=== PATIENT | male | born 1970 | race Caucasian/White ===

== ENCOUNTER 2017-12-24 08:22 | Emergency (ER) | payer MEDICAID, SELFPAY ==
[2017-12-24 08:23] VITALS: BP 120/83; PULSE 66; RESP 15; TEMP 36.6; O2SAT 95; BMI 34.0
[2017-12-24] MEDS: Ondansetron ODT 4 MG Tablet 8 MG PO (08:57)
--- NOTE | 2017-12-24 09:06 | ED.DCSUM_ITS ---
History of Present Illness Chief Complaint: Dizziness Informant: Patient Onset: Today Context: Sudden Onset - upon waking up this AM about 2 hrs ago Timing: Continuous Quality: off-balance, movement, lightheaded Location: head Current Severity: Moderate Maximum Severity: Severe Worsened by: trying to walk Relieved by: remaining still Associated Symptoms: nausea. feeling high. Narrative: Patient has been feeling dizzy this morning, this resulted in a couple of minor falls, 1 of them was sliding down the steps in his house, carpeted, sustaining an abrasion to his back but he denies any injury. When walking he feels ataxic/ off balance. He has had no alcohol or drugs, but he took his first dose of the new medication at 2:00 this morning, terazosin, which is Dr. hurtado added to his list of medications for better blood pressure control. He is already on amlodipine 5 mg once daily. He has been compliant with his medications. He denies taking any over the counter medications recently. He denies headache, ear pain, tinnitus, chest discomfort, palpitations, dyspnea, peripheral neurologic symptoms focally. He arrives by ambulance because he feels awful and states there is no way I could have driven. - Past Medical History (1) HTN (hypertension) Status: Chronic (2) GERD (gastroesophageal reflux disease) Status: Chronic (3) Migraine Status: Chronic (4) Panic disorder Status: Chronic Past Medical History - Allergies and Home Meds Allergies/Adverse Reactions: Allergies amoxicillin [Amoxicillin] Allergy (Verified 09/01/17 11:30) Rash naproxen Adverse Reaction (Verified 09/01/17 11:30) Upset Stomach triamox Allergy (Uncoded 09/01/17 11:30) Rash Home Medications: Home Medications Medication Instructions Recorded Amlodipine [Norvasc] 10 mg PO DAILY 10/28/16 Clonazepam [Klonopin] 0.5 mg PO BID 10/28/16 Famotidine [Pepcid] 40 mg PO DAILY 10/28/16 Gabapentin [Neurontin] 300 mg PO BID 10/28/16 Etodolac [Lodine] 300 mg PO TIDCM #30 capsule 02/19/17 Chlorthalidone 25 mg PO DAILY 12/24/17 Terazosin HCl 10 mg PO QHS 12/24/17 Venlafaxine HCl [Effexor] 25 mg PO TID 12/24/17 Primary Care Physician: Curtis Mcdonald MD [Primary Care Provider] - Surgical History: cholecystectomy, - - Hernia repair, reports heart cath in the past Lives: Spouse/ Significant Other Smoking Status: Never smoker - chews tobacco regularly - Family History Maternal Family History: Reports: Cancer Paternal Family History: Reports: Hypertension Review of Systems General: Denies: Chills, Fever, Sweats Eyes: Denies: Visual changes - bilaterally, Diplopia ENT: Denies: Bilateral ear pain, Sore throat Cardiovascular: Denies: Chest pain, Palpitations Respiratory: Denies: Dyspnea, Cough, Dyspnea on exertion, Orthopnea Gastrointestinal: Reports: Nausea. Denies: Abdominal pain, Vomiting, Diarrhea, Melena, Hematochezia Genitourinary: Denies: Dysuria, Hematuria, Frequency Musculoskeletal: Reports: Back pain - chronic, no different. Denies: Neck pain , Extremity Pain Skin: Reports: Abrasions. Denies: Rash Neurological: Denies: Headache, Weakness, Numbness Psych: Reports: Anxiety. Denies: Suicidal thoughts, Suicidal ideations Endocrine: Denies: Polyuria, Polydipsia Hematologic: Denies: Easy bruising, Easy bleeding Allergy: Denies: Swelling of the mouth, Swelling of the tongue Physical Exam Vital Signs/Narrative: Vital Signs Temp Pulse Resp BP Pulse Ox 12/24/17 08:23 97.8 F 66 15 120/83 H 95 General: Well nourished, Well developed Head: Normocephalic, Atraumatic Eyes: Perrl, EOMI - w/o nystagmus ENT: Moist mucous membranes, No rhinorrhea, TM's clear. Negative for: Sinus tenderness Neck: Supple, Nontender, No lymphadenopathy Cardiovascular: Regular rate, Regular rhythm, No murmurs. Negative for: Tachycardia Respiratory: No distress, CTA bilaterally, Chest nontender Abdomen: Soft, Nontender, Nondistended, Normal bowel sounds Back: Nontender, - - superficial NT abrasion. Negative for: Spinal tenderness Extremities: Nontender, No edema Skin: Normal color, No rash Neurological: Alert, Oriented x3, Cranial nerves II-XII grossly intact, Normal Strength, Normal Sensation, Normal DTR, - - nml HTS and FTN bilaterally. Psychological: Normal affect Diagnostic/Tx/Re-eval - Rhythm Strip Rhythm Strip: Sinus Rhythm Rate: 65 Ectopy: None - Medical Decision Making Patient stood up for orthostatics and became hypotensive and near syncopal, I think all of this is related to the new alpha vanita that he just took the first dose of, as this is a common side effect. He was given half a liter of IV fluid but still had symptoms and orthostasis so he was given another liter. He is feeling better now. He was advised to go home and rest, he states he does not wish to retake any of this medication, so he was advised to follow-up with his doctor as they may need to sort out which medication for him. ED Disposition - Plan for ED Patient: Disposition: Home or Assisted Living Chief Complaint: Dizziness Diagnosis: Orthostatic hypotension, Medication adverse effect Instructions: ED Hypotension Orthostatic Referrals: Curtis Mcdonald MD [Primary Care Provider] - 1-2 Days if not improving
[2017-12-24] MEDS: Meclizine HCl 25 MG Tablet PO (09:13)
[2017-12-24 09:56] VITALS: BP 104/71; BP 72/47; BP 97/66; PULSE 63; PULSE 67; PULSE 79
[2017-12-24] MEDS: 0.9% Normal Saline 1,000 ML 999 ML IV (10:35)
[2017-12-24 11:20] VITALS: BP 118/80; BP 134/76; BP 148/83; PULSE 105; PULSE 69; PULSE 82
[2017-12-24] MEDS: 0.9% Normal Saline 1,000 ML 500 ML IV (11:58)
[2017-12-24 13:31] VITALS: BP 152/90; PULSE 75; RESP 16
[2017-12-24 14:01] VITALS: BP 150/85; PULSE 74; RESP 16
== END 2017-12-24 14:14 | disposition home or self-care (01) ==
PROVIDERS: Emergency Provider Emergency Medicine; Family Provider Internal Medicine; PCP Internal Medicine
DX: I95.2 Hypotension due to drugs (principal); T44.6X5A Adverse effect of alpha-adrenoreceptor antagonists, initial encounter; Y92.9 Unspecified place or not applicable; I10 Essential (primary) hypertension; G43.909 Migraine, unspecified, not intractable, without status migrainosus; F41.0 Panic disorder [episodic paroxysmal anxiety]; K21.9 Gastro-esophageal reflux disease without esophagitis; Z72.0 Tobacco use
CPT/HCPCS: 99285; J7030; A4216

== ENCOUNTER 2018-04-09 11:06 | Emergency (ER) | payer MEDICAID, SELFPAY ==
[2018-04-09 11:07] VITALS: BP 166/102; PULSE 65; RESP 16; TEMP 36.3; O2SAT 99; BMI 33.3
[2018-04-09 12:02] VITALS: BP 159/104
--- NOTE | 2018-04-09 12:15 | ED.VISSUMM ---
- ER Visit Summary Date of Service: 04/09/18 Chief Complaint: Acute on chronic hypertension and out of his blood pressure medication History of Present Illness: The patient is a 47 M history of chronic hypertension. Patient is on Norvasc generic 5 mg a day. States he has been out of his medication and his blood pressure is elevated. He denies any headache or chest pain. He denies other symptoms. Physical Examination: Vital signs initial blood pressure is 159/104. It has been repeated it is 149/101. He does not look septic toxic in any acute distress. H EENT exam unremarkable. Pupils round reactive light. Extra motions are intact. No facial droop. Normal speech. Neck nontender. Lungs clear to auscultation bilaterally. Heart regular rhythm no murmur rate about 65. Abdomen soft nontender normal bowel sounds no peritoneal signs. Moving all 4 extremities. Neurovascular intact. 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 Dorsi plantar flexion intact. Fingertip to nose within normal limits. Neurologic exam normal. NIH is 0. Test Results: None Emergency Department Course and Treatment: Acute on chronic hypertension. Patient be treated with 1 p.o. Norvasc 5 mg. Discharged home with a new prescription. Instructed to follow-up with his doctor. Treatment Plan: Blood pressure medications as prescribed and follow-up with his primary. Disposition: Discharge Impression: Acute on chronic hypertension Out of blood pressure medication This note was generated with [employer] dictation software. It may contain incorrect words, spelling, and punctuation that were not noted in review of the chart prior to signing ED Disposition - Plan for ED Patient: Chief Complaint: Hypertension Referrals: Curtis Mcdonald MD [Primary Care Provider] -
--- NOTE | 2018-04-09 12:17 | ED.DEP ---
ED Disposition - Plan for ED Patient: Disposition: Home or Assisted Living Chief Complaint: Hypertension Instructions: ED HTN Established Prescriptions: Amlodipine Besylate [Norvasc] 5 mg PO DAILY #30 tab Referrals: Curtis Mcdonald MD [Primary Care Provider] - 1-2 Weeks Additional Instructions: One blood pressure medication daily. Log your blood pressures twice daily. Follow-up with primary care physician in 1-2 weeks to ensure that medications are controlling her pressure appropriately.
[2018-04-09] MEDS: amLODIPine 5 MG Tablet PO (12:31)
[2018-04-09 12:38] VITALS: BP 178/110; PULSE 61; RESP 16; O2SAT 99
== END 2018-04-09 12:43 | disposition home or self-care (01) ==
PROVIDERS: Emergency Provider Emergency Medicine; Family Provider Internal Medicine; PCP Internal Medicine
DX: I10 Essential (primary) hypertension (principal); K21.9 Gastro-esophageal reflux disease without esophagitis; E78.00 Pure hypercholesterolemia, unspecified
CPT/HCPCS: 99283

== ENCOUNTER 2018-05-19 14:19 | Emergency (ER) | payer MEDICAID, SELFPAY ==
[2018-05-19 14:20] VITALS: BP 158/84; PULSE 62; RESP 18; TEMP 36.6; O2SAT 99; BMI 31.6
[2018-05-19] MEDS: Ibuprofen 600 MG Tablet PO (15:44)
[2018-05-19] MEDS: predniSONE 20 MG Tablet 60 MG PO (15:45)
[2018-05-19 15:47] LABS: Bacteria 0 SEEN /hpf (None Seen); Mucous, Urine 0 SEEN /hpf (<or=2+); Squamous Epithelial Cells - UA 0 SEEN /hpf (0-5)
[2018-05-19 15:51] LABS: Color, Urine Yellow (Yellow); Glucose, Dipstick Normal (Normal); Ketone-Dipstick Negative (Negative); Leukocyte Esterase-Dipstick Negative /ul (Negative); Nitrite-Dipstick Negative (Negative); Occult Blood-Urine 10 /ul (Negative); Protein-Dipstick 15 mg/dl (Negative); Specific Gravity, Urine 1.025 (1.002-1.030); Urine Bilirubin Dipstick 6 mg/dL (Negative); Urine Clarity Clear (Clear); Urine Urobilinogen Normal (Normal)
[2018-05-19 15:58] LABS: Red Blood Cells-Urine 0-5 SEEN /hpf (0-5); White Blood Cells 0-5 SEEN /hpf (0-5)
--- NOTE | 2018-05-19 16:25 | ED.DCSUM_ITS ---
- ER Visit Summary Date of Service: 05/19/18 Chief Complaint: Back pain History of Present Illness: The patient is a 47 M with a 2-week history of right-sided lower back pain. It does radiate somewhat into the right thigh. He denies urinary symptoms. He denies any known injury. Pain is worse with moveme nt. Physical Examination: Vital signs unremarkable. Patient sleeping comfortably but easily awakens I enter the room. Head neck examination normal. Heart is regular rate and rhythm. Lung sounds are clear. Abdomen is soft nontender. No palpable masses are noted. Back examination reveals reproducible tenderness in the right lumbar paraspinal muscles and in the right CVA region. Lower extremity examination reveals normal strength and sensation. He has 1+ bilateral patellar reflexes. He has strong distal pulses. Test Results: Urinalysis is obtained and unremarkable. Emergency Department Course and Treatment: Patient is given ibuprofen, Flexeril, and prednisone. On repeat evaluation he is sleeping comfortably. He will be given prescriptions for the same. Treatment Plan: [] Disposition: Discharge Impression: 1. Right lumbar paraspinal strain This note was generated with [employer] dictation software. It may contain incorrect words, spelling, and punctuation that were not noted in review of the chart prior to signing ED Disposition - Plan for ED Patient: Chief Complaint: Back Referrals: Curtis Mcdonald MD [Primary Care Provider] -
--- NOTE | 2018-05-19 16:25 | ED.DEP ---
ED Disposition - Plan for ED Patient: Disposition: Home or Assisted Living Chief Complaint: Back Instructions: ED Sprain Strain Lumbar Prescriptions: Ibuprofen 600 mg PO TID PRN PRN #14 tablet PRN Reason: Pain Prednisone [Deltasone] 40 mg PO DAILY #10 tablet Cyclobenzaprine [Flexeril] 10 mg PO TID PRN #20 tablet PRN Reason: Muscle Spasm Referrals: Curtis Mcdonald MD [Primary Care Provider] - 1-2 Weeks
[2018-05-19 16:37] VITALS: BP 161/100; PULSE 68; RESP 17
== END 2018-05-19 16:38 | disposition home or self-care (01) ==
PROVIDERS: Emergency Provider Emergency Medicine; Family Provider Internal Medicine; PCP Internal Medicine
DX: S39.012A Strain of muscle, fascia and tendon of lower back, initial encounter (principal); X58.XXXA Exposure to other specified factors, initial encounter; Y93.9 Activity, unspecified; Y92.89 Other specified places as the place of occurrence of the external cause; Y99.9 Unspecified external cause status; I10 Essential (primary) hypertension; J44.9 Chronic obstructive pulmonary disease, unspecified; G47.33 Obstructive sleep apnea (adult) (pediatric); K21.9 Gastro-esophageal reflux disease without esophagitis; Z87.891 Personal history of nicotine dependence
CPT/HCPCS: 81001; 99284

== ENCOUNTER 2018-10-02 16:29 | Emergency (ER) | payer MEDICAID, SELFPAY ==
[2018-10-02 16:29] VITALS: BP 185/112; PULSE 79; RESP 16; TEMP 36.7; O2SAT 98; BMI 32.3
--- NOTE | 2018-10-02 17:02 | ED.DCSUM_ITS ---
- ER Visit Summary Date of Service: 10/02/18 Chief Complaint: Possible spider bite History of Present Illness: The patient is a 48 M who presents with possible spider bite to his left chest that occurred 3 days ago. Patient noted some redness and swelling to the area. Patient denies any fevers or chills. Patient denies any discharge or drainage. Patient states the pain is getting worse. Patient describes pain as sharp. Patient denies any paresthesias or weakness. Patient denies any shortness of breath. Patient denies any nausea or vomiting. Physical Examination: Vital signs are stable except for an elevated blood pressure of 185/112. Patient is in no acute distress. Patient is afebrile. Skin is warm dry. There is erythema and warmth over the left breast area near the lateral aspect of the nipple. There is no fluctuance. There is no discharge or drainage. Heart was regular rate and rhythm. Lungs are clear and equal bilaterally. Abdomen is soft and nontender. Patient is somewhat anxious on exam. Hernial nerves II through XII are intact. There are no focal motor or sensory deficits noted. The remaining physical exam is within normal limits. Emergency Department Course and Treatment: The area is not amenable to incision and drainage at this time. Patient was instructed to use warm compresses to the area. Patient was given a prescription for clindamycin. Patient was instructed to follow-up with his primary care physician in 5-7 days. Patient understood and was agreeable with the plan. All questions were answered. Disposition: Discharge home Impression: Cellulitis left chest This note was generated with [employer] dictation software. It may contain incorrect words, spelling, and punctuation that were not noted in review of the chart prior to signing ED Disposition - Plan for ED Patient: Disposition: Home or Assisted Living Diagnosis: Cellulitis of chest wall Instructions: ED Infec Skin Cellulitis Prescriptions: Clindamycin HCl [Cleocin] 300 mg PO Q6H #40 capsule Referrals: Curtis Mcdonald MD [Primary Care Provider] -
[2018-10-02 17:16] VITALS: BP 172/111; PULSE 66; RESP 16; O2SAT 98
== END 2018-10-02 17:21 | disposition home or self-care (01) ==
PROVIDERS: Emergency Provider Emergency Medicine; Family Provider Internal Medicine; PCP Internal Medicine
DX: L03.313 Cellulitis of chest wall (principal); K21.9 Gastro-esophageal reflux disease without esophagitis; I10 Essential (primary) hypertension; J44.9 Chronic obstructive pulmonary disease, unspecified; Z72.0 Tobacco use
CPT/HCPCS: 99282

== ENCOUNTER 2021-08-26 16:01 | Emergency (ER) | payer MEDICAID, SELFPAY ==
[2021-08-26 16:02] VITALS: BP 129/88; PULSE 94; RESP 14; TEMP 36.9; O2SAT 100; BMI 34.1
--- NOTE | 2021-08-26 16:55 | EX.ED.VIS.HA ---
HPI History of Present Illness Chief Complaint: Headache Informant: patient Onset/Context/Timing Onset: Days (2) Context: Gradual Timing: Continuous Quality -Headache: Positive for Similar Prior Headaches, Dull and Tightness Location: Generalized Worsened by: Nothing Relieved by: Laying down Associated Symptoms/Injury Associated Symptoms: Positive for Nausea and Sore Throat; Negative for Fever, Vomiting, Sinus Pressure, Numbness, Tingling, Preceding Aura, Visual Changes, Blurred Vision, Photophobia and Visual Loss Narrative Narrative: Patient presents with headache that began 2 days ago. Patient states that it came on gradually. Patient states it feels similar to prior migraine headaches. Patient describes it as a tightness and dull aching. Patient states it is generalized across his head. Patient states that has been constant. Patient states that he gets somewhat better when he lays down. Patient states nothing makes it worse. Patient admits to some nausea but denies any vomiting. Patient admits to a sore throat but denies any sinus pressure. Patient admits to a slight cough. Patient states he was diagnosed with COVID-19 approximately 2-1/2 weeks ago and his symptoms from this are improving. [facility] Medical History Anxiety Depressed Migraines Home Medications amlodipine 5 mg PO DAILY 10/28/16 [History Last Taken 12/23/17] clonazepam 0.5 mg PO BID PRN 10/28/16 [History Last Taken 12/23/17] famotidine [Pepcid] 40 mg PO DAILY 10/28/16 [History Last Taken 12/23/17] gabapentin [Neurontin] 300 mg PO BID 10/28/16 [History Last Taken 12/23/17] chlorthalidone 25 mg PO DAILY 12/24/17 [History Last Taken 12/23/17] terazosin 10 mg PO QHS 12/24/17 [History Last Taken 12/24/17] venlafaxine 25 mg PO TID 12/24/17 [History Last Taken 12/23/17] amlodipine 5 mg PO DAILY #30 tab 04/09/18 [Rx Last Taken Unknown] etodolac 500 mg PO TIDCM 04/09/18 [History Last Taken Unknown] ibuprofen 600 mg PO TID PRN PRN #14 tab 05/19/18 [Rx Last Taken Unknown] Allergy/AdvReac Type Severity Reaction Status Date / Time amoxicillin [Amoxicillin] Allergy Rash Verified 08/26/21 16:03 naproxen AdvReac Upset Verified 08/26/21 16:03 Stomach triamox Allergy Rash Uncoded 08/26/21 16:03 Social History Smoking Status: Never smoker ROS ROS ED Constitutional Constitutional ED: Denies chills or fever(s) Eyes Eyes: Denies blurry vision or change in vision ENT ENT ED: Reports sore throat; Denies rhinorrhea Cardiovascular Cardiovascular: Denies chest pain or palpitations Respiratory/Chest Respiratory/Chest: Reports cough; Denies dyspnea Gastrointestinal Gastrointestinal: Reports nausea; Denies vomiting Genitourinary Genitourinary ED: Denies dysuria or hematuria Musculoskeletal Musculoskeletal: Denies back pain or neck pain Integumentary Denies abscess or rash Neurologic Neurologic: Reports headache(s); Denies weakness Allergic/Immunologic Allergic/Immunologic ED: Denies mouth swelling or urticaria EXAM Physical Exam Const Vital Signs: 08/26/21 16:02 Temperature 98.4 F Temperature Source Temporal Pulse Rate 94 Respiratory Rate 14 Blood Pressure 129/88 H Blood Pressure Mean 101 Pulse Ox 100 Oxygen Delivery Method Room Air Positive well nourished and well developed General Appearance ED: well developed HEENT Reports moist mucous membranes Neck supple and no JVD Resp normal respiratory effort and clear to auscultation bilaterally Cardio regular rate, regular rhythm and no murmurs GI normal to inspection, nondistended, normoactive bowel sounds and non-tender Palpation: soft Extremity normal to inspection General Extremety ED: Negative for edema or tenderness General Extremity: Negative for edema Neuro oriented x3, CN's II-XII intact bilaterally and no sensory deficits noted Sensorium / Orientation: alert Motor Exam: strength 5/5 throughout Psych mental status grossly normal Skin no rashes or lesions noted MDM MDM MDM Narrative Medical decision making narrative: Patient was given IV fluids, Reglan, and Benadryl. Patient is feeling better on reevaluation. Patient wants to go home. Patient was instructed to rest in a dark quiet room. Patient was instructed to follow-up with his primary care physician in 5 to 7 days. Patient understood and was agreeable with the plan. All questions were answered. Discharge Plan Triage Chief Complaint: Headache ED Provider: Josse Winslow Dx/Rx/DC Orders Clinical Impression: Migraine Instructions: ED, Migraine (Classical) Prescriptions: No Action famotidine [Pepcid] 40 MG tablet 40 mg PO DAILY RF: 0 clonazepam 0.5 MG tablet 0.5 mg PO BID PRN (Reason: Anxiety) RF: 0 amlodipine 10 MG tablet 5 mg PO DAILY RF: 0 gabapentin [Neurontin] 300 MG capsule 300 mg PO BID RF: 0 venlafaxine 25 MG tablet 25 mg PO TID RF: 0 chlorthalidone 25 MG tablet 25 mg PO DAILY RF: 0 terazosin 10 MG capsule 10 mg PO QHS RF: 0 etodolac 300 MG capsule 500 mg PO TIDCM RF: 0 amlodipine 5 MG tablet 5 mg PO DAILY Qty: 30 RF: 0 ibuprofen 600 MG tablet 600 mg PO TID PRN PRN (Reason: Pain) Qty: 14 RF: 0 Primary Care Provider: Curtis Mcdonald Referrals: Curtis Mcdonald MD [Primary Care Provider] - 5-7 Days Disposition Disposition: Home, Self Care
[2021-08-26] MEDS: 0.9% Normal Saline 1,000 ML 999 ML IV (17:12)
[2021-08-26] MEDS: DiphenhydrAMINE 50 MG/ML Syringe 25 MG IV (17:12)
[2021-08-26] MEDS: Metoclopramide 10 MG/2 ML Vial IV (17:13)
[2021-08-26 18:32] VITALS: PULSE 78; RESP 14
== END 2021-08-26 18:32 | disposition home or self-care (01) ==
PROVIDERS: Emergency Provider Emergency Medicine; PCP Internal Medicine; Visit Provider Emergency Medicine
DX: G43.909 Migraine, unspecified, not intractable, without status migrainosus (principal); J02.9 Acute pharyngitis, unspecified; F32.A Depression, unspecified; F41.9 Anxiety disorder, unspecified; Z79.899 Other long term (current) drug therapy; R05.9 Cough, unspecified
CPT/HCPCS: 96361; 96374; 96375; 99283

== ENCOUNTER 2021-12-13 17:17 | Emergency (ER) | payer MEDICAID, SELFPAY ==
[2021-12-13 17:18] VITALS: BP 120/79; PULSE 79; RESP 16; TEMP 35.9; O2SAT 98; BMI 33.3
--- NOTE | 2021-12-13 17:19 | RAD_ITS ---
STUDY: RIGHT HAND X-RAY SERIES--3 VIEWS OF 1730 HOURS ON 12/13/2021 REASON FOR EXAM: T1-year-old male with injury to the right hand. TECHNIQUE: 3 view(s) of the hand. COMPARISON: 11/06/2016, which was normal. FINDINGS: There is no evidence of fractures or dislocations. 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 There is calcification in the navicular-greater multangular wrist joint. There is no evidence of soft tissue abnormalities. RAD/Hand Min 3 Views IMPRESSION: 1. No fractures or dislocations. 2. 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 3. Degenerative calcification in the first intercarpal joint of the wrist. 4. No evidence of soft tissue abnormalities. Electronically Signed: Ralph Person MD at 18:00 EDT ,
--- NOTE | 2021-12-13 17:58 | EDS_ITS ---
HPI History of Present Illness Chief Complaint: Upper Extremity Injury Narrative Narrative: 51-year-old [id number] male presents with pain in his right hand. He states last night the first 3 digits were painful. He tried to sit on them and stretch them out without relief. Today he was holding his cell phone with his right hand and then developed pain in the knuckles of his middle finger. He states if he moves it too much he occasionally gets pain and tingling in the first 3 digits as well. He had carpal tunnel around 5 years ago and had a steroid injection which helped and he has not had pain since. He no longer follows with an orthopedic physician. No history of recent trauma. No fever, chills, infectious symptoms. He does report having previous right wrist fracture and some slight decreased range of motion since that injury. [facility] Medical History Anxiety Depressed Migraines Home Medications amlodipine 5 mg PO DAILY 10/28/16 [History Last Taken 12/23/17] clonazepam 0.5 mg PO BID PRN 10/28/16 [History Last Taken 12/23/17] famotidine [Pepcid] 40 mg PO DAILY 10/28/16 [History Last Taken 12/23/17] gabapentin [Neurontin] 300 mg PO BID 10/28/16 [History Last Taken 12/23/17] chlorthalidone 25 mg PO DAILY 12/24/17 [History Last Taken 12/23/17] terazosin 10 mg PO QHS 12/24/17 [History Last Taken 12/24/17] venlafaxine 25 mg PO TID 12/24/17 [History Last Taken 12/23/17] amlodipine 5 mg PO DAILY #30 tab 04/09/18 [Rx Last Taken Unknown] etodolac 500 mg PO TIDCM 04/09/18 [History Last Taken Unknown] ibuprofen 600 mg PO TID PRN PRN #14 tab 05/19/18 [Rx Last Taken Unknown] naproxen 500 mg PO BID PRN #20 tab 12/13/21 [Rx Last Taken Unknown] Allergy/AdvReac Type Severity Reaction Status Date / Time amoxicillin [Amoxicillin] Allergy Rash Verified 08/26/21 16:03 naproxen AdvReac Upset Verified 08/26/21 16:03 Stomach triamox Allergy Rash Uncoded 08/26/21 16:03 Social History Smoking Status: Never smoker ROS ROS ED ROS Narrative Constitutional: Negative for fever, chills, malaise. Eyes: Negative for visual change. ENT: Negative for sore throat, ear pain, rhinorrhea. CVS: Negative for palpitations, chest pain, syncope. Respiratory: Negative for shortness of breath, cough. GI: Negative for abdominal pain, nausea, vomiting. : Negative for dysuria, hematuria or frequency. Neuro: Positive for paresthesia. Negative for motor dysfunction. Skin: Negative for rash, abscess, or wound. Musc: Positive for right hand pain. No swelling or trauma. Heme: Negative for easy bruising, bleeding, lymphadenopathy. EXAM Physical Exam Narrative Exam Narrative: CONST: Patient sitting in no acute distress. EYES: Normal inspection. NECK: Normal inspection. RESP: No respiratory distress, CTAB. CVS: Regular rate and rhythm, no murmur, no gallop. SKIN: Color normal, no rash, warm, dry, intact. EXTREMITIES: Normal appearance of bilateral upper extremities, full range of motion of right hand and digits with no bony tenderness. Motor and sensation intact in median, ulnar, radial distributions. 2+ radial pulse and capillary refill less than 2 seconds in all digits. He has reproducible tingling/pain with Tinel's sign. NEURO: Oriented x4. PSYCH: Normal affect. Const Vital Signs: 12/13/21 17:18 Temperature 96.7 F L Temperature Source Temporal Pulse Rate 79 Respiratory Rate 16 Blood Pressure 120/79 Blood Pressure Mean 92 Pulse Ox 98 Oxygen Delivery Method Room Air MDM MDM MDM Narrative Medical decision making narrative: Patient presents with atraumatic pain in his right hand especially his middle finger. He reports history of intermittent pain and tingling in the first 3 digits. He appears well nontoxic. Afebrile and vital signs within normal limits. Right upper extremity is normal on inspection with no swelling or overlying skin changes. He has full range of motion and is neurovascularly intact. Based on exam there is no indication for gout or infectious process such as septic arthritis. He did have reproducible pain with Tinel's sign and this is most likely underlying carpal tunnel syndrome he will be prescribed naproxen and given a cock up wrist splint and orthopedic follow-up. He was discharged in stable condition. Diagnoses 1. Right hand pain 2. Carpal tunnel syndrome, right hand Discharge Plan Triage Chief Complaint: Upper Extremity Injury ED Provider: Pat Prieto Dx/Rx/DC Orders Clinical Impression: Acute carpal tunnel syndrome of right wrist Instructions: Carpal Tunnel Syndrome Prevent Prescriptions: New naproxen 500 mg tablet 500 mg PO BID PRN Qty: 20 RF: 0 No Action famotidine [Pepcid] 40 MG tablet 40 mg PO DAILY RF: 0 clonazepam 0.5 MG tablet 0.5 mg PO BID PRN (Reason: Anxiety) RF: 0 amlodipine 10 MG tablet 5 mg PO DAILY RF: 0 gabapentin [Neurontin] 300 MG capsule 300 mg PO BID RF: 0 venlafaxine 25 MG tablet 25 mg PO TID RF: 0 chlorthalidone 25 MG tablet 25 mg PO DAILY RF: 0 terazosin 10 MG capsule 10 mg PO QHS RF: 0 etodolac 300 MG capsule 500 mg PO TIDCM RF: 0 amlodipine 5 MG tablet 5 mg PO DAILY Qty: 30 RF: 0 ibuprofen 600 MG tablet 600 mg PO TID PRN PRN (Reason: Pain) Qty: 14 RF: 0 Primary Care Provider: Curtis Mcdonald Referrals: Jeff Martinez DO [STAFF PHYSICIAN] - (Call the orthopedic doctor for an appointment to evaluate your right hand pain) Curtis Mcdonald MD [Primary Care Provider] - Disposition Disposition: Home, Self Care
== END 2021-12-13 18:32 | disposition home or self-care (01) ==
PROVIDERS: Emergency Provider Physician Assistant; PCP Internal Medicine; Visit Provider Physician Assistant
DX: G56.01 Carpal tunnel syndrome, right upper limb (principal); F32.A Depression, unspecified; F41.9 Anxiety disorder, unspecified
CPT/HCPCS: 73130; 99283

== ENCOUNTER 2022-02-02 16:04 | Emergency (ER) | payer MEDICAID, SELFPAY ==
[2022-02-02 16:05] VITALS: BP 119/85; PULSE 72; RESP 16; TEMP 36.8; O2SAT 99; BMI 31.6
--- NOTE | 2022-02-02 17:05 | EKG12_ITS ---
Test Reason : SOB Blood Pressure : / mmHG Vent. Rate : 062 BPM Atrial Rate : 062 BPM P-R Int : 168 ms QRS Dur : 108 ms QT Int : 426 ms P-R-T Axes : 034 016 037 degrees QTc Int : 432 ms Normal sinus rhythm Normal ECG Confirmed by HEAVEN VANESSA, MAYA ([id number]), assignment editor ASTRID GAMEZ ([id number]) on 02/05/2022 8:18:54 AM Referred By: TOBI Confirmed By:MAYA COLLADO MD
--- NOTE | 2022-02-02 17:06 | EX.ED.DYSGE1 ---
HPI History of Present Illness Chief Complaint: Dizziness Informant: patient Onset/Context/Timing Onset: Yesterday Context: Gradual Onset Current Severity: Mild Maximum Severity: Moderate Narrative Narrative: Genna presents with intermittent dizziness episodes since yesterday. He describes it as a lightheaded sensation. He first noticed it when he was out doing yard work he would feel intermittently lightheaded and states that his vision would seem off with the bright light from the sun. He denies chest pain or palpitations. He states today his arms just feel very heavy and weak. PFSH [facility] Medical History Anxiety Benign essential HTN Depressed GERD (gastroesophageal reflux disease) Migraines Panic disorder Home Medications amlodipine 10 mg tablet 5 mg PO DAILY 10/28/16 [History Last Taken 12/23/17] clonazepam 0.5 mg tablet 0.5 mg PO BID PRN Anxiety 10/28/16 [History Last Taken 12/23/17] gabapentin 300 mg capsule (Neurontin) 300 mg PO BID 10/28/16 [History Last Taken 12/23/17] ibuprofen 600 mg tablet 600 mg PO TID PRN PRN Pain #14 tabs 05/19/18 [Rx Last Taken Unknown] aspirin 325 mg tablet 325 mg PO DAILY 02/02/22 [History Last Taken Unknown] bupropion HCl 150 mg 24 hr tablet, extended release 150 mg PO DAILY 02/02/22 [History Last Taken Unknown] escitalopram oxalate 20 mg tablet 20 mg PO DAILY 02/02/22 [History Last Taken Unknown] hydrochlorothiazide 25 mg tablet 25 mg PO DAILY 02/02/22 [History Last Taken Unknown] losartan 100 mg tablet 100 mg PO DAILY 02/02/22 [History Last Taken Unknown] oxybutynin chloride 10 mg tablet,extended release 24 hr 10 mg PO DAILY 02/02/22 [History Last Taken Unknown] Allergy/AdvReac Type Severity Reaction Status Date / Time amoxicillin [Amoxicillin] Allergy Rash Verified 02/02/22 16:06 naproxen AdvReac Upset Verified 02/02/22 16:06 Stomach triamox Allergy Rash Uncoded 02/02/22 16:06 Social History Smoking Status: Never smoker ROS ROS ED Constitutional Constitutional ED: Denies chills or fever(s) Eyes Eyes: Reports change in vision; Denies discharge from eye(s) ENT ENT ED: Denies discharge from eye(s), rhinorrhea or sore throat Cardiovascular Cardiovascular: Denies chest pain or palpitations Respiratory/Chest Respiratory/Chest: Denies cough or dyspnea Gastrointestinal Gastrointestinal: Denies abdominal pain, diarrhea, nausea or vomiting Genitourinary Genitourinary ED: Denies difficulty urinating or dysuria Musculoskeletal Musculoskeletal: Denies back pain or extremity pain Integumentary Denies Abrasions or rash Neurologic Neurologic: Reports headache(s) and weakness Allergic/Immunologic Allergic/Immunologic ED: Denies lip swelling or urticaria EXAM Physical Exam Const Vital Signs: 02/02/22 16:05 02/02/22 16:37 02/02/22 18:39 Temperature 98.2 F Temperature Source Temporal Pulse Rate 72 81 Respiratory Rate 16 16 Respiratory Effort Normal Respiratory Pattern Normal Blood Pressure 119/85 H 121/79 H Blood Pressure Mean 96 93 Pulse Ox 99 99 Oxygen Delivery Method Room Air 02/02/22 20:23 Temperature Temperature Source Pulse Rate Respiratory Rate 16 Respiratory Effort Respiratory Pattern Blood Pressure Blood Pressure Mean Pulse Ox Oxygen Delivery Method Positive well nourished and well developed General Appearance ED: well developed HEENT Reports normocephalic and head/scalp atraumatic Eyes PERRL and EOMs intact bilaterally Neck supple Chest Wall inspection of chest normal and palpation of chest normal Resp normal respiratory effort and clear to auscultation bilaterally Cardio regular rate and regular rhythm GI normal to inspection, nondistended, normoactive bowel sounds Palpation: soft Back/Spine no CVA tenderness Extremity normal to inspection Neuro oriented x3 and no sensory deficits noted Sensorium / Orientation: alert Motor Exam: strength 5/5 throughout Psych mental status grossly normal Skin no rashes or lesions noted MDM MDM MDM Narrative Medical decision making narrative: Patient was given a liter IV fluid. Lab work, EKG obtained. Lab Data Attestation: I reviewed the patient's lab results. Labs: Laboratory Results - last 24 hr 02/02/22 02/02/22 02/02/22 17:25 17:25 18:00 WBC 3.8 L RBC 4.80 Hgb 15.3 Hct 44.0 MCV 91.7 MCH 31.9 MCHC 34.8 RDW Std Deviation 43.2 RDW Coeff of Mikael 12.8 Plt Count 77 L MPV 12.1 H Immature Gran % (Auto) 0.300 Neut % (Auto) 68.5 Lymph % (Auto) 20.8 Banner % (Auto) 8.0 Eos % (Auto) 1.1 Baso % (Auto) 1.3 H Absolute Neuts (auto) 2.6 Absolute Lymphs (auto) 0.78 L Nucleated RBC % 0 Differential Comment SCANNED Sodium Cancelled 138 Potassium Cancelled 3.3 L Chloride Cancelled 102 Carbon Dioxide Cancelled 29.0 Anion Gap Cancelled 7 BUN Cancelled 25 H Creatinine Cancelled 1.63 H Estim Creat Clear Calc Cancelled 46.64 Est GFR (MDRD) Af Amer Cancelled 58 L Est GFR (MDRD) Non-Af Cancelled 48 L BUN/Creatinine Ratio Cancelled 15.3 Glucose Cancelled 92 Calcium Cancelled 8.5 Total Bilirubin Cancelled 0.60 Direct Bilirubin Cancelled 0.17 AST Cancelled 15 ALT Cancelled 29 Alkaline Phosphatase Cancelled 81 Troponin I High Sens Cancelled 10 Total Protein Cancelled 6.8 Albumin Cancelled 3.6 Globulin Cancelled 3.2 02/02/22 20:15 WBC RBC Hgb Hct MCV MCH MCHC RDW Std Deviation RDW Coeff of Mikael Plt Count MPV Immature Gran % (Auto) Neut % (Auto) Lymph % (Auto) Banner % (Auto) Eos % (Auto) Baso % (Auto) Absolute Neuts (auto) Absolute Lymphs (auto) Nucleated RBC % Differential Comment Sodium Potassium Chloride Carbon Dioxide Anion Gap BUN Creatinine Estim Creat Clear Calc Est GFR (MDRD) Af Amer Est GFR (MDRD) Non-Af BUN/Creatinine Ratio Glucose Calcium Total Bilirubin Direct Bilirubin AST ALT Alkaline Phosphatase Troponin I High Sens 11 Total Protein Albumin Globulin EKG Initial EKG: Attestation: I personally reviewed and interpreted this EKG as follows: Interpretation: Sinus Rhythm (Sinus at 62 with no acute ischemia.) Treatment and Re-Evaluation Narrative: Patient's lab work reveals a low white count at 3.8. In light of this a COVID swab was obtained and is negative. Chemistry studies significant for potassium low at 3.3. This is replaced orally. BUN is 25 and creatinine is 1.63, slightly elevated over his prior lab values. He is given a full liter IV fluid for hydration. Troponin is unremarkable x2. On repeat evaluation patient does feel somewhat improved. He is still complaining of mild headache. He will be given a dose of Toradol which she has done well with in the past and discharged home. Return instructions are provided. Discharge Plan Triage Chief Complaint: Dizziness ED Provider: Adele Roberts Dx/Rx/DC Orders Clinical Impression: Weakness, Dehydration, Hypokalemia, Headache Instructions: ED Dehydration (Adult), ED Weakness (Uncertain Cause) Prescriptions: No Action clonazepam 0.5 MG tablet 0.5 mg PO BID PRN (Reason: Anxiety) amlodipine 10 MG tablet 5 mg PO DAILY gabapentin [Neurontin] 300 MG capsule 300 mg PO BID ibuprofen 600 MG tablet 600 mg PO TID PRN PRN (Reason: Pain) Qty: 14 0RF oxybutynin chloride 10 mg Tablet Extended Release 24hr 10 mg PO DAILY aspirin 325 mg Tablet 325 mg PO DAILY hydrochlorothiazide 25 mg Tablet 25 mg PO DAILY losartan 100 mg Tablet 100 mg PO DAILY escitalopram oxalate 20 mg Tablet 20 mg PO DAILY bupropion HCl 150 mg Tablet Extended Release 24 Hr 150 mg PO DAILY Primary Care Provider: Curtis Mcdonald Referrals: Curtis Mcdonald MD [Primary Care Provider] - 1-2 Weeks Disposition Disposition: Home, Self Care
[2022-02-02] MEDS: 0.9% Normal Saline 1,000 ML 1000 ML IV (17:28)
[2022-02-02 17:40] LABS: Absolute Lymphocyte Count 0.78 X10^3/uL (0.83-4.51); Absolute Neutrophil Count 2.6 X10^3/uL (2.0-7.7); Basophil# 0.05 X10^3/uL; Basophil% 1.3 % (0-1); Eosinophil# 0.04 X10^3/uL; Eosinophils% 1.1 % (0-5); Hemoglobin 15.3 g/dL (13.0-16.5); Lymphocyte # 0.78 X10^3/ul (0.83-4.51); Lymphocyte % 20.8 % (19-41); Mean Corp Hgb Conc 34.8 g/dL (32-36); Mean Corpuscular Hgb 31.9 pg (27.0-32.0); Mean Corpuscular Volume 91.7 fL (80-94); Mean Platelet Vol. 12.1 fl (6.2-12.0); NRBC Flagged by Analyzer 0 % (0-5); Neutrophil # 2.57 X10^3/uL (2.7-7.7); Neutrophil % 68.5 % (47-70); POSITIVE COUNT YES; Platelet Count 77 K/mm3 (150-450); RBC Distribution Width CV 12.8 % (11.6-14.6); RBC Distribution Width SD 43.2 fl (35.1-43.9); White Blood Count 3.8 K/mm3 (4.4-11.0)
[2022-02-02 17:55] LABS: Differential Indicated SCAN CRITERIA MET
[2022-02-02 18:19] LABS: Differential Comment SCANNED
[2022-02-02 18:28] LABS: AST(SGOT) 15 U/L (15-37); Alanine Aminotransfer ALT/SGPT 29 U/L (16-61); Albumin, Serum 3.6 g/dL (3.2-5.0); Alkaline Phosphatase 81 U/L (45-117); Anion Gap 7 (5-15); BUN 25 mg/dL (7-18); BUN/Creat Ratio 15.3 RATIO (10-20); Bilirubin, Direct 0.17 mg/dL (0.00-0.30); Calcium,Total 8.5 mg/dL (8.5-10.1); Chloride 102 mmol/L (98-107); Creatinine, Serum 1.63 mg/dL (0.70-1.30); EST Glomerular Filtration Rate 48 mL/min (>60); Est Glom Filt Rate - Afr Amer 58 mL/min (>60); Estimated Creatinine Clearance 46.64 ml/min; Globulin 3.2 g/dL (2.2-4.2); Glucose 92 mg/dL (74-106); Potassium 3.3 mmol/L (3.5-5.1); Protein, Total 6.8 g/dL (6.4-8.2); Sodium Level 138 mmol/L (136-145); Troponin-I HS (w/2H Reflex) 10 pg/mL (3.0-78.0)
[2022-02-02 18:39] VITALS: BP 121/79; PULSE 81; RESP 16; O2SAT 99
[2022-02-02] MEDS: Potassium Chloride Oral Tablet 20 MEQ 40 MEQ PO (19:45)
[2022-02-02 20:06] LABS: Reflex Troponin-HS? (from REC) Y
[2022-02-02 20:23] VITALS: RESP 16
[2022-02-02 20:53] LABS: Troponin-I HS 11 pg/mL (3.0-78.0)
[2022-02-02] MEDS: Ketorolac 30 MG/ML Syringe IV (21:18)
== END 2022-02-02 21:42 | disposition home or self-care (01) ==
PROVIDERS: Emergency Provider Emergency Medicine; PCP Internal Medicine; Visit Provider Emergency Medicine
DX: E86.0 Dehydration (principal); R51.9 Headache, unspecified; E87.6 Hypokalemia; I10 Essential (primary) hypertension; R42 Dizziness and giddiness; K21.9 Gastro-esophageal reflux disease without esophagitis
CPT/HCPCS: 80048; 80076; 84484; 85025; 87811; 93005; 96361; 96374; 99283; J7030; A4216

== ENCOUNTER 2022-04-14 23:29 | Emergency (ER) | payer MEDICAID, SELFPAY ==
[2022-04-14 23:29] VITALS: BP 149/93; PULSE 73; RESP 17; TEMP 36.6; O2SAT 97; BMI 33.3
--- NOTE | 2022-04-15 00:40 | EDS_ITS ---
HPI History of Present Illness HPI Narrative: Patient presents with injury to his left great toe that occurred today. Patient states he was moving a washer when he accidentally hit his toe with the washing machine. Patient states the bruising has gotten worse. Patient describes his pain as aching. Patient states nothing makes it better and nothing makes it worse. Patient denies any paresthesias or weakness. Patient denies any other injuries. Chief Complaint: Lower Extremity Injury Informant: patient Occured/Mechanism Mechanism/Context: Yes blunt trauma Onset/Context/Timing Onset: Today Context: Sudden Onset Timing: Continuous Quality of Pain: Aching Location: Left great toe Worsened by: Nothing Relieved by: Nothing Associated Symptoms Associated Symptoms: Negative for Parasthesia or Weakness [facility] Medical History (Updated 04/15/22 @ 00:[address] Josse Winslow, DO) Anxiety Benign essential HTN Depressed GERD (gastroesophageal reflux disease) hx of spleen repair Migraines Panic disorder Home Medications amlodipine 10 mg tablet 5 mg PO DAILY 10/28/16 [History Last Taken 12/23/17] clonazepam 0.5 mg tablet 0.5 mg PO BID PRN Anxiety 10/28/16 [History Last Taken 12/23/17] gabapentin 300 mg capsule (Neurontin) 300 mg PO BID 10/28/16 [History Last Taken 12/23/17] ibuprofen 600 mg tablet 600 mg PO TID PRN PRN Pain #14 tabs 05/19/18 [Rx Last Taken Unknown] aspirin 325 mg tablet 325 mg PO DAILY 02/02/22 [History Last Taken Unknown] bupropion HCl 150 mg 24 hr tablet, extended release 150 mg PO DAILY 02/02/22 [History Last Taken Unknown] escitalopram oxalate 20 mg tablet 20 mg PO DAILY 02/02/22 [History Last Taken Unknown] hydrochlorothiazide 25 mg tablet 25 mg PO DAILY 02/02/22 [History Last Taken Unknown] losartan 100 mg tablet 100 mg PO DAILY 02/02/22 [History Last Taken Unknown] oxybutynin chloride 10 mg tablet,extended release 24 hr 10 mg PO DAILY 02/02/22 [History Last Taken Unknown] Allergy/AdvReac Type Severity Reaction Status Date / Time amoxicillin [Amoxicillin] Allergy Rash Verified 04/14/22 23:32 naproxen AdvReac Upset Verified 04/14/22 23:32 Stomach triamox Allergy Rash Uncoded 04/14/22 23:32 Social History Smoking Status: Never smoker ROS ROS ED Constitutional Constitutional ED: Denies chills or fever(s) Eyes Eyes: Denies blurry vision or change in vision ENT ENT ED: Denies rhinorrhea or sore throat Cardiovascular Cardiovascular: Denies chest pain or palpitations Respiratory/Chest Respiratory/Chest: Denies cough or dyspnea Gastrointestinal Gastrointestinal: Denies nausea or vomiting Genitourinary Genitourinary ED: Denies dysuria or hematuria Musculoskeletal Musculoskeletal: Denies back pain or neck pain Integumentary Denies abscess or rash Neurologic Neurologic: Reports headache(s); Denies weakness Allergic/Immunologic Allergic/Immunologic ED: Denies mouth swelling or urticaria EXAM Physical Exam Const Vital Signs: 04/14/22 23:29 Temperature 98 F Temperature Source Temporal Pulse Rate 73 Respiratory Rate 17 Blood Pressure 149/93 H Blood Pressure Mean 111 Pulse Ox 97 Oxygen Delivery Method Room Air Positive well nourished, well developed and obese General Appearance ED: well developed and NAD Nutritional Appearance: obese HEENT Reports moist mucous membranes Neck full ROM Extremity Extremity Narrative: There is tenderness over the distal phalanx of the left great toe. There is some mild edema. There is a subungual hematoma noted. There is no obvious deformity noted. There is good range of motion. Sensation was intact to light touch in all digits. Capillary refill was less than 2 seconds in all digits. Pedal pulses are equal bilaterally. Neuro oriented x3, CN's II-XII intact bilaterally, moves all extremities and no sensory deficits noted Sensorium / Orientation: alert Motor Exam: strength 5/5 throughout Psych mental status grossly normal MDM MDM MDM Narrative Medical decision making narrative: X-rays of the left foot were obtained. There are 3 views. On my interpretation, there is no acute fracture. There is no dislocation. There is no soft tissue swelling. Radiologist also interpreted the x-rays and agrees. The nail plate was trephinated using an 18-gauge needle. Patient had good relief of his pain after this. Patient was advised of his findings. Patient was instructed to ice and elevate the left foot. Patient was instructed to take Tylenol or ibuprofen as needed for pain. Patient was instructed to follow-up with his primary care physician in 5 to 7 days. Patient understood and was agreeable with the plan. All questions were answered. Radiography Diagnostic Testing: Clinical Impression(s) from Imaging Studies Foot X-Ray 04/15/22 00:46 IMPRESSION: Soft tissue swelling at the first toe. Otherwise no acute fracture or subluxation seen. Electronically Signed: Beatrice Pretty MD at 1:26 EDT Reading Location ID and State: [facility] / [place] , Service support , Discharge Plan Triage Chief Complaint: Lower Extremity Injury ED Provider: Josse Winslow Dx/Rx/DC Orders Clinical Impression: Contusion of great toe of left foot, Subungual hematoma of great toe of left foot Instructions: ED Foot Contusion, ED Subungual Hematoma Prescriptions: No Action clonazepam 0.5 MG tablet 0.5 mg PO BID PRN (Reason: Anxiety) amlodipine 10 MG tablet 5 mg PO DAILY gabapentin [Neurontin] 300 MG capsule 300 mg PO BID ibuprofen 600 MG tablet 600 mg PO TID PRN PRN (Reason: Pain) Qty: 14 0RF oxybutynin chloride 10 mg Tablet Extended Release 24hr 10 mg PO DAILY aspirin 325 mg Tablet 325 mg PO DAILY hydrochlorothiazide 25 mg Tablet 25 mg PO DAILY losartan 100 mg Tablet 100 mg PO DAILY escitalopram oxalate 20 mg Tablet 20 mg PO DAILY bupropion HCl 150 mg Tablet Extended Release 24 Hr 150 mg PO DAILY Primary Care Provider: Curtis Mcdonald Referrals: Curtis Mcdonald MD [Primary Care Provider] - 5-7 Days Disposition Disposition: Home, Self Care
--- NOTE | 2022-04-15 00:46 | RAD_ITS ---
STUDY: X-RAY - LEFT FOOT CLINICAL: Male, 51 years old. Injury/Pain TECHNIQUE: 3 view(s) of the foot. COMPARISON: 09/14/2013. FINDINGS: Plantar calcaneal spur and enthesophyte at the Achilles tendon insertion site. Otherwise normal talus, calcaneus, and tarsal bones. Normal visualized subtalar, talonavicular, calcaneocuboid, tarsal and tarsometatarsal articulations. Normal metatarsi. Normal metatarsophalangeal joint of the great toe. Normal tibial and fibular sesamoid bones. Normal interphalangeal joint of the great toe. Normal phalanges of the great toe. Normal second through fifth metatarsophalangeal joints. Normal interphalangeal joints and phalanges of the lesser toes. There is nonspecific soft tissue swelling surrounding the first toe. There is no demonstrated fracture. RAD/Foot min 3 Views IMPRESSION: Soft tissue swelling at the first toe. Otherwise no acute fracture or subluxation seen. Electronically Signed: Beatrice Pretty MD at 1:26 EDT ,
[2022-04-15 02:48] VITALS: BP 145/99; PULSE 64; RESP 18; O2SAT 99
== END 2022-04-15 02:49 | disposition home or self-care (01) ==
PROVIDERS: Emergency Provider Emergency Medicine; PCP Internal Medicine; Visit Provider Emergency Medicine
DX: S90.112A Contusion of left great toe without damage to nail, initial encounter (principal); E66.9 Obesity, unspecified; X58.XXXA Exposure to other specified factors, initial encounter
CPT/HCPCS: 73630; 99283

== ENCOUNTER 2023-02-08 15:20 | Emergency (ER) | payer MEDICAID, SELFPAY ==
[2023-02-08 15:21] VITALS: BP 139/90; PULSE 91; RESP 20; TEMP 36.2; O2SAT 97; BMI 35.5
--- NOTE | 2023-02-08 15:41 | ED.VIS.BACK ---
HPI History of Present Illness Chief Complaint: Back Informant: patient Narrative Narrative: Patient states his back has been hurting on the lower left for about 2 weeks. He did a lot of mowing yards and helped a friend repair a car where he was doing a lot of bending and twisting. He states he did not have a sudden injury but it was sore after that. Its been waxing and waning. But is just not going away. If he lays still its not that bad. But he has trouble bending over. It hurts a lot if he tries to put on his shoes. Twisting hurts. He is eating and drinking fine. No fevers or chills. He has radiation of the pain into the left buttock area but no further at any time. No weakness. He has no urinary symptoms or blood in the urine. He has no difficulty starting or stopping the urine. No difficulty moving his bowels. He has had this sciatica before. He states he would like to get an x-ray because nobody is ever x-rayed his back despite having these problems off and on for a while. He denies any prior surgery. He did see his primary physician 4 days ago and was given tizanidine. He states it makes him sleepy but has not really taken pain away. [facility] Medical History Anxiety Benign essential HTN Depressed GERD (gastroesophageal reflux disease) hx of spleen repair Migraines Panic disorder Home Medications amlodipine 10 mg tablet 5 mg PO DAILY 10/28/16 [History Last Taken 12/23/17] clonazepam 0.5 mg tablet 0.5 mg PO BID PRN Anxiety 10/28/16 [History Last Taken 12/23/17] gabapentin 300 mg capsule (Neurontin) 300 mg PO BID 10/28/16 [History Last Taken 12/23/17] ibuprofen 600 mg tablet 600 mg PO TID PRN PRN Pain #14 tabs 05/19/18 [Rx Last Taken Unknown] aspirin 325 mg tablet 325 mg PO DAILY 02/02/22 [History Last Taken Unknown] bupropion HCl 150 mg 24 hr tablet, extended release 150 mg PO DAILY 02/02/22 [History Last Taken Unknown] escitalopram oxalate 20 mg tablet 20 mg PO DAILY 02/02/22 [History Last Taken Unknown] hydrochlorothiazide 25 mg tablet 25 mg PO DAILY 02/02/22 [History Last Taken Unknown] losartan 100 mg tablet 100 mg PO DAILY 02/02/22 [History Last Taken Unknown] oxybutynin chloride 10 mg tablet,extended release 24 hr 10 mg PO DAILY 02/02/22 [History Last Taken Unknown] hydrocodone-acetaminophen 5-325mg 5mg-325mg 1 tab PO Q6H PRN PRN Pain 3 days #10 TABLETS 02/08/23 [Rx Last Taken Unknown] prednisone 20 mg tablet 60 mg (3 x 20 mg) PO DAILY #15 TABLETS 02/08/23 [Rx Last Taken Unknown] Allergy/AdvReac Type Severity Reaction Status Date / Time amoxicillin [Amoxicillin] Allergy Rash Verified 02/08/23 15:21 naproxen AdvReac Upset Verified 02/08/23 15:21 Stomach triamox Allergy Rash Uncoded 04/14/22 23:32 Social History Smoking Status: Never smoker ROS ROS ED ROS Narrative A complete review of systems was performed and is negative except as documented in the history of present illness. Some specific details below. Constitutional: No recent fevers or chills. No rigors. Patient has not generally felt ill. ENT: No sinus pressure or pain. No nasal discharge. CV: No chest pain, pressure or aching. No palpitations or irregular beats. Patient has not been presyncopal or syncopal. Respiratory: No trouble breathing. No cough. No wheezing. No sputum production. No pain with breathing. GI: No abdominal pain. No nausea vomiting diarrhea. No blood in stool. No loss of bowel control. No history of AAA. He did have a spleen repair at 9 years old after a baseball accident. He did not have a splenectomy. But he has no abdominal symptoms now. : No frequency dysuria or hematuria. No incontinence or urinary retention. Musculoskeletal: No recent impact trauma. No swelling. Please see history of present illness. Skin: No rash. No diaphoresis. No vesicles. Neuro: No weakness or numbness. No pain radiating down leg past the knee although he does have radiation toward the left buttock. No weakness of ambulation. No sensory changes in the extremities. Please see history of present illness also. Endocrine: No polyuria or polydipsia. EXAM Physical Exam Narrative Exam Narrative: CONSTITUTIONAL: Patient is nontoxic in appearance. The patient looks comfortable. Work of breathing looks normal. HEENT: No notable trauma. Mucous membranes moist. No sinus tenderness. No sign of dental infection. EYES: No conjunctival injection. No pallor. NECK: No meningismus. No JVD. CARDIOVASCULAR: Regular rate. Regular rhythm. No notable murmur. No JVD. RESPIRATORY: No respiratory distress. Breathing is unlabored. No wheezes. No rhonchi. No rales. No pain with a deep breath. GASTROINTESTINAL: Not distended. Bowel sounds are normal. No tenderness. No guarding. No rebound. No palpable mass. No bruit. GENITOURINARY: No tenderness over the bladder. No CVA tenderness. MUSCULOSKELETAL: Atraumatic. No peripheral edema. No cord. No tenderness along the deep venous system. No asymmetry. Distal pulses are intact. He also does have reproduction of his pain with palpation in the left low paraspinal and even in the left buttock when pressing and sciatic notch area. Right side is not tender. Midline is nontender. NEUROLOGICAL: Patient is alert and oriented. No focal deficit noted. Sensation is intact. Patient can stand on toes and heels and do squats. Although he is slow getting up off the bed because he states it hurts when he twists or moves. Patellar reflex 2+ bilaterally. Achilles reflex 1+ bilaterally. SKIN: No noted rashes. No diaphoresis. No vesicles noted. No notable pallor. PSYCHIATRIC: Patient is calm. Mood is appropriate. Const Vital Signs: 02/08/23 15:21 Temperature 97.2 F L Temperature Source Temporal Pulse Rate 91 Respiratory Rate 20 H Blood Pressure 139/90 H Blood Pressure Mean 106 Pulse Ox 97 Oxygen Delivery Method Room Air MDM MDM MDM Narrative Medical decision making narrative: My independent interpretation the patient's two-view lumbar spine film shows mild L4-5 retrolisthesis. But it is very mild. He has mild DJD. Final reading showed this but they also noted the increased stool even though he has no symptoms of that. They also showed some questionable widening of the right SI joint. But he has no pain over there. I went back to check the patient. He was resting. I mention getting on steroids. He states that has helped him before. I will also write for a few pain pills. His online prescribing report is negative. We discussed reasons to return and he should follow-up next week with his primary to get recheck Radiography Diagnostic Testing: Clinical Impression(s) from Imaging Studies Lumbar Spine X-Ray 02/08/23 16:04 IMPRESSION: No evidence of lumbar spinal fracture. Grade 1 retrolisthesis L4 on L5. Questionable widening of the right sacroiliac joint. Recommend dedicated sacroiliac joint radiographs. Moderate to severe multilevel degenerative disc disease and spondylosis. Large amount retained stool in the colon. Electronically Signed: Rich Eaton MD at 16:58 EDT , Discharge Plan Triage Chief Complaint: Back ED Provider: Shane Greene Dx/Rx/DC Orders Clinical Impression: Lumbosacral pain Instructions: ED Back Pain (Acute or Chronic) Prescriptions: New hydrocodone-acetaminophen [hydrocodone-acetaminophen] 5-325 mg tablet 1 tab PO Q6H PRN PRN (Reason: Pain) 3 Days Qty: 10 0RF prednisone 20 mg tablet 60 mg PO DAILY Qty: 15 0RF No Action clonazepam 0.5 MG tablet 0.5 mg PO BID PRN (Reason: Anxiety) amlodipine 10 MG tablet 5 mg PO DAILY gabapentin [Neurontin] 300 MG capsule 300 mg PO BID ibuprofen 600 MG tablet 600 mg PO TID PRN PRN (Reason: Pain) Qty: 14 0RF oxybutynin chloride 10 mg Tablet Extended Release 24hr 10 mg PO DAILY aspirin 325 mg Tablet 325 mg PO DAILY hydrochlorothiazide 25 mg Tablet 25 mg PO DAILY losartan 100 mg Tablet 100 mg PO DAILY escitalopram oxalate 20 mg Tablet 20 mg PO DAILY bupropion HCl 150 mg Tablet Extended Release 24 Hr 150 mg PO DAILY Primary Care Provider: Curtis Mcdonald Referrals: Curtis Mcdonald MD [Primary Care Provider] - 3-5 Days if not improving Disposition Disposition: Home, Self Care
--- NOTE | 2023-02-08 16:04 | RAD_ITS ---
INDICATION: Pain EXAMINATION/TECHNIQUE: X-RAY - XR Spine Lumbar 2 or 3 Views COMPARISON: None. FINDINGS: VERTEBRAE: Preserved vertebral body height. No fracture. 2 mm retrolisthesis L4 on L5. Preservation of the normal lumbar lordosis. Moderate to severe multilevel facet arthropathy. DISCS: Moderate to severe multilevel degenerative disc disease and spondylosis. INCLUDED ABDOMEN: Large amount retained stool in the colon. OTHER: Questionable widening of the right sacroiliac joint. RAD/Lumbar Spine 2 or 3 Views IMPRESSION: No evidence of lumbar spinal fracture. Grade 1 retrolisthesis L4 on L5. Questionable widening of the right sacroiliac joint. Recommend dedicated sacroiliac joint radiographs. Moderate to severe multilevel degenerative disc disease and spondylosis. Large amount retained stool in the colon. Electronically Signed: Rich Eaton MD at 16:58 EDT ,
[2023-02-08] MEDS: predniSONE 20 MG Tablet 60 MG PO (17:46)
[2023-02-08] MEDS: HYDROcodone Bitartrate/Apap 5/325 Tablet PO (17:46)
== END 2023-02-08 17:54 | disposition home or self-care (01) ==
PROVIDERS: Emergency Provider Emergency Medicine; PCP Internal Medicine; Visit Provider Emergency Medicine
DX: M54.50 Low back pain, unspecified (principal); I10 Essential (primary) hypertension; F41.9 Anxiety disorder, unspecified; Z79.899 Other long term (current) drug therapy; Z79.82 Long term (current) use of aspirin; F32.A Depression, unspecified; X58.XXXA Exposure to other specified factors, initial encounter
CPT/HCPCS: 72100; 99283

== ENCOUNTER 2023-10-04 20:59 | Emergency (ER) | payer MEDICAID, SELFPAY ==
[2023-10-04 21:00] VITALS: BP 183/105; PULSE 67; RESP 16; TEMP 36.6; O2SAT 98; BMI 35.3
--- NOTE | 2023-10-04 21:20 | EDS_ITS ---
HPI <VICENTA Leon - Last Filed: 10/04/23 21:28> History of Present Illness Chief Complaint: Back Narrative Narrative: 53-year-old male states he was renovating his bathroom and bending and lifting 2 weeks ago and then developed bilateral low back pain. It radiates slightly down the left buttock. He has had pain in the same distribution in the past. He takes Tylenol and ibuprofen occasionally. He has no weakness, saddle anesthesia or paresthesias, or bladder or bowel incontinence. No direct trauma. No back surgical history. FORMERLY [facility], 1928–1983 <VICENTA Leon - Last Filed: 10/04/23 21:28> FORMERLY [facility], [facility]–1983 Medical History Anxiety Benign essential HTN Depressed GERD (gastroesophageal reflux disease) hx of spleen repair Migraines Panic disorder Home Medications amlodipine 10 mg tablet 5 mg PO DAILY 10/28/16 [History Last Taken 12/23/17] clonazepam 0.5 mg tablet 0.5 mg PO BID PRN Anxiety 10/28/16 [History Last Taken 12/23/17] gabapentin 300 mg capsule (Neurontin) 300 mg PO BID 10/28/16 [History Last Taken 12/23/17] ibuprofen 600 mg tablet 600 mg PO TID PRN PRN Pain #14 tabs 05/19/18 [Rx Last Taken Unknown] aspirin 325 mg tablet 325 mg PO DAILY 02/02/22 [History Last Taken Unknown] bupropion HCl 150 mg 24 hr tablet, extended release 150 mg PO DAILY 02/02/22 [History Last Taken Unknown] escitalopram oxalate 20 mg tablet 20 mg PO DAILY 02/02/22 [History Last Taken Unknown] hydrochlorothiazide 25 mg tablet 25 mg PO DAILY 02/02/22 [History Last Taken Unknown] losartan 100 mg tablet 100 mg PO DAILY 02/02/22 [History Last Taken Unknown] oxybutynin chloride 10 mg tablet,extended release 24 hr 10 mg PO DAILY 02/02/22 [History Last Taken Unknown] hydrocodone-acetaminophen 5-325mg 5mg-325mg 1 tab PO Q6H PRN PRN Pain 3 days #10 TABLETS 02/08/23 [Rx Last Taken Unknown] prednisone 20 mg tablet 60 mg (3 x 20 mg) PO DAILY #15 TABLETS 02/08/23 [Rx Last Taken Unknown] prednisone 20 mg tablet 40 mg (2 x 20 mg) PO DAILY 5 days #10 tabs 10/04/23 [Rx Last Taken Unknown] Allergy/AdvReac Type Severity Reaction Status Date / Time amoxicillin [Amoxicillin] Allergy Rash Verified 10/04/23 21:01 naproxen AdvReac Upset Verified 10/04/23 21:01 Stomach Social History Smoking Status: Never smoker ROS <VICENTA Leon - Last Filed: 10/04/23 21:28> ROS ED ROS Narrative Constitutional: Negative for fever, chills, malaise. GI: Negative for abdominal pain, nausea, vomiting. : Negative for dysuria, hematuria. Neuro: Negative for motor/sensory dysfunction. EXAM <VICENTA Leon - Last Filed: 10/04/23 21:28> Physical Exam Narrative Exam Narrative: CONST: Patient sitting in no acute distress. EYES: Normal inspection. NECK: Normal inspection. RESP: No respiratory distress, CTAB. CVS: Regular rate and rhythm, no murmur, no gallop. Back: Normal inspection, diffuse tenderness over lumbar muscles, no step-offs or crepitus. SKIN: Color normal, no rash, warm, dry, intact. EXTREMITIES: Normal appearance, no pedal edema. 5/5 bilateral hip strength, knee flexion/extension, and DF/PF. Normal sensation, 2+ DP pulses. NEURO: Oriented x4. PSYCH: Normal affect. Const Vital Signs: 10/04/23 21:00 10/04/23 21:39 Temperature 98 F 98.0 F Temperature Source Temporal Pulse Rate 67 78 Respiratory Rate 16 18 Blood Pressure 183/105 H 162/90 H Blood Pressure Mean 131 114 Pulse Ox 98 97 Oxygen Delivery Method Room Air <Dr. Josse Winslow DO - Last Filed: 10/04/23 23:37> Physical Exam Const Vital Signs: 10/04/23 21:00 10/04/23 21:39 Temperature 98 F 98.0 F Temperature Source Temporal Pulse Rate 67 78 Respiratory Rate 16 18 Blood Pressure 183/105 H 162/90 H Blood Pressure Mean 131 114 Pulse Ox 98 97 Oxygen Delivery Method Room Air MDM <VICENTA Leon - Last Filed: 10/04/23 21:28> MDM MDM Narrative Medical decision making narrative: History gathered from: Patient, family member Differential: Musculoskeletal pain, sciatica, lumbar radiculopathy Patient has 2 weeks of bilateral lumbar pain after bending and lifting. This is a flareup of a chronic issue. He has diffuse tenderness over lumbar muscles. Lower extremity MSPs and reflexes are intact. I reviewed his lumbar spine films from February 2023 which showed mild arthritis and mild L4-L5 retrolisthesis. He does not need repeat films since there is no history of trauma. He has no red flag signs concerning for cauda equina syndrome or epidural abscess and no indication for MRI. He was treated with IM Toradol and prednisone burst and advised to follow-up with his PCP. Since this is a chronic issue that flares up he should consider physical therapy. Patient was discharged in stable condition. <Dr. Josse Winslow, DO - Last Filed: 10/04/23 23:37> [facility] Treatment and Re-Evaluation Narrative: I have personally performed a face to face assessment of the patient and have reviewed the BANDAR Note. I performed a substantive portion of the visit including all aspects of the following. My pino findings include: History: Patient presents with back pain that has been getting progressively worse over the past 2 to 3 weeks. Patient states it is gradually getting worse. Patient states the pain is radiating into his left buttock and left leg. Patient states he has a history of sciatica and this feels similar to that. Patient describes his pain as aching. Patient states it is worse with certain movements. Patient denies any paresthesias or weakness. Patient denies any bowel or bladder changes. Patient denies any saddle anesthesia. Exam: Vital signs are stable except for an elevated blood pressure of 183/105. Patient is afebrile. Patient is in no acute distress. Musculoskeletal exam reveals tenderness and spasm of the lumbar paraspinal muscles. There is tenderness over the left sciatic notch. There is no bony crepitance or step-off noted. Range of motion was slightly limited in all motions of the lumbar spine secondary to pain. Straight leg raises were negative bilaterally. Strength is 5/5 bilaterally in the lower extremities. There are no sensory deficits noted. Deep tendon reflexes are 2/4 bilaterally in the lower extremities. Medical Decision Making: Patient was advised that this is most likely muscular strain and sciatica. I do not believe that x-rays are necessary at this time. Patient was given injection of Toradol here. Patient was given a dose of prednisone here. Patient was given a prescription for a short course of prednisone. Patient was instructed use ice to the area. Patient was instructed to follow-up with his primary care physician in 5 to 7 days. Patient understood and was agreeable with the plan. All questions were answered. Discharge Plan Triage Chief Complaint: Back ED Midlevel Provider: Pat Prieto ED Provider: Josse Winslow Dx/Rx/DC Orders Clinical Impression: Lumbosacral pain Instructions: Back Basics: A Healthy Spine Prescriptions: New prednisone 20 mg tablet 40 mg PO DAILY 5 Days Qty: 10 0RF No Action clonazepam 0.5 MG tablet 0.5 mg PO BID PRN (Reason: Anxiety) amlodipine 10 MG tablet 5 mg PO DAILY gabapentin [Neurontin] 300 MG capsule 300 mg PO BID ibuprofen 600 MG tablet 600 mg PO TID PRN PRN (Reason: Pain) Qty: 14 0RF oxybutynin chloride 10 mg Tablet Extended Release 24hr 10 mg PO DAILY aspirin 325 mg Tablet 325 mg PO DAILY hydrochlorothiazide 25 mg Tablet 25 mg PO DAILY losartan 100 mg Tablet 100 mg PO DAILY escitalopram oxalate 20 mg Tablet 20 mg PO DAILY bupropion HCl 150 mg Tablet Extended Release 24 Hr 150 mg PO DAILY hydrocodone-acetaminophen [hydrocodone-acetaminophen] 5-325 mg tablet 1 tab PO Q6H PRN PRN (Reason: Pain) 3 Days Qty: 10 0RF prednisone 20 mg tablet 60 mg PO DAILY Qty: 15 0RF Primary Care Provider: Curtis Mcdonald Referrals: Curtis Mcdonald MD [Primary Care Provider] - Activity Restrictions/Additional Instructions: Take Tylenol or ibuprofen for pain and the prescribed prednisone. Follow-up with your PCP. Disposition Disposition: Home, Self Care Discharge Date/Time: 10/04/23 21:41
[2023-10-04] MEDS: predniSONE 20 MG Tablet 40 MG PO (21:23)
[2023-10-04] MEDS: Ketorolac 30 MG/ML Syringe IM (21:24)
--- OUTSIDE RECORDS SUMMARY | 2023-10-04 21:32 | XMS RPT_ITS | CCD ---
Author Name Unknown Address [address] [place] [address] Organization [facility] Care Team Providers Care Solar Project Coordination Specialist Name Role Phone Curtis Epps MD Primary Care Provider CURTIS EPPS Referring Unavailable CURTIS EPPS Primary Care Unavailable CURTIS EPPS Attending Unavailable CURTIS EPPS Primary Care Unavailable Allergies Allergy Classification Reported Allergen(s) Allergy Type Date of Onset Reaction(s) Facility (10 sources) Amitriptyline; Translations: [AMITRIPTYLINE] Drug Allergy 04-20-2013 Mental Status Change [facility] (10 sources) Amoxicillin; Translations: [AMOXICILLIN] Drug Allergy 06-19-2005 Rash [facility] Work Phone: (10 sources) Bupivacaine; Translations: [BUPIVACAINE (PF)] Drug Allergy 09-01-2013 Mental Status Change [facility] (10 sources) Citalopram; Translations: [CITALOPRAM HYDROBROMIDE] Drug Allergy 09-04-2016 Intolerance [facility] Work Phone: (10 sources) Lisinopril; Translations: [LISINOPRIL] Drug Allergy 06-27-2015 Mental Status Change [facility] (10 sources) Metoprolol; Translations: [METOPROLOL TARTRATE] Drug Allergy 11-26-2014 Intolerance [facility] (10 sources) Naproxen; Translations: [NAPROXEN] Drug Allergy 06-24-2005 GI Upset [facility] Medications Current Medications Medication Drug Class(es) Dates Sig (Normalized) Sig (Original) clonazePAM 0.5 mg oral tablet (11 sources) Benzodiazepine Start: 05-21-2021 End: 02-03-2023 clonazePAM (KLONOPIN) 0.5 mg tablet Indications: Generalized anxiety disorder Take 1 tablet by mouth twice daily as needed for anxiety (not more than 30 tablets per month) for up to 180 days. 30 tablet 2 08/07/2022 02/03/2023 Active Completed/Discontinued Medications Medication Drug Class(es) Dates Sig (Normalized) Sig (Original) acetaminophen 325 mg oral capsule (8 sources) take 1 capsule by mouth twice daily acetaminophen 325 mg cap Take 325 mg by mouth twice daily. 0 Active Problems Active Problems Problem Classification Problem Date Documented Da te Episodic/Chronic Anxiety disorders (11 sources) Generalized anxiety disorder; Translations: [Generalized anxiety disorder] Onset: 02-04-2014 09-04-2016 Chronic Chronic kidney disease (8 sources) Chronic kidney disease stage 3A ; Translations: [Stage 3a chronic kidney disease (HCC)] Onset: 11-26-2021 Chronic Coagulation and hemorrhagic disorders (11 sources) Secondary thrombocytopenia; Translations: [Other secondary thrombocytopenia] Onset: 04-04-2017 04-04-2017 Episodic Coronary atherosclerosis and other heart disease (10 sources) Coronary atherosclerosis; Translations: [Atherosclerotic heart disease of [place] coronary artery without angina pectoris] Onset: 07-05-2012 Chronic Disorders of lipid metabolism (9 sources) Dyslipidemia; Translations: [Hyperlipidemia, unspecified] Onset: 11-26-2021 11-26-2021 Chronic Essential hypertension (14 sources) Hypertensive disorder; Translations: [Essential (primary) hypertension] Onset: 06-11-2011 Chronic Mood disorders (11 sources) Depressive disorder; Translations: [Depressive disorder] Onset: 05-13-2019 05-13-2019 Chronic Nonspecific chest pain (1 source) Chest pain; Translations: [Chest pain, unspecified] Episodic Other aftercare (2 sources) Patient encounter status; Translations: [Other long-term (current) drug therapy] Episodic Other nutritional; endocrine; and metabolic disorders (11 sources) Obese class I; Translations: [Obesity, unspecified] Onset: 01-01-2006 Chronic Residual codes; unclassified (11 sources) Obstructive sleep apnea syndrome; Translations: [Obstructive sleep apnea (adult) (pediatric)] Onset: 12-31-2015 11-07-2016 Chronic Past or Other Problems Problem Classification Problem Date Documented Date Episodic/Chronic Conditions associated with dizziness or vertigo (6 sources) Orthostatic hypotension; Translations: [Dizziness and giddiness] Onset: 02-06-2022 Episodic Genitourinary symptoms and ill-defined conditions (10 sources) Increased frequency of urination; Translations: [Frequency of micturition] Onset: 05-15-2018 11-10-2018 Episodic Residual codes; unclassified (9 sources) History of clinical finding in subject; Translations: [Personal history of other specified conditions] Onset: 02-04-2014 06-12-2018 Episodic Residual codes; unclassified (9 sources) Noncompliance with medication regimen; Translations: [Patient's other noncompliance with medication regimen] Onset: 07-25-2015 07-25-2015 Episodic Residual codes; unclassified (9 sources) Edema; Translations: [Edema, unspecified] Onset: 12-01-2017 12-01-2017 Episodic Spondylosis; intervertebral disc disorders; other back problems (9 sources) Low back pain; Translations: [Lumbago] Onset: 11-20-2012 11-20-2012 Episodic Results Test Name Value Interpretation Reference Range Facil ity Vital Signs Date Time Vital Sign Value Performing Clinician Faci lity 08-07-2022 13:49-0500 Diastolic blood pressure 81 mm[Hg] Carlene Older OFFICE ADMINISTRATIVE ASSISTANT.INSTRUMENT ADJUSTER Work Phone: [facility] 08-07-2022 13:49-0500 Heart rate 62 /min Carlene Older OFFICE ADMINISTRATIVE ASSISTANT.INSTRUMENT ADJUSTER Work Phone: [facility] 08-07-2022 13:49-0500 Systolic blood pressure 128 mm[Hg] Carlene Older OFFICE ADMINISTRATIVE ASSISTANT.INSTRUMENT ADJUSTER Work Phone: [facility] 08-07-2022 13:19-0500 Body weight 92.53 kg Carlene Older OFFICE ADMINISTRATIVE ASSISTANT.INSTRUMENT ADJUSTER Work Phone: [facility] 08-07-2022 13:19-0500 Respiratory rate 14 /min Carlene Older OFFICE ADMINISTRATIVE ASSISTANT.INSTRUMENT ADJUSTER Work Phone: [facility] 02-06-2022 15:25-0400 Body weight 88.91 kg Carlene Older OFFICE ADMINISTRATIVE ASSISTANT.INSTRUMENT ADJUSTER Work Phone: [facility] 02-06-2022 15:25-0400 Diastolic blood pressure 84 mm[Hg] Carlene Older OFFICE ADMINISTRATIVE ASSISTANT.INSTRUMENT ADJUSTER Work Phone: [facility] 02-06-2022 15:25-0400 Heart rate 78 /min Carlene Older OFFICE ADMINISTRATIVE ASSISTANT.INSTRUMENT ADJUSTER Work Phone: [facility] 02-06-2022 15:25-0400 Respiratory rate 14 /min Carlene Older OFFICE ADMINISTRATIVE ASSISTANT.INSTRUMENT ADJUSTER Work Phone: [facility] 02-06-2022 15:25-0400 Systolic blood pressure 124 mm[Hg] Carlene Older OFFICE ADMINISTRATIVE ASSISTANT.INSTRUMENT ADJUSTER Work Phone: [facility] 11-21-2021 16:30-0400 Diastolic blood pressure 97 mm[Hg] Carlene Older OFFICE ADMINISTRATIVE ASSISTANT.INSTRUMENT ADJUSTER Work Phone: [facility] 11-21-2021 16:30-0400 Systolic blood pressure 174 mm[Hg] Carlene Older OFFICE ADMINISTRATIVE ASSISTANT.INSTRUMENT ADJUSTER Work Phone: [facility] 11-21-2021 16:03-0400 Body weight 90.72 kg Carlene Older OFFICE ADMINISTRATIVE ASSISTANT.INSTRUMENT ADJUSTER Work Phone: [facility] 11-21-2021 16:03-0400 Heart rate 77 /min Carlene Older OFFICE ADMINISTRATIVE ASSISTANT.INSTRUMENT ADJUSTER Work Phone: [facility] 11-21-2021 16:03-0400 Respiratory rate 18 /min Carlene Older OFFICE ADMINISTRATIVE ASSISTANT.INSTRUMENT ADJUSTER Work Phone: [facility] 11-21-2021 16:03-0400 SaO2% (BldA) [Mass fraction] 97 % Carlene Older OFFICE ADMINISTRATIVE ASSISTANT.INSTRUMENT ADJUSTER Work Phone: [facility] Encounters Encounter Date Encounter Type Care Provider Facility Start: 02-05-2023 End: 02-06-2023 ambulatory CURTIS EPPS Facility:[facility] Start: 08-07-2022 End: 08-07-2022 Patient encounter procedure Carlene Older OFFICE ADMINISTRATIVE ASSISTANT.INSTRUMENT ADJUSTER Work Phone: [facility] Plan of Treatment Date Care Activity Detail Author Start: 11-21-2026 LIPID SCREEN LIPID SCREEN [facility] Start: 09-28-2025 LIPID SCREEN LIPID SCREEN [facility] Start: 02-06-2025 DIABETES SCREEN DIABETES SCREEN [facility] Start: 11-21-2024 DIABETES SCREEN DIABETES SCREEN [facility] Start: 09-28-2023 DIABETES SCREEN DIABETES SCREEN [facility] Start: 08-07-2023 ANNUAL PCP TEAM RN SOCIAL SERVICES DREAD DISEASE VISIT ANNUAL PCP TEAM CHRONIC DISEASE VISIT [facility] Start: 08-07-2023 HEPATITIS B (1 of 3 - 3-dose series) HEPATITIS B (1 of 3 - 3-dose series) [facility] Immunizations Immunization Date Immunization Notes Care Provider Fa chuck 02-07-2009 tetanus toxoid, redu nola diphtheria toxoid, and acellular pertussis vaccine, adsorbed Curtis Epps MD Work Phone: [facility] Work Phone: Payers Date Payer Category Payer Medicaid [id number] 2017 Medicaid [facility] [employer] [id number] 2017-Present [phone] [address] [place] [address] Medicaid [id number] 2017 Medicaid [facility] [employer] [id number] 2017-Present [phone] [address] [place] [address] Medicaid [id number] Social History Date Type Detail Facility Start: 09-04-2016 End: 08-07-2022 Tobacco smoking status NHIS Never smoked tobacco [facility] Start: 09-04-2016 End: 08-07-2022 Tobacco use and exposure User of smokeless tobacco [facility] History of tobacco use Chews Tobacco [facility] Start: 08-23-2021 End: 08-07-2022 Alcohol intake Current drinker of alcohol (finding) [facility] Start: 03-21-2020 History SDOH Alcohol Frequency 2 [facility] Start: 03-21-2020 History SDOH Alcohol Std Drinks 1 [facility] Start: 1970 Sex Assigned At Not on file C [facility] Start: 02-06-2022 History SDOH Alcohol Comment rarely [facility] Start: 01-27-2022 End: 02-06-2022 Exposure to SARS-CoV-2 (event) Not sure [facility] Medical Equipment Procedure Code Equipment Code Equipment Origin al Text Equipment Identifier Dates [id number] Implant - [id number] Start: 08-24-2013 Clinical Notes 04-04-2017 to 02-05-2023 Carlene Older, OFFICE ADMINISTRATIVE ASSISTANT.INSTRUMENT ADJUSTER - 08/07/2022 1:26 PM ESTTelephone Encounter - Pallavi Olivera CANDY MAKER - 05/07/2022 5:07 PM EDTTelephone Encounter - Pallavi Olivera CANDY MAKER - 05/07/2022 5:06 PM EDT Note Date & Type Note Facility 02-05-2023 Note HNO ID: [id number] Author: Curtis Epps MD Service: ? Author Type: Physician Type: Progress Notes Filed: 02/05/2023 4:13 PM Note Text: This note was created using Cyanogen. Subjective Feliciano Dai is a 52 year old male. He was moving today and flared up his lower back pain. He was hesitant to take ibuprofen due to CKD. He had no new concerns. His hobby was [employer]. He mentioned he had chronic IBS with postprandial diarrhea. He declined colonoscopy. He was not using a CPAP. He had no concerns about his sleep. Review of Systems Constitutional: Negative for appetite change, fever and unexpected weight change. Respiratory: Negative for cough, chest tightness and shortness of breath. Cardiovascular: Negative for chest pain, palpitations and leg swelling. Gastrointestinal: Positive for diarrhea. Negative for abdominal pain, blood in stool, constipation, nausea and vomiting. Genitourinary: Negative for dysuria. Musculoskeletal: Positive for back pain. Neurological: Positive for light-headedness. Negative for headaches. Psychiatric/Behavioral: Positive for dysphoric mood. The patient is nervous/anxious. ACTIVE PROBLEM LIST Obesity, Class I, Bmi 30-34.9 Hypertension Coronary Atherosclerosis Lumbago Generalized Anxiety Disorder History of Learning Disability Noncompliance With Medication Regimen Mk On Cpap Thrombocytopenia, Secondary Edema Urinary Frequency Depressive Disorder Dyslipidemia Stage 3a Chronic Kidney Disease (Hcc) Orthostatic Lightheadedness Social History Tobacco Use Smoking status: Never Smokeless tobacco: Current Types: Chew Vaping Use Vaping Use: Never used Substance Use Topics Alcohol use: Yes Comment: rarely Drug use: No Current Outpatient Medications Medication Sig acetaminophen 325 mg cap Take 325 mg by mouth twice daily. ibuprofen (MOTRIN) 800 mg tablet Take 1 tablet by mouth every 8 hours as needed for pain. Take with food. Aspirin 81 mg ORAL Tab Take 1 tablet by mouth once daily. Take with food. atorvastatin (LIPITOR) 10 mg tablet Take 1 tablet by mouth daily at bedtime. For cholesterol. oxybutynin ER (DITROPAN XL) 10 mg 24 hr tablet Take 1 tablet by mouth once daily. amLODIPine (NORVASC) 10 mg tablet Take 1 tablet by mouth once daily. losartan (COZAAR) 100 mg tablet Take 1 tablet by mouth once daily. escitalopram oxalate (LEXAPRO) 20 mg tablet Take 1 tablet by mouth once daily. buPROPion XL (WELLBUTRIN XL) 150 mg 24 hr tablet Take 1 tablet by mouth once daily. hydroCHLOROthiazide 25 mg tablet Take 1 tablet by mouth once daily. clonazePAM (KLONOPIN) 0.5 mg tablet Take 1 tablet by mouth twice daily as needed for anxiety (not more than 30 tablets per month) for up to 180 days. tiZANidine (ZANAFLEX) 4 mg tablet Take 1 tablet by mouth every 8 hours as needed (back pain.) for up to 5 days. No current facility-administered medications for this visit. Objective BP 120/72 (BP Site: Left Arm, BP Position: Sitting) Pulse 72 Resp 18 Wt 96.2 kg (212 lb) BMI (P) 36.16 kg/m? Physical Exam Constitutional: General: He is not in acute distress. Eyes: Conjunctiva/sclera: Conjunctivae normal. Cardiovascular: Rate and Rhythm: Normal rate and regular rhythm. Heart sounds: No murmur heard. No gallop. Pulmonary: Breath sounds: Normal breath sounds. No wheezing or rales. Abdominal: Palpations: Abdomen is soft. There is no mass. Tenderness: There is no abdominal tenderness. Musculoskeletal: Lumbar back: Spasms and tenderness present. No bony tenderness. Decreased range of motion. Negative right straight leg raise test and negative left straight leg raise test. Right lower leg: No edema. Left lower leg: No edema. Neurological: General: No focal deficit present. Mental Status: He is alert. Gait: Gait normal. Psychiatric: Attention and Perception: Attention normal. Mood and Affect: Mood is anxious. Speech: Speech is rapid and pressured. Behavior: Behavior is hyperactive. Assessment and Plan 1. Chronic bilateral low back pain without sciatica - ICD9: 724.2, 338.29, ICD10: M54.50, G89.29 (primary diagnosis) Acute exacerbation. - TIZANIDINE 4 MG TABLET. Short term. Discussed medication dosage, usage, goals of therapy, and side effects. 2. Generalized anxiety disorder - ICD9: 300.02, ICD10: F41.1 Controlled. - ESCITALOPRAM 20 MG TABLET - BUPROPION XL 150 MG TAB - CLONAZEPAM 0.5 MG TABLET 3. Depressive disorder - ICD9: 311, ICD10: F32.A Controlled. - BUPROPION XL 150 MG TAB 4. Atherosclerosis of coronary artery of [place] heart without angina pectoris, unspecified vessel or lesion type - ICD9: 414.01, ICD10: I25.10 Reviewed. Continue ASA 81 mg daily. 5. Orthostatic lightheadedness - ICD9: 780.4, ICD10: R42 Chronic, stable. 6. Dyslipidemia - ICD9: 272.4, ICD10: E78.5 - Control undetermined, due for labs - Continue current medications - Discussed need (more content not included)... [facility] 08-07-2022 History of Present illness Narrative CC: Patient presents with: FOLLOW UP MEDICATIONS HPI Feliciano Dai is a 51 year old male who presents today for above. Hypertension Medication changes:No Taking all medications as prescribed: Yes Side effects: No Home BP's: No Denies: headache, chest pain, palpitations, dyspnea and peripheral edema. Last 3 Encounter BP Readings: Date: BP: 08/07/2022 128/81 02/06/2022 124/84 11/21/2021 174/97[bp true[ MK on CPAP Does not consistently wear CPAP, unsure why. No changes in settings. Denies issues with mask. Denies snoring, un-refreshed sleep, insomnia, excessive daytime drowsiness. Thrombocytopenia, secondary Denies any unusual bleeding. Generalized anxiety disorder Treated with Wellbutrin and Lexapro. Feels medications are working well. Still needs to take Klonopin occasionally, never more than once in a day. REVIEW OF SYSTEMS See HPI PAST MEDICAL HISTORY Diagnosis Date Anxiety Benign neoplasm of duodenum, jejunum, and ileum Bilateral carpal tunnel syndrome 01/21/2012 Calculus of gallbladder without mention of cholecystitis or obstruction 08/24/13 Carpal tunnel syndrome Cholecystitis with cholelithiasis 08/30/2013 Coronary atherosclerosis 07/05/2012 Depression with anxiety 05/13/2019 Duodenitis without mention of hemorrhage 07/14/14 Dyslipidemia 11/26/2021 Dysphagia, unspecified(787.20) Esophagitis, unspecified Generalized anxiety disorder 02/04/2014 GERD (gastroesophageal reflux disease) History of learning disability 02/04/2014 [facility], Dr. Mosquera. 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 Unspecified essential hypertension Essential hypertension Unspecified spleen injury with open wound into cavity 9 yrs. old Urinary frequency 05/15/2018 PAST SURGICAL HISTORY Procedure Laterality Date EGD TRANSORAL BIOPSY SINGLE/MULTIPLE 10/23/10 ESOPHAGOGASTRODUODENOSCOPY TRANSORAL DIAGNOSTIC 07/14/[address] 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 For cholesterol. oxybutynin ER (DITROPAN XL) 10 mg 24 hr tablet Take 1 tablet by mouth once daily. amLODIPine (NORVASC) 10 mg tablet Take 1 tablet by mouth once daily. losartan (COZAAR) 100 mg tablet Take 1 tablet by mouth once daily. escitalopram oxalate (LEXAPRO) 20 mg tablet Take 1 tablet by mouth once daily. buPROPion XL (WELLBUTRIN XL) 150 mg 24 hr tablet Take 1 tablet by mouth once daily. hydroCHLOROthiazide (HYDRODIURIL, ESIDRIX) 25 mg tablet Take 1 tablet by mouth every other day. acetaminophen 325 mg cap Take 325 mg by mouth twice daily. clonazePAM (KLONOPIN) 0.5 mg tablet Take 1 tablet by mouth twice daily as needed for anxiety (not more than 30 tablets per month) for up to 180 days. ibuprofen (MOTRIN) 800 mg tablet Take 1 tablet by mouth every 8 hours as needed for pain. Take with food. CPAP Initiate Auto PAP @ 5/20 cm of water with humidification. Heated humidity. Mask (per patient preference) optional chin strap (if indicated) , filters, tubing, humidifier and lifetime supplies. Aspirin 81 mg ORAL Tab Take 1 tablet by mouth once daily. Take with food. FAMILY HISTORY Problem Relation Age of Onset Headache Mother age 80 Cancer Mother unknown kind Hypertension Father Heart Father CABG No Known Problems Brother No Known Problems Brother Cancer Paternal Grandfather colon Social History Tobacco Use Smoking status: Never Smokeless tobacco: Current Types: Chew Vaping Use Vaping Use: Never used Substance Use Topics Alcohol use: Yes Comment: rarely Drug use: No PHYSICAL EXAM BP 134/90 Pulse 64 Resp 14 Wt 92.5 kg (204 lb) BMI (P) 34.80 kg/m General Appearance: well appearing, in no acute distress, alert Lungs: Lungs clear to auscultation. No wheezing, rhonchi, rales. Heart: RRR without murmur, gallop, or rubs. No ectopy Health maintenance reviewed with patient: HEPATITIS B(1 of 3 - 3-dose series) Never done COLORECTAL CANCER SCREENING Never done DTAP,TDAP,TD(2 - Td or Tdap) due on 02/07/2019 SHINGRIX VACCINE(1 of 2) Never done BP CONTROLLED (<130/80) due on 03/21/2021 INFLUENZA(1) due on 04/11/2022 COVID-19 VACCINE(1) due on 02/06/2023 LDL CHOLESTEROL due on 11/21/2022 HEMOGLOBIN/HEMATOCRIT due on 11/21/2022 ANNUAL PCP TEAM CHRONIC DISEASE VISIT due on 02/06/2023 SERUM CREATININE due on 02/06/2023 DIABETES SCREEN due on 02/06/2025 LIPID SCREEN due on 11/21/2026 HEPATITIS C SCREENING Completed HIV SCREENING Completed DATA REVIEWED: Most recent labs ASSESSMENT/PLAN: 1. Primary hypertension - ICD9: 401.9, ICD10: I10 (primary diagnosis) - good control - Continue current medication(s) - Recommended regular aerobic exercise. - Recommend home blood pressure monitoring, to bring results in on next visit - Goal of BP <130/80 - COMP METABOLIC PANEL - CBC 2. Generalized anxiety disorder - ICD9: 300.02, ICD10: F41.1 Stable - ESCITALOPRAM 20 MG TABLET - BUPROPION XL 150 MG TAB - CLONAZEPAM 0.5 MG TABLET 3. MK on CPAP - ICD9: 327.23, V46.8, ICD10: G47.33, Z99.89 Inconsistent use of CPAP. Reviewed importance of wearing nightly and risk of complications from untreated sleep apnea. 4. Depressive disorder - ICD9: 311, ICD10: F32.A Stable - BUPROPION XL 150 MG TAB 5. Thrombocytopenia, secondary - ICD9: 287.49, ICD10: D69.59 Stable 6. Colon cancer screening - ICD9: V76.51, ICD10: Z12.11 - COLOGUARD Prescription instructions reviewed with patient as applicable. Potential red flag symptoms discussed with the patient. Reviewed appropriate action plan to take if red flag symptoms occur. Patient agreeable to treatment plan. Carlene Herrmann APRN.CNP documented in this encounter [facility] 05-07-2022 Miscellaneous Notes Patient notified of below results/recommendation, verbalized understanding. Pallavi Olivera LPN ----- Message from Carlene Herrmann APRN.CNP sent at 05/07/2022 2:17 PM EDT ----- Please let the patient know his stress test was normal. If he is still experiencing chest pain recommend following up with gold cutter Carlene Herrmann APRN.CNP documented in this encounter [facility] 04-30-2022 Miscellaneous Notes Call to pt to review below instructions. LVM to call office. You are scheduled for a stress test on 05/06/22. This stress test will appear as 3 appointments on your schedule. You may get multiple reminder calls, but please arrive at the earliest scheduled appointment. *NOTHING BY MOUTH 4 HOURS prior to this test. (you may have sips of water) *NO CAFFEINE FOR 24 HOURS PRIOR TO TESTING (including TEA even decaf, COFFEE- even decaf, CHOCOLATE, ORTIZ- even decaf) *Do NOT take MEDICATIONS CONTAINING CAFFEINE/XANTHINE for 24 HOURS prior to testing: Theophylline, Trental, Excedrin, Anacin, Goody Powders, No Doz, Vivarin, Midol, Diurex, Fiorinal, Fioricet, Esgic (butalbital) *Do NOT take Calcium Channel Blockers 24 HOURS prior to test: *Do NOT take Beta blockers 24 HOURS prior to test UNLESS your doctor tells you otherwise: Bisoprolol (Zebeta, ZIAC), Metoprolol (Lopressor, Toprol, Lopressor HCT), Nadolol ( Corgard, Corizide), Nebivolol (Bystolic), Pindolol (Visken), Propranolol (Inderal, Inderide), Carvedilol (Coreg, Coreg CR), Labetalol (Trandate) Atenolol (Tenormin, Tenoretic) Acebutolol (Sectral). Medications on your list you should hold for 24 HOURS: Losartan, Amlodipine *Do NOT use the following medications 48 HOURS prior to this test: Viagra(Sildenafil citrate), Cialis(Tadalafil), Vardenafil (Levitra, Stanyx), Avanfil (Stendra). *Do not take any of these meds prior to test unless provider directs you otherwise; Nitroglycerine (ex:Deponit, Nitrostat) Isosorbide (ex:Isordil, Sorbitrate,Imdur,Ismo). *All other medications may be taken as you normally would. *Guidelines for Diabetics: If you take insulin to control your blood sugar, ask you physician what amount you should take the day of the test. If you take pills to control blood sugar, on the day of the test, do NOT take them until AFTER the test. *FAILURE TO FOLLOW THESE INSTRUCTIONS WILL RESULT IN HAVING TO RESCHEDULE THE TEST. *Please wear comfortable clothes with a short-sleeved shirt and comfortable walking shoes. *If you use an inhaler, bring it along with you just in case *THIS TEST MAY TAKE UP TO 3 HOURS TO COMPLETE. Please check in on the first floor at Radiology: [address]; [place] [address] * If you need to cancel or reschedule this test or have any questions regarding this test, please call [phone]. documented in this encounter [facility] 02-12-2022 Miscellaneous Notes Patient notified, verbalized understanding and nurse visit scheduled. Advised to have labs done in 3 weeks as well. ----- Message from Curtis Epps MD sent at 02/12/2022 10:11 AM EDT ----- CKD worse. Stress hydration. Take hydrochlorothiazide 25 mg every other day. BP true with non fasting BMP in 3 weeks. documented in this encounter [facility] 02-06-2022 History of Present illness Narrative CC: Patient presents with: Recheck: 2 months Dizziness: during postition changes HPI Feliciano Dai is a 51 year old male who presents today for blood pressure follow-up. He was last seen for this two months ago, BP was above goal but improved and no medication changes were made. Taking HCTZ and Losartan as prescribed. He reports orthostatic lightheadedness, occurring only when he stands up too quickly or bends over. This has been ongoing for years. He went to the ER for this on 02/02. EKG revealed sinus rhythm. Potassium 3.3 which was replaced orally. BUN 25 and Creat 1.63, given one liter IV fluids. Troponin x 2 negative. Given a dose of Toradol for mild GAMA. Symptoms improved after treatment. He also reports chronic chest pain, unclear when it first started. Location: substernal Quality: tightness Radiates: none Pain is triggered/aggravated by: sometimes with activity but can occur at rest as well Associated symptoms are palpitations, mild SOB. Denies: radiation of pain, diaphoresis, numbness, tingling, nausea/vomiting, releived by rest. Patient's cardiac risk factors are hypertension, male, obesity, sedentary life style, family history of heart disease, hyperlipidemia. Last EKG was in ER as mentioned above Stress test history: none REVIEW OF SYSTEMS General: no fevers, no chills, no night sweats, no change in energy and no significant changes in weight Respiratory: no cough, no wheezing, no shortness of breath, no hemoptysis Cardiovascular: no swelling and no decrease in exercise tolerance GI: No heartburn or reflux symptoms PAST MEDICAL HISTORY Diagnosis Date Anxiety Benign neoplasm of duodenum, jejunum, and ileum Bilateral carpal tunnel syndrome 01/21/2012 Calculus of gallbladder without mention of cholecystitis or obstruction 08/24/13 Carpal tunnel syndrome Cholecystitis with cholelithiasis 08/30/2013 Coronary atherosclerosis 07/05/2012 Depression with anxiety 05/13/2019 Duodenitis without mention of hemorrhage 07/14/14 Dyslipidemia 11/26/2021 Dysphagia, unspecified(787.20) Esophagitis, unspecified Generalized anxiety disorder 02/04/2014 GERD (gastroesophageal reflux disease) History of learning disability 02/04/2014 [facility], Dr. Mosquera. 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 Unspecified essential hypertension Essential hypertension Unspecified spleen injury with open wound into cavity 9 yrs. old Urinary frequency 05/15/2018 PAST SURGICAL HISTORY Procedure Laterality Date EGD TRANSORAL BIOPSY SINGLE/MULTIPLE 10/23/10 ESOPHAGOGASTRODUODENOSCOPY TRANSORAL DIAGNOSTIC 07/14/[address] [facility] LAPAROSCOPY SURG CHOLECYSTECTOMY 08/24/13 LEFT HEART CATH,PERCUTANEOUS 12/02/2011 PAST SURGICAL HISTORY OF 1980 REPAIR OF RUPTURED SPLEEN AGE 9 RPR UMBILICAL HRNA 5 YRS/> REDUCIBLE 08/24/13 ALLERGIES Naprosyn [Naproxen], Amoxicillin, Amitriptyline, Bupivacaine (Pf), Celexa [Citalopram Hydrobromide], Lisinopril, and Metoprolol Tartrate MEDICATIONS oxybutynin ER (DITROPAN XL) 10 mg 24 hr tablet Take by mouth. amLODIPine (NORVASC) 10 mg tablet Take 1 tablet by mouth once daily. hydroCHLOROthiazide (HYDRODIURIL, ESIDRIX) 25 mg tablet Take 1 tablet by mouth once daily. clonazePAM (KLONOPIN) 0.5 mg tablet Take 1 tablet by mouth twice daily as needed for anxiety (not more than 30 tablets per month) for up to 180 days. losartan (COZAAR) 100 mg tablet Take 1 tablet by mouth once daily. escitalopram oxalate (LEXAPRO) 20 mg tablet Take 1 tablet by mouth once daily. buPROPion XL (WELLBUTRIN XL) 150 mg 24 hr tablet Take 1 tablet by mouth once daily. Aspirin 81 mg ORAL Tab Take 1 tablet by mouth once daily. Take with food. atorvastatin (LIPITOR) 10 mg tablet Take 1 tablet by mouth daily at bedtime. For cholesterol. acetaminophen (TYLENOL) 325 mg cap Take 325 mg by mouth twice daily. ibuprofen (MOTRIN) 800 mg tablet Take 1 tablet by mouth every 8 hours as needed for pain. Take with food. CPAP Initiate Auto PAP @ 5/20 cm of water with humidification. Heated humidity. Mask (per patient preference) optional chin strap (if indicated) , filters, tubing, humidifier and lifetime supplies. FAMILY HISTORY Problem Relation Age of Onset Headache Mother age 80 Cancer Mother unknown kind Hypertension Father No Known Problems Brother No Known Problems Brother Cancer Paternal Grandfather colon Social History Tobacco Use Smoking status: Never Smoker Smokeless tobacco: Current User Types: Chew Vaping Use Vaping Use: Never used Substance Use Topics Alcohol use: Yes Drug use: No PHYSICAL EXAM BP 124/84 Pulse 78 Resp 14 Wt 88.9 kg (196 lb) BMI (P) 33.43 kg/m General Appearance: well appearing, in no acute distress, alert Pysch: mood and affect broad and appropriate Lungs: Lungs clear to auscultation. No wheezing, rhonchi, rales. Heart: RRR without murmur, gallop, or rubs. No ectopy Health maintenance reviewed with patient: COVID-19 VACCINE(1) Never done COLORECTAL CANCER SCREENING Never done DTAP,TDAP,TD(2 - Td or Tdap) due on 02/07/2019 SHINGRIX VACCINE(1 of 2) Never done BP CONTROLLED (<130/80) due on 03/21/2021 INFLUENZA(Season Ended) due on 04/11/2022 LDL CHOLESTEROL due on 11/21/2022 SERUM CREATININE due on 11/21/2022 ANNUAL PCP TEAM CHRONIC DISEASE VISIT due on 12/05/2022 DIABETES SCREEN due on 11/21/2024 LIPID SCREEN due on 11/21/2026 HEPATITIS C SCREENING Completed HIV SCREENING Completed DATA REVIEWED: Outside chart from [facility] ER reviewed. ASSESSMENT/PLAN: 1. Chest pain, unspecified type - ICD9: 786.50, ICD10: R07.9 (primary diagnosis) Chest pain of unclear etiology, patient with significant risk factor(s) of family history of early coronary heart disease, Hypertension and Hyperlipidemia - EKG in ER 02/02, normal sinus rhythm further evaluation with: - NM CARDIAC PERF STRESS/EXERCISE - INSERT IV ([place]) - IV DISCONTINUE 2. Orthostatic lightheadedness - ICD9: 780.4, ICD10: R42 Medication side effect. Patient encouraged to change position slowly, avoid bending over, stay hydrated, consider wearing compression socks 3. Primary hypertension - ICD9: 401.9, ICD10: I10 - good control - Continue current medication(s) - Recommended regular aerobic exercise. - Recommend home blood pressure monitoring, to bring results in on next visit - Goal of BP <130/80 4. Dyslipidemia - ICD9: 272.4, ICD10: E78.5 - newly diagnosed - Continue current medication. 5. Urinary frequency - ICD9: 788.41, ICD10: R35.0 chronic Ditropan as prescribed Prescription instructions reviewed with patient as applicable. Potential red flag symptoms discussed with the patient. Reviewed appropriate action plan to take if red flag symptoms occur. Patient agreeable to treatment plan. Carlene Herrmann APRN.CNP documented in this encounter [facility] 12-05-2021 Miscellaneous Notes BP Mario Serial, Digital BP Readings, Taken 2 Minutes Apart, Average Readings: 136/91 Pulse: 66 Reason for blood pressure check - Last BP elevated Patient is: Taking medication as prescribed Yes Took medication today Yes If no, date medication last taken n/a Experiencing side effects Yes c/o dizziness when standing Recommendations Continue taking medications as prescribed, Follow recommended diet instructions and Continue recommended activity Follow-up Yes Pt has been identified by name and birthdate: Yes Allergies reviewed: Yes Latex allergy: no. Medication - prescribed and OTC reviewed and updated: Yes Do you need any prescription refills prior to your next visit: No Health Maintenance: Reviewed and up to date documented in this encounter [facility] 12-03-2021 Miscellaneous Notes Patient has appt 02/06 and will come in week before for lab. And lab appt Please schedule 2 month follow up Patient notified of results and provider's instructions. Patient verbalizes understanding. Pt is willing to start cholesterol medicine. Please file order for labs,medicine. Then we can arrange appt in 2 months. Kendy Lance LPN ----- Message from Curtis Epps MD sent at 11/26/2021 4:21 PM EDT ----- 1) Chronic kidney disease III, Worsening. Stress good high blood pressure control and good hydration. Repeat BMP in 2 months. Schedule office appointment for hypertension in 2 months aside from the BP true scheduled 12/05. 2) Dyslipidemia. Consider starting atorvastatin 10 mg at bedtime to lower cholesterol and reduce risk of of heart disease. Side effects could be muscle pains, GI side effects. 10 year risk of CHD estimated at 11.5%. documented in this encounter [facility] documented in this encounter [facility]04-13-2022 History of Present illness Narrative* Carlene Herrmann, OFFICE ADMINISTRATIVE ASSISTANT.INSTRUMENT ADJUSTER - 11/21/2021 4:11 PM EDT CC: Patient presents with: F/U 6 months: BP HPI Feliciano Dai is a 51 year old male who presents today for above. Hypertension Medication changes:No Taking all medications as prescribed: Yes Side effects: No Home BP's: No BP is elevated today. Patient states he was rushing around and very busy before coming in here. Denies: headache, chest pain, palpitations, dyspnea and peripheral edema. Last 3 Encounter BP Readings: Date: BP: 11/21/2021 176/98 08/23/2021 128/72 05/21/2021 120/76 MK on CPAP MK: Is compliant with CPAP. No changes in settings. Denies issues with mask. Denies snoring, un-refreshed sleep, insomnia, excessive daytime drowsiness. Thrombocytopenia, secondary Denies unusual bleeding. No hematuria, black/bloody stools Depressive disorder Doing well on current medications, Wellbutrin and Lexapro. Denies side effects Obesity, Class I, BMI 30-34.9 Exercise: denies regular aerobic exercise. Diet: Watches diet for salt (salty snacks, added salt, processed frozen/canned foods), sugary/sweetsnacks, unhealthy fats: No REVIEW OF SYSTEMS See HPI PAST MEDICAL HISTORY Diagnosis Date Anxiety Benign neoplasm of duodenum, jejunum, and ileum Bilateral carpal tunnel syndrome 01/21/2012 Calculus of gallbladder without mention of cholecystitis or obstruction 08/24/13 Carpal tunnel syndrome Cholecystitis with cholelithiasis 08/30/2013 Coronary atherosclerosis 07/05/2012 Depression with anxiety 05/13/2019 Duodenitis without mention of hemorrhage 07/14/14 Dysphagia, unspecified(787.20) Esophagitis, unspecified Generalized anxiety disorder 02/04/2014 GERD (gastroesophageal reflux disease) History of learning disability 02/04/2014 [facility], Dr. Mosquera. 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 Unspecified essential hypertension Essential hypertension Unspecified spleen injury with open wound into cavity 9 yrs. old Urinary frequency 05/15/2018 PAST SURGICAL HISTORY Procedure Laterality Date EGD TRANSORAL BIOPSY SINGLE/MULTIPLE 10/23/10 ESOPHAGOGASTRODUODENOSCOPY TRANSORAL DIAGNOSTIC 07/14/[address] [facility] LAPAROSCOPY SURG CHOLECYSTECTOMY 08/24/13 LEFT HEART CATH,PERCUTANEOUS 12/02/2011 PAST SURGICAL HISTORY OF 1980 REPAIR OF RUPTURED SPLEEN AGE 9 RPR UMBILICAL HRNA 5 YRS/> REDUCIBLE 08/24/13 ALLERGIES Naprosyn [Naproxen], Amoxicillin, Amitriptyline, Bupivacaine (Pf), Celexa [Citalopram Hydrobromide], Lisinopril, and Metoprolol Tartrate MEDICATIONS acetaminophen (TYLENOL) 325 mg cap Take 325 mg by mouth twice daily. hydroCHLOROthiazide (HYDRODIURIL, ESIDRIX) 25 mg tablet Take 1 tablet by mouth once daily. losartan (COZAAR) 100 mg tablet Take 1 tablet by mouth once daily. escitalopram oxalate (LEXAPRO) 20 mg tablet Take 1 tablet by mouth once daily. amLODIPine (NORVASC) 10 mg tablet Take 1 tablet by mouth once daily. clonazePAM (KLONOPIN) 0.5 mg tablet Take 1 tablet by mouth twice daily as needed for anxiety (not more than 30 tablets per month) for up to 180 days. buPROPion XL (WELLBUTRIN XL) 150 mg 24 hr tablet Take 1 tablet by mouth once daily. ibuprofen (MOTRIN) 800 mg tablet Take 1 tablet by mouth every 8 hours as needed for pain. Take withfood. CPAP Initiate Auto PAP @ 5/20 cm of water with humidification. Heated humidity. Mask (per patient preference) optional chin strap (if indicated) , filters, tubing, humidifier and lifetime supplies. Aspirin 81 mg ORAL Tab Take 1 tablet by mouth once daily. Take with food. FAMILY HISTORY Problem Relation Age of Onset Headache Mother age 80 Cancer Mother unknown kind Hypertension Father No Known Problems Brother No Known Problems Brother Cancer Paternal Grandfather colon Social History Tobacco Use Smoking status: Never Smoker Smokeless tobacco: Current User Types: Chew Vaping Use Vaping Use: Never used Substance Use Topics Alcohol use: Yes Drug use: No PHYSICAL EXAM BP 174/97 Pulse 77 Resp 18 Wt 90.7 kg (200 lb) SpO2 97% BMI (P) 34.12 kg/m General Appearance: well appearing, in no acute distress, alert Lungs: Lungs clear to auscultation. No wheezing, rhonchi, rales. Heart: RRR without murmur, gallop, or rubs. No ectopy Health maintenance reviewed with patient: COVID-19 VACCINE(1) Never done COLORECTAL CANCER SCREENING Never done DTAP,TDAP,TD(2 - Td or Tdap) due on 02/07/2019 SHINGRIX VACCINE(1 of 2) Never done LDL CHOLESTEROL due on 09/28/2021 INFLUENZA(Season Ended) due on 04/11/2022 ANNUAL PCP TEAM CHRONIC DISEASE VISIT due on 05/21/2022 BP CONTROLLED (<130/80) due on 08/23/2022 DIABETES SCREEN due on 09/28/2023 LIPID SCREEN due on 09/28/2025 HEPATITIS C SCREENING Completed HIV SCREENING Completed ONE PNEUMOVAX PRIOR TO AGE 65 Addressed MENINGOCOCCAL CONJUGATE Aged Out DATA REVIEWED: Most recent labs, labs done today but still in process ASSESSMENT/PLAN: 1. Essential hypertension - ICD9: 401.9, ICD10: I10 (primary diagnosis) - poor control,patient attributes to hectic/busy day before appointment - Continue current medication(s) - Recommended regular aerobic exercise. - Recommend home blood pressure monitoring, to bring results in on next visit - Recheck in 2 weeks, sooner should new symptoms or problems arise. - Goal of BP <130/80 - AMLODIPINE 10 MG TABLET - LOSARTAN 100 MG TABLET 2. Generalized anxiety disorder - ICD9: 300.02, ICD10: F41.1 Stable on medications, refilled - CLONAZEPAM 0.5 MG TABLET PDMP website checked and validated. All prescriptions have been APPROPRIATELY filled. No suspiciousactivity was identified. 11/21/2021 by Carlene Herrmann APRN.CNP - ESCITALOPRAM 20 MG TABLET - BUPROPION XL 150 MG TAB 3. Depressive disorder - ICD9: 311, ICD10: F32.A As above - BUPROPION XL 150 MG TAB 4. MK on CPAP - ICD9: 327.23, V46.8, ICD10: G47.33, Z99.89 Compliant with CPAP 5. Thrombocytopenia, secondary - ICD9: 287.49, ICD10: D69.59 Stable 6. Obesity, Class I, BMI 30-34.9 - ICD9: 278.00, ICD10: E66.9 Weight decreasing Prescription instructions reviewed with patient as applicable. Potential red flag symptoms discussed with the patient. Reviewed appropriate action plan to take if red flag symptoms occur. Patient agreeable to treatment plan. Carlene Herrmann APRN.CNP [facility] History of Past illness Narrative* Problem Noted Date Resolved Date Splenomegaly 04/04/2017 06/12/2018 Panic disorder without agoraphobia 02/04/2014 06/12/2018 Cholecystitis with cholelithiasis 08/30/2013 10/11/2013 Umbilical hernia 08/30/2013 11/07/2016 Painful respiration 11/20/2012 10/11/2013 Anxiety 07/03/2012 09/04/2016 Panic disorder 07/03/2012 09/04/2016 Bilateral carpal tunnel syndrome 01/21/2012 11/07/2016 Gallstones 06/11/2011 10/11/2013 GERD (gastroesophageal reflux disease) 1 03/21/2020 Dysphagia, unspecified(787.20) 10/23/2010 0 10/11/2013 Benign neoplasm of duodenum, jejunum, and ileum 10/23/2010 06/12/2018 Dysphagia 10/22/2010 10/11/2013 Thrombocytopenia, unspecified 07/06/2008 Contusion of lower leg 07/08/2005 6 Chondromalacia of patella 06/26/20052005 Unspecified internal derangement of knee 005 01/01/2006 Unspecified gastritis and gastroduodenitis 06/1901/01/2006 Migraine without aura and wi thout status migrainosus, not intractable 06/12/2018 documented as of this encounter (statuses as of 11/09/2021) [facility] History of Past illness Narrative* Problem Noted Date Resolved Date Splenomegaly 04/04/2017 06/12/2018 Panic disorder without agoraphobia 02/04/2014 06/12/2018 Cholecystitis with cholelithiasis 08/30/2013 10/11/2013 Umbilical hernia 08/30/2013 11/07/2016 Painful respiration 11/20/2012 10/11/2013 Anxiety 07/03/2012 09/04/2016 Panic disorder 07/03/2012 09/04/2016 Bilateral carpal tunnel syndrome 01/21/2012 11/07/2016 Gallstones 06/11/2011 10/11/2013 GERD (gastroesophageal reflux disease) 1 03/21/2020 Dysphagia, unspecified(787.20) 10/23/2010 0 10/11/2013 Benign neoplasm of duodenum, jejunum, and ileum 10/23/2010 06/12/2018 Dysphagia 10/22/2010 10/11/2013 Thrombocytopenia, unspecified 07/06/2008 Contusion of lower leg 07/08/2005 6 Chondromalacia of patella 06/26/20052005 Unspecified internal derangement of knee 005 01/01/2006 Unspecified gastritis and gastroduodenitis 06/1901/01/2006 Migraine without aura and wi thout status migrainosus, not intractable 06/12/2018 documented as of this encounter (statuses as of 11/21/2021) [facility] History of Past illness Narrative* Problem Noted Date Resolved Date Splenomegaly 04/04/2017 06/12/2018 Panic disorder without agoraphobia 02/04/2014 06/12/2018 Cholecystitis with cholelithiasis 08/30/2013 10/11/2013 Umbilical hernia 08/30/2013 11/07/2016 Painful respiration 11/20/2012 10/11/2013 Anxiety 07/03/2012 09/04/2016 Panic disorder 07/03/2012 09/04/2016 Bilateral carpal tunnel syndrome 01/21/2012 11/07/2016 Gallstones 06/11/2011 10/11/2013 GERD (gastroesophageal reflux disease) 1 03/21/2020 Dysphagia, unspecified(787.20) 10/23/2010 0 10/11/2013 Benign neoplasm of duodenum, jejunum, and ileum 10/23/2010 06/12/2018 Dysphagia 10/22/2010 10/11/2013 Thrombocytopenia, unspecified 07/06/2008 Contusion of lower leg 07/08/2005 6 Chondromalacia of patella 06/26/20052005 Unspecified internal derangement of knee 005 01/01/2006 Unspecified gastritis and gastroduodenitis 06/1901/01/2006 Migraine without aura and wi thout status migrainosus, not intractable 06/12/2018 documented as of this encounter (statuses as of 12/03/2021) [facility] of Past illness Narrative* Problem Noted Date Resolved Date Splenomegaly 04/04/2017 06/12/2018 Panic disorder without agoraphobia 02/04/2014 06/12/2018 Cholecystitis with cholelithiasis 08/30/2013 10/11/2013 Umbilical hernia 08/30/2013 11/07/2016 Painful respiration 11/20/2012 10/11/2013 Anxiety 07/03/2012 09/04/2016 Panic disorder 07/03/2012 09/04/2016 Bilateral carpal tunnel syndrome 01/21/2012 11/07/2016 Gallstones 06/11/2011 10/11/2013 GERD (gastroesophageal reflux disease) 1 03/21/2020 Dysphagia, unspecified(787.20) 10/23/2010 0 10/11/2013 Benign neoplasm of duodenum, jejunum, and ileum 10/23/2010 06/12/2018 Dysphagia 10/22/2010 10/11/2013 Thrombocytopenia, unspecified 07/06/2008 Contusion of lower leg 07/08/2005 6 Chondromalacia of patella 06/26/20052005 Unspecified internal derangement of knee 005 01/01/2006 Unspecified gastritis and gastroduodenitis 06/1901/01/2006 Migraine without aura and wi thout status migrainosus, not intractable 06/12/2018 documented as of this encounter (statuses as of 12/05/2021) [facility] of [facility] illness Narrative* Problem Noted Date Resolved Date Splenomegaly 04/04/2017 06/12/2018 Panic disorder without agoraphobia 02/04/2014 06/12/2018 Cholecystitis with cholelithiasis 08/30/2013 10/11/2013 Umbilical hernia 08/30/2013 11/07/2016 Painful respiration 11/20/2012 10/11/2013 Anxiety 07/03/2012 09/04/2016 Panic disorder 07/03/2012 09/04/2016 Bilateral carpal tunnel syndrome 01/21/2012 11/07/2016 Gallstones 06/11/2011 10/11/2013 GERD (gastroesophageal reflux disease) 1 03/21/2020 Dysphagia, unspecified(787.20) 10/23/2010 0 10/11/2013 Benign neoplasm of duodenum, jejunum, and ileum 10/23/2010 06/12/2018 Dysphagia 10/22/2010 10/11/2013 Thrombocytopenia, unspecified 07/06/2008 Contusion of lower leg 07/08/2005 6 Chondromalacia of patella 06/26/20052005 Unspecified internal derangement of knee 005 01/01/2006 Unspecified gastritis and gastroduodenitis 06/1901/01/2006 Migraine without aura and wi thout status migrainosus, not intractable 06/12/2018 documented as of this encounter (statuses as of 02/06/2022) [facility] of [facility] illness Narrative* Problem Noted Date Resolved Date Splenomegaly 04/04/2017 06/12/2018 Panic disorder without agoraphobia 02/04/2014 06/12/2018 Cholecystitis with cholelithiasis 08/30/2013 10/11/2013 Umbilical hernia 08/30/2013 11/07/2016 Painful respiration 11/20/2012 10/11/2013 Anxiety 07/03/2012 09/04/2016 Panic disorder 07/03/2012 09/04/2016 Bilateral carpal tunnel syndrome 01/21/2012 11/07/2016 Gallstones 06/11/2011 10/11/2013 GERD (gastroesophageal reflux disease) 1 03/21/2020 Dysphagia, unspecified(787.20) 10/23/2010 0 10/11/2013 Benign neoplasm of duodenum, jejunum, and ileum 10/23/2010 06/12/2018 Dysphagia 10/22/2010 10/11/2013 Thrombocytopenia, unspecified 07/06/2008 Contusion of lower leg 07/08/2005 6 Chondromalacia of patella 06/26/20052005 Unspecified internal derangement of knee 005 01/01/2006 Unspecified gastritis and gastroduodenitis 06/1901/01/2006 Migraine without aura and wi thout status migrainosus, not intractable 06/12/2018 documented as of this encounter (statuses as of 02/12/2022) [facility] illness Narrative* Problem Noted Date Resolved Date Splenomegaly 04/04/2017 06/12/2018 Panic disorder without agoraphobia 02/04/2014 06/12/2018 Cholecystitis with cholelithiasis 08/30/2013 10/11/2013 Umbilical hernia 08/30/2013 11/07/2016 Painful respiration 11/20/2012 10/11/2013 Anxiety 07/03/2012 09/04/2016 Panic disorder 07/03/2012 09/04/2016 Bilateral carpal tunnel syndrome 01/21/2012 11/07/2016 Gallstones 06/11/2011 10/11/2013 GERD (gastroesophageal reflux disease) 1 03/21/2020 Dysphagia, unspecified(787.20) 10/23/2010 0 10/11/2013 Benign neoplasm of duodenum, jejunum, and ileum 10/23/2010 06/12/2018 Dysphagia 10/22/2010 10/11/2013 Thrombocytopenia, unspecified 07/06/2008 Contusion of lower leg 07/08/2005 6 Chondromalacia of patella 06/26/20052005 Unspecified internal derangement of knee 005 01/01/2006 Unspecified gastritis and gastroduodenitis 06/1901/01/2006 Migraine without aura and wi thout status migrainosus, not intractable 06/12/2018 documented as of this encounter (statuses as of 05/03/2022) [facility]08-25-2017 History of Past illness Narrative* Problem Noted Date Resolved Date Splenomegaly 04/04/2017 06/12/2018 Panic disorder without agoraphobia 02/04/2014 06/12/2018 Cholecystitis with cholelithiasis 08/30/2013 10/11/2013 Umbilical hernia 08/30/2013 11/07/2016 Painful respiration 11/20/2012 10/11/2013 Anxiety 07/03/2012 09/04/2016 Panic disorder 07/03/2012 09/04/2016 Bilateral carpal tunnel syndrome 01/21/2012 11/07/2016 Gallstones 06/11/2011 10/11/2013 GERD (gastroesophageal reflux disease) 1 03/21/2020 Dysphagia, unspecified(787.20) 10/23/2010 0 10/11/2013 Benign neoplasm of duodenum, jejunum, and ileum 10/23/2010 06/12/2018 Dysphagia 10/22/2010 10/11/2013 Thrombocytopenia, unspecified 07/06/2008 Contusion of lower leg 07/08/2005 6 Chondromalacia of patella 06/26/20052005 Unspecified internal derangement of knee 005 01/01/2006 Unspecified gastritis and gastroduodenitis 06/1901/01/2006 Migraine without aura and wi thout status migrainosus, not intractable 06/12/2018 documented as of this encounter (statuses as of 05/07/2022) [facility]08-25-2017 History of Past illness Narrative* Problem Noted Date Resolved Date Splenomegaly 04/04/2017 06/12/2018 Panic disorder without agoraphobia 02/04/2014 06/12/2018 Cholecystitis with cholelithiasis 08/30/2013 10/11/2013 Umbilical hernia 08/30/2013 11/07/2016 Painful respiration 11/20/2012 10/11/2013 Anxiety 07/03/2012 09/04/2016 Panic disorder 07/03/2012 09/04/2016 Bilateral carpal tunnel syndrome 01/21/2012 11/07/2016 Gallstones 06/11/2011 10/11/2013 GERD (gastroesophageal reflux disease) 1 03/21/2020 Dysphagia, unspecified(787.20) 10/23/2010 0 10/11/2013 Benign neoplasm of duodenum, jejunum, and ileum 10/23/2010 06/12/2018 Dysphagia 10/22/2010 10/11/2013 Thrombocytopenia, unspecified 07/06/2008 Contusion of lower leg 07/08/2005 6 Chondromalacia of patella 06/26/20052005 Unspecified internal derangement of knee 005 01/01/2006 Unspecified gastritis and gastroduodenitis 06/1901/01/2006 Migraine without aura and wi thout status migrainosus, not intractable 06/12/2018 documented as of this encounter (statuses as of 08/13/2022) [facility] Diagnosis Hypertension Unspecified essential hypertension Obesity, Class I, BMI 30-34.9 Obesity, unspecified Coronary atherosclerosis Coronary atherosclerosis of unspecified type of vessel, [place] or graft Medication management Encounter for long-term (current) use of other medications documented in this encounter [facility] Diagnosis Essential hypertension- Primary Unspecified essential hypertension Generalized anxiety disorder Depressive disorder Depressive disorder, not elsewhere classified MK on CPAP Obstructive sleep apnea (adult) (pediatric) Thrombocytopenia, secondary Other secondary thrombocytopenia Obesity, Class I, BMI 30-34.9 Obesity, unspecified documented in this encounter [facility] Diagnosis Chest pain, unspecified type- Primary Orthostatic lightheadedness Dizziness and giddiness Primary hypertension Unspecified essential hypertension Dyslipidemia Other and unspecified hyperlipidemia Urinary frequency documented in this encounter [facility] Diagnosis Primary hypertension- Primary Unspecified essential hypertension Generalized anxiety disorder MK on CPAP Obstructive sleep apnea (adult) (pediatric) Depressive disorder Depressive disorder, not elsewhere classified Thrombocytopenia, secondary Other secondary thrombocytopenia Colon cancer screening Special screening for malignant neoplasms, colon documented in this encounter [facility] for referral (narrative)* Diagnostic Procedure Only (Routine) - Pending Review Specialty Diagnoses / Procedures Referred By Maddie trejo Referred To Contact MOLECULAR [facility] FUNCTIONAL IMAGING Diagnoses Chest pain, unspecified type Procedures NM CARDIAC PERF STRESS/EXERCISE MYOCARDIAL SPECT MULTIPLE STUDIES Carlene Herrmann APRN.CNP [address] [place] [address] [facility] Functional [facility] [address] [place] [id number] Referral ID Status Reason Start Date Expiration Date Visits Requested Visits Authorized [id number] Pending Review Auto-Generat ed Referral 02/06/2022 03/08/2023 1 1 [facility] Summary Purpose Family History No Family History Records Found Advance Directives No Advanced Directives Records Found Additional Source Comments Source Comments (unrecognize d section and content) In the event this informatio n is protected by the Federal Confidentiality of Alcohol and Drug Abuse Patient Records regulations: The Federal rules restrict any use of the information to criminally investigate or prosecute any alcohol or drug abuse patient.[facility] the event this information is protected by the Federal Confidentiality of Alcohol and Drug Abuse Patient Records regulations: The Federal rules restrict any use of the information to criminally investigate or prosecute any alcohol or drug abuse patient.[facility] the event this information is protected by the Federal Confidentiality of Alcohol and Drug Abuse Patient Records regulations: The Federal rules restrict any use of the information to criminally investigate or prosecute any alcohol or drug abuse patient.[facility] the event this information is protected by the Federal Confidentiality of Alcohol and Drug Abuse Patient Records regulations: The Federal rules restrict any use of the information to criminally investigate or prosecute any alcohol or drug abuse patient.[facility] the event this information is protected by the Federal Confidentiality of Alcohol and Drug Abuse Patient Records regulations: The Federal rules restrict any use of the information to criminally investigate or prosecute any alcohol or drug abuse patient.[facility] the event this information is protected by the Federal Confidentiality of Alcohol and Drug Abuse Patient Records regulations: The Federal rules restrict any use of the information to criminally investigate or prosecute any alcohol or drug abuse patient.[facility] the event this information is protected by the Federal Confidentiality of Alcohol and Drug Abuse Patient Records regulations: The Federal rules restrict any use of the information to criminally investigate or prosecute any alcohol or drug abuse patient.[facility] the event this information is protected by the Federal Confidentiality of Alcohol and Drug Abuse Patient Records regulations: The Federal rules restrict any use of the information to criminally investigate or prosecute any alcohol or drug abuse patient.[facility] the event this information is protected by the Federal Confidentiality of Alcohol and Drug Abuse Patient Records regulations: The Federal rules restrict any use of the information to criminally investigate or prosecute any alcohol or drug abuse patient.[facility] Care Teams (unrecognized sec tion and content) [employer] Coord[employer] Specialist Relationship Specialty Start Date End Date Curtis Epps MD [address], [place] [id number] PCP - General Internal Medicine 11/07/16 [employer] Project Coordination Specialist Relationship Specialty Start Date End Date Curtis Epps MD [address], [place] [id number] PCP - General Internal Medicine 11/07/16 [employer] Project Coordination Specialist Relationship Specialty Start Date End Date Curtis Epps MD [address], [place] [id number] PCP - General Internal Medicine 11/07/16 [employer] Project Coordination Specialist Relationship Specialty Start Date End Date Curtis Epps MD [address], [place] [id number] PCP - General Internal Medicine 11/07/16 Solar Project Coordination Specialist Relationship Specialty Start Date End Date Curtis Epps MD [address], [place] [id number] PCP - General Internal Medicine 11/07/16 Solar Project Coordination Specialist Relationship Specialty Start Date End Date Curtis Epps MD [address] [place] [id number] PCP - General Internal Medicine 11/07/16 Reason for Visit (unrecogniz ed section and content) Reason Comments Results Reason Comments Blood Pressure Check Reason Comments Recheck 2 months Dizziness during postition arnie ngoliver Reason Comments Appointment Stress Test instruct ions Reason Comments FOLLOW UP MEDICATIONS (unrecognized sect ion and content) No Status Records Found INFORMATION SOURCE (unrecogn ized section and content) FOR RECORDS PERTAINING TO PATIENTS WHO ARE OR HAVE BEEN ENROLLED IN A CHEMICAL DEPENDENCY/SUBSTANCEABUSE PROGRAM, SOME INFORMATION MAY BE OMITTED. This clinical summary was aggregated from multiple sources. Caution should be exercised in using it in the provision of clinical care. This summary normalizes information from multiple sources, and as a consequence, information in this document may materially change the coding, format and clinical context of patient data. In addition, data may be omitted in some cases. CLINICAL DECISIONS SHOULD BE BASED ON THE PRIMARY CLINICAL RECORDS. [employer] [facility]. provides no warranty or guarantee of the accuracy or completeness of information in this document.
[2023-10-04 21:39] VITALS: BP 162/90; PULSE 78; RESP 18; TEMP 36.7; O2SAT 97
== END 2023-10-04 21:41 | disposition home or self-care (01) ==
PROVIDERS: Emergency Provider Emergency Medicine; PCP Internal Medicine; Visit Provider Emergency Medicine
DX: M54.50 Low back pain, unspecified (principal); X58.XXXA Exposure to other specified factors, initial encounter; Y93.89 Activity, other specified; Y92.89 Other specified places as the place of occurrence of the external cause; I10 Essential (primary) hypertension; Z79.899 Other long term (current) drug therapy; F41.9 Anxiety disorder, unspecified; Z79.82 Long term (current) use of aspirin; F32.A Depression, unspecified
CPT/HCPCS: 96372; 99282

== ENCOUNTER 2024-01-11 14:49 | Emergency (ER) | payer MEDICAID, SELFPAY ==
[2024-01-11 14:49] VITALS: BP 141/89; PULSE 64; RESP 16; TEMP 36.3; O2SAT 99; BMI 35.2
--- NOTE | 2024-01-11 15:30 | RAD_ITS ---
EXAM: XR LEFT HAND COMPLETE, 3 OR MORE VIEWS CLINICAL INDICATION: pain TECHNIQUE: Frontal, lateral and oblique views of the left hand. COMPARISON: No relevant prior studies available. FINDINGS: BONES/JOINTS: Unremarkable. No acute fracture. No subluxation. Normal alignment. Preservation of the joint space. No sclerotic or destructive changes observed. SOFT TISSUES: Unremarkable. No soft tissue swelling or gas. No radiopaque foreign body. RAD/Hand Min 3 Views IMPRESSION: Negative left hand x-rays. Electronically Signed: José Antonio Felix MD at 16:15 EDT ,
--- NOTE | 2024-01-11 16:05 | EDS_ITS ---
HPI History of Present Illness Chief Complaint: Upper Extremity Injury Narrative Narrative: 53-year-old male presenting with left hand pain which is ongoing for 2 weeks. He takes intermittent ibuprofen. He denies any injury. He states it hurts when he flexes and extends his fingers. He feels like it is more at the base of the ring finger in the palmar surface. He feels x-rays here. Sometimes it hurts more than others. He is still able to use his hand and he states he still works in the yard and mows the grass. No numbness or tingling. [facility] Medical History Depressed Anxiety Migraines GERD (gastroesophageal reflux disease) Panic disorder hx of spleen repair Benign essential HTN Home Medications ?Medication ?Instructions ?Recorded ?Last Taken ?Type amlodipine 10 mg tablet 5 mg PO DAILY 10/28/16 12/23/17 History clonazepam 0.5 mg tablet 0.5 mg PO BID PRN Anxiety 10/28/16 12/23/17 History gabapentin 300 mg capsule 300 mg PO BID 10/28/16 12/23/17 History (Neurontin) ibuprofen 600 mg tablet 600 mg PO TID PRN PRN Pain #14 tabs 05/19/18 Unknown Rx aspirin 325 mg tablet 325 mg PO DAILY 02/02/22 Unknown History bupropion HCl 150 mg 24 hr tablet, 150 mg PO DAILY 02/02/22 Unknown History extended release escitalopram oxalate 20 mg tablet 20 mg PO DAILY 02/02/22 Unknown History hydrochlorothiazide 25 mg tablet 25 mg PO DAILY 02/02/22 Unknown History losartan 100 mg tablet 100 mg PO DAILY 02/02/22 Unknown History oxybutynin chloride 10 mg 10 mg PO DAILY 02/02/22 Unknown History tablet,extended release 24 hr hydrocodone-acetaminophen 5-325mg 1 tab PO Q6H PRN PRN Pain 3 days 02/08/23 Unknown Rx 5mg-325mg #10 TABLETS prednisone 20 mg tablet 60 mg (3 x 20 mg) PO DAILY #15 02/08/23 Unknown Rx TABLETS prednisone 20 mg tablet 40 mg (2 x 20 mg) PO DAILY 5 days 10/04/23 Unknown Rx #10 tabs Allergy/AdvReac Type Severity Reaction Status Date / Time amoxicillin (Amoxicillin) Allergy Rash Verified 01/11/24 14:51 naproxen AdvReac Upset Verified 01/11/24 14:51 Stomach Social History Smoking Status: Current every day smoker tobacco type: smokeless tobacco ROS ROS ED Constitutional Constitutional ED: Denies chills, fever(s) or sweats Eyes Eyes: Denies blurry vision or change in vision ENT ENT ED: Denies ear pain or sore throat Cardiovascular Cardiovascular: Denies chest pain, palpitations or racing heartbeat Respiratory/Chest Respiratory/Chest: Denies cough, dyspnea or sputum Gastrointestinal Gastrointestinal: Denies abdominal pain, constipation, diarrhea, nausea or vomiting Genitourinary Genitourinary ED: Denies dysuria, hematuria or urinary frequency Musculoskeletal Musculoskeletal: Reports other Details: Left hand pain ; Denies arthralgias, myalgias or neck pain Integumentary Denies abscess, Abrasions or rash Neurologic Neurologic: Denies headache(s), paresthesias or weakness Psychiatric Psychiatric: Denies anxiety, depression, suicidal ideation or suicidal thoughts Endocrine Endocrinology: Denies polydipsia or polyuria EXAM Physical Exam Const Vital Signs: 01/11/24 14:49 Temperature 97.4 F L Temperature Source Temporal Pulse Rate 64 Respiratory Rate 16 Blood Pressure 141/89 H Blood Pressure Mean 106 Pulse Ox 99 Oxygen Delivery Method Room Air Positive well nourished General Appearance ED: NAD HEENT Reports moist mucous membranes Eyes PERRL and EOMs intact bilaterally Resp normal respiratory effort Cardio regular rate and regular rhythm Extremity Extremity Narrative: There is tenderness to palpation at the base of the ring finger on the left hand volar surface. No obvious deformity. Pain is elicited with flexion and extension of the finger. I do not feel any mass in the hand. Left hand is neurovascular intact brisk cap refill to all 5 fingers. Jere's test is normal. There is no palpable pain elsewhere. Neuro oriented x3 Sensorium / Orientation: alert Motor Exam: strength 5/5 throughout Psych mental status grossly normal Mood & Affect: Negative for depressed MDM MDM MDM Narrative Medical decision making narrative: Patient presenting with hand pain. Based on his exam I believe he has trigger f kash on the left hand fourth digit. He denies any trauma. We did obtain an x- ray today which interpreted by myself shows no acute fractures or subluxations. I recommended he follow-up with his PCP and get referral to hand specialty. Tylenol or ibuprofen for pain. Return precautions were discussed. Impression: 1. Trigger finger left hand Lab Data Attestation: I reviewed the patient's lab results. Discharge Plan Triage Chief Complaint: Upper Extremity Injury ED Provider: Urbano Goyal Dx/Rx/DC Orders Instructions: What Is Trigger Finger?, Treating Trigger Finger Prescriptions: No Action clonazepam 0.5 MG tablet 0.5 mg PO BID PRN (Reason: Anxiety) amlodipine 10 MG tablet 5 mg PO DAILY gabapentin [Neurontin] 300 MG capsule 300 mg PO BID ibuprofen 600 MG tablet 600 mg PO TID PRN PRN (Reason: Pain) Qty: 14 0RF oxybutynin chloride 10 mg Tablet Extended Release 24hr 10 mg PO DAILY aspirin 325 mg Tablet 325 mg PO DAILY hydrochlorothiazide 25 mg Tablet 25 mg PO DAILY losartan 100 mg Tablet 100 mg PO DAILY escitalopram oxalate 20 mg Tablet 20 mg PO DAILY bupropion HCl 150 mg Tablet Extended Release 24 Hr 150 mg PO DAILY hydrocodone-acetaminophen [hydrocodone-acetaminophen] 5-325 mg tablet 1 tab PO Q6H PRN PRN (Reason: Pain) 3 Days Qty: 10 0RF prednisone 20 mg tablet 60 mg PO DAILY Qty: 15 0RF prednisone 20 mg tablet 40 mg PO DAILY 5 Days Qty: 10 0RF Primary Care Provider: Curtis Mcdonald Referrals: Curtis Mcdonald MD [Primary Care Provider] - Print Language: Citizen Of [place] Disposition Disposition: Home, Self Care
[2024-01-11 16:23] VITALS: BP 140/79; PULSE 65; RESP 16; TEMP 36.9; O2SAT 97
== END 2024-01-11 16:24 | disposition home or self-care (01) ==
PROVIDERS: Emergency Provider Student in an Organized Health Care Education/Training Program; PCP Internal Medicine; Visit Provider Student in an Organized Health Care Education/Training Program
DX: M65.342 Trigger finger, left ring finger (principal); F17.220 Nicotine dependence, chewing tobacco, uncomplicated; Z79.899 Other long term (current) drug therapy; I10 Essential (primary) hypertension; K21.9 Gastro-esophageal reflux disease without esophagitis; Z79.82 Long term (current) use of aspirin
CPT/HCPCS: 73130; 99282

== ENCOUNTER 2024-04-17 19:40 | Emergency (ER) | payer MEDICAID, SELFPAY ==
[2024-04-17 19:42] VITALS: BP 214/111; PULSE 72; RESP 18; TEMP 36.6; O2SAT 100; BMI 35.8
--- NOTE | 2024-04-17 20:07 | EDS_ITS ---
HPI History of Present Illness Chief Complaint: Hypertension Informant: patient Onset/Context/Timing Onset: Today Context: Gradual Onset Timing: Continuous Current Severity: Mild Maximum Severity: Mild Narrative Narrative: 53-year-old male history of hypertension and anxiety. Says he normally takes losartan. Unsure of the dose. Mom said he did not take his medication may have her to take it he normally gets up takes in the morning. Denies any severe headache or chest pain. Prior similar symptoms: Yes Recent Illness/Hospitalization: No PFSH PFSH Medical History Depressed Anxiety Migraines GERD (gastroesophageal reflux disease) Panic disorder hx of spleen repair Benign essential HTN Home Medications ?Medication ?Instructions ?Recorded ?Last Taken ?Type amlodipine 10 mg tablet 5 mg PO DAILY 10/28/16 12/23/17 History clonazepam 0.5 mg tablet 0.5 mg PO BID PRN Anxiety 10/28/16 12/23/17 History gabapentin 300 mg capsule 300 mg PO BID 10/28/16 12/23/17 History (Neurontin) ibuprofen 600 mg tablet 600 mg PO TID PRN PRN Pain #14 tabs 05/19/18 Unknown Rx bupropion HCl 150 mg 24 hr tablet, 150 mg PO DAILY 02/02/22 Unknown History extended release escitalopram oxalate 20 mg tablet 20 mg PO DAILY 02/02/22 Unknown History hydrochlorothiazide 25 mg tablet 25 mg PO DAILY 02/02/22 Unknown History losartan 100 mg tablet 100 mg PO DAILY 02/02/22 Unknown History oxybutynin chloride 10 mg 10 mg PO DAILY 02/02/22 Unknown History tablet,extended release 24 hr aspirin 81 mg capsule 81 mg PO DAILY 04/17/24 Unknown History Allergy/AdvReac Type Severity Reaction Status Date / Time amoxicillin (Amoxicillin) Allergy Rash Verified 04/17/24 19:41 naproxen AdvReac Upset Verified 04/17/24 19:41 Stomach Social History Smoking Status: Current every day smoker tobacco type: smokeless tobacco ROS ROS ED Constitutional Constitutional ED: Denies chills or fever(s) Eyes Eyes: Denies blurry vision ENT ENT ED: Denies ear pain Cardiovascular Cardiovascular: Denies chest pain Respiratory/Chest Respiratory/Chest: Denies cough Gastrointestinal Gastrointestinal: Denies abdominal pain Genitourinary Genitourinary ED: Denies dysuria Musculoskeletal Musculoskeletal: Denies arthralgias Integumentary Denies abscess Neurologic Neurologic: Denies paresthesias or weakness Psychiatric Psychiatric: Reports anxiety Endocrine Endocrinology: Denies cold intolerance Hematologic/Lymphatic Hematologic/Lymphatic: Reports none Allergic/Immunologic Allergic/Immunologic ED: Denies mouth swelling, tongue swelling or urticaria EXAM Physical Exam Narrative Exam Narrative: Well-appearing 53-year-old male. Vital signs stable except his blood pressure elevated 214/111. He is anxious. H EENT exam unremarkable. No facial droop. Normal speech. Neck nontender. Lungs clear. Heart regular rate and rhythm rate about 70 no murmur. Chest wall ribs nontender. Abdomen soft nontender. Moving all 4 extremities. 5 out of 5 beverage inspection machine tender strength. Dorsi plantarflexion intact. No edema. Neurologically is awake alert no focal motor deficits. NIH 0. Answering questions and following commands. Const Vital Signs: 04/17/24 19:42 04/17/24 19:49 04/17/24 21:41 Temperature 97.8 F Temperature Source Temporal Pulse Rate 72 61 Respiratory Rate 18 16 Respiratory Effort Normal Non-Labored Respiratory Pattern Normal Blood Pressure 214/111 H 169/99 H Blood Pressure Mean 145 122 Pulse Ox 100 100 Oxygen Delivery Method Room Air Positive well nourished and well developed; Negative for cachectic, contractures or unkempt General Appearance ED: well developed and NAD; Negative for unkempt, cachectic, contractures, cyanotic, diaphoretic or pallor Nutritional Appearance: Negative for cachectic HEENT Reports moist mucous membranes Negative for trauma or tenderness Eyes PERRL and EOMs intact bilaterally General Eye ED: Negative for pale conjunctiva or scleral icterus Neck no lymphadenopathy, supple and no JVD General: Negative for tenderness Lymph Lymphatic: Negative for other Chest Wall inspection of chest normal and palpation of chest normal Chest: Negative for other Resp normal respiratory effort and clear to auscultation bilaterally Effort and Inspection: Negative for retractions Auscultation: Negative for rales, rhonchi, wheezes or diminished lung sounds Cardio regular rate, regular rhythm, S1 normal heart sound, S2 normal heart sound and no murmurs Palpation: Negative for palpable S3 or palpable S4 Rate: Negative for bradycardia or tachycardic Rhythm: Negative for abnormal rhythm GI normal to inspection, nondistended, normoactive bowel sounds, non-tender, non- distended and no masses Inspection: Negative for abdominal distention Auscultation: normoactive bowel sounds Palpation: soft; Negative for tender, guarding or rebound tenderness present Back/Spine no CVA tenderness General Back: Negative for CVA tenderness Cervical Spine: Negative for cervical spine tenderness Thoracic Spine / Upper Back: Negative for thoracic spinal tenderness or paraspinal muscle tenderness Lumbar Spine / Lower Back: Negative for lumbar spinal tenderness Extremity normal to inspection General Extremety ED: Negative for edema or tenderness General Extremity: Negative for edema Neuro oriented x3 and CN's II-XII intact bilaterally Sensorium / Orientation: alert; Negative for orientation impaired, lethargic or stuporous Motor Exam: strength 5/5 throughout; Negative for general weakness or strength abnormal Psych mental status grossly normal Appearance: Negative for unkempt Attitude: No agitated Mood & Affect: Negative for depressed, anxious or tearful Skin no rashes or lesions noted, no wounds and skin turgor normal General Skin Exam: elasticity normal; Negative for jaundice or pallor Lesions: No lesion noted Rashes: No rashes noted Trauma: Negative for abrasion Wounds: Negative for wounds noted MDM MDM MDM Narrative Medical decision making narrative: 53-year-old male with acute on chronic hypertension and anxiety. He forgot to take his medication today. He will be given a dose of losartan and have his blood pressure rechecked. Repeat exam patient is doing well at 10:15 PM. Blood pressure 169/99. He is feeling better. He will be given some Tylenol for his headache. He has chronic headaches. He is a normal neurologic exam. He will continue his blood pressure medications tomorrow. Outpatient follow-up with his primary care physician in a week or so. Discharge Plan Triage Chief Complaint: Hypertension ED Provider: Matthias Garcia Dx/Rx/DC Orders Clinical Impression: Chronic hypertension, Chronic headaches, Anxiety Instructions: ED High Blood Pressure Hypertension Prescriptions: No Action clonazepam 0.5 MG tablet 0.5 mg PO BID PRN (Reason: Anxiety) amlodipine 10 MG tablet 5 mg PO DAILY gabapentin [Neurontin] 300 MG capsule 300 mg PO BID ibuprofen 600 MG tablet 600 mg PO TID PRN PRN (Reason: Pain) Qty: 14 0RF oxybutynin chloride 10 mg Tablet Extended Release 24hr 10 mg PO DAILY hydrochlorothiazide 25 mg Tablet 25 mg PO DAILY losartan 100 mg Tablet 100 mg PO DAILY escitalopram oxalate 20 mg Tablet 20 mg PO DAILY bupropion HCl 150 mg Tablet Extended Release 24 Hr 150 mg PO DAILY aspirin 81 mg capsule 81 mg PO DAILY Primary Care Provider: Curtis Mcdonald Referrals: Curtis Mcdonald MD [Primary Care Provider] - As soon as possible Activity Restrictions/Additional Instructions: Continue your normal medications starting tomorrow. Follow-up with your doctor to ensure your blood pressure is being controlled. Log your blood pressures at home twice a day over the next week and when you follow-up with your doctor show them there is blood pressure readings so they can decide if they need to change the medications at all or the dosages. Print Language: [place]cu[place] Disposition Disposition: Home, Self Care
[2024-04-17] MEDS: Losartan Potassium 100 MG Tablet PO (20:19)
[2024-04-17 21:41] VITALS: BP 169/99; PULSE 61; RESP 16; O2SAT 100
[2024-04-17 22:26] VITALS: BP 190/110; PULSE 61; RESP 18; TEMP 37; O2SAT 100
--- NOTE | 2024-04-17 22:27 | ED.RN ---
MD notified of BP on discharge.
== END 2024-04-17 22:28 | disposition home or self-care (01) ==
PROVIDERS: Emergency Provider Emergency Medicine; PCP Internal Medicine; Visit Provider Emergency Medicine
DX: I10 Essential (primary) hypertension (principal); F41.9 Anxiety disorder, unspecified; F17.220 Nicotine dependence, chewing tobacco, uncomplicated; R51.9 Headache, unspecified; Z79.899 Other long term (current) drug therapy; F32.A Depression, unspecified; Z79.82 Long term (current) use of aspirin
CPT/HCPCS: 99282

== ENCOUNTER 2024-08-16 21:14 | Emergency (ER) | payer MEDICAID, SELFPAY ==
[2024-08-16 21:15] VITALS: BP 170/90; PULSE 69; RESP 18; TEMP 36.6; O2SAT 98
--- NOTE | 2024-08-16 22:11 | EX.ED.DYSGE1 ---
HPI History of Present Illness Chief Complaint: Numb/Ting Informant: patient Narrative Narrative: 53-year-old male presenting to the emergency room with intermittent paresthesias of hand and feet and perioral area. Symptoms come intermittently. Last night he was in the bathtub when he got tingling periorally and in the left hand. He states it feels like when you sit on your legs too long and it takes him a while to come back. He states sometimes this happens when he comes out in the cold but mostly comes when he is anxious. He denies any muscle weakness. He occasionally gets headaches. He states he is treated for anxiety/panic attacks. He sees primary care for this. He states he used to see a counselor but has not since they moved away. He notes that he is not currently working. 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 He states that a lot of times he gets symptoms and becomes quite worried about them or he gets anxiety around people. He states that as we speak his upper lip is going down. [facility] Medical History Depressed Anxiety Migraines GERD (gastroesophageal reflux disease) Panic disorder hx of spleen repair Benign essential HTN Home Medications ?Medication ?Instructions ?Recorded ?Last Taken ?Type amlodipine 10 mg tablet 5 mg PO DAILY 10/28/16 12/23/17 History clonazepam 0.5 mg tablet 0.5 mg PO BID PRN Anxiety 10/28/16 12/23/17 History gabapentin 300 mg capsule 300 mg PO BID 10/28/16 12/23/17 History (Neurontin) ibuprofen 600 mg tablet 600 mg PO TID PRN PRN Pain #14 tabs 05/19/18 Unknown Rx bupropion HCl 150 mg 24 hr tablet, 150 mg PO DAILY 02/02/22 Unknown History extended release escitalopram oxalate 20 mg tablet 20 mg PO DAILY 02/02/22 Unknown History hydrochlorothiazide 25 mg tablet 25 mg PO DAILY 02/02/22 Unknown History losartan 100 mg tablet 100 mg PO DAILY 02/02/22 Unknown History oxybutynin chloride 10 mg 10 mg PO DAILY 02/02/22 Unknown History tablet,extended release 24 hr aspirin 81 mg capsule 81 mg PO DAILY 04/17/24 Unknown History Allergy/AdvReac Type Severity Reaction Status Date / Time amoxicillin (Amoxicillin) Allergy Rash Verified 08/16/24 21:15 naproxen AdvReac Upset Verified 08/16/24 21:15 Stomach Social History Smoking Status: Current every day smoker tobacco type: smokeless tobacco ROS ROS ED Constitutional Constitutional ED: Denies chills or weight loss Eyes Eyes: Denies change in vision or diplopia ENT ENT ED: Denies ear pain, rhinorrhea or sore throat Cardiovascular Cardiovascular: Denies chest pain, orthopnea, palpitations or racing heartbeat Respiratory/Chest Respiratory/Chest: Denies cough, dyspnea or orthopnea Gastrointestinal Gastrointestinal: Denies abdominal pain, diarrhea, nausea or vomiting Genitourinary Genitourinary ED: Denies dysuria, hematuria or urinary frequency Musculoskeletal Musculoskeletal: Denies arthralgias or myalgias Integumentary Denies abscess or rash Neurologic Neurologic: Reports paresthesias; Denies headache(s) or weakness Psychiatric Psychiatric: Reports anxiety; Denies depression, suicidal ideation or suicidal thoughts Endocrine Endocrinology: Denies polydipsia, polyphagia or polyuria Allergic/Immunologic Allergic/Immunologic ED: Denies mouth swelling, tongue swelling or urticaria EXAM Physical Exam Const Vital Signs: 08/16/24 21:15 Temperature 97.8 F Temperature Source Oral Pulse Rate 69 Respiratory Rate 18 Blood Pressure 170/90 H Blood Pressure Mean 116 Pulse Ox 98 Oxygen Delivery Method Room Air Positive well nourished, well developed and obese General Appearance ED: well developed and NAD Nutritional Appearance: obese HEENT Reports normocephalic, head/scalp atraumatic and moist mucous membranes Eyes PERRL and EOMs intact bilaterally Neck no lymphadenopathy, supple and no JVD Resp normal respiratory effort and clear to auscultation bilaterally Cardio regular rate, regular rhythm and no murmurs GI normal to inspection, nondistended, normoactive bowel sounds and non-tender Palpation: soft Back/Spine no CVA tenderness and normal ROM Extremity normal to inspection General Extremety ED: Negative for edema General Extremity: Negative for edema Neuro oriented x3, CN's II-XII intact bilaterally and no sensory deficits noted Sensorium / Orientation: alert Motor Exam: strength 5/5 throughout Psych mental status grossly normal Mood & Affect: anxious; Negative for depressed or tearful Skin no rashes or lesions noted and no wounds MDM MDM MDM Narrative Medical decision making narrative: Differential diagnosis includes neuropathy anxiety panic attacks paresthesias electrolyte abnormalities diabetes Patient clinically appears well. He has no history of diabetes and follows with primary care. He denies any polyuria or Jocelyn dyspnea currently. Clinically the patient has anxiety and I feel that he worries about health symptoms that are a normal physiologic response. I spoke with the patient for about 10 to 15 minutes. Reassurance was given that he appears well. His blood pressure came down to 137/82. I do not believe any emergent testing is needed at this time. Would recommend follow-up with primary care as scheduled or as needed History & Record Review Discussion w/independent historian: Patient Additional record(s) reviewed:: Prior ED visit and Prior labs Discharge Plan Triage Chief Complaint: Numb/Ting ED Provider: Chito Tanner Dx/Rx/DC Orders Clinical Impression: Anxiety, Paresthesia Instructions: ED Anxiety Reaction, ED Paraesthesias Prescriptions: No Action clonazepam 0.5 MG tablet 0.5 mg PO BID PRN (Reason: Anxiety) amlodipine 10 MG tablet 5 mg PO DAILY gabapentin [Neurontin] 300 MG capsule 300 mg PO BID ibuprofen 600 MG tablet 600 mg PO TID PRN PRN (Reason: Pain) Qty: 14 0RF oxybutynin chloride 10 mg Tablet Extended Release 24hr 10 mg PO DAILY hydrochlorothiazide 25 mg Tablet 25 mg PO DAILY losartan 100 mg Tablet 100 mg PO DAILY escitalopram oxalate 20 mg Tablet 20 mg PO DAILY bupropion HCl 150 mg Tablet Extended Release 24 Hr 150 mg PO DAILY aspirin 81 mg capsule 81 mg PO DAILY Primary Care Provider: Care Physician,No Primary Referrals: Curtis Mcdonald MD [Med Staff - Home Inspector] - As Needed Care Physician,No Primary [Primary Care Provider] - Print Language: Hebrew Disposition Disposition: Home, Self Care Discharge Date/Time: 08/16/24 22:29
== END 2024-08-16 22:29 | disposition home or self-care (01) ==
PROVIDERS: Emergency Provider Emergency Medicine; Visit Provider Emergency Medicine
DX: F41.9 Anxiety disorder, unspecified (principal); I10 Essential (primary) hypertension; R20.2 Paresthesia of skin; E66.9 Obesity, unspecified; Z79.82 Long term (current) use of aspirin; F17.290 Nicotine dependence, other tobacco product, uncomplicated; K21.9 Gastro-esophageal reflux disease without esophagitis
CPT/HCPCS: 99282

== ENCOUNTER 2025-02-25 20:06 | Emergency (ER) | payer MEDICAID, SELFPAY ==
[2025-02-25 20:07] VITALS: BP 148/95; PULSE 67; RESP 18; TEMP 35.9; O2SAT 100; BMI 34.7
--- NOTE | 2025-02-25 21:42 | RAD_ITS ---
PROCEDURE: HAND MIN 3 VIEWS 02/25/2025 REASON FOR EXAM: PAIN AND SWELLING TECHNIQUE: HAND MIN 3 VIEWS COMPARISON: 01/11/2024 FINDINGS: Dorsal soft tissue swelling at the metacarpal head level. No fracture or dislocation. RAD/Hand Min 3 Views IMPRESSION: Soft tissue injury. [facility]
[2025-02-26 00:06] VITALS: PULSE 68; RESP 16
--- OUTSIDE RECORDS SUMMARY | 2025-02-26 00:38 | XMS RPT_ITS | CCD ---
Author Organization [facility] Care Team Providers Care Cotton Farmer Name Role Phone Harry VANESSA, Curtis Torrez Primary Care Provider Harry VANESSA, Curtis Torrez Primary Care Provider [phone] Carlene Cleveland APRN.CNP Unavailable Unavailable Primary Care Provider Unavailabl e OLDER, CARLENE Attending Unavailable HARRY, ILIR Primary Care Unavailable MCDONALD, ILIR Primary Care Unavailable HARRY, ILIR Primary Care Unavailable HARRY, ILIR Primary Care Unavailable NESHA BAKER Referring Unavailable MCDONALD, ILIR Primary Care Unavailable SELF Referring Unavailable NESHA BAKER Attending Unavailable DYLAN MORROW Attending Unavailable HARRY, ILIR Primary Care Unavailable NIRALI CAREY Referring Unavailable MCDONALD, ILIR Primary Care Unavailable NIRALI CAREY Referring Unavailable MCDONALD, ILIR Primary Care Unavailable OLDER, CARLENE Attending Unavailable MCDONALD, ILIR Primary Care Unavailable OLDER, CARLENE Attending Unavailable HARRY, ILIR Primary Care Unavailable HARRY, ILIR Primary Care Unavailable OLDER, CARLENE Referring Unavailable Care Physician, No Primary Primary Care Unava ilable Care Physician, No Primary Referring Unava ilable Flaco Lobato Attending Unavailable Urbano Goyal Attending Unavailable Harry, Curtis Primary Care Unavailable Matthias Garcia Attending Unavailable Harry, Curtis Primary Care Unavailable Chito Tanner Attending Unavailable Care Physician, No Primary Primary Care Unava ilable Care Physician, No Primary Referring Unava ilable Care Physician, No Primary Primary Care Unava ilable Flaco Lobato Attending Unavailable Laura Mederos Attending Unavailable Care Physician, No Primary Referring Unava ilable Care Physician, No Primary Primary Care Unava ilLaura Monreal Attending Unavailable Care Physician, No Primary Primary Care Unava ilable Mcdonald, Curtis Referring Unavailable Allergies Allergy Classification Reported Allergen(s) Allergy Type Date of Onset Reaction(s) Facility Amitriptyline (1 source) Amitriptyline Drug Allergy 3 Mental Status Change [facility] Angiotensin Converting Enzyme (MARIAN) Inhibitors (1 source) Lisinopril Drug Allergy 5 Mental Status Change [facility] Bupivacaine (1 source) Bupivacaine Drug Allergy 4 Mental Status Change [facility] Metoprolol (1 source) Metoprolol Drug Allergy 5 Intolerance [facility] NSAIDs (1 source) Naproxen Drug Allergy 5 GI Upset [facility] Penicillins (antibiotic) (1 source) Amoxicillin Drug Allergy 5 Rash [facility] Work Phone: Serotonin Reuptake Inhibitors (SSRIs) (1 source) Citalopram Drug Allergy 7 Intolerance [facility] Work Phone: (20 sources) Amitriptyline; Translations: [AMITRIPTYLINE] Drug Allergy 3 Mental Status Change [facility] (20 sources) Amoxicillin; Translations: [AMOXICILLIN] Drug Allergy 5 Rash [facility] Work Phone: (20 sources) Bupivacaine; Translations: [BUPIVACAINE (PF)] Drug Allergy 4 Mental Status Change [facility] (20 sources) Citalopram; Translations: [CITALOPRAM HYDROBROMIDE] Drug Allergy 7 Intolerance [facility] Work Phone: (20 sources) Lisinopril; Translations: [LISINOPRIL] Drug Allergy 5 Mental Status Change [facility] (20 sources) Metoprolol; Translations: [METOPROLOL TARTRATE] Drug Allergy 5 Intolerance [facility] (20 sources) Naproxen; Translations: [NAPROXEN] Drug Allergy 5 GI Upset [facility] (3 sources) triamox Allergy to substance 2 Rash [facility] (1 source) Amitriptyline Drug Allergy 5 [facility] (1 source) Amoxicillin Drug Allergy 5 [facility] (1 source) Bupivacaine Drug Allergy 5 [facility] (1 source) Citalopram Drug Allergy 5 [facility] (1 source) Lisinopril Drug Allergy 5 [facility] (1 source) Metoprolol Drug Allergy 5 [facility] (1 source) Naproxen Drug Allergy 5 [facility] Medications Current Medications Medication Drug Class(es) Dates Sig (Normalized) Sig (Original) acetaminophen 325 mg oral capsule (20 sources) take 1 capsule by mouth twice daily acetaminophen 325 mg cap Take 325 mg by mouth twice daily. Active Comment on above: Take 325 mg by mouth twice daily. acetaminophen 325 mg / HYDROcodone bitartrate 5 mg oral tablet (2 sources) Opioid Agonist Start: 02-08-2023 take 1 tablet by mouth every six hours as needed Hydrocodone-Acetam inophen Active 1 TABLET PO EVERY 6 HOURS NEEDED 10 3 February 08, 2023 amLODIPine 10 mg oral tablet (20 sources) Dihydropyridine Calcium Channel Patricia Start: 02-05-2023 End: 11-14-2023 take 1 tablet by mouth once daily amLODIPine (NORVASC) 10 mg tablet Indications: Primary hypertension Take 1 tablet by mouth once daily. 30 tablet 5 11/14/2023 Active Start: 08-01-2022 End: 08-07-2022 take 1 tablet by mouth once daily amLODIPine (NORVASC) 10 mg tablet Take 1 tablet by mouth once daily. 30 tablet 5 08/07/2022 Active Start: 05-21-2021 End: 11-21-2021 take 1 tablet by mouth once daily amLODIPine (NORVASC) 10 mg tablet Indications: Essential hypertension Take 1 tablet by mouth once daily. 90 tablet 1 11/21/2021 Active Start: 10-28-2016 take 5 mg by mouth once daily Amlodipine Active 5 MG PO DAILY October 27, 2016 11:00pm Comment on above: Take 1 tablet by efe th once daily. aspirin 325 mg oral tablet (20 sources) Platelet Aggregation Inhibitor, Nonsteroidal Anti-inflammatory Drug Start: 02-02-2022 take 325 mg by mouth once daily Aspirin Active 325 MG PO DAILY February 01, 2022 11:00pm Start: 12-10-2011 take 1 tablet by efe th once daily at mealtime Aspirin 81 mg ORAL Tab Take 1 tablet by mouth once daily. Take with food. 30 tablet 11 12/10/2011 Active Comment on above: Take 1 tablet by efe th once daily. Take with food. atorvastatin 10 mg oral tablet (20 sources) HMG-CoA Reductase Inhibitor Start: 02-06-20 End: 11-14-19 24 take 1 tablet by mouth once daily at bedtime for hyperlipidemia atorvastatin (LIPITOR) 10 mg tablet Indications: Dyslipidemia Take 1 tablet by mouth daily at bedtime. For cholesterol. 30 tablet 5 11/14/2023 Active Start: 08-01-2022 End: 08-07-2022 take 1 tablet by mouth once daily at bedtime for hyperlipidemia atorvastatin (LIPITOR) 10 mg tablet Take 1 tablet by mouth daily at bedtime. For cholesterol. 30 tablet 5 08/07/2022 Active Start: 11-27-2021 End: 02-06-2022 take 1 tablet by mouth once daily at bedtime for hyperlipidemia atorvastatin (LIPITOR) 10 mg tablet Take 1 tablet by mouth daily at bedtime. For cholesterol. 90 tablet 1 02/06/2022 Active Comment on above: Take 1 tablet by efe th daily at bedtime. For cholesterol. benzonatate 200 mg oral capsule (8 sources) Non-narcotic Antitussive Start: 4 take 1 capsule by mouth every eight hours as needed Benzonatate 200 mg capsule Take 1 capsule by mouth three times a day as needed. 21 capsule 05/25/2024 Active Start: 10-17-2023 End: 11-14-2023 take 1 capsule by mouth every eight hours as needed benzonatate (TESSALON PERLES) 100 mg capsule Take 1 capsule by mouth three times a day as needed. 12 capsule 0 10/17/2023 11/14/2023 Discontinued (Course of therapy completed) Comment on above: Take 1 capsule by mo [facility] three times a day as needed. 24 hr buPROPion hydrochloride 150 mg extended release oral tablet (20 sources) Aminoketone Start: 3 End: 4 take 1 tablet by mouth once daily buPROPion XL (WELLBUTRIN XL) 150 mg 24 hr tablet Indications: Generalized anxiety disorder , Depressive disorder Take 1 tablet by mouth once daily. 90 tablet 3 04/26/2024 Active Start: 02-02-2022 End: 08-07-2022 take 150 mg by mouth once daily Bupropion Hcl Active 1 50 MG PO DAILY February 01, 2022 11:00pm Start: 05-21-2021 End: 11-21-2021 take 1 tablet by mouth once daily buPROPion XL (WELLBUTRIN XL) 150 mg 24 hr tablet Indications: Generalized anxiety disorder , Depressive disorder Take 1 tablet by mouth once daily. 90 tablet 1 11/21/2021 Active Comment on above: Take 1 tablet by efe th once daily. clonazePAM 0.5 mg oral tablet (20 sources) Benzodiazepine Start: 02-05-2023 End: 05-12-2024 clonazePAM (KLONOPIN) 0.5 mg tablet Indications: Generalized anxiety disorder Take 1 tablet by mouth two times a day as needed for anxiety (not more than 30 tablets per month) for up to 180 days. 30 tablet 2 11/14/2023 Active Start: 10-28-2016 End: 02-03-2023 take 0.5 mg by mouth twice daily Clonazepam Active 0.5 MG PO TWICE A DAY October 27, 2016 11:00pm Comment on above: Take 1 tablet by efe th twice daily as needed for anxiety (not more than 30 tablets per month) for up to 180 days. Take 1 tablet by efe th two times a day as needed for anxiety (not more than 30 tablets per month) for up to 180 days. doxycycline hyclate 100 mg oral tablet (7 sources) Tetracycline-class Drug Start: 4 End: 4 take 1 tablet by mouth twice daily doxycycline (VIBRA-TABS) 100 mg tablet Take 1 tablet by mouth two times a day for 7 days. 14 tablet 05/19/2024 05/26/2024 Active escitalopram 20 mg oral tablet (20 sources) Serotonin Reuptake Inhibitor Start: 3 End: 4 take 1 tablet by mouth once daily escitalopram oxalate (LEXAPRO) 20 mg tablet Indications: Generalized anxiety disorder Take 1 tablet by mouth once daily. 30 tablet 5 11/14/2023 Active Start: 02-02-2022 End: 08-07-2022 take 20 mg by mouth once daily Escitalopram Oxalate Ac tive 20 MG PO DAILY February 01, 2022 11:00pm Start: 05-21-2021 End: 11-21-2021 take 1 tablet by mouth once daily escitalopram oxalate (LEXAPRO) 20 mg tablet Indications: Generalized anxiety disorder Take 1 tablet by mouth once daily. 90 tablet 1 11/21/2021 Active Comment on above: Take 1 tablet by efe th once daily. gabapentin 300 mg oral capsule (4 sources) Anti-epileptic Agent Start: 2016 take 1 capsule by mouth twice daily Gabapentin (Neurontin) 300 MG capsule Active 300 MG PO TWICE A DAY October 27, 2016 11:00pm hydroCHLOROthiazide 25 mg oral tablet (20 sources) Thiazide Diuretic Start: 2022 End: 2023 take 1 tablet by mouth once daily hydroCHLOROthiazide 25 mg tablet Indications: Primary hypertension Take 1 tablet by mouth once daily. 30 tablet 5 11/14/2023 Active Start: 08-01-2022 End: 08-07-2022 take 1 tablet by mouth every other day hydroCHLOROthiazide (HYDRODIURIL, ESIDRIX) 25 mg tablet Take 1 tablet by mouth every other day. 15 tablet 5 08/07/2022 Active Start: 02-12-2022 take 1 tablet by efe th every other day hydroCHLOROthiazide (HYDRODIURIL, ESIDRIX) 25 mg tablet Take 1 tablet by mouth every other day. 0 02/12/2022 Active Start: 05-21-2021 End: 02-06-2022 take 25 mg by mouth once daily Hydrochlorothiazide Active 25 MG PO DAILY February 01, 2022 11:00pm Comment on above: Take 1 tablet by efe th once daily. Take 1 tablet by efe th every other day. ibuprofen 800 mg oral tablet (20 sources) Nonsteroidal Anti-inflammatory Drug Start: 05-21-2021 End: 11-21-2021 take 1 tablet by mouth every eight hours as needed ibuprofen (MOTRIN) 800 mg tablet Take 1 tablet by mouth every 8 hours as needed for pain. Take with food. 30 tablet 11/21/2021 Active Start: 05-19-2018 take 600 mg by mouth three times daily as needed Ibuprofen Active 600 MG PO 3 TIMES DAILY NEEDED May 19, 2018 3:25pm Comment on above: Take 1 tablet by efe th every 8 hours as needed for pain. Take with food. losartan potassium 100 mg oral tablet (20 sources) Angiotensin 2 Receptor Patricia Start: End: take 1 tablet by mouth once daily losartan (COZAAR) 100 mg tablet Indications: Primary hypertension Take 1 tablet by mouth once daily. 30 tablet 5 11/14/2023 Active Start: 02-02-2022 End: 08-07-2022 take 100 mg by mouth once daily Losartan Active 100 MG PO DAILY February 01, 2022 11:00pm Start: 05-21-2021 End: 11-21-2021 take 1 tablet by mouth once daily losartan (COZAAR) 100 mg tablet Indications: Essential hypertension Take 1 tablet by mouth once daily. 90 tablet 1 11/21/2021 Active Comment on above: Take 1 tablet by efe th once daily. predniSONE 20 mg oral tablet (4 sources) Start: 05-25-2024 End: 05-30-2024 take 2 tablets by mouth once daily predniSONE (DELTASONE) 20 mg tablet Take 2 tablets by mouth once daily for 5 days. 10 tablet 05/25/2024 05/30/2024 Active Start: 10-04-2023 take 40 mg by mouth once daily Prednisone Active 40 MG PO DAILY 10 October 04, 2023 12:00am Start: 02-08-2023 take 60 mg by mouth once daily Prednisone Active 60 MG PO DAILY February 07, 2023 11:00pm Completed/Discontinued Medications Medication Drug Class(es) Dates Sig (Normalized) Sig (Original) betamethasone 3 mg/ml / betamethasone acetate 3 mg/ml injectable suspension (2 sources) Corticosteroid Start: 02-04-2024 End: 02-04-2024 betamethasone acetate-betamethas one sodium phosphate 3 mg injection (CELESTONE) CPAP (9 sources) Start: 01-05-2016 CPAP Initiate Auto PAP @ 5/20 cm of water with humidification. Heated humidity. Mask (per patient preference) optional chin strap (if indicated) , filters, tubing, humidifier and lifetime supplies. 1 Device 0 01/05/2016 Active Comment on above: Initiate Auto PAP @ 5/20 cm of water with humidification. Heated humidity. Mask (per patient preference) optional chin strap (if indicated) , filters, tubing, humidifier and lifetime supplies. etodolac 300 mg oral capsule (4 sources) Nonsteroidal Anti-inflammatory Drug Start: 02-19-2017 End: 04-09-2018 take 300 mg by mouth three times daily at mealtime Etodolac Discontinued 300 MG PO 3 TIMES DAILY WITH MEALS February 18, 2017 11:00pm April 09, 2018 11:05am with food 10 ml lidocaine hydrochloride 10 mg/ml injection (2 sources) Antiarrhythmic, Amide Local Anesthetic Start: 02-04-2024 End: 02-04-2024 lidocaine (PF) 10 mg/mL (1 %) 0.5 mL injection (XYLOCAINE) 24 hr oxybutynin chloride 10 mg extended release oral tablet (19 sources) Cholinergic Muscarinic Antagonist Start: 02-05-2023 End: 04-26-2024 take 1 tablet by mouth once daily oxybutynin ER (DITROPAN XL) 10 mg 24 hr tablet Indications: Urinary frequency Take 1 tablet by mouth once daily. 30 tablet 5 02/05/2023 04/26/2024 Discontinued Start: 02-02-2022 End: 02-06-2022 take 1 tablet by mouth every twenty-four hours oxybutynin ER (DITROPAN XL) 10 mg 24 hr tablet Take by mouth. 0 02/02/2022 02/06/2022 Discontinued Start: 02-02-2022 End: 08-07-2022 take 10 mg by mouth once daily Oxybutynin Chloride Act kana 10 MG PO DAILY February 01, 2022 11:00pm Comment on above: Take 1 tablet by efe th once daily. Take by mouth. tiZANidine 4 mg oral tablet (5 sources) Central alpha-2 Adrenergic Agonist Start: End: take 1 tablet by mouth every eight hours as needed for pain tiZANidine (ZANAFLEX) 4 mg tablet Indications: Chronic bilateral low back pain without sciatica Take 1 tablet by mouth every 8 hours as needed (back pain.). 15 tablet 5 11/27/2023 04/26/2024 Discontinued Comment on above: Take 1 tablet by efe th every 8 hours as needed (back pain.). Problems Active Problems Problem Classification Problem Date Documented Da te Episodic/Chronic Anxiety disorders (20 sources) Generalized anxiety disorder; Translations: [Generalized anxiety disorder] Onset: 07-03-2012 Resolved: 06-12-2018 09-04-2016 Chronic Chronic kidney disease (20 sources) Chronic kidney disease stage 3A ; Translations: [Stage 3a chronic kidney disease (HCC)] Onset: 11-26-2021 Chronic Coronary atherosclerosis and other heart disease (20 sources) Coronary atherosclerosis; Translations: [Atherosclerotic heart disease of [place] coronary artery without angina pectoris] Onset: 07-05-2012 Chronic Disorders of lipid metabolism (20 sources) Dyslipidemia; Translations: [Hyperlipidemia, unspecified] Onset: 11-26-2021 11-26-2021 Chronic E Codes: Adverse effects of medical drugs (4 sources) Adverse reaction to drug; Translations: [Adverse effect of unspecified drugs, medicaments and biological substances, initial encounter] 12-25-2017 Episodic Essential hypertension (20 sources) Hypertensive disorder; Translations: [Essential (primary) hypertension] Onset: 06-11-2011 Chronic Fluid and electrolyte disorders (8 sources) Dehydration; Translations: [Dehydration] 02-10-2022 Episodic Headache; including migraine (9 sources) Chronic headache disorder; Translations: [Chronic headache] 12-24-2017 Episodic Mood disorders (20 sources) Depressive disorder; Translations: [Depressive disorder] Onset: 05-13-2019 05-13-2019 Chronic Mood disorders (1 source) Mood disorders; Translations: [Depression, unspecified] Onset: 09-27-2024 Mycoses (4 sources) Onychomycosis; Translations: [Tinea unguium] 12-24-2017 Episodic Nonspecific chest pain (5 sources) Chest pain; Translations: [Chest pain, unspecified] Episodic Nutritional deficiencies (2 sources) Vitamin D deficiency; Translations: [Vitamin D deficiency, unspecified] Onset: 04-26-2024 04-26-2024 Chronic Other aftercare (3 sources) Patient encounter status; Translations: [Other ocean transportation intermediary (current) drug therapy] Episodic Other connective tissue disease (4 sources) Neuropathic pain; Translations: [Neuralgia and neuritis, unspecified] 12-24-2017 Episodic Other connective tissue disease (2 sources) Pain in finger of left hand; Translations: [Pain in left finger(s)] 01-14-2024 Episodic Other connective tissue disease (1 source) Triggering of digit; Translations: [Trigger finger, left ring finger] 02-04-2024 Episodic Other lower respiratory disease (4 sources) Dyspnea; Translations: [Dyspnea, unspecified] 12-24-2017 Episodic Other lower respiratory disease (1 source) Lower respiratory tract infection; Translations: [Unspecified acute lower respiratory infection] 05-19-2024 Episodic Other lower respiratory disease (2 sources) Cough; Translations: [Acute cough] 05-25-2024 Episodic Other male genital disorders (2 sources) Swelling of scrotum ; Translations: [Other specified disorders of the male genital organs] 05-19-2024 Episodic Other male genital disorders (1 source) Hydrocele, unspecified; Translations: [Hydrocele, unspecified] Onset: 09-27-2024 Episodic Other nervous system disorders (4 sources) Carpal tunnel syndrome; Translations: [Carpal tunnel syndrome, right upper limb] 12-21-2021 Chronic Other nutritional; endocrine; and metabolic disorders (20 sources) Obese class II; Translations: [Obesity, unspecified] Onset: 02-05-2023 02-05-2023 Chronic Other nutritional; endocrine; and metabolic disorders (1 source) Obesity, unspecified; Translations: [Obesity, unspecified] Onset: 09-27-2024 Chronic Other upper respiratory infections (1 source) Acute upper respiratory infection; Translations: [Acute upper respiratory infection, unspecified] 10-17-2023 Episodic Residual codes; unclassified (20 sources) Obstructive sleep apnea syndrome; Translations: [Obstructive sleep apnea (adult) (pediatric)] Onset: 12-31-2015 11-07-2016 Chronic Residual codes; unclassified (1 source) Obstructive sleep apnea (adult) (pediatric); Translations: [MK on CPAP] Onset: 11-07-2016 Chronic Skin and subcutaneous tissue infections (8 sources) Cellulitis of chest wall ; Translations: [Cellulitis of chest wall] 10-03-2018 Episodic Unclassified (4 sources) hx of spleen repair 04-15-2022 Unclassified (1 source) Acute cough; Translations: [Acute cough] Onset: 05-25-2024 Past or Other Problems Problem Classification Problem Date Documented Da te Episodic/Chronic Abdominal hernia (16 sources) Umbilical hernia; Translations: [Umbilical hernia without obstruction or gangrene] Onset: 4 Resolved: 7 11-07-2016 Episodic Biliary tract disease (20 sources) Gallstone; Translations: [Calculus of gallbladder without cholecystitis without obstruction] Onset: 1 Resolved: 4 10-11-2013 Episodic Coagulation and hemorrhagic disorders (20 sources) Acquired thrombocytopenia; Translations: [Thrombocytopenia, unspecified] Onset: 8 Resolved: 8 12-24-2017 Chronic Coagulation and hemorrhagic disorders (20 sources) Secondary thrombocytopenia; Translations: [Other secondary thrombocytopenia] Onset: 7 04-04-2017 Episodic Diabetes mellitus without complication (2 sources) Impaired fasting glycemia; Translations: [Impaired fasting glucose] Onset: 4 04-26-2024 Episodic Esophageal disorders (20 sources) Gastroesophageal reflux disease; Translations: [Gastro-esophageal reflux disease without esophagitis] Onset: 1 Resolved: 0 02-02-2022 Chronic Gastritis and duodenitis (16 sources) Gastritis; Translations: [Unspecified gastritis and gastroduodenitis] Onset: 5 Resolved: 6 01-01-2006 Episodic Genitourinary symptoms and ill-defined conditions (20 sources) Increased frequency of urination; Translations: [Frequency of micturition] Onset: 8 11-10-2018 Episodic Headache; including migraine (20 sources) Migraine; Translations: [Migraine, unspecified, not intractable, without status migrainosus] Resolved: 8 08-26-2021 Chronic Joint disorders and dislocations; trauma-related (20 sources) Chondromalacia of patella; Translations: [Chondromalacia patellae, unspecified knee] Onset: 5 Resolved: 6 01-01-2006 Chronic Malaise and fatigue (6 sources) Asthenia; Translations: [Weakness] Onset: 4 02-10-2022 Episodic Other aftercare (1 source) Encounter for therapeutic drug level monitoring; Translations: [Encounter for therapeutic drug monitoring] Onset: 4 Episodic Other and unspecified benign neoplasm (16 sources) Benign neoplasm of small intestine; Translations: [Benign neoplasm of unspecified part of small intestine] Onset: 1 Resolved: 8 06-12-2018 Episodic Other circulatory disease (20 sources) Orthostatic hypotension; Translations: [Orthostatic hypotension] Onset: 2 Episodic Other connective tissue disease (2 sources) Pain in left finger(s); Translations: [Finger pain, left] Onset: 4 Episodic Other gastrointestinal disorders (16 sources) Dysphagia; Translations: [Dysphagia, unspecified] Onset: 1 Resolved: 4 10-11-2013 Episodic Other gastrointestinal disorders (16 sources) Dysphagia, unspecified; Translations: [Dysphagia, unspecified] Onset: 1 Resolved: 4 10-11-2013 Episodic Other gastrointestinal disorders (16 sources) Splenomegaly; Translations: [Splenomegaly, not elsewhere classified] Onset: 7 Resolved: 8 06-12-2018 Episodic Other lower respiratory disease (16 sources) Breathing painful; Translations: [Chest pain on breathing] Onset: 3 Resolved: 4 10-11-2013 Episodic Other male genital disorders (8 sources) Adult hydrocele; Translations: [Hydrocele, unspecified] Onset: 4 05-25-2024 Episodic Other male genital disorders (1 source) Other specified disorders of the male genital organs; Translations: [Scrotal swelling] Onset: 4 Episodic Other nervous system disorders (16 sources) Bilateral carpal tunnel syndrome; Translations: [Carpal tunnel syndrome, bilateral upper limbs] Onset: 2 Resolved: 7 11-07-2016 Chronic Other nutritional; endocrine; and metabolic disorders (20 sources) Obese class I; Translations: [Obesity, unspecified] Onset: 6 Resolved: 3 Chronic Residual codes; unclassified (20 sources) History of clinical finding in subject; Translations: [Personal history of other specified conditions] Onset: 4 06-12-2018 Episodic Residual codes; unclassified (20 sources) Noncompliance with medication regimen; Translations: [Patient's other noncompliance with medication regimen] Onset: 5 07-25-2015 Episodic Residual codes; unclassified (20 sources) Edema; Translations: [Edema, unspecified] Onset: 8 12-01-2017 Episodic Spondylosis; intervertebral disc disorders; other back problems (20 sources) Low back pain; Translations: [Lumbago] Onset: 3 11-20-2012 Episodic Superficial injury; contusion (20 sources) Contusion of left great toe; Translations: [Contusion of left great toe without damage to nail, initial encounter] Onset: 5 Resolved: 6 04-23-2022 Episodic Results Test Name Value Interpretation Reference Range Facility Internal Medicine Office Vis iton 10-29-2024 Internal Medicine Office Visit [facility] [address] [place], [place] [address] OFFICE VISIT Date of Service: 10/29/24 MR#: [id number] Acct: [id number] Name: FELICIANO DAI Rep #: [id number] : 1970 Provider: VICENTA Beavers Age/Sex: 54/M Location[place] [facility] [place] Status: Signed Intake Vital Signs 10/15/24 12:29 10/29/24 12:26 10/29/24 13:11 Height 5 ft 5 in 5 ft 5 in Weight: 210 lb 6 oz 208 lb BMI 34.9 34.6 BP 168/100 H 146/96 H 142/88 H Blood Pressure Location Lt brachial Lt brachial Rt brachial Position Sitting Sitting Sitting Respiration 16 16 Pulse 67 72 Pulse Source Monitor Monitor Temp 97.1 F L 96.1 F L Temp Source Temporal Temporal Pulse Oximetry (%) 96 97 Oxygen Delivery Method room air room air Intake Visit Reasons: 2 WK FU BP Occupational Therapist Assistant Required: No Accompanied by: Self Is patient in pain?: Yes (right buttock and low back s/p fall) Pain scale (1-10): 4 Allergies amoxicillin (Amoxicillin) Allergy (Verified 10/29/24 12:25) Rash amitriptyline Adverse Reaction (Verified 10/29/24 12:25) Mental status change bupivacaine Adverse Reaction (Verified 10/29/24 12:25) Mental status change citalopram (From Celexa) Adverse Reaction (Verified 10/29/24 12:25) Other lisinopril Adverse Reaction (Verified 10/29/24 12:25) Mental status change metoprolol Adverse Reaction (Verified 10/29/24 12:25) Dizziness naproxen Adverse Reaction (Verified 10/29/24 12:25) Upset Stomach Medications ???Medication ???Instructions ???Recorded ???Confirmed ???Type clonazepam 0.5 mg tablet 0.5 mg PO BID PRN Anxiety 10/28/16 10/29/24 History ibuprofen 600 mg tablet 600 mg PO TID PRN PRN Pain #14 tab s 05/19/18 10/29/24 Rx atorvastatin 10 mg tablet 10 mg PO QHS #30 tabs 09/27/24 Rx bupropion HCl 150 mg 24 hr tablet, 150 mg PO DAILY #30 tabs 5 10/29/24 Rx extended release escitalopram oxalate 20 mg tablet 20 mg PO DAILY #30 tabs 09/27/24 10/29/24 Rx hydrochlorothiazide 25 mg tablet 25 mg PO DAILY #30 tabs 09/27/24 0 10/29/24 Rx losartan 100 mg tablet 100 mg PO DAILY #30 tabs 09/27/24 10/29/24 Rx amlodipine 10 mg tablet 10 mg PO QDAY #30 tabs 10/15/24 Rx doxazosin 1 mg tablet (Cardura) See Rx Instructions PO QHS #30 tab s 10/29/24 10/29/24 Rx PFSH Medical History Benign essential HTN CKD (chronic kidney disease) Depressed Anxiety Migraines GERD (gastroesophageal reflux disease) Panic disorder Surgical History S/P cholecystectomy History of left heart catheterization H/O hernia repair hx of spleen repair Family History Father Anxiety Arthritis CVA (cerebral vascular accident) Depression Hyperlipidemia Hypertension Mother Cancer unknown type Hypertension Migraine Social History household members: spouse current occupational status: unemployed Smoking Status: Never smoker Smokeless tobacco user: chewing tobacco alcohol intake: current alcohol intake frequency: holidays/special occasions only substance use type: does not use do you feel safe at home: Yes HPI HPI Details: FELICIANO DAI, is a 54 M who presents to the office today for recheck of his BP. He states that he has checked his BP a few times and he feels like his numbers were better. He got 137 / 86, 169 / 99 and 135 / 81. Patient again has a long history of high blood pressures stating that it has ALWAYS been high and no one could get it under control Patient also has a significant history of anxiety ROS Const Constitutional: No body ache, excessive sweating, fatigue, fever(s), frequent falls, headache(s), snoring, weakness, weight change, sleep problems or change in appetite Eyes Eyes: No blurry vision, change in vision, eye pain or Light sensitivity ENT ENT: No abnormal hearing, ear or mastoid pain, tinnitus, nasal congestion, headache(s), neck pain or sore throat Resp Respiratory: No cough, shortness of breath, snoring or wheezing Cardio Cardiology: No chest pain at rest, chest pain with exertion, excessive sweating, shortness of breath, dyspnea on exertion, lightheadedness, orthopnea or palpitations Gastro GI: No abdominal pain, change in bowel habits, constipation, cramping, diarrhea, nausea/dyspepsia or vomiting Genitourinary Male: No burning urination, painful urination, urinary incontinence, urinary frequency or blood in urine Musc Musculoskeletal: Positive for back pain (right back and low back s/p fall); No abnormal gait, joint pain, limited range of motion, neck pain, numbness, stiffness, tingling or Arthritis Skin Skin: No dry skin, redness, lesions, itchy eyes, (more content not included)... Normal [facility] Internal Medicine Office Vis iton 10-15-2024 Internal Medicine Office Visit [facility] [address] [place] [address] OFFICE VISIT Date of Service: 10/15/24 MR#: [id number] Acct: [id number] Name: FELICIANO DAI Rep #: [id number] : 1970 Provider: VICENTA Beavers Age/Sex: 54/M Location: [facility] Status: Signed Intake Vital Signs 09/27/24 13:15 10/15/24 12:29 Height 5 ft 5 in 5 ft 5 in Weight: 210 lb 6 oz BMI 34.9 BP 168/100 H Blood Pressure Location Lt brachial Position Sitting Respiration 16 Pulse 67 Pulse Source Monitor Temp 97.1 F L Temp Source Temporal Pulse Oximetry (%) 96 Oxygen Delivery Method room air Intake Visit Reasons: rash ongoing Chief Complaint: rash and blood pressure high Occupational Therapist Assistant Required: No Accompanied by: Self Is patient in pain?: No Allergies amoxicillin (Amoxicillin) Allergy (Verified 10/15/24 12:07) Rash amitriptyline Adverse Reaction (Verified 10/15/24 12:07) Mental status change bupivacaine Adverse Reaction (Verified 10/15/24 12:07) Mental status change citalopram (From Celexa) Adverse Reaction (Verified 10/15/24 12:07) Other lisinopril Adverse Reaction (Verified 10/15/24 12:07) Mental status change metoprolol Adverse Reaction (Verified 10/15/24 12:07) Dizziness naproxen Adverse Reaction (Verified 10/15/24 12:07) Upset Stomach Medications ???Medication ???Instructions ???Recorded ???Confirmed ???Type clonazepam 0.5 mg tablet 0.5 mg PO BID PRN Anxiety 10/28/16 10/15/24 History ibuprofen 600 mg tablet 600 mg PO TID PRN PRN Pain #14 tab s 05/19/18 10/15/24 Rx atorvastatin 10 mg tablet 10 mg PO QHS #30 tabs 09/27/2403/04 Rx bupropion HCl 150 mg 24 hr tablet, 150 mg PO DAILY #30 tabs 5 10/15/24 Rx extended release escitalopram oxalate 20 mg tablet 20 mg PO DAILY #30 tabs 09/27/24 10/15/24 Rx hydrochlorothiazide 25 mg tablet 25 mg PO DAILY #30 tabs 09/27/24 0 10/15/24 Rx losartan 100 mg tablet 100 mg PO DAILY #30 tabs 09/27/24 10/15/24 Rx amlodipine 10 mg tablet 10 mg PO QDAY #30 tabs 10/15/24 Rx Have you fallen in the past year?: No Nurse's Note: patient brought cuff in to show numbers etc blood pressure high on machine and when taken manually [facility] Medical History (Updated 10/26/24 @ 16:21 by VICENTA Cruz) Benign essential HTN CKD (chronic kidney disease) Depressed Anxiety Migraines GERD (gastroesophageal reflux disease) Panic disorder Surgical History S/P cholecystectomy History of left heart catheterization H/O hernia repair hx of spleen repair Family History Father Anxiety Arthritis CVA (cerebral vascular accident) Depression Hyperlipidemia Hypertension Mother Cancer unknown type Hypertension Migraine Social History household members: spouse current occupational status: unemployed Smoking Status: Never smoker Smokeless tobacco user: chewing tobacco alcohol intake: current alcohol intake frequency: holidays/special occasions only substance use type: does not use do you feel safe at home: Yes HPI HPI Chief Complaint: rash and blood pressure high Details: FELICIANO DAI, is a 54 M who presents to the office today for recheck of his blood pressure issues. He states that he has had issues for years and nothing has helped him. He has talked to several physicians in the past and he states nothing has helped. He states that the high numbers cause him headaches. He has gone to the ED before for the headaches and when they bring his pressures down the headaches resolve but eventually the BP goes right back up and he is in the same spot that he was before. Patient also has had a rash on the chest area. He states that he has had this for several months. He thought it was his laundry detergent but he hasn't changed it. Patient states he cannot think of anything else that is different or new or any other exposures that he is aware of. Patient consumes a lot of caffeine drinking at least a 12 pack per day. He states he does drink some water. Patient does chew tobacco Patient has been diagnosed with MK but he does not use his CPAP ROS Const Constitutional: No body ache, excessive sweating, fatigue, fever(s), frequent falls, headache(s), snoring, weakness, weight change, sleep problems or change in appetite Eyes Eyes: No blurry vision, change in vision, eye pain or Light sensitivity ENT ENT: No abnormal hearing, ear or mastoid pain, tinnitus, nasal congestion, headache(s), neck pain or sore throat Resp Respiratory: No cough, shortness of breath, snoring or wheezing Cardio Cardiology: No chest pain at rest, chest pain with exertion, excessive sweating, shortness of alen (more content not included)... Normal [facility] Office Visit Reporton 2024 Office Visit Report [facility] [address] [place] [address] OFFICE VISIT Date of Service: 10/11/24 MR#: [id number] Acct: [id number] Patient: FELICIANO DAI Rep #: [id number] : 1970 Provider: SURENDRA NURSE Age/Sex: 54/M Location: [facility] Status: Signed Intake Vital Signs 09/27/24 13:15 10/11/24 13:58 10/11/24 14:16 Height 5 ft 5 in BP 156/102 H 148/98 H Blood Pressure Location Lt brachial Lt brachial Position Sitting Sitting Pulse 73 63 Pulse Source Monitor Monitor Pulse Oximetry (%) 97 98 Oxygen Delivery Method room air room air Intake Visit Reasons: BP CHK Chief Complaint: NUMBNESS IN HANDS Allergies amoxicillin (Amoxicillin) Allergy (Verified 09/27/24 13:06) Rash amitriptyline Adverse Reaction (Verified 09/27/24 13:30) Mental status change bupivacaine Adverse Reaction (Verified 09/27/24 13:30) Mental status change citalopram (From Celexa) Adverse Reaction (Verified 09/27/24 13:30) Other lisinopril Adverse Reaction (Verified 09/27/24 13:30) Mental status change metoprolol Adverse Reaction (Verified 09/27/24 13:30) Dizziness naproxen Adverse Reaction (Verified 09/27/24 13:06) Upset Stomach Nurse's Note: Patient c/o floaters currently, and when bp is elevated. Pt did Assessment and Plan Assessment and Plan (1) HTN (hypertension): Status: Chronic 10/11/24 1546 Date Laura Ferrer Signature: Date (if applicable) CC: Do [facility] 09-30-2024 [facility] Telephone (AGGENS4) FELICIANO DAI ([id number]) 1970 M Date Time Provider Department 09/30/24 NIRU MUNIZ AGGENS4 During your visit today, we recorded the following information about you: Delmi Sandoval 09/30/2024 9:28 AM Signed Referral received. Attempt # 2 LVM for patient. No MyChart message sent to patient - MyChart not set up. Allergies As of Date: 09/30/2024 Noted Allergy Reaction NAPROSYN (NAPROXEN) 06/24/2005 8 - GI Upset AMOXICILLIN 06/19/2005 2 - Rash AMITRIPTYLINE 04/20/2013 1 - Mental Status Change Comments: fatigue BUPIVACAINE (PF) 09/01/2013 1 - Mental Status Change Comments: tonic clonic seizure CELEXA (CITALOPRAM HYDROBROMIDE) 09/04/2016 5 - Intolerance Comments: Claims hallucinations LISINOPRIL 06/27/2015 1 - Mental Status Change Comments: dizzy METOPROLOL TARTRATE 11/26/2014 5 - Intolerance Comments: dizzy Date Reviewed: 05/25/2024 Reviewed by: Carlene Cleveland, MILK HAULER.BOATSWAINS MATE - Fully Assessed Reason for Visit: Appointment [186] Prescriptions as of 09/30/2024 - Benzonatate 200 mg capsule Take 1 capsule by mouth three times a day as needed. - buPROPion XL (WELLBUTRIN XL) 150 mg 24 hr tablet Take 1 tablet by mouth once daily. - escitalopram oxalate (LEXAPRO) 20 mg tablet Take 1 tablet by mouth once daily. - atorvastatin (LIPITOR) 10 mg tablet Take 1 tablet by mouth daily at bedtime. For cholesterol. - hydroCHLOROthiazide 25 mg tablet Take 1 tablet by mouth once daily. - amLODIPine (NORVASC) 10 mg tablet Take 1 tablet by mouth once daily. - losartan (COZAAR) 100 mg tablet Take 1 tablet by mouth once daily. - clonazePAM (KLONOPIN) 0.5 mg tablet Take 1 tablet by mouth two times a day as needed for anxiety (not more than 30 tablets per month) for up to 180 days. - acetaminophen 325 mg cap Take 325 mg by mouth twice daily. - ibuprofen (MOTRIN) 800 mg tablet Take 1 tablet by mouth every 8 hours as needed for pain. Take with food. - Aspirin 81 mg ORAL Tab Take 1 tablet by mouth once daily. Take with food. 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] 06/26/2005 01/01/2006 INT DERANGEMENT KNEE NOS [M23.90] 06/26/2005 01/01/2006 CONTUSION OF LOWER LEG [S80.10XA] 07/08/2005 01/01/2006 Obesity, Class I, BMI 30-34.9 [E66.811] 01/01/2006 02/05/2023 Thrombocytopenia, unspecified (HCC) [D69.6] 07/06/2008 10/15/2017 Dysphagia [R13.10] 10/22/2010 10/11/2013 Dysphagia, unspecified(787.20) [R13.10] 10/23/2010 10/11/2013 Benign neoplasm of duodenum, jejunum, and ileum*10/23/2010 06/12/2018 GERD (gastroesophageal reflux disease) [K21.9] 01/11/2011 03/21/2020 Hypertension [I10] 06/11/2011 Gallstones [K80.20] 06/11/2011 10/11/2013 Bilateral carpal tunnel syndrome [G56.03] 01/21/2012 11/07/2016 Anxiety [F41.9] 07/03/2012 09/04/2016 Panic disorder [F41.0] 07/03/2012 09/04/2016 Coronary atherosclerosis [I25.10] 07/05/2012 Painful respiration [R07.1] 11/20/2012 10/11/2013 Lumbago [M54.50] 11/20/2012 Cholecystitis with cholelithiasis [K80.10] 08/30/2013 10/11/2013 Umbilical hernia [K42.9] 08/30/2013 11/07/2016 Panic disorder without agoraphobia [F41.0] 02/04/2014 06/12/2018 Generalized anxiety disorder [F41.1] 02/04/2014 History of learning disability [Z87.898] 02/04/2014 Noncompliance with medication regimen [Z91.148] 07/25/2015 MK on CPAP [G47.33] 12/31/2015 Splenomegaly [R16.1] 04/04/2017 06/12/2018 Thrombocytopenia, secondary [D69.59] 04/04/2017 Edema [R60.9] 12/01/2017 Urinary frequency [R35.0] 05/15/2018 Depressive disorder [F32.A] 05/13/2019 Dyslipidemia [E78.5] 11/26/2021 Stage 3a chronic kidney disease (HCC) [N18.31] 11/26/2021 Orthostatic lightheadedness [R42] 02/06/2022 Obesity, Class II, BMI 35-39.9 [E66.812] 02/05/2023 Hydrocele in adult [N43.3] 05/25/2024 Encounter Status:Closed by DELMI SANDOVAL on 09/30/24 [facility] 09-28-2024 [facility] Telephone (AGGENS4) FELICIANO DAI ([id number]) 1970 M Date Time Provider Department 09/28/24 RANI MURRAY AGGENS4 During your visit today, we recorded the following information about you: Delmi Sandoval 09/28/2024 9:55 AM Signed Referral received. Attempt # 1 LVM for patient. No MyChart message sent to patient - [facility] message sent to patient.. Allergies As of Date: 09/28/2024 Noted Allergy Reaction NAPROSYN (NAPROXEN) 06/24/2005 8 - GI Upset AMOXICILLIN 06/19/2005 2 - Rash AMITRIPTYLINE 04/20/2013 1 - Mental Status Change Comments: fatigue BUPIVACAINE (PF) 09/01/2013 1 - Mental Status Change Comments: tonic clonic seizure CELEXA (CITALOPRAM HYDROBROMIDE) 09/04/2016 5 - Intolerance Comments: Claims hallucinations LISINOPRIL 06/27/2015 1 - Mental Status Change Comments: dizzy METOPROLOL TARTRATE 11/26/2014 5 - Intolerance Comments: dizzy Date Reviewed: 05/25/2024 Reviewed by: Carlene Cleveland, LILIANA.BOATSWAINS MATE - Fully Assessed Reason for Visit: Appointment [186] Prescriptions as of 09/28/2024 - Benzonatate 200 mg capsule Take 1 capsule by mouth three times a day as needed. - buPROPion XL (WELLBUTRIN XL) 150 mg 24 hr tablet Take 1 tablet by mouth once daily. - escitalopram oxalate (LEXAPRO) 20 mg tablet Take 1 tablet by mouth once daily. - atorvastatin (LIPITOR) 10 mg tablet Take 1 tablet by mouth daily at bedtime. For cholesterol. - hydroCHLOROthiazide 25 mg tablet Take 1 tablet by mouth once daily. - amLODIPine (NORVASC) 10 mg tablet Take 1 tablet by mouth once daily. - losartan (COZAAR) 100 mg tablet Take 1 tablet by mouth once daily. - clonazePAM (KLONOPIN) 0.5 mg tablet Take 1 tablet by mouth two times a day as needed for anxiety (not more than 30 tablets per month) for up to 180 days. - acetaminophen 325 mg cap Take 325 mg by mouth twice daily. - ibuprofen (MOTRIN) 800 mg tablet Take 1 tablet by mouth every 8 hours as needed for pain. Take with food. - Aspirin 81 mg ORAL Tab Take 1 tablet by mouth once daily. Take with food. Problem List As Of Date 09/28/2024 Noted Resolved GASTRITIS/DUODENITIS NOS [535.5] 06/19/2005 01/01/2006 Migraine without aura and without status migrai* 06/12/2018 CHONDROMALACIA PATELLAE [M22.40] 06/26/2005 01/01/2006 INT DERANGEMENT KNEE NOS [M23.90] 06/26/2005 01/01/2006 CONTUSION OF LOWER LEG [S80.10XA] 07/08/2005 01/01/2006 Obesity, Class I, BMI 30-34.9 [E66.811] 01/01/2006 02/05/2023 Thrombocytopenia, unspecified (HCC) [D69.6] 07/06/2008 10/15/2017 Dysphagia [R13.10] 10/22/2010 10/11/2013 Dysphagia, unspecified(787.20) [R13.10] 10/23/2010 10/11/2013 Benign neoplasm of duodenum, jejunum, and ileum*10/23/2010 06/12/2018 GERD (gastroesophageal reflux disease) [K21.9] 01/11/2011 03/21/2020 Hypertension [I10] 06/11/2011 Gallstones [K80.20] 06/11/2011 10/11/2013 Bilateral carpal tunnel syndrome [G56.03] 01/21/2012 11/07/2016 Anxiety [F41.9] 07/03/2012 09/04/2016 Panic disorder [F41.0] 07/03/2012 09/04/2016 Coronary atherosclerosis [I25.10] 07/05/2012 Painful respiration [R07.1] 11/20/2012 10/11/2013 Lumbago [M54.50] 11/20/2012 Cholecystitis with cholelithiasis [K80.10] 08/30/2013 10/11/2013 Umbilical hernia [K42.9] 08/30/2013 11/07/2016 Panic disorder without agoraphobia [F41.0] 02/04/2014 06/12/2018 Generalized anxiety disorder [F41.1] 02/04/2014 History of learning disability [Z87.898] 02/04/2014 Noncompliance with medication regimen [Z91.148] 07/25/2015 MK on CPAP [G47.33] 12/31/2015 Splenomegaly [R16.1] 04/04/2017 06/12/2018 Thrombocytopenia, secondary [D69.59] 04/04/2017 Edema [R60.9] 12/01/2017 Urinary frequency [R35.0] 05/15/2018 Depressive disorder [F32.A] 05/13/2019 Dyslipidemia [E78.5] 11/26/2021 Stage 3a chronic kidney disease (HCC) [N18.31] 11/26/2021 Orthostatic lightheadedness [R42] 02/06/2022 Obesity, Class II, BMI 35-39.9 [E66.812] 02/05/2023 Hydrocele in adult [N43.3] 05/25/2024 Encounter Status:Closed by DELMI SANDOVAL on 09/28/24 Normal [facility] Internal Medicine Office Vis kim 09-23-2024 Internal Medicine Office Visit [facility] [address] [place], [place] [address] OFFICE VISIT Date of Service: 09/27/24 MR#: [id number] Acct: [id number] Name: FELICIANO DAI Rep #: [id number] : 1970 Provider: Dr. Laura ramirez MD Age/Sex: 54/M Location: [facility] Status: Signed Intake Vital Signs 04/17/24 19:42 08/16/24 21:15 09/27/24 13:15 09/27/24 15:05 Height 5 ft 5 in 5 ft 5 in 5 ft 5 in Weight: 214 lb BMI 35.6 BP 176/104 H 162/112 H Blood Pressure Location Lt brachial Lt brachial Position Sitting Sitting Respiration 16 Pulse 94 Pulse Source Monitor Temp 97.7 F L Temp Source Temporal Pulse Oximetry (%) 98 Oxygen Delivery Method room air Comment BP recheck. PCP notified Intake Visit Reasons: EST CARE Occupational Therapist Assistant Required: No Accompanied by: Is patient in pain?: Yes (groin) Pain scale (1-10): 8 Allergies amoxicillin (Amoxicillin) Allergy (Verified 09/27/24 13:06) Rash amitriptyline Adverse Reaction (Verified 09/27/24 13:30) Mental status change bupivacaine Adverse Reaction (Verified 09/27/24 13:30) Mental status change citalopram (From Celexa) Adverse Reaction (Verified 09/27/24 13:30) Other lisinopril Adverse Reaction (Verified 09/27/24 13:30) Mental status change metoprolol Adverse Reaction (Verified 09/27/24 13:30) Dizziness naproxen Adverse Reaction (Verified 09/27/24 13:06) Upset Stomach Medications ???Medication ???Instructions ???Recorded ???Confirmed ???Type clonazepam 0.5 mg tablet 0.5 mg PO BID PRN Anxiety 10/28/16 09/27/24 History ibuprofen 600 mg tablet 600 mg PO TID PRN PRN Pain #14 tab s 05/19/18 09/27/24 Rx atorvastatin 10 mg tablet 10 mg PO QHS #30 tabs 09/27/24 Rx bupropion HCl 150 mg 24 hr tablet, 150 mg PO DAILY #30 tabs 5 09/27/24 Rx extended release escitalopram oxalate 20 mg tablet 20 mg PO DAILY #30 tabs 09/27/24 09/27/24 Rx hydrochlorothiazide 25 mg tablet 25 mg PO DAILY #30 tabs 09/27/24 0 09/27/24 Rx losartan 100 mg tablet 100 mg PO DAILY #30 tabs 09/27/24 09/27/24 Rx PFSH Medical History (Updated 09/27/24 @ 19:[address] Laura Mederos MD) CKD (chronic kidney disease) Depressed Anxiety Migraines GERD (gastroesophageal reflux disease) Panic disorder Benign essential HTN Surgical History (Updated 09/27/24 @ 16:[address] Laura Mederos MD) S/P cholecystectomy History of left heart catheterization H/O hernia repair hx of spleen repair Family History (Updated 09/27/24 @ 14:[address] Laura Mederos MD) Father Anxiety Arthritis CVA (cerebral vascular accident) Depression Hyperlipidemia Hypertension Mother Cancer unknown type Hypertension Migraine Social History (Updated 09/27/24 @ 14:[address] Laura Mederos MD) household members: spouse current occupational status: unemployed Smoking Status: Never smoker Smokeless tobacco user: chewing tobacco alcohol intake: current alcohol intake frequency: holidays/special occasions only substance use type: does not use do you feel safe at home: Yes HPI HPI Details: FELICIANO DAI, is a 54 M who presents to the office today to establish care. He was seeing Dr. Mcdonald and last saw him a year ago. He is up to date on his routine blood work and doesn't want to do any colon cancer screening. He doesn't want any immunizations. He doesn't smoke and does need refills. He does chew tobacco and isn't ready to quit yet. He reports he is not eating healthy and staying active. The patient has been on blood pressure medications for about 15-20 years. He doesn't check his blood pressure at home routinely. He reports he has been out of his medication for about 10 days. Prior to that, he was taking it as prescribed without problems. He states he will occasionally forget a dose. He doesn't really monitor his salt intake stating he does add a little extra. The patient has a history of depression and anxiety. He is taking his medications as prescribed without problems. He does have ongoing problems with anxiety and was seen in the ED for the same in April and again in August. He reports that he struggles with panic attacks and feels that affects his activities of daily living. He is currently looking into getting on disability stating he can't work due to his symptoms. He doesn't currently see a psychiatrist, but has seen one in the past. The patient has been out of his medications as above. He states while on it, it was helping to calm him down. He denies any thoughts of suicide. The patient has concerns about his weight. He is interested in trying a GLP-1 inhibitor. The patient reports on a typical day, he doesn't eat breakfast. He reports sometimes, he won't eat until 2pm and sometimes, won't eat at all until dinner time. He reports for dinner, he will eat spaghetti (more content not included)... Normal [facility] Emergency Department Summary on 08-16-2024 Emergency Department Summary [facility] Medical Records Department [address] [place] [address] Emergency Department Summary 08/16/24 MR#: [id number] Acct: [id number] Name: FELICIANO DAI Rep #: [id number] : 1970 53 From: Chito Tanner DO PCP: Care Physician,No Primary Status:DEP ER Location: ED HPI History of Present Illness Chief Complaint: Numb/Ting Informant: patient Narrative Narrative: 53-year-old male presenting to the emergency room with intermittent paresthesias of hand and feet and perioral area. Symptoms come intermittently. Last night he was in the bathtub when he got tingling periorally and in the left hand. He states it feels like when you sit on your legs too long and it takes him a while to come back. He states sometimes this happens when he comes out in the cold but mostly comes when he is anxious. He denies any muscle weakness. He occasionally gets headaches. He states he is treated for anxiety/panic attacks. He sees primary care for this. He states he used to see a counselor but has not since they moved away. He notes that he is not currently working. 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 He states that a lot of times he gets symptoms and becomes quite worried about them or he gets anxiety around people. He states that as we speak his upper lip is going down. [facility] Medical History Depressed Anxiety Migraines GERD (gastroesophageal reflux disease) Panic disorder hx of spleen repair Benign essential HTN Home Medications ???Medication ???Instructions ???Recorded ???Last Taken ???Type amlodipine 10 mg tablet 5 mg PO DAILY 10/28/16 12/23/17 History clonazepam 0.5 mg tablet 0.5 mg PO BID PRN Anxiety 10/28/16 12/23/17 History gabapentin 300 mg capsule 300 mg PO BID 10/28/16 12/23/17 History (Neurontin) ibuprofen 600 mg tablet 600 mg PO TID PRN PRN Pain #14 tabs 05/19/18 Unknown Rx bupropion HCl 150 mg 24 hr tablet, 150 mg PO DAILY 02/02/22 Unknown History extended release escitalopram oxalate 20 mg tablet 20 mg PO DAILY 02/02/22 Unknown History hydrochlorothiazide 25 mg tablet 25 mg PO DAILY 02/02/22 Unknown History losartan 100 mg tablet 100 mg PO DAILY 02/02/22 Unknown History oxybutynin chloride 10 mg 10 mg PO DAILY 02/02/22 Unknown History tablet,extended release 24 hr aspirin 81 mg capsule 81 mg PO DAILY 04/17/24 Unknown History Allergy/AdvReac Type Severity Reaction Status Date / Time amoxicillin (Amoxicillin) Allergy Rash Verified 08/16/24 21:15 naproxen AdvReac Upset Verified 08/16/24 21:15 Stomach Social History Smoking Status: Current every day smoker tobacco type: smokeless tobacco ROS ROS ED Constitutional Constitutional ED: Denies chills or weight loss Eyes Eyes: Denies change in vision or diplopia ENT ENT ED: Denies ear pain, rhinorrhea or sore throat Cardiovascular Cardiovascular: Denies chest pain, orthopnea, palpitations or racing heartbeat Respiratory/Chest Respiratory/Chest: Denies cough, dyspnea or orthopnea Gastrointestinal Gastrointestinal: Denies abdominal pain, diarrhea, nausea or vomiting Genitourinary Genitourinary ED: Denies dysuria, hematuria or urinary frequency Musculoskeletal Musculoskeletal: Denies arthralgias or myalgias Integumentary Denies abscess or rash Neurologic Neurologic: Reports paresthesias; Denies headache(s) or weakness Psychiatric Psychiatric: Reports anxiety; Denies depression, suicidal ideation or suicidal thoughts Endocrine Endocrinology: Denies polydipsia, polyphagia or polyuria Allergic/Immunologic Allergic/Immunologic ED: Denies mouth swelling, tongue swelling or urticaria EXAM Physical Exam Const Vital Signs: 08/16/24 21:15 Temperature 97.8 F Temperature Source Oral Pulse Rate 69 Respiratory Rate 18 Blood Pressure 170/90 H Blood Pressure Mean 116 Pulse Ox 98 Oxygen Delivery Method Room Air Positive well nourished, well developed and obese General Appearance ED: well developed and NAD Nutritional Appearance: obese HEENT Reports normocephalic, head/scalp atraumatic and moist mucous membranes Eyes PERRL and EOMs intact bilaterally Neck no lymphadenopathy, supple and no JVD Resp normal respiratory effort and clear to auscultation bilaterally Cardio regular rate, regular rhythm and no murmurs GI normal to inspection, nondistended, normoactive bowel sounds and non-tender Palpation: soft Back/Spine no CVA tenderness and normal ROM Extremity normal to inspection General Extremety ED: Negative for edema General Extremity: Negative for edema Neuro oriented x3, CN's II-XII intact bilaterally and no senso (more content not included)... Normal [facility] CNOVon 05-25-2024 CNOV Office Visit (INTMWS ) FELICIANO DAI ([id number]) 1970 M Date Time Provider Department 05/25/24 11:40 AM CARLENE C[place]AND INTMWS During your visit today, we recorded the following information about you: Temperature Pulse Respiration Blood pressure 98.5 degrees 71/minute 18/minute 162/94 Weight 94.3 kg Carlene Cleveland, MILK HAULER.BOATSWAINS MATE 05/25/2024 12:16 PM Signed CC: Patient presents with: cough x 1 month HPI Feliciano Dai is a 53 year old male who presents today for above. Patient was seen in [facility] on 05/25 with three week history of cough. Treated with doxycycline for lower respiratory tract infection. Patient reports cough has not improved, productive with yellow green sputum. Cough is a little worse at night but still coughing during the day. Associated with fatigue, wheezing and rhinorrhea. Denies fever, chills, SOB, nasal congestion, facial pain or pressure, ear pain. Denies history of allergies or respiratory disease. He is taking OTC cough medicine without any relief. He had also reported scrotal swelling on the left that was painless. Exam revealed swelling but no acute findings otherwise. Ultrasound indicated moderate to large bilateral hydroceles, left greater than right. Patient reports swelling has diminished. Denies pain. No new or worsening symptoms. Review of Systems See HPI PAST MEDICAL HISTORY Diagnosis Date [...] Laterality Date EGD TRANSORAL BIOPSY SINGLE/MULTIPLE 10/23/10 ESOPHAGOGASTRODUODENOSC OPY TRANSORAL DIAGNOSTIC 07/14/[address] Mcnair [facility] LAPAROSCOPY SURG CHOLECYSTECTOMY 08/24/13 LEFT HEART CATH,PERCUTANEOUS 12/02/2011 PAST SURGICAL HISTORY OF 1979 REPAIR OF RUPTURED SPLEEN AGE 9 RPR UMBILICAL HRNA 5 YRS/> REDUCIBLE 08/24/13 ALLERGIES Naprosyn [Naproxen], Amoxicillin, Amitriptyline, Bupivacaine (Pf), Celexa [Citalopram Hydrobromide], Lisinopril, and Metoprolol Tartrate MEDICATIONS doxycycline (VIBRA-TABS) 100 mg tablet Take 1 tablet by mouth two times a day for 7 days. buPROPion XL (WELLBUTRIN XL) 150 mg 24 hr tablet Take 1 tablet by mouth once daily. escitalopram oxalate (LEXAPRO) 20 mg tablet Take 1 tablet by mouth once daily. atorvastatin (LIPITOR) 10 mg tablet Take 1 tablet by mouth daily at bedtime. For cholesterol. hydroCHLOROthiazide 25 mg tablet Take 1 tablet by mouth once daily. amLODIPine (NORVASC) 10 mg tablet Take 1 tablet by mouth once daily. losartan (COZAAR) 100 mg tablet Take 1 tablet by mouth once daily. clonazePAM (KLONOPIN) 0.5 mg tablet Take 1 tablet by mouth two times a day as needed for anxiety (not more than 30 tablets per month) for up to 180 days. acetaminophen 325 mg cap Take 325 mg [...] status: Never Smokeless tobacco: Current Types: Chew Tobacco comments: 1 can of chew every two weeks Vaping Use Vaping status: Never Used Substance Use Topics Alcohol use: Yes Comment: rarely Drug use: No BP 162/94 Pulse 71 Temp 36.9 ?C (98.5 ?F) (Temporal) Resp 18 Wt 94.3 kg (207 lb 14.3 oz) SpO2 95% BMI (P) 35.46 kg/m? Physical Ex (more content not included)... Normal [facility] Arleen 05-25-2024 MICKYN Telephone (INTMWS) FELICIANO DAI ([id number]) 1970 M Date Time Provider Department 05/25/24 CARLENE C[place] During your visit today, we recorded the following information about you: Carlene Cleveland APRN.MICKY 05/25/2024 12:34 PM Signed Please let the patient know his chest x-ray was normal. Start treatment with prednisone and Tessalon Perles. Follow-up as scheduled with PCP on 06/02 Carlene Cleveland APRN.Fernando Jimenez MA 05/25/2024 1:19 PM Signed Patient notified, verbalized understanding. Allergies As of Date: 05/25/2024 Noted Allergy Reaction NAPROSYN (NAPROXEN) 06/24/2005 8 - GI Upset AMOXICILLIN 06/19/2005 2 - Rash AMITRIPTYLINE 04/20/2013 1 - Mental Status Change Comments: fatigue BUPIVACAINE (PF) 09/01/2013 1 - Mental Status Change Comments: tonic clonic seizure CELEXA (CITALOPRAM HYDROBROMIDE) 09/04/2016 5 - Intolerance Comments: Claims hallucinations LISINOPRIL 06/27/2015 1 - Mental Status Change Comments: dizzy METOPROLOL TARTRATE 11/26/2014 5 - Intolerance Comments: dizzy Date Reviewed: 05/25/2024 Reviewed by: Carlene Cleveland APRN.BOATSWAINS MATE - Fully Assessed Order(s):predniSONE (DELTASONE) 20 mg tabletTake 2 tablets by mouth once daily for 5 days.Disp: 10 tabletRfl: 0 Benzonatate 200 mg capsuleTake 1 capsule by mouth three times a day as needed.Disp: 21 capsuleRfl: 0 Prescriptions as of 05/25/2024 - predniSONE (DELTASONE) 20 mg tablet Take 2 tablets by mouth once daily for 5 days. - Benzonatate 200 mg capsule Take 1 capsule by mouth three times a day as needed. - doxycycline (VIBRA-TABS) 100 mg tablet Take 1 tablet by mouth two times a day for 7 days. - buPROPion XL (WELLBUTRIN XL) 150 mg 24 hr tablet Take 1 tablet by mouth once daily. - escitalopram oxalate (LEXAPRO) 20 mg tablet Take 1 tablet by mouth once daily. - atorvastatin (LIPITOR) 10 mg tablet Take 1 tablet by mouth daily at bedtime. For cholesterol. - hydroCHLOROthiazide 25 mg tablet Take 1 tablet by mouth once daily. - amLODIPine (NORVASC) 10 mg tablet Take 1 tablet by mouth once daily. - losartan (COZAAR) 100 mg tablet Take 1 tablet by mouth once daily. - clonazePAM (KLONOPIN) 0.5 mg tablet Take 1 tablet by mouth two times a day as needed for anxiety (not more than 30 tablets per month) for up to 180 days. - acetaminophen 325 mg cap Take 325 mg by mouth twice daily. - ibuprofen (MOTRIN) 800 mg tablet Take 1 tablet by mouth every 8 hours as needed for pain. Take with food. - Aspirin 81 mg ORAL Tab Take 1 tablet by mouth once daily. Take with food. Problem List As Of Date 05/25/2024 Noted Resolved GASTRITIS/DUODENITIS NOS [535.5] 06/19/2005 01/01/2006 Migraine without aura and without status migrai* 06/12/2018 CHONDROMALACIA PATELLAE [M22.40] 06/26/2005 01/01/2006 INT DERANGEMENT KNEE NOS [M23.90] 06/26/2005 01/01/2006 CONTUSION OF LOWER LEG [S80.10XA] 07/08/2005 01/01/2006 Obesity, Class I, BMI 30-34.9 [E66.811] 01/01/2006 02/05/2023 Thrombocytopenia, unspecified (HCC) [D69.6] 07/06/2008 10/15/2017 Dysphagia [R13.10] 10/22/2010 10/11/2013 Dysphagia, unspecified(787.20) [R13.10] 10/23/2010 10/11/2013 Benign neoplasm of duodenum, jejunum, and ileum*10/23/2010 06/12/2018 GERD (gastroesophageal reflux disease) [K21.9] 01/11/2011 03/21/2020 Hypertension [I10] 06/11/2011 Gallstones [K80.20] 06/11/2011 10/11/2013 Bilateral carpal tunnel syndrome [G56.03] 01/21/2012 11/07/2016 Anxiety [F41.9] 07/03/2012 09/04/2016 Panic disorder [F41.0] 07/03/2012 09/04/2016 Coronary atherosclerosis [I25.10] 07/05/2012 Painful respiration [R07.1] 11/20/2012 10/11/2013 Lumbago [M54.50] 11/20/2012 Cholecystitis with cholelithiasis [K80.10] 08/30/2013 10/11/2013 Umbilical hernia [K42.9] 08/30/2013 11/07/2016 Panic disorder without agoraphobia [F41.0] 02/04/2014 06/12/2018 Generalized anxiety disorder [F41.1] 02/04/2014 History of learning disability [Z87.898] 02/04/2014 Noncompliance with medication regimen [Z91.148] 07/25/2015 MK on CPAP [G47.33] 12/31/2015 Splenomegaly [R16.1] 04/04/2017 06/12/2018 Thrombocytopenia, secondary [D69.59] 04/04/2017 Edema [R60.9] 12/01/2017 Urinary frequency [R35.0] 05/15/2018 Depressive disorder [F32.A] 05/13/2019 Dyslipidemia [E78.5] 11/26/2021 Stage 3a chronic kidney disease (HCC) [N18.31] 11/26/2021 Orthostatic lightheadedness [R42] 02/06/2022 Obesity, Class II, BMI 35-39.9 [E66.812] 02/05/2023 Hydrocele in adult [N43.3] 05/25/2024 Prescriptions ordered this encounter Disp Refills Start End PREDNISONE 20 MG TABLET 10 t* 0 05/25/2024 05/30/2024 Route: ORAL Sig: Take 2 tablets by mouth once daily for 5 days. BENZONATATE 200 MG CAPSULE 21 c* 0 05/25/2024 Route: ORAL Sig: Take 1 capsule by mouth three times a day as needed. Encounter Status:Closed by FERNANDO LOPEZ on 05/25/[address] [facility] XR CHEST 2V FRONTAL/LATon XR CHEST 2V FRONTAL/LAT * * *Final Report* * * DATE OF EXAM: May 25 2024 12:22PM WOX [id number] - XR CHEST 2V FRONTAL/LAT / PROCEDURE REASON: Acute cough * * * * Physician Interpretation * * * * EXAMINATION: CHEST RADIOGRAPH (2 VIEW FRONTAL and LATERAL) CLINICAL HISTORY: Acute cough MQ: XC2_6 EXAM DATE/TIME: 05/25/2024 12:22 PM COMPARISON: Chest x-ray 11/07/2016 RESULT: Lines, tubes, and devices: None. Lungs and pleura: No consolidation. No lung mass. No pleural effusion. No pneumothorax. Cardiomediastinal silhouette: Normal cardiomediastinal silhouette. Bones and soft tissues: Degenerative disease of the thoracic spine IMPRESSION: No acute radiographic abnormality. Clinical Supervisor: [employer] Transcribe Date/Time: May 25 2024 12:24P Dictated by : BOUCHRA HODGES MD This examination was interpreted and the report reviewed and electronically signed by: BOUCHRA HODGES MD on May 25 2024 12:25PM EST [id number] Normal [facility] XR Chest PA and Lateralon IMPRESSION: No acute radiographic abnormality. Clinical Supervisor: PSCB Transcribe Date/Time: May 25 2024 12:24P Dictated by : BOUCHRA HODGES MD This examination was interpreted and the report reviewed and electronically signed by: BOUCHRA HODGES MD on May 25 2024 12:25PM EST DIVISION OF RADIOLOGY * * *Final Report* * * DATE OF EXAM: May 25 2024 12:22PM WOX [id number] - XR CHEST 2V FRONTAL/LAT / PROCEDURE REASON: Acute cough * * * * Physician Interpretation * * * * EXAMINATION: CHEST RADIOGRAPH (2 VIEW FRONTAL & LATERAL) CLINICAL HISTORY: Acute cough MQ: XC2_6 EXAM DATE/TIME: 05/25/2024 12:22 PM COMPARISON: Chest x-ray 11/07/2016 RESULT: Lines, tubes, and devices: None. Lungs and pleura: No consolidation. No lung mass. No pleural effusion. No pneumothorax. Cardiomediastinal silhouette: Normal cardiomediastinal silhouette. Bones and soft tissues: Degenerative disease of the thoracic spine DIVISION OF RADIOLOGY Provider, Juan Carlos Cheek [facility] - 05/25/2024 * * *Final Report* * * DATE OF EXAM: May 25 2024 12:22PM WOX [id number] - XR CHEST 2V FRONTAL/LAT / PROCEDURE REASON: Acute cough * * * * Physician Interpretation * * * * EXAMINATION: CHEST RADIOGRAPH (2 VIEW FRONTAL & LATERAL) CLINICAL HISTORY: Acute cough MQ: XC2_6 EXAM DATE/TIME: 05/25/2024 12:22 PM COMPARISON: Chest x-ray 11/07/2016 RESULT: Lines, tubes, and devices: None. Lungs and pleura: No consolidation. No lung mass. No pleural effusion. No pneumothorax. Cardiomediastinal silhouette: Normal cardiomediastinal silhouette. Bones and soft tissues: Degenerative disease of the thoracic spine IMPRESSION IMPRESSION: No acute radiographic abnormality. Clinical Supervisor: PSCB Transcribe Date/Time: May 25 2024 12:24P Dictated by : BOUCHRA HODGES MD This examination was interpreted and the report reviewed and electronically signed by: BOUCHRA HODGES MD on May 25 2024 12:25PM [facility] Radiology Study observation (narrative) [facility] XR Chest PA and LateralOrder ed By: Cc Provider on 05-25-2024 [facility] 05-20-2024 CNPN Telephone (UCWSTR) FELICIANO DAI ([id number]) 1970 M Date Time Provider Department 05/20/24 BARNEY HOWELL During your visit today, we recorded the following information about you: Silvia Rocha LPN 05/20/2024 4:06 PM Signed ----- Message from Barney Howell APRN.BOATSWAINS MATE sent at 05/20/2024 1:49 PM EDT ----- Please inform patient that the ultrasound of the scrotum did not show any concerning issues other than extra fluid within the scrotum itself. This issue typically will resolve on its own however I would recommend follow-up with PCP for continued evaluation and monitoring. Silvia Rocha LPN 05/20/2024 4:07 PM Signed Left a message for pt to call the office and ask to speak to a nurse. JENNY Cai Laurie Lynn, LPN 05/20/2024 4:11 PM Signed Spoke with pt and information listed below given. Pt verbalizes understanding. Follow up apt made with pcp. Silvia Rocha LPN Allergies As of Date: 05/20/2024 Noted Allergy Reaction NAPROSYN (NAPROXEN) 06/24/2005 8 - GI Upset AMOXICILLIN 06/19/2005 2 - Rash AMITRIPTYLINE 04/20/2013 1 - Mental Status Change Comments: fatigue BUPIVACAINE (PF) 09/01/2013 1 - Mental Status Change Comments: tonic clonic seizure CELEXA (CITALOPRAM HYDROBROMIDE) 09/04/2016 5 - Intolerance Comments: Claims hallucinations LISINOPRIL 06/27/2015 1 - Mental Status Change Comments: dizzy METOPROLOL TARTRATE 11/26/2014 5 - Intolerance Comments: dizzy Date Reviewed: 05/19/2024 Reviewed by: Rojas Steve APRN.BOATSWAINS MATE - Fully Assessed Reason for Visit: Results [95] Prescriptions as of 05/20/2024 - doxycycline (VIBRA-TABS) 100 mg tablet Take 1 tablet by mouth two times a day for 7 days. - buPROPion XL (WELLBUTRIN XL) 150 mg 24 hr tablet Take 1 tablet by mouth once daily. - escitalopram oxalate (LEXAPRO) 20 mg tablet Take 1 tablet by mouth once daily. - atorvastatin (LIPITOR) 10 mg tablet Take 1 tablet by mouth daily at bedtime. For cholesterol. - hydroCHLOROthiazide 25 mg tablet Take 1 tablet by mouth once daily. - amLODIPine (NORVASC) 10 mg tablet Take 1 tablet by mouth once daily. - losartan (COZAAR) 100 mg tablet Take 1 tablet by mouth once daily. - clonazePAM (KLONOPIN) 0.5 mg tablet Take 1 tablet by mouth two times a day as needed for anxiety (not more than 30 tablets per month) for up to 180 days. - acetaminophen 325 mg cap Take 325 mg by mouth twice daily. - ibuprofen (MOTRIN) 800 mg tablet Take 1 tablet by mouth every 8 hours as needed for pain. Take with food. - Aspirin 81 mg ORAL Tab Take 1 tablet by mouth once daily. Take with food. Problem List As Of Date 05/20/2024 Noted Resolved GASTRITIS/DUODENITIS NOS [535.5] 06/19/2005 01/01/2006 Migraine without aura and without status migrai* 06/12/2018 CHONDROMALACIA PATELLAE [M22.40] 06/26/2005 01/01/2006 INT DERANGEMENT KNEE NOS [M23.90] 06/26/2005 01/01/2006 CONTUSION OF LOWER LEG [S80.10XA] 07/08/2005 01/01/2006 Obesity, Class I, BMI 30-34.9 [E66.811] 01/01/2006 02/05/2023 Thrombocytopenia, unspecified (HCC) [D69.6] 07/06/2008 10/15/2017 Dysphagia [R13.10] 10/22/2010 10/11/2013 Dysphagia, unspecified(787.20) [R13.10] 10/23/2010 10/11/2013 Benign neoplasm of duodenum, jejunum, and ileum*10/23/2010 06/12/2018 GERD (gastroesophageal reflux disease) [K21.9] 01/11/2011 03/21/2020 Hypertension [I10] 06/11/2011 Gallstones [K80.20] 06/11/2011 10/11/2013 Bilateral carpal tunnel syndrome [G56.03] 01/21/2012 11/07/2016 Anxiety [F41.9] 07/03/2012 09/04/2016 Panic disorder [F41.0] 07/03/2012 09/04/2016 Coronary atherosclerosis [I25.10] 07/05/2012 Painful respiration [R07.1] 11/20/2012 10/11/2013 Lumbago [M54.50] 11/20/2012 Cholecystitis with cholelithiasis [K80.10] 08/30/2013 10/11/2013 Umbilical hernia [K42.9] 08/30/2013 11/07/2016 Panic disorder without agoraphobia [F41.0] 02/04/2014 06/12/2018 Generalized anxiety disorder [F41.1] 02/04/2014 History of learning disability [Z87.898] 02/04/2014 Noncompliance with medication regimen [Z91.148] 07/25/2015 MK on CPAP [G47.33] 12/31/2015 Splenomegaly [R16.1] 04/04/2017 06/12/2018 Thrombocytopenia, secondary [D69.59] 04/04/2017 Edema [R60.9] 12/01/2017 Urinary frequency [R35.0] 05/15/2018 Depressive disorder [F32.A] 05/13/2019 Dyslipidemia [E78.5] 11/26/2021 Stage 3a chronic kidney disease (HCC) [N18.31] 11/26/2021 Orthostatic lightheadedness [R42] 02/06/2022 Obesity, Class II, BMI 35-39.9 [E66.812] 02/05/2023 Encounter Status:Closed by SILVIA ROCHA on 05/20/24 [facility] Panel Informationon 05-20 IMPRESSION: Left greater than right bilateral hydroceles. Clinical Supervisor: SYLVESTER Transcribe Date/Time: May 20 2024 1:02P Dictated by : JOAQUINA FRITZ MD This examination was interpreted and the report reviewed and electronically signed by: JOAQUINA FRITZ MD on May 20 2024 1:04PM [facility] DIVISION OF RADIOLOGY No Panel InformationOrdered By: Ccf Provider on 05-20-2024 [facility] US DOPPLER COMPLETEon 2023 US DOPPLER COMPLETE * * *Final Report* * * DATE OF EXAM: May 20 2024 1:01PM [facility] 1033 - US DOPPLER COMPLETE / PROCEDURE REASON: Scrotal swelling * * * * Physician Interpretation * * * * EXAMINATION: SCROTAL ULTRASOUND WITH DOPPLER IMAGING CLINICAL HISTORY: Scrotal swelling TECHNIQUE: Sonography of the scrotal contents with color flow and spectral Doppler imaging of the testicular vasculature was performed. Images were obtained and stored in a permanent archive. M: USC_2 COMPARISON: None RESULT: RIGHT SCROTUM: Right testis: 4.8 x 3.2 x 3.4 cm. Homogeneous with no calcifications or mass. Normal intratesticular arterial and venous flow with normal spectral waveforms. Epididymis: Normal. Vascular flow on Color Doppler is symmetric to the contralateral side. Hydrocele: moderate hydrocele present Varicocele: absent LEFT SCROTUM: Left testis: 4.8 x 3.3 x 2.9 cm. Homogeneous with no calcifications or mass. Normal intratesticular arterial and venous flow with normal spectral waveforms. Epididymis: Normal. Vascular flow on Color Doppler is symmetric to the contralateral side. Hydrocele: large hydrocele present Varicocele: absent IMPRESSION: Left greater than right bilateral hydroceles. Clinical Supervisor: SYLVESTER Transcribe Date/Time: May 20 2024 1:02P Dictated by : JOAQUINA FRITZ MD This examination was interpreted and the report reviewed and electronically signed by: JOAQUINA FRITZ MD on May 20 2024 1:04PM EST [id number] Normal [facility] US SCROTUM AND CONTENTSon US SCROTUM AND CONTENTS * * *Final Report* * * DATE OF EXAM: May 20 2024 1:01PM [facility] 1063 - US SCROTUM AND CONTENTS / PROCEDURE REASON: Scrotal swelling * * * * Physician Interpretation * * * * EXAMINATION: SCROTAL ULTRASOUND WITH DOPPLER IMAGING CLINICAL HISTORY: Scrotal swelling TECHNIQUE: Sonography of the scrotal contents with color flow and spectral Doppler imaging of the testicular vasculature was performed. Images were obtained and stored in a permanent archive. M: USC_2 COMPARISON: None RESULT: RIGHT SCROTUM: Right testis: 4.8 x 3.2 x 3.4 cm. Homogeneous with no calcifications or mass. Normal intratesticular arterial and venous flow with normal spectral waveforms. Epididymis: Normal. Vascular flow on Color Doppler is symmetric to the contralateral side. Hydrocele: moderate hydrocele present Varicocele: absent LEFT SCROTUM: Left testis: 4.8 x 3.3 x 2.9 cm. Homogeneous with no calcifications or mass. Normal intratesticular arterial and venous flow with normal spectral waveforms. Epididymis: Normal. Vascular flow on Color Doppler is symmetric to the contralateral side. Hydrocele: large hydrocele present Varicocele: absent IMPRESSION: Left greater than right bilateral hydroceles. Clinical Supervisor[facility] Transcribe Date/Time: May 20 2024 1:02P Dictated by : JOAQUINA FRITZ MD This examination was interpreted and the report reviewed and electronically signed by: JOAQUINA FRITZ MD on May 20 2024 1:04PM EST [id number] Normal [facility] US.doppler Scrotum and testi umer 05-20-2024 * * *Final Report* * * DATE OF EXAM: May 20 2024 1:01PM [facility] 1063 - US SCROTUM AND CONTENTS / PROCEDURE REASON: Scrotal swelling * * * * Physician Interpretation * * * * EXAMINATION: SCROTAL ULTRASOUND WITH DOPPLER IMAGING CLINICAL HISTORY: Scrotal swelling TECHNIQUE: Sonography of the scrotal contents with color flow and spectral Doppler imaging of the testicular vasculature was performed. Images were obtained and stored in a permanent archive. M: USC_2 COMPARISON: None RESULT: RIGHT SCROTUM: Right testis: 4.8 x 3.2 x 3.4 cm. Homogeneous with no calcifications or mass. Normal intratesticular arterial and venous flow with normal spectral waveforms. Epididymis: Normal. Vascular flow on Color Doppler is symmetric to the contralateral side. Hydrocele: moderate hydrocele present Varicocele: absent LEFT SCROTUM: Left testis: 4.8 x 3.3 x 2.9 cm. Homogeneous with no calcifications or mass. Normal intratesticular arterial and venous flow with normal spectral waveforms. Epididymis: Normal. Vascular flow on Color Doppler is symmetric to the contralateral side. Hydrocele: large hydrocele present Varicocele: absent DIVISION OF RADIOLOGY Provider, [facility] - 05/20/2024 * * *Final Report* * * DATE OF EXAM: May 20 2024 1:01PM [facility] 1063 - US SCROTUM AND CONTENTS / PROCEDURE REASON: Scrotal swelling * * * * Physician Interpretation * * * * EXAMINATION: SCROTAL ULTRASOUND WITH DOPPLER IMAGING CLINICAL HISTORY: Scrotal swelling TECHNIQUE: Sonography of the scrotal contents with color flow and spectral Doppler imaging of the testicular vasculature was performed. Images were obtained and stored in a permanent archive. M: USC_2 COMPARISON: None RESULT: RIGHT SCROTUM: Right testis: 4.8 x 3.2 x 3.4 cm. Homogeneous with no calcifications or mass. Normal intratesticular arterial and venous flow with normal spectral waveforms. Epididymis: Normal. Vascular flow on Color Doppler is symmetric to the contralateral side. Hydrocele: moderate hydrocele present Varicocele: absent LEFT SCROTUM: Left testis: 4.8 x 3.3 x 2.9 cm. Homogeneous with no calcifications or mass. Normal intratesticular arterial and venous flow with normal spectral waveforms. Epididymis: Normal. Vascular flow on Color Doppler is symmetric to the contralateral side. Hydrocele: large hydrocele present Varicocele: absent IMPRESSION IMPRESSION: Left greater than right bilateral hydroceles. Clinical Supervisor: [facility] Transcribe Date/Time: May 20 2024 1:02P Dictated by : JOAQUINA FRITZ MD This examination was interpreted and the report reviewed and electronically signed by: JOAQUINA FRITZ MD on May 20 2024 1:04PM EST [facility] Radiology Study observation (narrative) [facility] US.doppler Unspecified body regionon 05-20-2024 * * *Final Report* * * DATE OF EXAM: May 20 2024 1:01PM [facility] 1033 - US DOPPLER COMPLETE / PROCEDURE REASON: Scrotal swelling * * * * Physician Interpretation * * * * EXAMINATION: SCROTAL ULTRASOUND WITH DOPPLER IMAGING CLINICAL HISTORY: Scrotal swelling TECHNIQUE: Sonography of the scrotal contents with color flow and spectral Doppler imaging of the testicular vasculature was performed. Images were obtained and stored in a permanent archive. M: USC_2 COMPARISON: None RESULT: RIGHT SCROTUM: Right testis: 4.8 x 3.2 x 3.4 cm. Homogeneous with no calcifications or mass. Normal intratesticular arterial and venous flow with normal spectral waveforms. Epididymis: Normal. Vascular flow on Color Doppler is symmetric to the contralateral side. Hydrocele: moderate hydrocele present Varicocele: absent LEFT SCROTUM: Left testis: 4.8 x 3.3 x 2.9 cm. Homogeneous with no calcifications or mass. Normal intratesticular arterial and venous flow with normal spectral waveforms. Epididymis: Normal. Vascular flow on Color Doppler is symmetric to the contralateral side. Hydrocele: large hydrocele present Varicocele: absent DIVISION OF RADIOLOGY Provider, [facility] - 05/20/2024 * * *Final Report* * * DATE OF EXAM: May 20 2024 1:01PM [facility] 1033 - US DOPPLER COMPLETE / PROCEDURE REASON: Scrotal swelling * * * * Physician Interpretation * * * * EXAMINATION: SCROTAL ULTRASOUND WITH DOPPLER IMAGING CLINICAL HISTORY: Scrotal swelling TECHNIQUE: Sonography of the scrotal contents with color flow and spectral Doppler imaging of the testicular vasculature was performed. Images were obtained and stored in a permanent archive. M: USC_2 COMPARISON: None RESULT: RIGHT SCROTUM: Right testis: 4.8 x 3.2 x 3.4 cm. Homogeneous with no calcifications or mass. Normal intratesticular arterial and venous flow with normal spectral waveforms. Epididymis: Normal. Vascular flow on Color Doppler is symmetric to the contralateral side. Hydrocele: moderate hydrocele present Varicocele: absent LEFT SCROTUM: Left testis: 4.8 x 3.3 x 2.9 cm. Homogeneous with no calcifications or mass. Normal intratesticular arterial and venous flow with normal spectral waveforms. Epididymis: Normal. Vascular flow on Color Doppler is symmetric to the contralateral side. Hydrocele: large hydrocele present Varicocele: absent IMPRESSION IMPRESSION: Left greater than right bilateral hydroceles. Clinical Supervisor: [facility] Transcribe Date/Time: May 20 2024 1:02P Dictated by : JOAQUINA FRITZ MD This examination was interpreted and the report reviewed and electronically signed by: JOAQUINA FRITZ MD on May 20 2024 1:04PM EST [facility] Radiology Study observation (narrative) [facility] CNOVon 05-19-2024 CNOV Office Visit (WSTR ) FELICIANO DAI ([id number]) 1970 M Date Time Provider Department 05/19/24 4:15 PM ROJAS ST[facility] During your visit today, we recorded the following information about you: Temperature Pulse Respiration Blood pressure 98.2 degrees 77/minute 16/minute 126/80 Weight 95.3 kg Rojas Steve, [employer] 05/19/2024 4:40 PM Signed Subjective HPI Nontoxic-appearing male presents urgent care chief complaint cough. This has been present for around 3 weeks. Cough is not improving. His productive fact at times. Additionally has been dealing with scrotal swelling. Has been present for 2 to 2-1/2 weeks. Is mainly on the left side. States does have episodic discomfort. Is not painful currently. Denies any dysuria frequency or urgency. No penile drainage. History of hernia repair. Past medical history prescription medications allergies reviewed. .Patient presents with: Cough: Cough x 3 weeks and scrotal swelling x 1-2 weeks PAST MEDICAL HISTORY Diagnosis Date Anxiety Benign [...] Laterality Date EGD TRANSORAL BIOPSY SINGLE/MULTIPLE 10/23/10 ESOPHAGOGASTRODUODENOSC OPY TRANSORAL DIAGNOSTIC 07/14/[address] Mcnair [facility] LAPAROSCOPY SURG CHOLECYSTECTOMY 08/24/13 LEFT HEART CATH,PERCUTANEOUS 12/02/2011 PAST SURGICAL HISTORY OF 1979 REPAIR OF RUPTURED SPLEEN AGE 9 RPR UMBILICAL HRNA 5 YRS/> REDUCIBLE 08/24/13 ALLERGIES Naprosyn [Naproxen], Amoxicillin, Amitriptyline, Bupivacaine (Pf), Celexa [Citalopram Hydrobromide], Lisinopril, and Metoprolol Tartrate MEDICATIONS buPROPion XL (WELLBUTRIN XL) 150 mg 24 hr tablet Take 1 tablet by mouth once daily. escitalopram oxalate (LEXAPRO) 20 mg tablet Take 1 tablet by mouth once daily. atorvastatin (LIPITOR) 10 mg tablet Take 1 tablet by mouth daily at bedtime. For cholesterol. hydroCHLOROthiazide 25 mg tablet Take 1 tablet by mouth once daily. amLODIPine (NORVASC) 10 mg tablet Take 1 tablet by mouth once daily. losartan (COZAAR) 100 mg tablet Take 1 tablet by mouth once daily. clonazePAM (KLONOPIN) 0.5 mg tablet Take 1 tablet by mouth two times a day as needed for anxiety (not more than 30 tablets per month) for up to 180 days. acetaminophen 325 mg cap Take 325 mg [...] status: Never Smokeless tobacco: Current Types: Chew Tobacco comments: 1 can of chew every two weeks Vaping Use Vaping status: Never Used Substance Use Topics Alcohol use: Yes Comment: rarely Drug use: No BP 126/80 Pulse 77 Temp 36.8 ?C (98.2 ?F) (Tympanic) Resp 16 Wt 95.3 kg (210 lb 1.6 oz) SpO2 98% BMI (P) 35.84 kg/m? Review of Systems Constitutional: Negative for chills, fever and malaise/fatigue. HENT: Negative for congestion, ear discharge, ear pain, sinus pain and sore throat. Eyes: Negative for blurred vision, pain, discharge and redness. Respiratory: Positive for cough. Negative for hemoptysis, sputum production, shortness of breath, wheezing and stridor. Cardiovascular: Negative for chest pain. Gastrointestinal: Negative for abdominal pain, diarrhea, nausea and vomi (more content not included)... Normal [facility] 04-30-2024 [facility] FELICIANO DAI ([id number]) 1970 M Date Time Provider Department 04/30/24 NESHA BAKER During your visit today, we recorded the following information about you: Nesha Baker APRN.[facility] 04/30/2024 1:36 PM Signed Please call and let patient know that labs are overall stable. Kidney function is better but still a little elevated and likely from the HCTZ that he takes. Please see if he feels any better since stopping the muscle relaxer. Thanks!! Fenrando Lopez MA 04/30/2024 2:39 PM Signed Left message to call office. 04/30/2024 2:39 PM Allergies As of Date: 04/30/2024 Noted Allergy Reaction NAPROSYN (NAPROXEN) 06/24/2005 8 - GI Upset AMOXICILLIN 06/19/2005 2 - Rash AMITRIPTYLINE 04/20/2013 1 - Mental Status Change Comments: fatigue BUPIVACAINE (PF) 09/01/2013 1 - Mental Status Change Comments: tonic clonic seizure CELEXA (CITALOPRAM HYDROBROMIDE) 09/04/2016 5 - Intolerance Comments: Claims hallucinations LISINOPRIL 06/27/2015 1 - Mental Status Change Comments: dizzy METOPROLOL TARTRATE 11/26/2014 5 - Intolerance Comments: dizzy Date Reviewed: 04/26/2024 Reviewed by: Nesha Baker APRN.[facility] [facility] - Fully Assessed Reason for Visit: Results [95] Prescriptions as of 04/30/2024 - buPROPion XL (WELLBUTRIN XL) 150 mg 24 hr tablet Take 1 tablet by mouth once daily. - escitalopram oxalate (LEXAPRO) 20 mg tablet Take 1 tablet by mouth once daily. - atorvastatin (LIPITOR) 10 mg tablet Take 1 tablet by mouth daily at bedtime. For cholesterol. - hydroCHLOROthiazide 25 mg tablet Take 1 tablet by mouth once daily. - amLODIPine (NORVASC) 10 mg tablet Take 1 tablet by mouth once daily. - losartan (COZAAR) 100 mg tablet Take 1 tablet by mouth once daily. - clonazePAM (KLONOPIN) 0.5 mg tablet Take 1 tablet by mouth two times a day as needed for anxiety (not more than 30 tablets per month) for up to 180 days. - acetaminophen 325 mg cap Take 325 mg by mouth twice daily. - ibuprofen (MOTRIN) 800 mg tablet Take 1 tablet by mouth every 8 hours as needed for pain. Take with food. - Aspirin 81 mg ORAL Tab Take 1 tablet by mouth once daily. Take with food. 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] 06/26/2005 01/01/2006 INT DERANGEMENT KNEE NOS [M23.90] 06/26/2005 01/01/2006 CONTUSION OF LOWER LEG [S80.10XA] 07/08/2005 01/01/2006 Obesity, Class I, BMI 30-34.9 [E66.9] 01/01/2006 02/05/2023 Thrombocytopenia, unspecified (HCC) [D69.6] 07/06/2008 10/15/2017 Dysphagia [R13.10] 10/22/2010 10/11/2013 Dysphagia, unspecified(787.20) [R13.10] 10/23/2010 10/11/2013 Benign neoplasm of duodenum, jejunum, and ileum*10/23/2010 06/12/2018 GERD (gastroesophageal reflux disease) [K21.9] 01/11/2011 03/21/2020 Hypertension [I10] 06/11/2011 Gallstones [K80.20] 06/11/2011 10/11/2013 Bilateral carpal tunnel syndrome [G56.03] 01/21/2012 11/07/2016 Anxiety [F41.9] 07/03/2012 09/04/2016 Panic disorder [F41.0] 07/03/2012 09/04/2016 Coronary atherosclerosis [I25.10] 07/05/2012 Painful respiration [R07.1] 11/20/2012 10/11/2013 Lumbago [M54.50] 11/20/2012 Cholecystitis with cholelithiasis [K80.10] 08/30/2013 10/11/2013 Umbilical hernia [K42.9] 08/30/2013 11/07/2016 Panic disorder without agoraphobia [F41.0] 02/04/2014 06/12/2018 Generalized anxiety disorder [F41.1] 02/04/2014 History of learning disability [Z87.898] 02/04/2014 Noncompliance with medication regimen [Z91.148] 07/25/2015 MK on CPAP [G47.33] 12/31/2015 Splenomegaly [R16.1] 04/04/2017 06/12/2018 Thrombocytopenia, 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 Comment on above: Order Comment: Speci men Type: BLOOD SPECIMENOrdering Facility: [facility] Address: [address] [place] [address] Performed By: #### 1 989-3 ####[facility] LABCLIA [id number] [place] [address] [place] CBC W Auto Differential pane l (Bld)on 04-26-2024 Basophils (Bld) [#/Vol] 0.04 10*3/uL Normal <0.[address] [facility] Comment on above: Order Comment: Speci men Type: BLOOD SPECIMENOrdering Facility: [facility] Address: [address] [place] [address] Performed By: #### 5 7021-8 ####[facility] LABCLIA [id number] [place] [address] [place] Basophils/100 WBC (Bld) 0.8 % Normal [facility] Comment on above: Order Comment: Speci men Type: BLOOD SPECIMENOrdering Facility: [facility] Address: [address] [place] [address] Performed By: #### 5 7021-8 ####[facility] LABIA [id number] [place] [address] [place] Differential cell count method Nom (Bld) Auto Normal [facility] Comment on above: Order Comment: Speci men Type: BLOOD SPECIMENOrdering Facility: [facility] Address: [address] [place] [address] Performed By: #### 5 7021-8 ####[facility] LABCLIA [id number] [place] [address] [place] Eosinophils (Bld) [#/Vol] 0.05 10*3/uL Normal <0.[address] [facility] Comment on above: Order Comment: Speci men Type: BLOOD SPECIMENOrdering Facility: [facility] Address: [address] [place] [address] Performed By: #### 5 7021-8 ####[facility] LABCLIA [id number] [place] [address] [place] Eosinophils/100 WBC (Bld) 1.1 % Normal [facility] Comment on above: Order Comment: Speci men Type: BLOOD SPECIMENOrdering Facility: [facility] Address: [address] [place] [address] Performed By: #### 5 7021-8 ####[facility] LABCLIA [id number] [place] [address] [place] Erythrocyte distribution width (RBC) [Ratio] 13.2 % Normal 11.5-15.[address] [facility] Comment on above: Order Comment: Speci men Type: BLOOD SPECIMENOrdering Facility: [facility] Address: [address] [place] [address] Performed By: #### 5 7021-8 ####[facility] LABCLIA [id number] [place] [address] [place] Hematocrit (Bld) [Volume fraction] 41.6 % Normal 39.0-51.[address] [facility] Comment on above: Order Comment: Speci men Type: BLOOD SPECIMENOrdering Facility: [facility] Address: [address] [place] [address] Performed By: #### 5 7021-8 ####[facility] LABCLIA [id number] [place] [address] [place] Hemoglobin (Bld) [Mass/Vol] 14.4 g/dL Normal 13.0-17.[address] [facility] Comment on above: Order Comment: Speci men Type: BLOOD SPECIMENOrdering Facility: [facility] Address: [address] [place] [address] Performed By: #### 5 7021-8 ####[facility] LABCLIA [id number] [place] [address] [place] Immature granulocytes (Bld) [#/Vol] 10*3/uL Normal <0.[address] [facility] Comment on above: Order Comment: Speci men Type: BLOOD SPECIMENOrdering Facility: [facility] Address: [address] [place] [address] Performed By: #### 5 7021-8 ####[facility] LABCLIA [id number] [place] [address] [place] Immature granulocytes/100 WBC (Bld) 0.2 % Normal [facility] Comment on above: Order Comment: Speci men Type: BLOOD SPECIMENOrdering Facility: [facility] Address: [address] [place] [address] Performed By: #### 5 7021-8 ####[facility] LABCLIA [id number] [place] [address] [place] Lymphocytes (Bld) [#/Vol] 0.99 10*3/uL Low 1.00-4.[address] [facility] Comment on above: Order Comment: Speci men Type: BLOOD SPECIMENOrdering Facility: [facility] Address: [address] [place] [address] Performed By: #### 5 7021-8 ####[facility] LABCLIA [id number] [place] [address] [place] Lymphocytes/100 WBC (Bld) 20.8 % Normal [facility] Comment on above: Order Comment: Speci men Type: BLOOD SPECIMENOrdering Facility: [facility] Address: [address] [place] [address] Performed By: #### 5 7021-8 ####[facility] LABCLIA [id number] [place] [address] [place] MCH (RBC) [Entitic mass] 31.6 pg Normal 26.0-34.[address] [facility] Comment on above: Order Comment: Speci men Type: BLOOD SPECIMENOrdering Facility: [facility] Address: [address] [place] [address] Performed By: #### 5 7021-8 ####[facility] LABCLIA [id number] [place] [address] [place] MCHC (RBC) [Mass/Vol] 34.6 g/dL Normal 30.5-36.0 [facility] Comment on above: Order Comment: Speci men Type: BLOOD SPECIMENOrdering Facility: [facility] Address: [address] [place] [address] Performed By: #### 5 7021-8 ####[facility] LABCLIA [id number] [place] [address] [place] MCV (RBC) [Entitic vol] 91.4 fL Normal 80.0-100.[address] [facility] Comment on above: Order Comment: Speci men Type: BLOOD SPECIMENOrdering Facility: [facility] Address: [address] [place] [address] Performed By: #### 5 7021-8 ####[facility] LABCLIA [id number] [place] [address] [place] Monocytes (Bld) [#/Vol] 0.41 10*3/uL Normal <0.[address] [facility] Comment on above: Order Comment: Speci men Type: BLOOD SPECIMENOrdering Facility: [facility] Address: [address] [place] [address] Performed By: #### 5 7021-8 ####[facility] LABCLIA [id number] [place] [address] [place] Monocytes/100 WBC (Bld) 8.6 % Normal [facility] Comment on above: Order Comment: Speci men Type: BLOOD SPECIMENOrdering Facility: [facility] Address: [address] [place] [address] Performed By: #### 5 7021-8 ####[facility] LABCLIA [id number] [place] [address] [place] Neutrophils (Bld) [#/Vol] 3.25 10*3/uL Normal 1.45-7.[address] [facility] Comment on above: Order Comment: Speci men Type: BLOOD SPECIMENOrdering Facility: [facility] Address: [address] [place] [address] Performed By: #### 5 7021-8 ####[facility] LABCLIA [id number] [place] [address] [place] Neutrophils/100 WBC (Bld) 68.5 % Normal [facility] Comment on above: Order Comment: Speci men Type: BLOOD SPECIMENOrdering Facility: [facility] Address: [address] [place] [address] Performed By: #### 5 7021-8 ####[facility] LABCLIA [id number] [place] [address] [place] Nucleated RBC (Bld) [#/Vol] 10*3/uL Normal <0.[address] [facility] Comment on above: Order Comment: Speci men Type: BLOOD SPECIMENOrdering Facility: [facility] Address: [address] [place] [address] Performed By: #### 5 7021-8 ####[facility] LABCLIA [id number] [place] [address] [place] Nucleated RBC/100 WBC (Bld) [Ratio] 0.0 /[address] [facility] Comment on above: Order Comment: Speci men Type: BLOOD SPECIMENOrdering Facility: [facility] Address: [address] [place] [address] Performed By: #### 5 7021-8 ####[facility] LABCLIA [id number] [place] [address] [place] Platelet mean volume (Bld) [Entitic vol] 13.0 fL High 9.0-12.[address] [facility] Comment on above: Order Comment: Speci men Type: BLOOD SPECIMENOrdering Facility: [facility] Address: [address] [place] [address] Performed By: #### 5 7021-8 ####[facility] LABCLIA [id number] [place] [address] [place] Platelets (Bld) [#/Vol] 94 10*3/uL Low 150-[address] [facility] Comment on above: Order Comment: Speci men Type: BLOOD SPECIMENOrdering Facility: [facility] Address: [address] [place] [address] Result Comment: No c lot detected. Performed By: #### 5 7021-8 ####[facility] LABIA [id number] [place] [address] [place] RBC (Bld) [#/Vol] 4.55 10*6/uL Normal 4.20-6.00 [facility] Comment on above: Order Comment: Speci men Type: BLOOD SPECIMENOrdering Facility: [facility] Address: [address] [place] [address] Performed By: #### 5 7021-8 ####[facility] LABIA [id number] [place] [address] [place] WBC (Bld) [#/Vol] 4.75 10*3/uL Normal 3.70-11.00 [facility] Comment on above: Order Comment: Speci men Type: BLOOD SPECIMENOrdering Facility: [facility] Address: [address] [place] [address] Performed By: #### 5 7021-8 ####[facility] LABIA [id number] [place] [address] [place] CNOVon 04-26-2024 CNOV Office Visit (INTMWS ) FELICIANO DAI ([id number]) 1970 M Date Time Provider Department 04/26/24 2:40 PM NESHA BAKER INTROXANNE During your visit today, we recorded the following information about you: Pulse Blood pressure Weight 64/minute 120/84 95.3 kg Nesha Baker APRN.[employer] [facility] 04/26/2024 3:04 PM Signed SUBJECTIVE Feliciano Dai is a 53 year old male here today for an ER follow up. Chief Complaint Patient presents with: ER F/U: [facility] 04/17/24 for hypertension Today he is complaining for increase fatigue and questions if one of his medication is causing the fatigue HPI Feliciano Dai is a 53 year old male. He is an established patient of Curtis Mcdonald MD. Here today for an ER follow up, in [facility] ER on 04/17 for hypertension. ER notes available in care everywhere. Reviewed with visit today. BP in ER was 214/111. Ok today except feeling tired, feels he could take a nap daily. Notes some headaches lately, worse if he misses his blood pressure medications. No complaints of chest pain, chest tightness or shortness of breath. His medications were reviewed today and his list is now up to date. Medications Current Outpatient Medications Medication Sig escitalopram oxalate (LEXAPRO) 20 mg tablet Take 1 tablet by mouth once daily. atorvastatin (LIPITOR) 10 mg tablet Take 1 tablet by mouth daily at bedtime. For cholesterol. hydroCHLOROthiazide 25 mg tablet Take 1 tablet by mouth once daily. amLODIPine (NORVASC) 10 mg tablet Take 1 tablet by mouth once daily. losartan (COZAAR) 100 mg tablet Take 1 tablet by mouth once daily. clonazePAM (KLONOPIN) 0.5 mg tablet Take 1 tablet by mouth two times a day as needed for anxiety (not more than 30 tablets per month) for up to 180 days. acetaminophen 325 mg cap Take 325 mg by mouth twice daily. ibuprofen (MOTRIN) 800 mg tablet Take 1 tablet by mouth every 8 hours as needed for pain. Take with food. Aspirin 81 mg ORAL Tab Take 1 tablet by mouth once daily. Take with food. buPROPion XL (WELLBUTRIN XL) 150 mg 24 hr tablet Take 1 tablet by mouth once daily. No current facility-administered medications for this visit. ALLERGIES Allergen Reactions Naprosyn [Naproxen] GI Upset Amoxicillin Rash Amitriptyline Mental Status Change fatigue Bupivacaine (Pf) Mental Status Change tonic clonic seizure Celexa [Citalopram * Intolerance Claims hallucinations Lisinopril Mental Status Change dizzy Metoprolol Tartrate Intolerance dizzy ACTIVE PROBLEM LIST Obesity, Class II, Bmi 35-39.9 - 02/05/2023 Orthostatic Lightheadedness - 02/06/2022 Dyslipidemia - 11/26/2021 Stage 3a Chronic Kidney Disease (Hcc) - 11/26/2021 Depressive Disorder - 05/13/2019 Urinary Frequency - 05/15/2018 Edema - 12/01/2017 Thrombocytopenia, Secondary - 04/04/2017 Mk On Cpap - 12/31/2015 Noncompliance With Medication Regimen - 07/25/2015 Generalized Anxiety Disorder - 02/04/2014 History of Learning Disability - 02/04/2014 Lumbago - 11/20/2012 Coronary Atherosclerosis - 07/05/2012 Hypertension - 06/11/2011 Social History Tobacco Use Smoking status: Never Smokeless tobacco: Current Types: Chew Tobacco comments: 1 can of chew every two weeks Vaping Use Vaping status: Never Used Substance Use Topics Alcohol use: Yes Comment: rarely Drug use: No Review of Systems Constitutional: Positive for fatigue. Respiratory: Negative. Cardiovascular: Negative. OBJECTIVE BP 120/84 Pulse 64 Wt 210 lb 1.6 oz (95.3kg) SpO2 98% Physical Exam Vitals and nursing note reviewed. Constitutional: General: He is awake. He is not in acute distress. Appearance: Normal appearance. He is well-developed and well-groomed. He is not ill-appearing, toxic-appearing or diaphoretic. HENT: Head: Normocephalic. Right Ear: External ear normal. Left Ear: External ear normal. Nose: Nose normal. Eyes: General: Vision grossly intact. Conjunctiva/sclera: Conjunctivae normal. Pupils: Pupils are equal, round, and reactive to light. Neck: Vascular: No JVD. Trachea: Trachea normal. Cardiovascular: Rate and Rhythm: Normal rate and regular rhythm. Pulses: Normal pulses. Heart sounds: Normal heart sounds. No murmur heard. Pulmonary: Effort: Pulmonary effort is normal. No accessory muscle usage, prolonged expiration or respiratory distress. Breath sounds: Normal breath sounds. Musculoskeletal: Cervical back: Neck supple. Skin: General: Skin is warm and dry. Capillary Refill: Capillary refill takes less than 2 seconds. Neurological: General: No focal deficit present. Mental Status: He is alert and oriented to person, place, and time. Mental status is at baseline. Cranial Nerves: Cranial nerves 2-12 are intact. Sensory: Sensation is intact. Motor: Motor function is intact. Coordination: Coordination is intact. Gait: Gait is intact. Psych (more content not included)... Normal [facility] Comprehensive metabolic 2000 panelon 04-26-2024 Albumin [Mass/Vol] 4.2 g/dL Normal 3.9-4.9 [facility] Comment on above: Order Comment: Speci men Type: BLOOD SPECIMENOrdering Facility: [facility] Address: [address] [place] [address] Performed By: #### 5 0190-8, 3016-3, 68264-1, 61397-7 ####[facility] [id number] [place] [address] [place] ALP [Catalytic activity/Vol] 86 U/L Normal 38-[address] [facility] Comment on above: Order Comment: Speci men Type: BLOOD SPECIMENOrdering Facility: [facility] Address: [address] [place] [address] Performed By: #### 5 0190-8, 3016-3, 25347-4, 28512-3 ####[facility] LABIA [id number] [place] [id number] [place] ALT [Catalytic activity/Vol] 26 U/L Normal 10-[address] [facility] Comment on above: Order Comment: Speci men Type: BLOOD SPECIMENOrdering Facility: [facility] Address: [address] [place] [address] Performed By: #### 5 0190-8, 3016-3, 70311-6, 40907-5 ####[facility] LABCLIA [id number] [address] [address] [place] Anion gap [Moles/Vol] 8 mmol/L Normal 8-15 [facility] Comment on above: Order Comment: Speci men Type: BLOOD SPECIMENOrdering Facility: [facility] Address: [address] [place] [address] Performed By: #### 5 0190-8, 3016-3, 12462-7, 43172-0 ####[facility] LABCLIA [id number] [address] [address] [place] AST [Catalytic activity/Vol] 19 U/L Normal 14-[address] [facility] Comment on above: Order Comment: Speci men Type: BLOOD SPECIMENOrdering Facility: [facility] Address: [address] [place] [address] Performed By: #### 5 0190-8, 3016-3, 98737-1, 61548-6 ####[facility] LABCLIA [id number] [address] [address] [place] Bilirubin [Mass/Vol] 0.7 mg/dL Normal 0.2-1.3 [facility] Comment on above: Order Comment: Speci men Type: BLOOD SPECIMENOrdering Facility: [facility] Address: [address] [place] [address] Performed By: #### 5 0190-8, 3016-3, 64678-8, 22955-5 ####[facility] LABCLIA [id number] [address] [address] [place] Calcium [Mass/Vol] 9.2 mg/dL Normal 8.5-10.2 [facility] Comment on above: Order Comment: Speci men Type: BLOOD SPECIMENOrdering Facility: [facility] Address: [address] [place] [address] Performed By: #### 5 0190-8, 3016-3, 20036-8, 49410-8 ####[facility] LABCLIA [id number] [address] [address] [place] Chloride [Moles/Vol] 100 mmol/L Normal 98-107 [facility] Comment on above: Order Comment: Speci men Type: BLOOD SPECIMENOrdering Facility: [facility] Address: [address] [place] [address] Performed By: #### 5 0190-8, 3016-3, 86059-9, 01780-4 ####[facility] LABCLIA [id number] [address] [address] [place] CO2 [Moles/Vol] 29 mmol/L Normal 22-[address] [facility] Comment on above: Order Comment: Speci men Type: BLOOD SPECIMENOrdering Facility: [facility] Address: [address] [place] [address] Performed By: #### 5 0190-8, 3016-3, 86095-5, ####[facility] LABCLIA [id number] [address] [address] [place] Creatinine [Mass/Vol] 1.37 mg/dL High 0.73-1.22 [facility] Comment on above: Order Comment: Speci men Type: BLOOD SPECIMENOrdering Facility: [facility] Address: [address] [place] [address] Performed By: #### 5 0190-8, 3016-3, 62201-5, ####[facility] LABCLIA [id number] [address] [address] [place] Creatinine and Glomerular filtration rate.predicted panel (S/P/Bld) 62 mL/min/1.73m??? Normal >=[address] [facility] Comment on above: Order Comment: Speci men Type: BLOOD SPECIMENOrdering Facility: [facility] Address: [address] [place], [place] [id number] Result Comment: Tabby mated Glomerular Filtration Rate (eGFR) is calculated using the 2020 CKD-EPI creatinine equation. This equation utilizes serum creatinine, sex, and age as parameters. The creatinine assay has traceable calibration to isotope dilution-mass spectrometry. Refer to KDIGO guidelines for clinical interpretation. In patients with unstable renal function, e.g. those with acute kidney injury, the eGFR may not accurately reflect actual GFR. Performed By: #### 5 0190-8, 6-3, 87534-9, 25019-9 ####[facility] LABCLIA [id number] [place] [address] [place] Glucose [Mass/Vol] 94 mg/dL Normal 74-99 [facility] Comment on above: Order Comment: Raymond yi Type: BLOOD SPECIMENOrdering Facility: [facility] Address: [address] [place] [address] Result Comment: The [place] Diabetes Association (ADA) provides guidance for cutoff values for fasting glucose and random glucose. The ADA defines fasting as no caloric intake for at least 8 hours. Fasting plasma glucose results between 100 to 125 mg/dL indicate increased risk for diabetes (prediabetes). Fasting plasma glucose results greater than or equal to 126 mg/dL meet the criteria for diagnosis of diabetes. In the absence of unequivocal hyperglycemia, results should be confirmed by repeat testing. In a patient with classic symptoms of hyperglycemia or hyperglycemic crisis, random plasma glucose results greater than or equal to 200 mg/dL meet the criteria for diagnosis of diabetes. Reference: Standards of Medical Care in Diabetes 2016, [place] Diabetes Association. Diabetes Care. 2016.39(Suppl 1). Performed By: #### 5 0190-8, 6-3, 64488-2, 49849-1 ####[facility] LABIA [id number] [address] [address] [place] Potassium [Moles/Vol] 3.9 mmol/L Normal 3.7-5.1 [facility] Comment on above: Order Comment: Raymond yi Type: BLOOD SPECIMENOrdering Facility: [facility] Address: [address] [place] [id number] Performed By: #### 5 0190-8, 3016-3, 47586-0, ####[facility] LABIA [id number] [address] [address] [place] Protein [Mass/Vol] 6.7 g/dL Normal 6.3-8.0 [facility] Comment on above: Order Comment: Speci men Type: BLOOD SPECIMENOrdering Facility: [facility] Address: [address] [place] [address] Performed By: #### 5 0190-8, 3016-3, 81553-5, ####[facility] LABIA [id number] [place] [address] [place] Sodium [Moles/Vol] 137 mmol/L Normal 136-144 [facility] Comment on above: Order Comment: Speci men Type: BLOOD SPECIMENOrdering Facility: [facility] Address: [address] [place] [address] Performed By: #### 5 0190-8, 6-3, 96211-4, ####[facility] [id number] [place] [address] [place] Urea nitrogen [Mass/Vol] 16 mg/dL Normal 9-[address] [facility] Comment on above: Order Comment: Speci men Type: BLOOD SPECIMENOrdering Facility: [facility] Address: [address] [place] [address] Performed By: #### 5 0190-8, 3015-3, 81676-3, ####[facility]WH[facility] [id number] [place] [address] [place] HbA1c (Bld)on 04-26-2024 Average glucose Estimated from glycated hemoglobin (Bld) [Mass/Vol] 85 mg/dL Normal [facility] Comment on above: Order Comment: Speci men Type: BLOOD SPECIMENOrdering Facility: [facility] Address: [address] [place] [address] Result Comment: eAG: (Estimated average glucose) is a calculated value from HgbA1c and is congressional representative of the average blood glucose level in the last 2-3 month period. Performed By: #### 5 5454-3 ####[facility] LABCLIA [id number] [place] [address] [place] HbA1c (Bld) [Mass fraction] 4.6 % Normal 4.3-5.[address] [facility] Comment on above: Order Comment: Speci men Type: BLOOD SPECIMENOrdering Facility: [facility] Address: [address] [place] [address] Result Comment: [place] Diabetes Association guidelines indicate that patients with HgbA1c in the range 5.7-6.4% are at increased risk for development of diabetes, and intervention by lifestyle modification may be beneficial. HgbA1c greater or equal to 6.5% is considered diagnostic of diabetes. Performed By: #### 5 5454-3 ####[facility] LABCLIA [id number] [place] [address] [place] Iron and Iron binding capaci ty panelon 04-26-2024 Iron [Mass/Vol] 89 ug/dL Normal 41-[address] [facility] Comment on above: Order Comment: Keni men Type: BLOOD SPECIMENOrdering Facility: [facility] Address: [address] [place] [address] Performed By: #### 5 0190-8, 3016-3, 99038-5, 70364-0 ####[facility] LABCLIA [id number] [address] [place] Iron binding capacity [Mass/Vol] 268 ug/dL Normal 232-[address] [facility] Comment on above: Order Comment: Keni men Type: BLOOD SPECIMENOrdering Facility: [facility] Address: [address] [place] [address] Performed By: #### 5 0190-8, 3016-3, 18418-8, 13139-7 ####[facility] LABCLIA [id number] [id number] [address] [place] Iron/TIBC [Molar ratio] 33.2 % Normal 15.0-57.[address] [facility] Comment on above: Order Comment: Speci men Type: BLOOD SPECIMENOrdering Facility: [facility] Address: [address] [place] [address] Performed By: #### 5 0190-8, 3016-3, 24631-2, 01529-8 ####[facility] LABCLIA [id number] [place] [address] [place] Magnesium SerPl-mCncon 04-26 Magnesium [Mass/Vol] 2.1 mg/dL Normal 1.7-2.3 [facility] Comment on above: Order Comment: Speci men Type: BLOOD SPECIMENOrdering Facility: [facility] Address: [address] [place] [address] Performed By: #### 5 0190-8, 3016-3, 97111-2, ####[facility] LABCLIA [id number] [place] [address] [place] TSH SerPl-aCncon 04-26-2024 TSH Qn 2.590 m[IU]/L Normal 0.270-4.[address] [facility] Comment on above: Order Comment: Speci men Type: BLOOD SPECIMENOrdering Facility: [facility] Address: [address] [place] [address] Performed By: #### 5 0190-8, 3016-3, 16597-6, ####[facility] LABIA [id number] [place] [address] [place] Vit B12 SerPl-mCncon 024 Cobalamin (Vitamin B12) [Mass/Vol] 388 pg/mL Normal 232-[address] [facility] Comment on above: Order Comment: Speci men Type: BLOOD SPECIMENOrdering Facility: [facility] Address: [address] [place] [address] Performed By: #### 2 132-9 ####[facility] LABCLIA [id number] [facility] [id number] [place], [place] [id number] [place] [facility] Emergency Department Summary on 04-17-2024 Emergency Department Summary [facility] Medical Records Department [address] [place] [address] Emergency Department Summary 04/17/24 MR#: [id number] Acct: [id number] Name: FELICIANO DAI Rep #: [id number] : 1970 53 From: Matthias Garcia MD PCP: Dr. Curtis Mcdonald MD Status:REG ER Location: ED HPI History of Present Illness Chief Complaint: Hypertension Informant: patient Onset/Context/Timing Onset: Today Context: Gradual Onset Timing: Continuous Current Severity: Mild Maximum Severity: Mild Narrative Narrative: 53-year-old male history of hypertension and anxiety. Says he normally takes losartan. Unsure of the dose. Mom said he did not take his medication may have her to take it he normally gets up takes in the morning. Denies any severe headache or chest pain. Prior similar symptoms: Yes Recent Illness/Hospitalization : No PFSH PFSH Medical History Depressed Anxiety Migraines GERD (gastroesophageal reflux disease) Panic disorder hx of spleen repair Benign essential HTN Home Medications ???Medication ???Instructions ???Recorded ???Last Taken ???Type amlodipine 10 mg tablet 5 mg PO DAILY 10/28/16 12/23/17 History clonazepam 0.5 mg tablet 0.5 mg PO BID PRN Anxiety 10/28/16 12/23/17 History gabapentin 300 mg capsule 300 mg PO BID 10/28/16 12/23/17 History (Neurontin) ibuprofen 600 mg tablet 600 mg PO TID PRN PRN Pain #14 tabs 05/19/18 Unknown Rx bupropion HCl 150 mg 24 hr tablet, 150 mg PO DAILY 02/02/22 Unknown History extended release escitalopram oxalate 20 mg tablet 20 mg PO DAILY 02/02/22 Unknown History hydrochlorothiazide 25 mg tablet 25 mg PO DAILY 02/02/22 Unknown History losartan 100 mg tablet 100 mg PO DAILY 02/02/22 Unknown History oxybutynin chloride 10 mg 10 mg PO DAILY 02/02/22 Unknown History tablet,extended release 24 hr aspirin 81 mg capsule 81 mg PO DAILY 04/17/24 Unknown History Allergy/AdvReac Type Severity Reaction Status Date / Time amoxicillin (Amoxicillin) Allergy Rash Verified 04/17/24 19:41 naproxen AdvReac Upset Verified 04/17/24 19:41 Stomach Social History Smoking Status: Current every day smoker tobacco type: smokeless tobacco ROS ROS ED Constitutional Constitutional ED: Denies chills or fever(s) Eyes Eyes: Denies blurry vision ENT ENT ED: Denies ear pain Cardiovascular Cardiovascular: Denies chest pain Respiratory/Chest Respiratory/Chest: Denies cough Gastrointestinal Gastrointestinal: Denies abdominal pain Genitourinary Genitourinary ED: Denies dysuria Musculoskeletal Musculoskeletal: Denies arthralgias Integumentary Denies abscess Neurologic Neurologic: Denies paresthesias or weakness Psychiatric Psychiatric: Reports anxiety Endocrine Endocrinology: Denies cold intolerance Hematologic/Lymphatic Hematologic/Lymphatic: Reports none Allergic/Immunologic Allergic/Immunologic ED: Denies mouth swelling, tongue swelling or urticaria EXAM Physical Exam Narrative Exam Narrative: Well-appearing 53-year-old male. Vital signs stable except his blood pressure elevated 214/111. He is anxious. H EENT exam unremarkable. No facial droop. Normal speech. Neck nontender. Lungs clear. Heart regular rate and rhythm rate about 70 no murmur. Chest wall ribs nontender. Abdomen soft nontender. Moving all 4 extremities. 5 out of 5 health data analyst strength. Dorsi plantarflexion intact. No edema. Neurologically is awake alert no focal motor deficits. NIH 0. Answering questions and following commands. Const Vital Signs: 04/17/24 19:42 04/17/24 19:49 04/17/24 21:41 Temperature 97.8 F Temperature Source Temporal Pulse Rate 72 61 Respiratory Rate 18 16 Respiratory Effort Normal Non-Labored Respiratory Pattern Normal Blood Pressure 214/111 H 169/99 H Blood Pressure Mean 145 122 Pulse Ox 100 100 Oxygen Delivery Method Room Air Positive well nourished and well developed; Negative for cachectic, contractures or unkempt General Appearance ED: well developed and NAD; Negative for unkempt, cachectic, contractures, cyanotic, diaphoretic or pallor Nutritional Appearance: Negative for cachectic HEENT Reports moist mucous membranes Negative for trauma or tenderness Eyes PERRL and EOMs intact bilaterally General Eye ED: Negative for pale conjunctiva or scleral icterus Neck no lymphadenopathy, supple and no JVD General: Negative for tenderness Lymph Lymphatic: Negative for other Chest Wall inspection of chest normal and palpation of chest normal Chest: Negative for other Resp normal respiratory effort and clear to auscultation bilaterally Effort and Inspection: Negative for retractions Auscultation: Negative for rales, rhonchi (more content not included)... Normal [facility] Additional Injections: L rin g A1on 02-04-2024 Dylan Morrow V, DO 02/04/2024 2:36 PM Additional Injections: L ring A1 for trigger finger Informed Consent Consent Obtained: Verbal [place] Protocol SIGN IN TIME OUT 02/04/2024 2:33 PM The procedure site was prepped in the usual sterile fashion. Medications: 3 mg betamethasone acetate-betamethasone sodium phosphate 6 mg/mL Anesthetics: 0.5 mL lidocaine (PF) 10 mg/mL (1 %) Outcome: tolerated well, no immediate complications Post-injection instructions were reviewed with the patient and the patient voiced understanding of these instructions. [facility] CNOVon 02-04-2024 CNOV Office Visit (FRFHWS ) FELICIANO DAI ([id number]) 1970 M Date Time Provider Department 02/04/24 2:00 PM DYLAN MORROW V FRFHWS During your visit today, we recorded the following information about you: Ashleigh Cosby MA 02/04/2024 2:36 PM Signed AMB ROOMING INTAKE FLOWSHEET DATA Pain Pain Level: 5 Pain Location: Hand-Right Description: Other: See comment, Sharp (clicking) Duration Amount of Time: 1 Duration Units: Months Frequency: Intermittent Intervention/Comfort measure: Other: See comment (none) Dylan Morrow V, DO 02/04/2024 2:36 PM Signed SERVICE DATE: February 04, 2024 PCP: Curtis Mcdonald MD Subjective Patient ID: Feliciano is a 53 year old male. Chief Complaint: Patient presents with: right ring finger pain REF: Nicolette Carey x-ray: 01/14/2024 PAIN EVALUATION 02/04/2024 1410 Pain Level: 5 Pain Location: Hand-Right Description: Other: See comment;Sharp clicking Duration Amount of Time: 1 Duration Units: Months Frequency: Intermittent Intervention/Comfort measure: Other: See comment none HPI LEFT ring finger triggering and pain. Patient states symptoms started about 1 month ago. He notices a lot when he is doing handgrip activities such as weed eating or mowing. Sometimes he has to manually straighten his finger. Review of Systems ACTIVE PROBLEM LIST Hypertension Coronary Atherosclerosis Lumbago Generalized Anxiety Disorder History of Learning Disability Noncompliance With Medication Regimen Mk On Cpap Thrombocytopenia, Secondary Edema Urinary Frequency Depressive Disorder Dyslipidemia Stage 3a Chronic Kidney Disease (Hcc) Orthostatic Lightheadedness Obesity, Class II, Bmi 35-39.9 PAST MEDICAL HISTORY Diagnosis Date Anxiety Benign [...] Migraine Noncompliance with medication regimen 07/25/2015 Obesity KM on CPAP 12/31/2015 Panic disorder without agoraphobia 02/04/2014 Splenomegaly 04/04/2017 Stage 3a chronic kidney disease (HCC) 11/26/2021 Thrombocytopenia, secondary 04/04/2017 Thrombocytopenia, unspecified (HCC) 07/06/2008 Ulnar artery obstruction, 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 Unspecified essential hypertension Essential hypertension Unspecified spleen injury with open wound into cavity 9 yrs. old Urinary frequency 05/15/2018 PAST SURGICAL HISTORY Procedure Laterality Date EGD TRANSORAL BIOPSY SINGLE/MULTIPLE 10/23/10 ESOPHAGOGASTRODUODENOSC OPY TRANSORAL DIAGNOSTIC 07/14/[address] Mcnair 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 UMBILICAL HRNA 5 YRS/> REDUCIBLE 08/24/13 FAMILY HISTORY Problem Relation Age of Onset Headache Mother age 80 Cancer Mother unknown kind Hypertension Father Heart Father CABG No Known Problems Brother No Known Problems Brother Cancer Paternal Grandfather colon Social History Tobacco Use Smoking status: Never Smokeless tobacco: Current Types: Chew Tobacco comments: 1 can of chew every two weeks Vaping Use Vaping Use: Never used Substance Use Topics Alcohol use: Yes Comment: rarely Drug use: No ALLERGIES Allergen Reactions Naprosyn [Naproxen] GI Upset Amoxicillin Rash Amitriptyline Mental Status Change fatigue Bupivacaine (Pf) Mental Status Change tonic clonic seizure Celexa [Citalopram * Intolerance Claims hallucinations Lisinopril Mental Status Change dizzy Metoprolol Tartrate Intolerance dizzy MEDICATIONS: escitalopram oxalate (LEXAPRO) 20 mg tablet Take 1 tablet by mouth once daily. atorvastatin (LIPITOR) 10 mg tablet Take 1 tablet by mouth daily at bedtime. For cholesterol. hydroCHLOROthiazide 25 mg tablet Take 1 tablet by mouth once daily. amLODIPine (NORVASC) 10 mg tablet Take 1 tablet by mouth once daily. losartan (COZAAR) 100 mg tablet Take 1 tablet by mouth once daily. clonazePAM (KLONOPIN) 0.5 mg tablet Take 1 tablet by mouth two times a day as needed for anxiety (not more than 30 tablets per month) for up to 180 days. oxybutynin ER (DITROPAN XL) 10 mg 24 hr tablet (more content not included)... Normal [facility] CNOVon 01-14-2024 CNOV Office Visit (UCWSTR ) FELICIANO DAI ([id number]) 1970 M Date Time Provider Department 01/14/24 1:30 PM NIRALI CAREY During your visit today, we recorded the following information about you: Temperature Pulse Respiration Blood pressure 97.6 degrees 75/minute 21/minute 120/80 Weight 96.1 kg Nirali Carey APRN.BO[employer]WA[employer] MATE 01/14/2024 2:55 PM Signed Subjective HPI HPI Feliciano Dai is a 53 year old male who presents today for CC of left ring finger pain. This started weeks ago. Seen in ER for this few weeks ago, xray negative, reports s/s persist/worsen. Tried otc medication for relief .Patient presents with: Musculoskeletal Problem: Left hand possible trigger finger x 3 weeks PAST MEDICAL HISTORY Diagnosis Date Anxiety Benign [...] Laterality Date EGD TRANSORAL BIOPSY SINGLE/MULTIPLE 10/23/10 ESOPHAGOGASTRODUODENOSC OPY TRANSORAL DIAGNOSTIC 07/14/[address] Mcnair 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 UMBILICAL HRNA 5 YRS/> REDUCIBLE 08/24/13 ALLERGIES Naprosyn [Naproxen], Amoxicillin, Amitriptyline, Bupivacaine (Pf), Celexa [Citalopram Hydrobromide], Lisinopril, and Metoprolol Tartrate MEDICATIONS tiZANidine (ZANAFLEX) 4 mg tablet Take 1 tablet by mouth every 8 hours as needed (back pain.). escitalopram oxalate (LEXAPRO) 20 mg tablet Take 1 tablet by mouth once daily. atorvastatin (LIPITOR) 10 mg tablet Take 1 tablet by mouth daily at bedtime. For cholesterol. hydroCHLOROthiazide 25 mg tablet Take 1 tablet by mouth once daily. amLODIPine (NORVASC) 10 mg tablet Take 1 tablet by mouth once daily. losartan (COZAAR) 100 mg tablet Take 1 tablet by mouth once daily. clonazePAM (KLONOPIN) 0.5 mg tablet Take 1 tablet by mouth two times a day as needed for anxiety (not more than 30 tablets per month) for up to 180 days. oxybutynin ER (DITROPAN XL) 10 mg 24 hr tablet Take 1 tablet by mouth once daily. buPROPion XL (WELLBUTRIN XL) 150 mg 24 hr tablet Take 1 tablet by mouth once daily. acetaminophen 325 mg cap Take 325 mg [...] status: Never Smokeless tobacco: Current Types: Chew Tobacco comments: 1 can of chew every two weeks Vaping Use Vaping Use: Never used Substance Use Topics Alcohol use: Yes Comment: rarely Drug use: No ROS Objective Blood pressure 120/80, pulse 75, temperature 36.4 ?C (97.6 ?F), resp. rate 21, weight 96.1 kg (211 lb 13.8 oz), SpO2 98%. Physical Exam Constitutional: General: He is not in acute distress. Appearance: He is not toxic-appearing or diaphoretic. HENT: Head: Normocephalic and atraumatic. Pulmonary: Effort: Pulmonary effort is normal. No accessory muscle usage or respiratory distress. Musculoskeletal: Hands: Neurological: Mental Status: He is alert and oriented to person, place, and time. ASSESSMENT/PLAN: 1. Finger pain, left - ICD9: 729.5, ICD10: M79.645 Xray negative Will refer to ortho - XR DIGIT GENERAL 3V FRONTAL/LAT/OBL LEFT IMPRESSION: N (more content not included)... Normal [facility] XR DIGIT 3V FRONTAL/LAT/OBL LTon 01-14-2024 XR DIGIT 3V FRONTAL/LAT/OBL LT * * *Final Report* * * DATE OF EXAM: Jan 14 2024 2:01PM WOX [id number] - XR DIGIT 3V FRONTAL/LAT/OBL LT / PROCEDURE REASON: Finger pain, left * * * * Physician Interpretation * * * * EXAMINATION: XR DIGIT 3V FRONTAL/LAT/OBL LT HISTORY: Left ring finger pain and tingling for 3 weeks, no known injury. Pain/tingling is at MCP joint. Finger pain, left . TECHNIQUE: XR DIGIT 3V FRONTAL/LAT/OBL LT Laterality: LEFT Number of different views (projections): 3 M: XB_1 COMPARISON: Left fifth finger radiographs 02/06/2015 RESULT: 3 images of the left fourth finger and adjacent hand. No identified acute osseous abnormality, retained soft tissue foreign body, soft tissue air collection. Unremarkable deep soft tissue planes. Preserved joint spaces. IMPRESSION: No radiographic abnormalities Clinical Supervisor: PSCB Transcribe Date/Time: Jan 14 2024 2:02P Dictated by : GASPER SHANKS MD This examination was interpreted and the report reviewed and electronically signed by: GASPER SHANKS MD on Jan 14 2024 2:07PM EST [id number] Normal [facility] XR Finger - left AP and Late ral and obliqueon 01-14-2024 IMPRESSION: No radiographic abnormalities Clinical Supervisor: SYLVESTER Transcribe Date/Time: Jan 14 2024 2:02P Dictated by : GASPER SHANKS MD This examination was interpreted and the report reviewed and electronically signed by: GASPER SHANKS MD on Jan 14 2024 2:07PM [facility] [place] DIVISION OF RADIOLOGY * * *Final Report* * * DATE OF EXAM: Jan 14 2024 2:01PM WOX [id number] - XR DIGIT 3V FRONTAL/LAT/OBL LT / PROCEDURE REASON: Finger pain, left * * * * Physician Interpretation * * * * EXAMINATION: XR DIGIT 3V FRONTAL/LAT/OBL LT HISTORY: Left ring finger pain and tingling for 3 weeks, no known injury. Pain/tingling is at MCP joint. Finger pain, left . TECHNIQUE: XR DIGIT 3V FRONTAL/LAT/OBL LT Laterality: LEFT Number of different views (projections): 3 M: XB_1 COMPARISON: Left fifth finger radiographs 02/06/2015 RESULT: 3 images of the left fourth finger and adjacent hand. No identified acute osseous abnormality, retained soft tissue foreign body, soft tissue air collection. Unremarkable deep soft tissue planes. Preserved joint spaces. DIVISION OF RADIOLOGY Provider, [facility] - 01/14/2024 * * *Final Report* * * DATE OF EXAM: Jan 14 2024 2:01PM WOX [id number] - XR DIGIT 3V FRONTAL/LAT/OBL LT / PROCEDURE REASON: Finger pain, left * * * * Physician Interpretation * * * * EXAMINATION: XR DIGIT 3V FRONTAL/LAT/OBL LT HISTORY: Left ring finger pain and tingling for 3 weeks, no known injury. Pain/tingling is at MCP joint. Finger pain, left . TECHNIQUE: XR DIGIT 3V FRONTAL/LAT/OBL LT Laterality: LEFT Number of different views (projections): 3 M: XB_1 COMPARISON: Left fifth finger radiographs 02/06/2015 RESULT: 3 images of the left fourth finger and adjacent hand. No identified acute osseous abnormality, retained soft tissue foreign body, soft tissue air collection. Unremarkable deep soft tissue planes. Preserved joint spaces. IMPRESSION IMPRESSION: No radiographic abnormalities Clinical Supervisor: PSCB Transcribe Date/Time: Jan 14 2024 2:02P Dictated by : GASPER SHANKS MD This examination was interpreted and the report reviewed and electronically signed by: GASPER SHANKS MD on Jan 14 2024 2:07PM [facility] Radiology Study observation (narrative) [facility] XR Finger - left AP and Late ral and obliqueOrdered By: f Provider on 01-14-2024 [facility] Emergency Department Summary on 01-11-2024 Emergency Department Summary [facility] Medical Records Department [address] [place] [address] Emergency Department Summary 01/11/24 MR#: [id number] Acct: [id number] Name: FELICIANO DAI Rep #: [id number] : 1970 53 From: Urbano Goyal DO PCP: Dr. Curtis Mcdonald MD Status:REG ER Location: ED HPI History of Present Illness Chief Complaint: Upper Extremity Injury Narrative Narrative: 53-year-old male presenting with left hand pain which is ongoing for 2 weeks. He takes intermittent ibuprofen. He denies any injury. He states it hurts when he flexes and extends his fingers. He feels like it is more at the base of the ring finger in the palmar surface. He feels x-rays here. Sometimes it hurts more than others. He is still able to use his hand and he states he still works in the yard and mows the grass. No numbness or tingling. [facility] Medical History Depressed Anxiety Migraines GERD (gastroesophageal reflux disease) Panic disorder hx of spleen repair Benign essential HTN Home Medications ???Medication ???Instructions ???Recorded ???Last Taken ???Type amlodipine 10 mg tablet 5 mg PO DAILY 10/28/16 12/23/17 History clonazepam 0.5 mg tablet 0.5 mg PO BID PRN Anxiety 10/28/16 12/23/17 History gabapentin 300 mg capsule 300 mg PO BID 10/28/16 12/23/17 History (Neurontin) ibuprofen 600 mg tablet 600 mg PO TID PRN PRN Pain #14 tabs 05/19/18 Unknown Rx aspirin 325 mg tablet 325 mg PO DAILY 02/02/22 Unknown History bupropion HCl 150 mg 24 hr tablet, 150 mg PO DAILY 02/02/22 Unknown History extended release escitalopram oxalate 20 mg tablet 20 mg PO DAILY 02/02/22 Unknown History hydrochlorothiazide 25 mg tablet 25 mg PO DAILY 02/02/22 Unknown History losartan 100 mg tablet 100 mg PO DAILY 02/02/22 Unknown History oxybutynin chloride 10 mg 10 mg PO DAILY 02/02/22 Unknown History tablet,extended release 24 hr hydrocodone-acetaminoph en 5-325mg 1 tab PO Q6H PRN PRN Pain 3 days 02/08/23 Unknown Rx 5mg-325mg #10 TABLETS prednisone 20 mg tablet 60 mg (3 x 20 mg) PO DAILY #15 02/08/23 Unknown Rx TABLETS prednisone 20 mg tablet 40 mg (2 x 20 mg) PO DAILY 5 days 10/04/23 Unknown Rx #10 tabs Allergy/AdvReac Type Severity Reaction Status Date / Time amoxicillin (Amoxicillin) Allergy Rash Verified 01/11/24 14:51 naproxen AdvReac Upset Verified 01/11/24 14:51 Stomach Social History Smoking Status: Current every day smoker tobacco type: smokeless tobacco ROS ROS ED Constitutional Constitutional ED: Denies chills, fever(s) or sweats Eyes Eyes: Denies blurry vision or change in vision ENT ENT ED: Denies ear pain or sore throat Cardiovascular Cardiovascular: Denies chest pain, palpitations or racing heartbeat Respiratory/Chest Respiratory/Chest: Denies cough, dyspnea or sputum Gastrointestinal Gastrointestinal: Denies abdominal pain, constipation, diarrhea, nausea or vomiting Genitourinary Genitourinary ED: Denies dysuria, hematuria or urinary frequency Musculoskeletal Musculoskeletal: Reports other Details: Left hand pain ; Denies arthralgias, myalgias or neck pain Integumentary Denies abscess, Abrasions or rash Neurologic Neurologic: Denies headache(s), paresthesias or weakness Psychiatric Psychiatric: Denies anxiety, depression, suicidal ideation or suicidal thoughts Endocrine Endocrinology: Denies polydipsia or polyuria EXAM Physical Exam Const Vital Signs: 01/11/24 14:49 Temperature 97.4 F L Temperature Source Temporal Pulse Rate 64 Respiratory Rate 16 Blood Pressure 141/89 H Blood Pressure Mean 106 Pulse Ox 99 Oxygen Delivery Method Room Air Positive well nourished General Appearance ED: NAD HEENT Reports moist mucous membranes Eyes PERRL and EOMs intact bilaterally Resp normal respiratory effort Cardio regular rate and regular rhythm Extremity Extremity Narrative: There is tenderness to palpation at the base of the ring finger on the left hand volar surface. No obvious deformity. Pain is elicited with flexion and extension of the finger. I do not feel any mass in the hand. Left hand is neurovascular intact brisk cap refill to all 5 fingers. Jere's test is normal. There is no palpable pain elsewhere. Neuro oriented x3 Sensorium / Orientation: alert Motor Exam: strength 5/5 throughout Psych mental status grossly normal Mood Affect: Negative for depressed MDM MDM MDM Narrative Medical decision making narrative: Patient presenting with hand pain. Based on his exam I believe he has trigger finger on the left hand fourth digit. He denies any trauma. We did obtain an x-ray today which interpreted by myself shows no acute fractures (more content not included)... Normal [facility] Hand Min 3 Viewson 4 Hand Min 3 Views [facility] Imaging Services [address], [place] [address] Hand Min 3 Views MR#: [id number] Acct: [id number] Name: FELICIANO DAI Rep #: [id number] : 1970 M 53 From: José Antonio House PCP: Dr. Curtis Mcdonald MD Status: REG ER Study: Hand Min 3 Views Date of Exam: 01/11/24 Exam# [id number] Ordering [place]: [place] [id number] EXAM: XR LEFT HAND COMPLETE, 3 OR MORE VIEWS CLINICAL INDICATION: pain TECHNIQUE: Frontal, lateral and oblique views of the left hand. COMPARISON: No relevant prior studies available. FINDINGS: BONES/JOINTS: Unremarkable. No acute fracture. No subluxation. Normal alignment. Preservation of the joint space. No sclerotic or destructive changes observed. SOFT TISSUES: Unremarkable. No soft tissue swelling or gas. No radiopaque foreign body. RAD/Hand Min 3 Views IMPRESSION: Negative left hand x-rays. Electronically Signed: José Antonio Felix MD at 16:15 EDT , CC: Dr. Urbano Goyal DO; Dr. Curtis Mcdonald MD Clinical Supervisor: Signed [facility] CNOVon 11-27-2023 CN Office Visit (INTMWS ) FELICIANO DAI ([id number]) 1970 M Date Time Provider Department 11/27/23 12:40 PM [facility] During your visit today, we recorded the following information about you: Pulse Respiration Blood pressure Weight 77/minute 18/minute 130/80 94.3 kg Carlene Cleveland, [employer]K HA[employer]ER.[employer] MATE 11/27/2023 1:01 PM Signed CC Patient presents with: 2 week follow up - blood pressure: Requesting medication for chronic back pain HPI Feliciano Dai is a 53 year old male who presents to the office for blood pressure. His visit today is for follow-up. Patient was last seen for this approximately 2 weeks ago. BP was elevated, patient had been out of medications x 1 week Medication changes: No Taking all medications as prescribed: Yes Side effects: No Home BP's: No Denies: headache, chest pain, palpitations, dyspnea, and peripheral edema. Last 4 Encounter BP Readings: Date: BP: 11/27/2023 136/88 11/14/2023 188/106 10/17/2023 157/93[states he just took BP meds[ 02/05/2023 120/72 Last 3 Encounter Wt Readings: Date: Wt: 11/27/2023 94.3 kg (208 lb) 11/14/2023 95.7 kg (211 lb) 10/17/2023 96 kg (211 lb 10.3 oz) Review of Systems See HPI PAST MEDICAL HISTORY Diagnosis Date [...] Laterality Date EGD TRANSORAL BIOPSY SINGLE/MULTIPLE 10/23/10 ESOPHAGOGASTRODUODENOSC OPY TRANSORAL DIAGNOSTIC 07/14/[address] Mcnair 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 UMBILICAL HRNA 5 YRS/> REDUCIBLE 08/24/13 ALLERGIES Naprosyn [Naproxen], Amoxicillin, Amitriptyline, Bupivacaine (Pf), Celexa [Citalopram Hydrobromide], Lisinopril, and Metoprolol Tartrate MEDICATIONS escitalopram oxalate (LEXAPRO) 20 mg tablet Take 1 tablet by mouth once daily. atorvastatin (LIPITOR) 10 mg tablet Take 1 tablet by mouth daily at bedtime. For cholesterol. hydroCHLOROthiazide 25 mg tablet Take 1 tablet by mouth once daily. amLODIPine (NORVASC) 10 mg tablet Take 1 tablet by mouth once daily. losartan (COZAAR) 100 mg tablet Take 1 tablet by mouth once daily. clonazePAM (KLONOPIN) 0.5 mg tablet Take 1 tablet by mouth two times a day as needed for anxiety (not more than 30 tablets per month) for up to 180 days. oxybutynin ER (DITROPAN XL) 10 mg 24 hr tablet Take 1 tablet by mouth once daily. buPROPion XL (WELLBUTRIN XL) 150 mg 24 hr tablet Take 1 tablet by mouth once daily. acetaminophen 325 mg cap Take 325 mg [...] status: Never Smokeless tobacco: Current Types: Chew Tobacco comments: 1 can of chew every two weeks Vaping Use Vaping Use: Never used Substance Use Topics Alcohol use: Yes Comment: rarely Drug use: No BP 136/88 Pulse 77 Resp 18 Wt 94.3 kg (208 lb) SpO2 97% BMI (P) 35.48 kg/m? Physical Exam Vitals reviewed. Constitutional: Appearance: Normal appearance. Cardiovascular: Rate and Rhythm: Normal rate and regular rhythm. Pulmonary: Effort: Pulmonary effort is normal. Breath sounds: (more content not included)... Normal [facility] CNOVon 11-14-2023 CNOV Office Visit (INTMWS ) FELICIANO DAI ([id number]) 1970 M Date Time Provider Department 11/14/23 11:40 AM [facility] During your visit today, we recorded the following information about you: Pulse Respiration Blood pressure Weight 66/minute 18/minute 188/106 95.7 kg Carlene Cleveland, [employer]WA[employer] MATE 11/14/2023 12:44 PM Signed CC: Patient presents with: Follow Up: Med refills HPI Feliciano Dai is a 53 year old male who presents today for above. HTN-BP is high today, he ran out of medication about one week ago. Medication changes:No Taking all medications as prescribed: Yes Side effects: No Home BP's: No Denies: headache, chest pain, palpitations, dyspnea, and peripheral edema. Last 3 Encounter BP Readings: Date: BP: 11/14/2023 188/106 10/17/2023 157/93[states he just took BP meds[ 02/05/2023 120/72 MK Intolerant to CPAP. Denies snoring or insomnia. Reports un-refreshed sleep and excessive daytime drowsiness. Anxiety/depression: Patient is currently taking Lexapro and Wellbutrin daily. Also takes Klonopin as needed, does not use often Feels medication is working well: Yes Persistent/bothersome symptoms: fatigue Side effects: None Denies suicidal thoughts or plan. Review of Systems See HPI PAST MEDICAL HISTORY Diagnosis Date [...] Laterality Date EGD TRANSORAL BIOPSY SINGLE/MULTIPLE 10/23/10 ESOPHAGOGASTRODUODENOSC OPY TRANSORAL DIAGNOSTIC 07/14/[address] Mcnair 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 UMBILICAL HRNA 5 YRS/> REDUCIBLE 08/24/13 ALLERGIES Naprosyn [Naproxen], Amoxicillin, Amitriptyline, Bupivacaine (Pf), Celexa [Citalopram Hydrobromide], Lisinopril, and Metoprolol Tartrate MEDICATIONS escitalopram oxalate (LEXAPRO) 20 mg tablet Take 1 tablet by mouth once daily. atorvastatin (LIPITOR) 10 mg tablet Take 1 tablet by mouth daily at bedtime. For cholesterol. hydroCHLOROthiazide 25 mg tablet Take 1 tablet by mouth once daily. amLODIPine (NORVASC) 10 mg tablet Take 1 tablet by mouth once daily. losartan (COZAAR) 100 mg tablet Take 1 tablet by mouth once daily. clonazePAM (KLONOPIN) 0.5 mg tablet Take 1 tablet by mouth two times a day as needed for anxiety (not more than 30 tablets per month) for up to 180 days. oxybutynin ER (DITROPAN XL) 10 mg 24 hr tablet Take 1 tablet by mouth once daily. buPROPion XL (WELLBUTRIN XL) 150 mg 24 hr tablet Take 1 tablet by mouth once daily. acetaminophen 325 mg cap Take 325 mg [...] status: Never Smokeless tobacco: Current Types: Chew Tobacco comments: 1 can of chew every two weeks Vaping Use Vaping Use: Never used Substance Use Topics Alcohol use: Yes Comment: rarely Drug use: No BP 188/106 Pulse 66 Resp 18 Wt 95.7 kg (211 lb) SpO2 97% BMI (P) 35.99 kg/m? Physical Exam Vitals reviewed. Constitutional: Appearance: Normal appearance. Eyes: Conjunctiva/sclera: Conjunctivae normal. Cardiovascular: (more content not included)... Normal [facility] Absolute lymphocyte counton 02-02-2022 Lymphocytes Auto (Unsp spec) [#/Vol] 0.78 10*3/uL 0.83-4.51 [facility] Work Phone: Basophil percentageon 2021 Bilirubin [Mass/Vol] 0.60 mg/dL 0.20-1.00 [facility] Work Phone: Comment on above: For patients on eltr ombopag therapy, use of Dimension [facility] TBIL is not recommended. Chloride [Moles/Vol] 102 mmol/L 98-107 [facility] Work Phone: Glucose [Mass/Vol] 92 mg/dL 74-106 [facility] Work Phone: Potassium [Moles/Vol] 3.3 mmol/L 3.5-5.1 [facility] Work Phone: Protein [Mass/Vol] 6.8 g/dL 6.4-8.2 [facility] Work Phone: Sodium [Moles/Vol] 138 mmol/L 136-145 [facility] Work Phone: Basophils/100 WBC (Bld) 1.3 % 0-1 [facility] Work Phone: Eosinophils/100 WBC (Bld) 1.1 % 0-5 [facility] Work Phone: Neutrophils (Bld) [#/Vol] 2.6 10*3/uL 2.0-7.7 [facility] Work Phone: Neutrophils/100 WBC (Bld) 68.5 % 47-70 [facility] Work Phone: WBC (Bld) [#/Vol] 3.8 10*3/uL 4.4-11.0 [facility] Work Phone: Blood erythrocytes count (nu mber/volume)on 02-02-2022 RBC (Bld) [#/Vol] 4.80 10*6/uL 4.6-6.2 [facility] Work Phone: Blood hemoglobin measurement (mass/volume)on 02-02-2022 Hemoglobin (Bld) [Mass/Vol] 15.3 g/dL 13.0-16.5 [facility] Work Phone: Blood lymphocytes/100 leukoc yteson 02-02-2022 Lymphocytes/100 WBC (Bld) 20.8 % 19-41 [facility] Work Phone: Blood manual differential co mment interpretation (narrative result)on 02-02-2022 Manual differential comment [place] (Bld) [Interp] SCANNED [facility] Work Phone: Comment on above: THROMBOCYTOPENIA NOT ED Blood monocytes/100 leukocyt eson 02-02-2022 Monocytes/100 WBC (Bld) 8.0 % 0-10 [facility] Work Phone: Blood platelet mean volumeon 02-02-2022 Platelet mean volume (Bld) [Entitic vol] 12.1 fL 6.2-12.0 [facility] Work Phone: Determination of erythrocyte mean corpuscular volume (MCV)on 02-02-2022 MCV (RBC) [Entitic vol] 91.7 fL 80-94 [facility] Work Phone: Direct bilirubinon Bilirubin.direct [Mass/Vol] 0.17 mg/dL 0.00-0.30 [facility] Work Phone: Hematocrit Auto (Bld) [Volum e fraction]on 02-02-2022 Hematocrit (Bld) [Volume fraction] 44.0 % 40-54 [facility] Work Phone: [phone] Laboratory - Chemistry and C hemistry - challengeon 02-02-2022 ALP [Catalytic activity/Vol] 81 U/L 45-117 [facility] Work Phone: ALT [Catalytic activity/Vol] 29 U/L 16-61 [facility] Work Phone: [phone] CO2 [Moles/Vol] 29.0 mmol/L 21.0-32.0 [facility] Work Phone: [phone] Globulin (S) [Mass/Vol] 3.2 g/dL 2.2-4.2 [facility] Work Phone: [phone] Urea nitrogen/Creatinine [Mass ratio] 15.3 mg/mg 10-20 [facility] Work Phone: [phone] Laboratory - Hematology and Cell countson 02-02-2022 Erythrocyte distribution width (RBC) [Entitic vol] 43.2 fL 35.1-43.9 [facility] Work Phone: [phone] Erythrocyte distribution width (RBC) [Ratio] 12.8 % 11.6-14.6 [facility] Work Phone: [phone] Immature granulocytes/100 WBC (Bld) 0.300 % 0.0-0.9 [facility] Work Phone: [phone] Comment on above: IG% - Immature Granu locytes (promyelocytes, myelocytes and metamyelocytes) > 1% indicates that a LEFT SHIFT is Present. MCH (RBC) [Entitic mass] 31.9 pg 27.0-32.0 [facility] Work Phone: [phone] Nucleated RBC/100 WBC (Bld) [Ratio] 0 % 0-5 [facility] Work Phone: [phone] MCHC Auto (RBC) [Mass/Vol]on 02-02-2022 MCHC (RBC) [Mass/Vol] 34.8 g/dL 32-36 [facility] Work Phone: [phone] No Panel Informationon 02-02 Troponin I High Sensitivity 11 pg/mL 3.0-78.0 [facility] Work Phone: [phone] Comment on above: Please Note: New Aviva t Units and Gender Specific Reference Ranges. For more information see Policy Stat Procedure [place] High Sensitivity Troponin (TNIH) and attachments. Estimated Creatinine Clearance Calc 46.64 ml/min [facility] Work Phone: [phone] Estimated GFR (MDRD) Amer 58 mL/min >60 [facility] Work Phone: [phone] Comment on above: GFR Calc Estimated GFR (MDRD) Non-Af Amer 48 mL/min >60 [facility] Work Phone: Comment on above: Non- GFR Calc Platelets bldon 02-02-2022 Platelets (Bld) [#/Vol] 77 10*3/uL 150-450 [facility] Work Phone: Serum or plasma albumin kuldip urement (mass/volume)on 02-02-2022 Albumin [Mass/Vol] 3.6 g/dL 3.2-5.0 [facility] Work Phone: Serum or plasma calcium kuldip urement (mass/volume)on 02-02-2022 Calcium [Mass/Vol] 8.5 mg/dL 8.5-10.1 [facility] Work Phone: Serum or plasma creatinine m easurement (mass/volume)on 02-02-2022 Creatinine [Mass/Vol] 1.63 mg/dL 0.70-1.30 [facility] Work Phone: Comment on above: The validity of the calculated GFR & GFRAA in patients over 70 years has not been determined. Clinical correlation is essential. Serum or plasma urea nitroge n measurement (mass/volume)on 02-02-2022 Urea nitrogen [Mass/Vol] 25 mg/dL 7-18 [facility] Work Phone: Thin prep Papanicolaou smear with manual screeningon 02-02-2022 Thin prep Papanicolaou smear with manual screening 15 U/L 15-37 [facility] Work Phone: Thin prep Papanicolaou smear with manual screening 7 5-15 [facility] Work Phone: Vital Signs Date Time Vital Sign Value Performing Clinician Faci lity 05-25-2024 11:57-0400 Body mass index (BMI) [Ratio] 34.6 kg/m2 Carlene Cleveland APRN.[employer]WA[employer] MATE Work Phone: [facility] 05-25-2024 11:57-0400 Body temperature 98.49 [degF] Carlene Cleveland APRN.CNP Work Phone: [facility] 05-25-2024 11:57-0400 Body weight 94.3 kg [facility] MIL[employer] HAULER.[employer]ATE Work Phone: [facility] 05-25-2024 11:57-0400 Diastolic blood pressure 94 mm[facility]Hg[facility] [facility] Work Phone: [facility] 05-25-2024 11:57-0400 [facility] 71 [facility] [facility] Work Phone: [facility] 05-25-2024 11:57-0400 Respiratory rate 18 /min [facility] MILK HAULER.[employer]WA[employer] MATE Work Phone: [facility] 05-25-2024 11:57-0400 SaO2% (BldA) [Mass fraction] 95 % [facility] MIL[employer] HAULER.[employer]ATE Work Phone: [facility] 05-25-2024 11:57-0400 Systolic blood pressure 162 mm[Hg] [facility] MILK HAULER.[employer] MATE Work Phone: [facility] 05-19-2024 15:59-0400 Body mass index (BMI) [Ratio] 34.96 kg/m2 [facility] MILK HAULER.[employer]ATE Work Phone: [facility] 05-19-2024 15:59-0400 Body temperature 98.2 [degF] [facility] [employer] Work Phone: [facility] 05-19-2024 15:59-0400 Body weight 95.3 kg [facility] [employer] Work Phone: [facility] 05-19-2024 15:59-0400 Diastolic blood pressure 80 mm[Hg] [facility] [employer] Work Phone: [facility] 05-19-2024 15:59-0400 Heart rate 77 /min [facility] [employer] Work Phone: [facility] 05-19-2024 15:59-0400 Respiratory rate 16 /min [facility] [employer] Work Phone: [facility] 05-19-2024 15:59-0400 SaO2% (BldA) [Mass fraction] 98 % Rojas Steve [employer] Work Phone: [facility] 05-19-2024 15:59-0400 Systolic blood pressure 126 mm[Hg] Rojas Steve [employer] Work Phone: [facility] 04-26-2024 14:31-0400 Diastolic blood pressure 84 mm[Hg] Nesha Elizabeth [employer] Work Phone: [facility] 04-26-2024 14:31-0400 Systolic blood pressure 120 mm[Hg] Nesha Elizabeth [employer] Work Phone: [facility] 04-26-2024 14:29-0400 Body mass index (BMI) [Ratio] 34.96 kg/m2 Nesha Elizabeth [employer] Work Phone: [facility] 04-26-2024 14:29-0400 Body weight 95.3 kg Nesha Elizabeth [employer] Work Phone: [facility] 04-26-2024 14:29-0400 Heart rate 64 /min Nesha Elizabeth [employer] Work Phone: [facility] 04-26-2024 14:29-0400 SaO2% (BldA) [Mass fraction] 98 % Nesha Elizabeth [employer] Work Phone: [facility] 01-14-2024 13:36-0400 Body mass index (BMI) [Ratio] 35.26 kg/m2 Nirali Carey [employer] Work Phone: [facility] 01-14-2024 13:36-0400 Body temperature 97.59 [degF] Nirali Carey [employer] Work Phone: [facility] 01-14-2024 13:36-0400 Body weight 96.1 kg Nirali Carey [employer] Work Phone: [facility] 01-14-2024 13:36-0400 Diastolic blood pressure 80 mm[Hg] Nirali Carey [employer] Work Phone: [facility] 01-14-2024 13:36-0400 Heart rate 75 /min Nirali Aurelio [employer] Work Phone: [facility] 01-14-2024 13:36-0400 Respiratory rate 21 /min Nirali Aurelio [employer] Work Phone: [facility] 01-14-2024 13:36-0400 SaO2% (BldA) [Mass fraction] 98 % Nirali Aurelio [employer] Work Phone: [facility] 01-14-2024 13:36-0400 Systolic blood pressure 120 mm[Hg] Nirali Aurelio [employer] Work Phone: [facility] 11-27-2023 12:55-0400 Diastolic blood pressure 80 mm[Hg] Carlene Oscar [employer] Work Phone: [facility] 11-27-2023 12:55-0400 Systolic blood pressure 130 mm[Hg] Carlene Oscar [employer] Work Phone: [facility] 11-27-2023 12:47-0400 Body weight 94.35 kg Carlene Oscar [employer] Work Phone: [facility] 11-27-2023 12:47-0400 Heart rate 77 /min Carlene Oscar [employer] Work Phone: [facility] 11-27-2023 12:47-0400 Respiratory rate 18 /min Carlene Oscar [employer] Work Phone: [facility] 11-27-2023 12:47-0400 SaO2% (BldA) [Mass fraction] 97 % Carlene Oscar [employer] Work Phone: [facility] 11-14-2023 11:48-0400 Body weight 95.71 kg Carlene Oscar [employer] Work Phone: [facility] 11-14-2023 11:48-0400 Diastolic blood pressure 106 mm[Hg] Carlene Oscar [employer] Work Phone: [facility] 11-14-2023 11:48-0400 Heart rate 66 /min Carlene Oscar [employer] Work Phone: [facility] 11-14-2023 11:48-0400 Respiratory rate 18 /min Carlene Oscar [employer] Work Phone: [facility] 11-14-2023 11:48-0400 SaO2% (BldA) [Mass fraction] 97 % Carlene Oscar [employer] Work Phone: [facility] 11-14-2023 11:48-0400 Systolic blood pressure 188 mm[Hg] Carlene Oscar [employer] Work Phone: [facility] 10-17-2023 16:39-0500 Body temperature 98.4 [degF] Krislyn Aberegg PA Work Phone: [facility] 10-17-2023 16:39-0500 Body weight 96 kg Krislyn Aberegg PA Work Phone: [facility] 10-17-2023 16:39-0500 Diastolic blood pressure 93 mm[Hg] Krislyn Aberegg PA Work Phone: [facility] 10-17-2023 16:39-0500 Heart rate 72 /min Krislyn Aberegg PA Work Phone: [facility] 10-17-2023 16:39-0500 Respiratory rate 20 /min Krislyn Aberegg PA Work Phone: [facility] 10-17-2023 16:39-0500 SaO2% (BldA) [Mass fraction] 97 % Krislyn Aberegg PA Work Phone: [facility] 10-17-2023 16:39-0500 Systolic blood pressure 157 mm[Hg] Krislyn Aberegg PA Work Phone: [facility] 10-04-2023 21:39-0500 Body temperature 98 [degF] [facility] 10-04-2023 21:39-0500 Diastolic blood pressure 90 mm[Hg] [facility] 10-04-2023 21:39-0500 Heart rate 78 /min [facility] 10-04-2023 21:39-0500 Respiratory rate 18 /min [facility] 10-04-2023 21:39-0500 SaO2% (BldA) [Mass fraction] 97 % [facility] 10-04-2023 21:39-0500 Systolic blood pressure 162 mm[Hg] [facility] 10-04-2023 21:00-0500 Body height 165.1 cm [facility] 10-04-2023 21:00-0500 Body mass index (BMI) [Ratio] 35.3 kg/m2 [facility] 10-04-2023 21:00-0500 Body weight 96.36 kg [facility] 02-08-2023 15:21-0400 Body height 165.1 cm [facility] 02-08-2023 15:21-0400 Body mass index (BMI) [Ratio] 35.5 kg/m2 [facility] 02-08-2023 15:21-0400 Body temperature 97.2 [degF] [facility] 02-08-2023 15:21-0400 Body weight 96.88 kg [facility] 02-08-2023 15:21-0400 Diastolic blood pressure 90 mm[Hg] [facility] 02-08-2023 15:21-0400 Heart rate 91 /min [facility] 02-08-2023 15:21-0400 Respiratory rate 20 /min [facility] 02-08-2023 15:21-0400 SaO2% (BldA) [Mass fraction] 97 % [facility] 02-08-2023 15:21-0400 Systolic blood pressure 139 mm[Hg] [facility] 08-07-2022 13:49-0500 Diastolic blood pressure 81 mm[Hg] Carlene Older [employer] Work Phone: [facility] 08-07-2022 13:49-0500 Heart rate 62 /min Carlene Older [employer] Work Phone: [facility] 08-07-2022 13:49-0500 Systolic blood pressure 128 mm[Hg] Carlene Older [employer] Work Phone: [facility] 08-07-2022 13:19-0500 Body weight 92.53 kg Carlene Older [employer] Work Phone: [facility] 08-07-2022 13:19-0500 Respiratory rate 14 /min Carlene Older [employer] Work Phone: [facility] 04-15-2022 02:48-0400 Diastolic blood pressure 99 mm[Hg] [facility] Work Phone: 04-15-2022 02:48-0400 Heart rate 64 /min [facility] Work Phone: 04-15-2022 02:48-0400 Respiratory rate 18 /min [facility] Work Phone: 04-15-2022 02:48-0400 SaO2% (BldA) [Mass fraction] 99 % [facility] Work Phone: 04-15-2022 02:48-0400 Systolic blood pressure 145 mm[Hg] [facility] Work Phone: 04-14-2022 23:29-0400 Body height 165.1 cm [facility] Work Phone: 04-14-2022 23:29-0400 Body mass index (BMI) [Ratio] 33.3 kg/m2 [facility] Work Phone: 04-14-2022 23:29-0400 Body temperature 98 [degF] [facility] Work Phone: 04-14-2022 23:29-0400 Body weight 90.71 kg [facility] Work Phone: 02-06-2022 15:25-0400 Body weight 88.91 kg Carlene Older [employer] Work Phone: [facility] 02-06-2022 15:25-0400 Diastolic blood pressure 84 mm[Hg] Carlene Older [employer] Work Phone: [facility] 02-06-2022 15:25-0400 Heart rate 78 /min Carlene Older [employer] Work Phone: [facility] 02-06-2022 15:25-0400 Respiratory rate 14 /min Carlene Older [employer] Work Phone: [facility] 02-06-2022 15:25-0400 Systolic blood pressure 124 mm[Hg] Carlene Older [employer] Work Phone: [facility] 02-02-2022 20:23-0400 Respiratory rate 16 /min [facility] Work Phone: 02-02-2022 18:39-0400 Diastolic blood pressure 79 mm[Hg] [facility] Work Phone: 02-02-2022 18:39-0400 Heart rate 81 /min [facility] Work Phone: 02-02-2022 18:39-0400 SaO2% (BldA) [Mass fraction] 99 % [facility] Work Phone: 02-02-2022 18:39-0400 Systolic blood pressure 121 mm[Hg] [facility] Work Phone: 02-02-2022 16:05-0400 Body height 165.1 cm [facility] Work Phone: 02-02-2022 16:05-0400 Body mass index (BMI) [Ratio] 31.6 kg/m2 [facility] Work Phone: 02-02-2022 16:05-0400 Body temperature 98.2 [degF] [facility] Work Phone: 02-02-2022 16:05-0400 Body weight 86.18 kg [facility] Work Phone: 12-13-2021 17:18-0400 Body mass index (BMI) [Ratio] 33.3 kg/m2 [facility] Work Phone: 12-13-2021 17:18-0400 Body temperature 96.7 [degF] [facility] Work Phone: 12-13-2021 17:18-0400 Body weight 90.71 kg [facility] Work Phone: 12-13-2021 17:18-0400 Diastolic blood pressure 79 mm[Hg] [facility] Work Phone: 12-13-2021 17:18-0400 Heart rate 79 /min [facility] Work Phone: 12-13-2021 17:18-0400 Respiratory rate 16 /min [facility] Work Phone: 12-13-2021 17:18-0400 SaO2% (BldA) [Mass fraction] 98 % [facility] Work Phone: 12-13-2021 17:18-0400 Systolic blood pressure 120 mm[Hg] [facility] Work Phone: 11-21-2021 16:30-0400 Diastolic blood pressure 97 mm[Hg] Carlene Older [employer] Work Phone: [facility] 11-21-2021 16:30-0400 Systolic blood pressure 174 mm[Hg] Carlene Older [employer] Work Phone: [facility] 11-21-2021 16:03-0400 Body weight 90.72 kg Carlene Older [employer] Work Phone: [facility] 11-21-2021 16:03-0400 Heart rate 77 /min Carlene Older [employer] Work Phone: [facility] 11-21-2021 16:03-0400 Respiratory rate 18 /min Carlene Older [employer] Work Phone: [facility] 11-21-2021 16:03-0400 SaO2% (BldA) [Mass fraction] 97 % Carlene Older [employer] Work Phone: [facility] Encounters Encounter Date Encounter Type Care Provider Facility Start: 10-29-2024 End: 10-29-2024 ambulatory No Primary Care Physician Facility[place] Start: 10-21-2024 End: 10-21-2024 ambulatory Pallavi Olivera LPN [facility] [place] Start: 10-15-2024 Encounter for genera l adult medical examination without abnormal findings Flaco YADAV [facility] Start: 10-15-2024 End: 10-15-2024 ambulatory No Primary Care Physician Facility:[facility] Start: 10-11-2024 End: 10-11-2024 ambulatory Laura Thelma Facility:[facility] Start: 09-30-2024 End: 09-30-2024 Telephone encounter Niru Muniz MD Work Phone: [facility] Comment on above: Appointment Start: 09-28-2024 End: 09-28-2024 Telephone encounter Rani Murray MD Work Phone: [facility] Comment on above: Appointment Start: 09-27-2024 End: 09-27-2024 ambulatory Laura Thelma Facility:[facility] Start: 08-24-2024 End: 08-24-2024 ambulatory Pallavi Olivera LPN [facility] [place] Start: 08-16-2024 End: 08-16-2024 Emergency department patient visit Chito Tanner Facility:[facility] Start: 05-25-2024 End: 05-25-2024 Telephone encounter Carlene Cleveland [employer] Work Phone: [facility] [place] Start: 05-25-2024 End: 05-25-2024 Subsequent hospital visit by physician Ana [facility] Work Phone: Radiology Comment on above: Acute cough [R05.1] Start: 05-25-2024 End: 05-25-2024 ambulatory CARLENE HERRMANN Facility:[facility] Start: 05-25-2024 End: 05-25-2024 Patient encounter procedure Carlene Cleveland APRN.CNP Work Phone: [facility] [place] Comment on above: Acute cough (Primary Dx); Hydrocele in adult Start: 05-24-2024 End: 05-24-2024 ambulatory Curtis Mcdonald MD Work Phone: [facility] [place] Comment on above: Cough Start: 05-20-2024 End: 05-20-2024 Telephone encounter Barney Howell APRN.[employer]ATE Work Phone: [facility] [place] Comment on above: Results Start: 05-20-2024 End: 05-20-2024 ambulatory CURTIS MCDONALD Facility:[facility] Start: 05-20-2024 End: 05-20-2024 Subsequent hospital visit by [place] [facility] Work Phone: Radiology Comment on above: Scrotal swelling [N5 0.89] Start: 05-19-2024 End: 05-19-2024 ambulatory CURTIS MCDONALD Facility:[facility] Start: 05-19-2024 End: 05-19-2024 Office outpatient visit 15 minutes Rojas Steve APRN.CNP Work Phone: [facility] Comment on above: Scrotal swelling (Pr imary Dx); Lower respiratory tract infection Start: 04-30-2024 End: 04-30-2024 Telephone encounter Nesha Baker APRN.CNP Work Phone: [facility] [place] Comment on above: Results Start: 04-26-2024 End: 04-26-2024 ambulatory CURTIS MCDONALD Facility:[facility] Start: 04-26-2024 End: 04-26-2024 Patient encounter procedure Nesha Baker APRN.CNP Work Phone: [facility] [place] Comment on above: Primary hypertension (Primary Dx); Generalized anxiety disorder; Depressive disorder; Other fatigue; IFG (impaired fasting glucose); Vitamin D deficiency; Encounter for therapeutic drug monitoring; Headache due to hypertension Start: 04-17-2024 End: 04-17-2024 Emergency department patient visit Matthias Garcia Facility:[facility] Start: 02-04-2024 End: 02-04-2024 ambulatory DYLAN MORROW Facility:[facility] Start: 02-04-2024 End: 02-04-2024 Patient encounter procedure Dylan Morrow DO Work Phone: [facility] [place] Comment on above: Trigger ring finger of left hand (Primary Dx); Finger pain, left Start: 01-14-2024 End: 01-14-2024 Subsequent hospital visit by physician Ana [facility] [place] Work Phone: Radiology Comment on above: Finger pain, left [M 79.645] Start: 01-14-2024 End: 01-14-2024 ambulatory CURTIS Torrez HARRY Facility:[facility] Start: 01-14-2024 End: 01-14-2024 Patient encounter procedure Nirali Carey APRN.[employer] Work Phone: [facility] Comment on above: Finger pain, left (P rimary Dx) Start: 01-11-2024 End: 01-11-2024 Emergency department patient visit Urbano Goyal Facility:[facility] Start: 11-27-2023 End: 11-27-2023 [facility] Facility:[facility] Start: 11-27-2023 End: 11-27-2023 Patient encounter procedure Carlene Cleveland APRN.[employer] Work Phone: [facility] [place] Comment on above: Primary hypertension (Primary Dx); Chronic bilateral low back pain without sciatica Start: 11-14-2023 End: 11-14-2023 [facility] Facility:[facility] Start: 11-14-2023 End: 11-14-2023 Patient encounter procedure Carlene Cleveland APRN.[employer] Work Phone: [facility] [place] Comment on above: Primary hypertension (Primary Dx); Generalized anxiety disorder; Dyslipidemia; MK on CPAP; Depressive disorder Start: 10-18-2023 Telephone encounter Cj Kaiser MD Work Phone: [facility] Comment on above: Results Start: 10-17-2023 End: 10-17-2023 Patient encounter procedure Clinton YADAV Work Phone: [facility] Comment on above: URI, acute (Primary Dx) Start: 10-04-2023 End: 10-04-2023 [facility] Start: 02-08-2023 End: 02-08-2023 [facility] Start: 08-07-2022 End: 08-07-2022 Patient encounter procedure Carlene Older [employer] Work Phone: [facility] [place] Comment on above: Primary hypertension (Primary Dx); Generalized anxiety disorder; MK on CPAP; Depressive disorder; Thrombocytopenia, secondary; Colon cancer screening Start: 05-07-2022 Telephone encounter Curtis cassidy MD Work Phone: [facility] Comment on above: Results Start: 04-30-2022 Telephone encounter Nurse Card Admin [facility] Work Phone: Cardiology Comment on above: Appointment (Stress Test instructions) Start: 04-14-2022 End: 04-15-2022 [facility] Start: 02-12-2022 Telephone encounter Curtis cassidy MD Work Phone: [facility] [place] Comment on above: Results Start: 02-06-2022 End: 02-06-2022 Patient encounter procedure Carlene Older [employer] Work Phone: [facility] Comment on above: Chest pain, unspecif ied type (Primary Dx); Orthostatic lightheadedness; Primary hypertension; Dyslipidemia; Urinary frequency Start: 02-02-2022 End: 02-02-2022 Emergency department patient visit [facility] Start: 12-13-2021 End: 12-13-2021 [facility] Start: 12-05-2021 Telephone encounter Curtis cassidy MD Work Phone: [facility] Comment on above: Blood Pressure Check Start: 11-27-2021 Telephone encounter Curtis cassidy MD Work Phone: [facility] Comment on above: Results Start: 11-21-2021 End: 11-21-2021 Patient encounter procedure Carlene Herrmann [employer] Work Phone: [facility] Comment on above: Essential hypertensi on (Primary Dx); Generalized anxiety disorder; Depressive disorder; MK on CPAP; Thrombocytopenia, secondary; Obesity, Class I, BMI 30-34.9 Start: 11-06-2021 ambulatory Curtis edge MD Work Phone: [facility] [place] Procedures Date Procedure Procedure Detail Performing Clinician Start: 05-25-2024 Radiologic exam ches t 2 views Carlene Cleveland [employer] Work Phone: Start: 05-20-2024 Dup-scan artl cholo abdl/pel/scrot&/rpr orgn com Rojas Steve [employer] Work Phone: Start: 05-20-2024 Us scrotum & contents J demetria Steve [employer] Work Phone: Start: 02-04-2024 Injection 1 tendon sheath/ligament aponeurosis Dylan Cristhian DO Work Phone: Start: 01-14-2024 Radex fingr minimum 2 views Nirali Carey [employer] Work Phone: Start: 02-08-2023 X-ray of lumbar spin e, two or three views Start: 02-05-2023 Lipid 1996 panel - S sylvie or Plasma Clinton YADAV Work Phone: Start: 04-15-2022 X-ray of both feet Start: 12-13-2021 Plain x-ray of hand Viral antigen assay Plan of Treatment Date Care Activity Detail Author Start: 02-06-2028 Lipid panel Lipid Screening [facility] Start: 04-26-2027 Diabetes Screening Diabetes Screen[facility] Start: 11-21-2026 LIPID SCREEN LIPID SCREEN [facility] Start: 02-05-2026 Diabetes Screening Diabetes Screenin [facility] Start: 09-28-2025 LIPID SCREEN LIPID SCREEN [facility] Start: 10-15-2025 Annual PCP Team Inspector Publications tita Disease Visit Annual PCP Team Chronic Disease Visit [facility] Start: 04-26-2025 Annual PCP Team Inspector Publications tita Disease Visit Annual PCP Team Chronic Disease Visit [facility] Start: 04-26-2025 Creatinine measurement Serum Creatin ine [facility] Start: 02-06-2025 DIABETES SCREEN DIABETES SCREEN [facility] Start: 11-26-2024 Annual PCP Team Inspector Publications tita Disease Visit Annual PCP Team Chronic Disease Visit [facility] Start: 11-21-2024 DIABETES SCREEN DIABETES SCREEN [facility] Start: 11-13-2024 Annual PCP Team Inspector Publications tita Disease Visit Annual PCP Team Chronic Disease Visit [facility] Start: 06-02-2024 End: 06-02-2024 Patient encounter procedure 06/02/2024 1:40 PM EDT Office Visit [facility] [address] [place] [address] Curtis Mcdonald MD [address] [place] [address] 6 month follow up - annual physical [facility] Comment on above: 6 month follow up - annual physical Start: 05-27-2024 End: 05-27-2024 Patient encounter procedure 05/27/2024 8:20 AM EDT Office Visit [facility] [address] [place] [address] Curtis Mcdonald MD [address] [facility] [place] [address] extra fluid in scrotum follow up [facility] Comment on above: extra fluid in scrot um follow up Start: 05-25-2024 End: 05-25-2024 Patient encounter procedure 05/25/2024 11:40 AM EDT Office Visit [facility] [place] [address] [place] [address] Carlene Cleveland, [employer] [address] [facility] [place] [address] Cough. Triage completed 05/24 [facility] Comment on above: Cough. Triage comple tiffanie 10/14 Start: 05-20-2024 End: 05-20-2024 Patient encounter procedure 05/20/2024 11:30 AM EDT Appointment Radiology [address] [place] [address] scrotum content Radiology Comment on above: scrotum content Start: 04-26-2024 End: 07-26-2024 25-hydroxyvitamin D3 [Mass/volume] in Serum or Plasma [facility] Comment on above: Expected: 04/26/2024 , Expires: 07/26/2024 Start: 04-26-2024 End: 07-26-2024 CBC W Auto Differential panel - Blood [facility] Comment on above: Expected: 04/26/2024 , Expires: 07/26/2024 Start: 04-26-2024 End: 07-26-2024 Cobalamin (Vitamin B12) [Mass/volume] in Serum or Plasma [facility] Comment on above: Expected: 04/26/2024 , Expires: 07/26/2024 Start: 04-26-2024 End: 07-26-2024 Comprehensive metabolic 2000 panel - Serum or Plasma [facility] Comment on above: Expected: 04/26/2024 , Expires: 07/26/2024 Start: 04-26-2024 End: 07-26-2024 Hemoglobin A1c in Blood [facility] Comment on above: Expected: 04/26/2024 , Expires: 07/26/2024 Start: 04-26-2024 End: 07-26-2024 Iron and Iron binding capacity panel - Serum or Plasma [facility] Work Phone: Comment on above: Expected: 04/26/2024 , Expires: 07/26/2024 Start: 04-26-2024 End: 07-26-2024 Magnesium [Mass/volume] in Serum or Plasma [facility] Comment on above: Expected: 04/26/2024 , Expires: 07/26/2024 Start: 04-26-2024 End: 07-26-2024 Thyrotropin [Units/volume] in Serum or Plasma [facility] Comment on above: Expected: 04/26/2024 , Expires: 07/26/2024 Start: 04-11-2024 Influenza vaccination [facility] Start: 02-06-2024 Annual PCP Team Inspector Publications tita Disease Visit Annual PCP Team Chronic Disease Visit [facility] Start: 02-06-2024 Creatinine measurement Serum Creatin ine [facility] Start: 02-06-2024 Hepatitis B surface antibody level LDL Cholesterol [facility] Start: 02-06-2024 Screening for malign ant neoplasm of colon Colorectal Cancer Screening [facility] Comment on above: Postponed from 09/17 (Declined at this time) Start: 01-28-2024 End: 01-28-2024 Patient encounter procedure 01/28/2024 2:00 PM EDT Office Visit [facility] [place] [address] [place], [place] [id number] Dylan Morrow V, DO [address], [place] [id number] Left hand ring finger pain [facility] [place] Comment on above: Left hand ring finge r pain Start: 10[facility]04[facility]23 [facility] Start: 09-28-2023 DIABETES SCREEN DIABETES SCREEN [facility] Start: 08-07-2023 ANNUAL PCP TEAM PAINT TRIMMER PIPE BOWLS TITA DISEASE VISIT ANNUAL PCP TEAM CHRONIC DISEASE VISIT [facility] Start: 08-07-2023 HEPATITIS B (1 of 3 - 3-dose series) HEPATITIS B (1 of 3 - 3-dose series) [facility] Comment on above: Postponed from 09/17 (Declined at this time) Start: 08-07-2023 SHINGRIX VACCINE (1 of 2) SHINGRIX VACCINE (1 of 2) [facility] Comment on above: Postponed from 09/17 (Declined at this time) Start: 08-07-2023 Urine microalbumin profile DTAP,TDAP,TD (2 - Td or Tdap) [facility] Comment on above: Postponed from 02/07 (Declined at this time) Start: 04-11-2023 Covid-19 Vaccine ( season) Covid-19 Vaccine ( season) [facility] Start: 04-11-2023 Influenza vaccination Influenza Vacc ine (#1) [facility] Start: 02-07-2023 Influenza vaccination INFLUENZA (#1) [facility] Comment on above: Postponed from 04/11 (Declined at this time) Start: 02-06-2023 ANNUAL PCP TEAM PAINT TRIMMER PIPE BOWLS TITA DISEASE VISIT ANNUAL PCP TEAM CHRONIC DISEASE VISIT [facility] Start: 02-06-2023 COVID-19 VACCINE (#1) COVID-19 VACCI NE (#1) [facility] Comment on above: Postponed from 09/17 (Declined at this time) Postponed from 03/17 (Declined at this time) Start: 02-06-2023 SERUM CREATININE SERUM CREATININE [facility] Start: 12-05-2022 ANNUAL PCP TEAM PAINT TRIMMER PIPE BOWLS TITA DISEASE VISIT ANNUAL PCP TEAM CHRONIC DISEASE VISIT [facility] Start: 11-21-2022 ANNUAL PCP TEAM PAINT TRIMMER PIPE BOWLS TITA DISEASE VISIT ANNUAL PCP TEAM CHRONIC DISEASE VISIT [facility] Start: 11-21-2022 HEMOGLOBIN/HEMATOCRIT HEMOGLOBIN/HEM ATOCRIT [facility] Start: 11-21-2022 Hepatitis B surface antibody level LDL CHOLESTEROL [facility] Start: 11-21-2022 SERUM CREATININE SERUM CREATININE [facility] Start: 08-23-2022 BP CONTROLLED (<130/80) BP CONTROLLE D (<130/80) [facility] Start: 08-07-2022 End: 10-07-2022 CBC panel - Blood by Automated count CBC Lab Routine Primary hypertension Expected: 08/07/2022, Expires: 10/07/2022 [facility] Work Phone: Comment on above: Expected: 08/07/2022 , Expires: 10/07/2022 Start: 08-07-2022 End: 10-07-2022 Comprehensive metabolic 2000 panel - Serum or Plasma COMP METABOLIC PANEL Lab Routine Primary hypertension Expected: 08/07/2022, Expires: 10/07/2022 [facility] Work Phone: Comment on above: Expected: 08/07/2022 , Expires: 10/07/2022 Start: 05-21-2022 ANNUAL PCP TEAM PAINT TRIMMER PIPE BOWLS TITA DISEASE VISIT ANNUAL PCP TEAM CHRONIC DISEASE VISIT [facility] Start: 04-11-2022 Influenza vaccination [facility] Start: 01-27-2022 End: 03-29-2022 Basic metabolic 2000 panel - Serum or Plasma BASIC METABOLIC PNL Lab Routine Stage 3a chronic kidney disease (HCC) Expected: 01/27/2022, Expires: 03/29/2022 [facility] Work Phone: Comment on above: Expected: 01/27/2022 , Expires: 03/29/2022 Start: 11-06-2021 End: 01-06-2022 Basic metabolic 2000 panel - Serum or Plasma BASIC METABOLIC PNL Lab Routine Hypertension Expected: 11/06/2021, Expires: 01/06/2022 [facility] Work Phone: Comment on above: Expected: 11/06/2021 , Expires: 01/06/2022 Start: 11-06-2021 End: 01-06-2022 CBC panel - Blood by Automated count CBC Lab Routine Medication management Expected: 11/06/2021, Expires: 01/06/2022 [facility] Work Phone: Comment on above: Expected: 11/06/2021 , Expires: 01/06/2022 Start: 11-06-2021 End: 01-06-2022 Hemoglobin A1c/Hemoglobin.total in Blood HGB A1C Lab Routine Obesity, Class I, BMI 30-34.9 Expected: 11/06/2021, Expires: 01/06/2022 [facility] Work Phone: Comment on above: Expected: 11/06/2021 , Expires: 01/06/2022 Start: 11-06-2021 End: 01-06-2022 LIPID PANEL BASIC LIPID PANEL BASIC Lab Routine Coronary atherosclerosis Expected: 11/06/2021, Expires: 01/06/2022 [facility] Work Phone: Comment on above: Expected: 11/06/2021 , Expires: 01/06/2022 Start: 11-06-2021 End: 01-06-2022 SCHEDULE LAB TESTING SCHEDULE LAB TESTING Lab Routine Expected: 11/06/2021, Expires: 01/06/2022 [facility] Work Phone: Comment on above: Expected: 11/06/2021 , Expires: 01/06/2022 Start: 09-28-2021 Hepatitis B surface antibody level LDL CHOLESTEROL [facility] Start: 03-21-2021 BP CONTROLLED (<130/80) BP CONTROLLE D (<130/80) [facility] Start: 2020 Pneumococcal Vaccine : 50+ (1 of 1 - PCV) Pneumococcal Vaccine: 50+ (1 of 1 - PCV) [facility] Start: 2020 SHINGRIX VACCINE (1 of 2) SHINGRIX VACCINE (1 of 2) [facility] Start: 02-07-2019 Urine microalbumin profile [facility] Start: 2015 COLOGUARD (FIT-DNA) COLOGUARD (FIT-D NA) [facility] Start: 2015 Colonoscopy COLONOSCOPY [facility] Start: 2015 COLORECTAL CANCER SCREENING COLORECTAL CANCER SCREENING [facility] Start: [address] COLONOGRAPHY [facility] Start: 2015 FECAL OCCULT BLOOD FECAL OCCULT BLOO D [facility] Start: 2015 Screening for malign ant neoplasm of colon [facility] Start: 2015 SIGMOIDOSCOPY SIGMOIDOSCOPY [facility] Start: 1989 Hepatitis B Vaccine (1 of 3 - 19+ 3-dose series) Hepatitis B Vaccine (1 of 3 - 19+ 3-dose series) [facility] Start: 1975 COVID-19 VACCINE (1) COVID-19 VACCIN E (1) [facility] Start: 03-17-1971 Covid-19 Vaccine (#1) Covid-19 Vacci ne (#1) [facility] Start: 1970 HEPATITIS B (1 of 3 - 3-dose series) HEPATITIS B (1 of 3 - 3-dose series) [facility] Start: 1970 Hepatitis B Vaccine (1 of 3 - 3-dose series) Hepatitis B Vaccine (1 of 3 - 3-dose series) [facility] COLOGUARD COLOGUARD Lab Ro utine Colon cancer screening Ordered: 08/07/2022 [facility] Work Phone: Comment on above: Ordered: 08/07/2022 COVID & INFLUENZA A/ B & RSV NAAT, ROUTINE COVID & INFLUENZA A/B & RSV NAAT, ROUTINE Microbiology Routine URI, acute Ordered: 10/17/2023 [facility] Work Phone: Comment on above: Ordered: 10/17/2023 End: 03-08-2023 NM CARDIAC PERF STRESS/EXERCISE NM CARDIAC PERF STRESS/EXERCISE Radiology Routine Chest pain, unspecified type 1 Occurrences starting 02/06/2022 until 03/08/2023 [facility] Work Phone: Comment on above: 1 Occurrences starti ng 02/06/2022 until 03/08/2023 Patient Education [facility] Work Phone: Patient referral [facility] Work Phone: End: 06-18-2025 US.doppler Scrotum and testicle US SCROTUM AND CONTENTS Radiology STAT Scrotal swelling 1 Occurrences starting 05/19/2024 until 06/18/2025 [facility] Work Phone: Comment on above: 1 Occurrences starti ng 05/19/2024 until 06/18/2025 [facility] Immunizations Immunization Date Immunization Notes Care Provider Fa [facility] 05-27-2017 influenza virus vaccine, unspecified formulation Clinton YADAV Work Phone: [facility] 02-07-2009 tetanus toxoid, redu nola diphtheria toxoid, and acellular pertussis vaccine, adsorbed Curtis Mcdonald MD Work Phone: [facility] Work Phone: Payers Date Payer Category Payer Unknown [id number] 2024 Self-pay [id number] 2022 Unknown [id number] 2017 Medicaid [facility] [employer] [id number] 2017-Present [phone] [address] [place] [address] Medicaid [id number] 2017 Medicaid [id number] 2017 Unknown [id number] Unknown [id number] Unknown [id number] Unknown [id number] Unknown [id number] Unknown [id number] Unknown [id number] Unknown [id number] Unknown [id number] Social History Date Type Detail Facility Start: 09-04-2016 End: 11-14-2023 Tobacco smoking status NHIS Never smoked tobacco [facility] Start: 09-04-2016 End: 11-14-2023 Tobacco use and exposure User of smokeless tobacco [facility] History of tobacco use Chews Tobacco [facility] Start: 08-23-2021 End: 05-25-2024 Alcohol intake Current drinker of alcohol (finding) [facility] Start: 03-21-2020 History SDOH Alcohol Frequency 2 [facility] Start: 03-21-2020 History SDOH Alcohol Std Drinks 1 [facility] Start: 1970 Sex Assigned At Not on file [facility] Start: 02-02-2022 End: 10-04-2023 Tobacco smoking status NHIS Unknown if ever smoked [facility] Start: 08-26-2021 Rare [facility] Start: 08-26-2021 None [facility] Start: 12-24-2017 Spouse/ Significant Other [facility] Start: 08-26-2021 Chew [facility] Start: 1970 Sex Assigned At Male [facility] Start: 02-06-2022 History SDOH Alcohol Comment rarely [facility] Start: 01-27-2022 End: 02-06-2022 Exposure to SARS-CoV-2 (event) Not sure [facility] Start: 03-21-2020 End: 02-05-2023 [facility] Work [facility]: Start: 03-21-2020 End: 02-05-2023 Alcohol Use Disorder Identification Test - Consumption [AUDIT-C] [facility] Work Phone: How often to you hav e a drink containing alcohol? Monthly or less [facility] Work Phone: How many standard dr inks containing alcohol do you have on a typical day? 1 or 2 [facility] Work Phone: How often do you hav e 6 or more drinks on 1 occasion? Never [facility] Work Phone: Adult Depression Scr eening Assessment 2 [facility] Start: 11-14-2023 Tobacco Comment 1 can of chew every two weeks [facility] Medical Equipment Procedure Code Equipment Code Equipment Origin al Text Equipment Identifier Dates [id number] Implant - [id number] Start: 08-24-2013 Comment on above: Description: PARIETE X COMPOSITE VENTRAL PATCH 4.6CM Functional Status Date Assessment Result Facility 11-07-2016 Are you deaf, or do you have serious difficulty hearing No 11/07/2016 9:57 AM Curtis Barrientos MD No [facility] 11-07-2016 Are you blind, or do you have serious difficulty seeing, even when wearing glasses No 11/07/2016 9:57 AM Curtis Barrientos MD No [facility] 11-07-2016 Do you have serious difficulty walking or climbing stairs No 11/07/2016 9:57 AM Curtis Barrientos MD No [facility] 11-07-2016 Do you have difficul ty dressing or bathing No 11/07/2016 9:57 AM Curtis Barrientos MD No [facility] 11-07-2016 Because of a physica l, mental, or emotional condition, do you have difficulty doing errands alone such as visiting a physician's office or shopping No 11/07/2016 9:57 AM Curtis Barrientos MD No [facility] Mental Status Date Assessment Result Facility 02-02-2022 Cognitive function Level Of Cons ciousness Awake;Alert;Appropriate [facility] Work Phone: 11-07-2016 Because of a physica l, mental, or emotional condition, do you have serious difficulty concentrating, remembering, or making decisions Yes 11/07/2016 9:57 AM Curtis Barrientos MD Yes [facility] Clinical Notes 04-04-2017 to 10-21-2024 Pallavi Olivera LPN - 10/21/2024 12:01 PM EDTTelephone Encounter - Delmi Sandoval - 09/30/2024 9:28 AM ESTTelephone Encounter - Delmi Sandoval - 09/30/2024 9:28 AM ESTPatient Instructions Note Date & Type Note Facility 10-21-2024 Note HNO ID: [id number] Author: PALLAVI OLIVERA LPN Service: ? Author Type: LICENSED NURSE Type: Progress Notes Filed: 10/21/2024 12:06 Note Text: POPULATION HEALTH NAVIGATION OUTREACH Action/FYI: Spoke to Feliciano d/maya insurance change he has changed PCP, does not have name PCP changed in system Reason for Outreach Care Gap/HCC or Scheduling Wellness Visits Care Gaps due: Physical Annual Wellness Visit Follow-up Appointment Patient Contacted: Navigation Signature: Pallavi Olivera LPN October 21, 2024 12:[address] [facility] 10-21-2024 History of Present illness Narrative POPULATION HEALTH NAVIGATION OUTREACH Action/FYI: Spoke to Feliciano d/t insurance change he has changed PCP, does not have name PCP changed in system Reason for Outreach Care Gap/HCC or Scheduling Wellness Visits Care Gaps due: Physical Annual Wellness Visit Follow-up Appointment Patient Contacted: Navigation Signature: Pallavi Olivera LPN October 21, 2024 12:01 PM documented in this encounter [facility] 09-30-2024 Telephone encounter Note Referral received. Attempt # 2 LVM for patient. No MyChart message sent to patient - MyChart not set up. [facility] 09-30-2024 Miscellaneous Notes Referral received. Attempt # 2 LVM for patient. No MyChart message sent to patient - MyChart not set up. documented in this encounter [facility] 09-28-2024 Telephone encounter Note Referral received. Attempt # 1 LVM for patient. No MyChart message sent to patient - MyChart message sent to patient.. [facility] 09-28-2024 Miscellaneous Notes Referral received. Attempt # 1 LVM for patient. No MyChart message sent to patient - MyChart message sent to patient.. documented in this encounter [facility] 08-24-2024 Note HNO ID: [id number] Author: PALLAVI OLIVERA LPN Service: ? Author Type: LICENSED NURSE Type: Progress Notes Filed: 08/24/2024 15:09 Note Text: POPULATION HEALTH NAVIGATION OUTREACH Action/FYI Spoke to Feliciano, due to insurance changing he will need to check to see if Dr. Mcdonald is covered Reason for Outreach Care Gap/HCC or Scheduling Wellness Visits Care Gaps due: Physical Annual Wellness Visit Follow-up Appointment Patient Contacted: Spoke to patient/parent/or legal guardian Patient identified by name and : Yes Care Gap/HCC/Scheduling Wellness actions taken: PCP confirmed Navigation Signature: Pallavi Olivera LPN August 24, 2024 3:[address] [facility] 08-24-2024 History of Present illness Narrative POPULATION HEALTH NAVIGATION OUTREACH Action/FYI Spoke to Feliciano, due to insurance changing he will need to check to see if Dr. Mcdonald is covered Reason for Outreach Care Gap/HCC or Scheduling Wellness Visits Care Gaps due: Physical Annual Wellness Visit Follow-up Appointment Patient Contacted: Spoke to patient/parent/or legal guardian Patient identified by name and : Yes Care Gap/HCC/Scheduling Wellness actions taken: PCP confirmed Navigation Signature: Pallavi Olivera LPN August 24, 2024 3:06 PM documented in this encounter [facility] 05-25-2024 Telephone encounter Note Patient notified, verbalized understanding. [facility] 05-25-2024 Miscellaneous Notes Patient notified, verbalized understanding. Please let the patient know his chest x-ray was normal. Start treatment with prednisone and Tessalon Perles. Follow-up as scheduled with PCP on 06/02 Carlene Cleveland APRN.BOATSWA[employer] MATE documented in this encounter [facility] 05-25-2024 Telephone encounter Note Please let the patient know his chest x-ray was normal. Start treatment with prednisone and Tessalon Perles. Follow-up as scheduled with PCP on 06/02 Carlene Cleveland APRN.CNP [facility] 05-25-2024 History of Present illness Narrative Radiology Service Progress Note PATIENT NAME: Feliciano Dai DATE OF SERVICE: May 25, 2024 TIME: 12:17 PM PATIENT IDENTITY VERIFICATION COMPLETED USING TWO (2) IDENTIFIERS: Name and Date of confirmed by patient verbally. FALL SCREENING: Has the patient had 2 falls in the last year or 1 fall with injury or currently using an Ambulatory Assistive Device (Walker, Cane, Wheelchair, Crutches, etc.)? No PATIENT GENDER DATA: Male PATIENT RELEVANT IMPLANT DATA REVIEWED: Not Applicable PATIENT PRESENTS WITH AN IMPLANTABLE OR ATTACHED PIPE ORGAN MECHANIC APPRENTICE: No RADIOLOGY DEPARTMENT: General X-ray: Exam(s) Completed: Chest X-Ray PERIPHERAL IV DATA: Not applicable SIGNED BY: RT Jonathan(Suzan) May 25, 2024 12:17 PM documented in this encounter [facility] 05-25-2024 Note HNO ID: [id number] Author: JUNAID WHATLEY RT(Suzan) Service: Radiology Author Type: Technologist Type: Progress Notes Filed: 05/25/2024 12:22 Note Text: Radiology Service Progress Note PATIENT NAME: Feliciano Dai DATE OF SERVICE: May 25, 2024 TIME: 12:17 PM PATIENT IDENTITY VERIFICATION COMPLETED USING TWO (2) IDENTIFIERS: Name and Date of confirmed by patient verbally. FALL SCREENING: Has the patient had 2 falls in the last year or 1 fall with injury or currently using an Ambulatory Assistive Device (Walker, Cane, Wheelchair, Crutches, etc.)? No PATIENT GENDER DATA: Male PATIENT RELEVANT IMPLANT DATA REVIEWED: Not Applicable PATIENT PRESENTS WITH AN IMPLANTABLE OR ATTACHED PIPE ORGAN MECHANIC APPRENTICE: No RADIOLOGY DEPARTMENT: General X-ray: Exam(s) Completed: Chest X-Ray PERIPHERAL IV DATA: Not applicable SIGNED BY: RT Jonathan(R) May 25, 2024 12:[address] [facility] 05-25-2024 History of Present illness Narrative CC: Patient presents with: cough x 1 month HPI Feliciano Dai is a 53 year old male who presents today for above. Patient was seen in [facility] on 05/25 with three week history of cough. Treated with doxycycline for lower respiratory tract infection. Patient reports cough has not improved, productive with yellow green sputum. Cough is a little worse at night but still coughing during the day. Associated with fatigue, wheezing and rhinorrhea. Denies fever, chills, SOB, nasal congestion, facial pain or pressure, ear pain. Denies history of allergies or respiratory disease. He is taking OTC cough medicine without any relief. He had also reported scrotal swelling on the left that was painless. Exam revealed swelling but no acute findings otherwise. Ultrasound indicated moderate to large bilateral hydroceles, left greater than right. Patient reports swelling has diminished. Denies pain. No new or worsening symptoms. Review of Systems See HPI PAST MEDICAL HISTORY Diagnosis Date [...] ESOPHAGOGASTRODUODENOSCOPY TRANSORAL DIAGNOSTIC 07/14/[address] Mcnair 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 UMBILICAL HRNA 5 YRS/> REDUCIBLE 08/24/13 ALLERGIES Naprosyn [Naproxen], Amoxicillin, Amitriptyline, Bupivacaine (Pf), Celexa [Citalopram Hydrobromide], Lisinopril, and Metoprolol Tartrate MEDICATIONS doxycycline (VIBRA-TABS) 100 mg tablet Take 1 tablet by mouth two times a day for 7 days. buPROPion XL (WELLBUTRIN XL) 150 mg 24 hr tablet Take 1 tablet by mouth once daily. escitalopram oxalate (LEXAPRO) 20 mg tablet Take 1 tablet by mouth once daily. atorvastatin (LIPITOR) 10 mg tablet Take 1 tablet by mouth daily at bedtime. For cholesterol. hydroCHLOROthiazide 25 mg tablet Take 1 tablet by mouth once daily. amLODIPine (NORVASC) 10 mg tablet Take 1 tablet by mouth once daily. losartan (COZAAR) 100 mg tablet Take 1 tablet by mouth once daily. clonazePAM (KLONOPIN) 0.5 mg tablet Take 1 tablet by mouth two times a day as needed for anxiety (not more than 30 tablets per month) for up to 180 days. acetaminophen 325 mg cap Take 325 mg [...] status: Never Smokeless tobacco: Current Types: Chew Tobacco comments: 1 can of chew every two weeks Vaping Use Vaping status: Never Used Substance Use Topics Alcohol use: Yes Comment: rarely Drug use: No BP 162/94 Pulse 71 Temp 36.9 C (98.5 F) (Temporal) Resp 18 Wt 94.3 kg (207 lb 14.3 oz) SpO2 95% BMI (P) 35.46 kg/m Physical Exam Vitals reviewed. Constitutional: General: He is not in acute distress. Appearance: He is not ill-appearing or toxic-appearing. HENT: Head: Normocephalic and atraumatic. Right Ear: Tympanic membrane normal. Left Ear: Tympanic membrane normal. Nose: Right Sinus: No maxillary sinus tenderness or frontal sinus tenderness. Left Sinus: No maxillary sinus tenderness or frontal sinus tenderness. Mouth/Throat: Lips: Campbell. Mouth: Mucous membranes are moist. Pharynx: Oropharynx is clear. Eyes: Conjunctiva/sclera: Conjunctivae normal. Cardiovascular: Rate and Rhythm: Normal rate and regular rhythm. Pulmonary: Effort: Pulmonary effort is normal. Breath sounds: Normal breath sounds. No wheezing, rhonchi or rales. Lymphadenopathy: Cervical: No cervical adenopathy. Skin: General: Skin is warm and dry. Neurological: Mental Status: He is alert. DATA REVIEWED: scrotal ultrasound ASSESSMENT/PLAN: 1. Acute cough - ICD9: 786.2, ICD10: R05.1 (primary diagnosis) Differentials include post infectious cough, pneumonia, bronchitis - XR CHEST 2V FRONTAL/LAT today to rule out pneumonia - if chest x-ray normal will treat with prednisone and Tessalon Perles - follow-up with PCP on 06/02 as scheduled or sooner as needed 2. Hydrocele in adult - ICD9: 603.9, ICD10: N43.3 Swelling improved per patient, no new or worsening symptoms. Continue to monitor and call office for any persistent or worsening symptoms. Prescription instructions reviewed with patient as applicable. Potential red flag symptoms discussed with the patient. Reviewed appropriate action plan to take if red flag symptoms occur. Patient agreeable to treatment plan. Carlene Cleveland APRN.[employer]WA[employer] MATE documented in this encounter [facility] 05-25-2024 Note HNO ID: [id number] Author: CARLENE CLEVELAND APRN.[employer]WAINS MATE Service: ? Author Type: Nurse Practitioner Type: Progress Notes Filed: 05/25/2024 12:16 Note Text: CC: Patient presents with: cough x 1 month HPI Feliciano Dai is a 53 year old male who presents today for above. Patient was seen in [facility] on 05/25 with three week history of cough. Treated with doxycycline for lower respiratory tract infection. Patient reports cough has not improved, productive with yellow green sputum. Cough is a little worse at night but still coughing during the day. Associated with fatigue, wheezing and rhinorrhea. Denies fever, chills, SOB, nasal congestion, facial pain or pressure, ear pain. Denies history of allergies or respiratory disease. He is taking OTC cough medicine without any relief. He had also reported scrotal swelling on the left that was painless. Exam revealed swelling but no acute findings otherwise. Ultrasound indicated moderate to large bilateral hydroceles, left greater than right. Patient reports swelling has diminished. Denies pain. No new or worsening symptoms. Review of Systems See HPI PAST MEDICAL HISTORY Diagnosis Date [...] ESOPHAGOGASTRODUODENOSCOPY TRANSORAL DIAGNOSTIC 07/14/[address] Mcnair 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 UMBILICAL HRNA 5 YRS/> REDUCIBLE 08/24/13 ALLERGIES Naprosyn [Naproxen], Amoxicillin, Amitriptyline, Bupivacaine (Pf), Celexa [Citalopram Hydrobromide], Lisinopril, and Metoprolol Tartrate MEDICATIONS doxycycline (VIBRA-TABS) 100 mg tablet Take 1 tablet by mouth two times a day for 7 days. buPROPion XL (WELLBUTRIN XL) 150 mg 24 hr tablet Take 1 tablet by mouth once daily. escitalopram oxalate (LEXAPRO) 20 mg tablet Take 1 tablet by mouth once daily. atorvastatin (LIPITOR) 10 mg tablet Take 1 tablet by mouth daily at bedtime. For cholesterol. hydroCHLOROthiazide 25 mg tablet Take 1 tablet by mouth once daily. amLODIPine (NORVASC) 10 mg tablet Take 1 tablet by mouth once daily. losartan (COZAAR) 100 mg tablet Take 1 tablet by mouth once daily. clonazePAM (KLONOPIN) 0.5 mg tablet Take 1 tablet by mouth two times a day as needed for anxiety (not more than 30 tablets per month) for up to 180 days. acetaminophen 325 mg cap Take 325 mg [...] status: Never Smokeless tobacco: Current Types: Chew Tobacco comments: 1 can of chew every two weeks Vaping Use Vaping status: Never Used Substance Use Topics Alcohol use: Yes Comment: rarely Drug use: No BP 162/94 Pulse 71 Temp 36.9 ?C (98.5 ?F) (Temporal) Resp 18 Wt 94.3 kg (207 lb 14.3 oz) SpO2 95% BMI (P) 35.46 kg/m? Physical Exam Vitals reviewed. Constitutional: General: He is not in acute distress. Appearance: He is not ill-appearing or toxic-appearing. HENT: Head: Normocephalic and atraumatic. Right Ear: Tympanic membrane normal. Left Ear: Tympanic membrane normal. Nose: Right Sinus: No maxillary sinus (more content not included)... [facility] 05-24-2024 Telephone encounter Note Patient calls for on-going cough. Nurse triage completed. Protocol recommends see provider within 3 days. Patient requests appointment tomorrow. Scheduled per request. Care advice reviewed. Patient verbalizes understanding. Reason for Disposition Cough has been present for > 3 weeks Answer Assessment - Initial Assessment Questions 1. ONSET: About a month ago 2. SEVERITY:Bothersome 3. SPUTUM: Yellow and Green 4. HEMOPTYSIS: No 5. DIFFICULTY BREATHING: SOB with coughing. 6. FEVER: No 7. CARDIAC HISTORY: No heart attack, congestive heart failure 8. LUNG HISTORY: Sleep Apnea. No pulmonary embolus, asthma, emphysema. 9. PE RISK FACTORS: No recent major surgery, recent prolonged travel, bedridden 10. OTHER SYMPTOMS: No runny nose, wheezing, chest pain 11. TRAVEL: No travel or exposure Protocols used: Cough - Acute [id number] [facility] 05-24-2024 Miscellaneous Notes Patient calls for on-going cough. Nurse triage completed. Protocol recommends see provider within 3 days. Patient requests appointment tomorrow. Scheduled per request. Care advice reviewed. Patient verbalizes understanding. Reason for Disposition Cough has been present for > 3 weeks Answer Assessment - Initial Assessment Questions 1. ONSET: About a month ago 2. SEVERITY:Bothersome 3. SPUTUM: Yellow and Green 4. HEMOPTYSIS: No 5. DIFFICULTY BREATHING: SOB with coughing. 6. FEVER: No 7. CARDIAC HISTORY: No heart attack, congestive heart failure 8. LUNG HISTORY: Sleep Apnea. No pulmonary embolus, asthma, emphysema. 9. PE RISK FACTORS: No recent major surgery, recent prolonged travel, bedridden 10. OTHER SYMPTOMS: No runny nose, wheezing, chest pain 11. TRAVEL: No travel or exposure Protocols used: Cough - Acute [id number] documented in this encounter [facility] 05-20-2024 Telephone encounter Note Spoke with pt and information listed below given. Pt verbalizes understanding. Follow up apt made with pcp. Silvia Rocha LPN [facility] 05-20-2024 Miscellaneous Notes Spoke with pt and information listed below given. Pt verbalizes understanding. Follow up apt made with pcp. Silvia Rocha LPN Left a message for pt to call the office and ask to speak to a nurse. Silvia Rocha LPN ----- Message from Barney Howell APRN.[employer]ATE sent at 05/20/2024 1:49 PM EDT ----- Please inform patient that the ultrasound of the scrotum did not show any concerning issues other than extra fluid within the scrotum itself. This issue typically will resolve on its own however I would recommend follow-up with PCP for continued evaluation and monitoring. documented in this encounter [facility] 05-20-2024 Telephone encounter Note Left a message for pt to call the office and ask to speak to a nurse. Silvia Rocha LPN [facility] 05-20-2024 Telephone encounter Note ----- Message from Barney Howell APRN.[employer]ATE sent at 05/20/2024 1:49 PM EDT ----- Please inform patient that the ultrasound of the scrotum did not show any concerning issues other than extra fluid within the scrotum itself. This issue typically will resolve on its own however I would recommend follow-up with PCP for continued evaluation and monitoring. [facility] 05-19-2024 Note HNO ID: [id number] Author: ROJAS STEVE APRN.[employer] MATE Service: ? Author Type: Nurse Practitioner Type: Progress Notes Filed: 05/19/2024 16:40 Note Text: Subjective HPI Nontoxic-appearing male presents urgent care chief complaint cough. This has been present for around 3 weeks. Cough is not improving. His productive fact at times. Additionally has been dealing with scrotal swelling. Has been present for 2 to 2-1/2 weeks. Is mainly on the left side. States does have episodic discomfort. Is not painful currently. Denies any dysuria frequency or urgency. No penile drainage. History of hernia repair. Past medical history prescription medications allergies reviewed. .Patient presents with: Cough: Cough x 3 weeks and scrotal swelling x 1-2 weeks PAST MEDICAL HISTORY Diagnosis Date Anxiety Benign [...] ESOPHAGOGASTRODUODENOSCOPY TRANSORAL DIAGNOSTIC 07/14/[address] Mcnair 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 UMBILICAL HRNA 5 YRS/> REDUCIBLE 08/24/13 ALLERGIES Naprosyn [Naproxen], Amoxicillin, Amitriptyline, Bupivacaine (Pf), Celexa [Citalopram Hydrobromide], Lisinopril, and Metoprolol Tartrate MEDICATIONS buPROPion XL (WELLBUTRIN XL) 150 mg 24 hr tablet Take 1 tablet by mouth once daily. escitalopram oxalate (LEXAPRO) 20 mg tablet Take 1 tablet by mouth once daily. atorvastatin (LIPITOR) 10 mg tablet Take 1 tablet by mouth daily at bedtime. For cholesterol. hydroCHLOROthiazide 25 mg tablet Take 1 tablet by mouth once daily. amLODIPine (NORVASC) 10 mg tablet Take 1 tablet by mouth once daily. losartan (COZAAR) 100 mg tablet Take 1 tablet by mouth once daily. clonazePAM (KLONOPIN) 0.5 mg tablet Take 1 tablet by mouth two times a day as needed for anxiety (not more than 30 tablets per month) for up to 180 days. acetaminophen 325 mg cap Take 325 mg [...] status: Never Smokeless tobacco: Current Types: Chew Tobacco comments: 1 can of chew every two weeks Vaping Use Vaping status: Never Used Substance Use Topics Alcohol use: Yes Comment: rarely Drug use: No BP 126/80 Pulse 77 Temp 36.8 ?C (98.2 ?F) (Tympanic) Resp 16 Wt 95.3 kg (210 lb 1.6 oz) SpO2 98% BMI (P) 35.84 kg/m? Review of Systems Constitutional: Negative for chills, fever and malaise/fatigue. HENT: Negative for congestion, ear discharge, ear pain, sinus pain and sore throat. Eyes: Negative for blurred vision, pain, discharge and redness. Respiratory: Positive for cough. Negative for hemoptysis, sputum production, shortness of breath, wheezing and stridor. Cardiovascular: Negative for chest pain. Gastrointestinal: Negative for abdominal pain, diarrhea, nausea and vomiting. Genitourinary: Negative. Musculoskeletal: Negative for myalgias. Skin: Negative for itching and rash. Neurological: Negative for dizziness and headaches. Objective Physical Exam Constitutional: General: He is not in acute distress. Appearance: He is not diaphoretic. HENT: (more content not included)... [facility] 05-19-2024 History of Present illness Narrative Subjective HPI Nontoxic-appearing male presents urgent care chief complaint cough. This has been present for around 3 weeks. Cough is not improving. His productive fact at times. Additionally has been dealing with scrotal swelling. Has been present for 2 to 2-1/2 weeks. Is mainly on the left side. States does have episodic discomfort. Is not painful currently. Denies any dysuria frequency or urgency. No penile drainage. History of hernia repair. Past medical history prescription medications allergies reviewed. .Patient presents with: Cough: Cough x 3 weeks and scrotal swelling x 1-2 weeks PAST MEDICAL HISTORY Diagnosis Date Anxiety Benign [...] ESOPHAGOGASTRODUODENOSCOPY TRANSORAL DIAGNOSTIC 07/14/[address] Mcnair [facility] LAPAROSCOPY SURG CHOLECYSTECTOMY 08/24/13 LEFT HEART CATH,PERCUTANEOUS 12/02/2011 PAST SURGICAL HISTORY OF 1979 REPAIR OF RUPTURED SPLEEN AGE 9 RPR UMBILICAL HRNA 5 YRS/> REDUCIBLE 08/24/13 ALLERGIES Naprosyn [Naproxen], Amoxicillin, Amitriptyline, Bupivacaine (Pf), Celexa [Citalopram Hydrobromide], Lisinopril, and Metoprolol Tartrate MEDICATIONS buPROPion XL (WELLBUTRIN XL) 150 mg 24 hr tablet Take 1 tablet by mouth once daily. escitalopram oxalate (LEXAPRO) 20 mg tablet Take 1 tablet by mouth once daily. atorvastatin (LIPITOR) 10 mg tablet Take 1 tablet by mouth daily at bedtime. For cholesterol. hydroCHLOROthiazide 25 mg tablet Take 1 tablet by mouth once daily. amLODIPine (NORVASC) 10 mg tablet Take 1 tablet by mouth once daily. losartan (COZAAR) 100 mg tablet Take 1 tablet by mouth once daily. clonazePAM (KLONOPIN) 0.5 mg tablet Take 1 tablet by mouth two times a day as needed for anxiety (not more than 30 tablets per month) for up to 180 days. acetaminophen 325 mg cap Take 325 mg [...] status: Never Smokeless tobacco: Current Types: Chew Tobacco comments: 1 can of chew every two weeks Vaping Use Vaping status: Never Used Substance Use Topics Alcohol use: Yes Comment: rarely Drug use: No BP 126/80 Pulse 77 Temp 36.8 C (98.2 F) (Tympanic) Resp 16 Wt 95.3 kg (210 lb 1.6 oz) SpO2 98% BMI (P) 35.84 kg/m Review of Systems Constitutional: Negative for chills, fever and malaise/fatigue. HENT: Negative for congestion, ear discharge, ear pain, sinus pain and sore throat. Eyes: Negative for blurred vision, pain, discharge and redness. Respiratory: Positive for cough. Negative for hemoptysis, sputum production, shortness of breath, wheezing and stridor. Cardiovascular: Negative for chest pain. Gastrointestinal: Negative for abdominal pain, diarrhea, nausea and vomiting. Genitourinary: Negative. Musculoskeletal: Negative for myalgias. Skin: Negative for itching and rash. Neurological: Negative for dizziness and headaches. Objective Physical Exam Constitutional: General: He is not in acute distress. Appearance: He is not diaphoretic. HENT: Head: Normocephalic. Jaw: No trismus, tenderness, swelling or pain on movement. Nose: Congestion present. Mouth/Throat: Mouth: Mucous membranes are moist. Pharynx: Oropharynx is clear. Uvula midline. No pharyngeal swelling, oropharyngeal exudate, posterior oropharyngeal erythema or uvula swelling. Eyes: Conjunctiva/sclera: Conjunctivae normal. Pupils: Pupils are equal, round, and reactive to light. Cardiovascular: Rate and Rhythm: Normal rate and regular rhythm. Heart sounds: Normal heart sounds. Pulmonary: Effort: Pulmonary effort is normal. No tachypnea, accessory muscle usage or respiratory distress. Breath sounds: Normal breath sounds. No stridor. No wheezing, rhonchi or rales. Abdominal: General: There is no distension. Palpations: Abdomen is soft. Tenderness: There is no abdominal tenderness. There is no guarding or rebound. Genitourinary: Comments: Left scrotal swelling noted. No erythema edema noted. No penile drainage noted. No evidence of infection noted. No evidence of acute abdomen. Musculoskeletal: Cervical back: Normal range of motion and neck supple. No edema, erythema, rigidity or tenderness. No pain with movement. Normal range of motion. Lymphadenopathy: Cervical: No cervical adenopathy. Skin: General: Skin is warm and dry. Neurological: Mental Status: He is alert and oriented to person, place, and time. ASSESSMENT/PLAN: 1. Scrotal swelling - ICD9: 608.86, ICD10: N50.89 (primary diagnosis) 2. Lower respiratory tract infection - ICD9: 519.8, ICD10: J22 Diagnosed with scrotal swelling and lower respiratory tract infection. Will be placed on doxycycline for respiratory tract infection. Diagnosed with scrotal swelling. If pain returns will be seen in the ED tonight for further evaluation care. Of appointment was scheduled for tomorrow at 1130 for scrotal and content ultrasound. Hydrocele versus hernia. Treat accordingly to ultrasound results. Patient was educated on supportive therapies. Patient will follow up with primary care provider as needed. Patient was instructed to immediately proceed to emergency room for any new, worsening, or symptoms lasting longer than anticipated. The patient's clinical presentation is otherwise unremarkable at this time. Based on exam and clinical finding, the patient is stable for discharge. Plan of care was discussed with patient. Patient verbalizes understanding and agrees to plan of care. This note was generated using [employer] software. It may contain errors in wording, punctuation, or spelling. Rojas Steve APRN.MICKY documented in this encounter [facility] 04-30-2024 Telephone encounter Note Left message to call office. 04/30/2024 2:39 PM [facility] 04-30-2024 Miscellaneous Notes Left message to call office. 04/30/2024 2:39 PM Please call and let patient know that labs are overall stable. Kidney function is better but still a little elevated and likely from the HCTZ that he takes. Please see if he feels any better since stopping the muscle relaxer. Thanks!! documented in this encounter [facility] 04-30-2024 Telephone encounter Note Please call and let patient know that labs are overall stable. Kidney function is better but still a little elevated and likely from the HCTZ that he takes. Please see if he feels any better since stopping the muscle relaxer. Thanks!! [facility] 04-26-2024 Instructions Nesha Baker APRN.CNP - 04/26/2024 2:43 PM EDT Stop the tizanidine because of tiredness. documented in this encounter [facility] 04-26-2024 Note HNO ID: [id number] Author: NESHA BAKER APRN.CNP Service: ? Author Type: Nurse Practitioner Type: Progress Notes Filed: 04/26/2024 15:04 Note Text: SUBJECTIVE Feliciano Dai is a 53 year old male here today for an ER follow up. Chief Complaint Patient presents with: ER F/U: [facility] 04/17/24 for hypertension Today he is complaining for increase fatigue and questions if one of his medication is causing the fatigue HPI Feliciano Dai is a 53 year old male. He is an established patient of Curtis Mcdonald MD. Here today for an ER follow up, in [facility] ER on 04/17 for hypertension. ER notes available in care everywhere. Reviewed with visit today. BP in ER was 214/111. Ok today except feeling tired, feels he could take a nap daily. Notes some headaches lately, worse if he misses his blood pressure medications. No complaints of chest pain, chest tightness or shortness of breath. His medications were reviewed today and his list is now up to date. Medications Current Outpatient Medications Medication Sig escitalopram oxalate (LEXAPRO) 20 mg tablet Take 1 tablet by mouth once daily. atorvastatin (LIPITOR) 10 mg tablet Take 1 tablet by mouth daily at bedtime. For cholesterol. hydroCHLOROthiazide 25 mg tablet Take 1 tablet by mouth once daily. amLODIPine (NORVASC) 10 mg tablet Take 1 tablet by mouth once daily. losartan (COZAAR) 100 mg tablet Take 1 tablet by mouth once daily. clonazePAM (KLONOPIN) 0.5 mg tablet Take 1 tablet by mouth two times a day as needed for anxiety (not more than 30 tablets per month) for up to 180 days. acetaminophen 325 mg cap Take 325 mg by mouth twice daily. ibuprofen (MOTRIN) 800 mg tablet Take 1 tablet by mouth every 8 hours as needed for pain. Take with food. Aspirin 81 mg ORAL Tab Take 1 tablet by mouth once daily. Take with food. buPROPion XL (WELLBUTRIN XL) 150 mg 24 hr tablet Take 1 tablet by mouth once daily. No current facility-administered medications for this visit. ALLERGIES Allergen Reactions Naprosyn [Naproxen] GI Upset Amoxicillin Rash Amitriptyline Mental Status Change fatigue Bupivacaine (Pf) Mental Status Change tonic clonic seizure Celexa [Citalopram * Intolerance Claims hallucinations Lisinopril Mental Status Change dizzy Metoprolol Tartrate Intolerance dizzy ACTIVE PROBLEM LIST Obesity, Class II, Bmi 35-39.9 - 02/05/2023 Orthostatic Lightheadedness - 02/06/2022 Dyslipidemia - 11/26/2021 Stage 3a Chronic Kidney Disease (Hcc) - 11/26/2021 Depressive Disorder - 05/13/2019 Urinary Frequency - 05/15/2018 Edema - 12/01/2017 Thrombocytopenia, Secondary - 04/04/2017 Mk On Cpap - 12/31/2015 Noncompliance With Medication Regimen - 07/25/2015 Generalized Anxiety Disorder - 02/04/2014 History of Learning Disability - 02/04/2014 Lumbago - 11/20/2012 Coronary Atherosclerosis - 07/05/2012 Hypertension - 06/11/2011 Social History Tobacco Use Smoking status: Never Smokeless tobacco: Current Types: Chew Tobacco comments: 1 can of chew every two weeks Vaping Use Vaping status: Never Used Substance Use Topics Alcohol use: Yes Comment: rarely Drug use: No Review of Systems Constitutional: Positive for fatigue. Respiratory: Negative. Cardiovascular: Negative. OBJECTIVE BP 120/84 Pulse 64 Wt 210 lb 1.6 oz (95.3kg) SpO2 98% Physical Exam Vitals and nursing note reviewed. Constitutional: General: He is awake. He is not in acute distress. Appearance: Normal appearance. He is well-developed and well-groomed. He is not ill-appearing, toxic-appearing or diaphoretic. HENT: Head: Normocephalic. Right Ear: External ear normal. Left Ear: External ear normal. Nose: Nose normal. Eyes: General: Vision grossly intact. Conjunctiva/sclera: Conjunctivae normal. Pupils: Pupils are equal, round, and reactive to light. Neck: Vascular: No JVD. Trachea: Trachea normal. Cardiovascular: Rate and Rhythm: Normal rate and regular rhythm. Pulses: Normal pulses. Heart sounds: Normal heart sounds. No murmur heard. Pulmonary: Effort: Pulmonary effort is normal. No accessory muscle usage, prolonged expiration or respiratory distress. Breath sounds: Normal breath sounds. Musculoskeletal: Cervical back: Neck supple. Skin: General: Skin is warm and dry. Capillary Refill: Capillary refill takes less than 2 seconds. Neurological: General: No focal deficit present. Mental Status: He is alert and oriented to person, place, and time. Mental status is at baseline. Cranial Nerves: Cranial nerves 2-12 are intact. Sensory: Sensation is intact. Motor: Motor function is intact. Coordination: Coordination is intact. Gait: Gait is intact. Psychiatric: Attention and Perception: Attention and perception normal. Mood and Affect: Mood and affect normal. Speech: Speech normal. Behavior: Behavior normal. Behavior is cooperative. Thought Content: Thought content normal. Cog (more content not included)... [facility] 04-26-2024 History of Present illness Narrative SUBJECTIVE Feliciano Dai is a 53 year old male here today for an ER follow up. Chief Complaint Patient presents with: ER F/U: [facility] 04/17/24 for hypertension Today he is complaining for increase fatigue and questions if one of his medication is causing the fatigue HPI Feliciano Dai is a 53 year old male. He is an established patient of Curtis Mcdonald MD. Here today for an ER follow up, in [facility] ER on 04/17 for hypertension. ER notes available in care everywhere. Reviewed with visit today. BP in ER was 214/111. Ok today except feeling tired, feels he could take a nap daily. Notes some headaches lately, worse if he misses his blood pressure medications. No complaints of chest pain, chest tightness or shortness of breath. His medications were reviewed today and his list is now up to date. Medications Current Outpatient Medications Medication Sig escitalopram oxalate (LEXAPRO) 20 mg tablet Take 1 tablet by mouth once daily. atorvastatin (LIPITOR) 10 mg tablet Take 1 tablet by mouth daily at bedtime. For cholesterol. hydroCHLOROthiazide 25 mg tablet Take 1 tablet by mouth once daily. amLODIPine (NORVASC) 10 mg tablet Take 1 tablet by mouth once daily. losartan (COZAAR) 100 mg tablet Take 1 tablet by mouth once daily. clonazePAM (KLONOPIN) 0.5 mg tablet Take 1 tablet by mouth two times a day as needed for anxiety (not more than 30 tablets per month) for up to 180 days. acetaminophen 325 mg cap Take 325 mg by mouth twice daily. ibuprofen (MOTRIN) 800 mg tablet Take 1 tablet by mouth every 8 hours as needed for pain. Take with food. Aspirin 81 mg ORAL Tab Take 1 tablet by mouth once daily. Take with food. buPROPion XL (WELLBUTRIN XL) 150 mg 24 hr tablet Take 1 tablet by mouth once daily. No current facility-administered medications for this visit. ALLERGIES Allergen Reactions Naprosyn [Naproxen] GI Upset Amoxicillin Rash Amitriptyline Mental Status Change fatigue Bupivacaine (Pf) Mental Status Change tonic clonic seizure Celexa [Citalopram * Intolerance Claims hallucinations Lisinopril Mental Status Change dizzy Metoprolol Tartrate Intolerance dizzy ACTIVE PROBLEM LIST Obesity, Class II, Bmi 35-39.9 - 02/05/2023 Orthostatic Lightheadedness - 02/06/2022 Dyslipidemia - 11/26/2021 Stage 3a Chronic Kidney Disease (Hcc) - 11/26/2021 Depressive Disorder - 05/13/2019 Urinary Frequency - 05/15/2018 Edema - 12/01/2017 Thrombocytopenia, Secondary - 04/04/2017 Mk On Cpap - 12/31/2015 Noncompliance With Medication Regimen - 07/25/2015 Generalized Anxiety Disorder - 02/04/2014 History of Learning Disability - 02/04/2014 Lumbago - 11/20/2012 Coronary Atherosclerosis - 07/05/2012 Hypertension - 06/11/2011 Social History Tobacco Use Smoking status: Never Smokeless tobacco: Current Types: Chew Tobacco comments: 1 can of chew every two weeks Vaping Use Vaping status: Never Used Substance Use Topics Alcohol use: Yes Comment: rarely Drug use: No Review of Systems Constitutional: Positive for fatigue. Respiratory: Negative. Cardiovascular: Negative. OBJECTIVE BP 120/84 Pulse 64 Wt 210 lb 1.6 oz (95.3kg) SpO2 98% Physical Exam Vitals and nursing note reviewed. Constitutional: General: He is awake. He is not in acute distress. Appearance: Normal appearance. He is well-developed and well-groomed. He is not ill-appearing, toxic-appearing or diaphoretic. HENT: Head: Normocephalic. Right Ear: External ear normal. Left Ear: External ear normal. Nose: Nose normal. Eyes: General: Vision grossly intact. Conjunctiva/sclera: Conjunctivae normal. Pupils: Pupils are equal, round, and reactive to light. Neck: Vascular: No JVD. Trachea: Trachea normal. Cardiovascular: Rate and Rhythm: Normal rate and regular rhythm. Pulses: Normal pulses. Heart sounds: Normal heart sounds. No murmur heard. Pulmonary: Effort: Pulmonary effort is normal. No accessory muscle usage, prolonged expiration or respiratory distress. Breath sounds: Normal breath sounds. Musculoskeletal: Cervical back: Neck supple. Skin: General: Skin is warm and dry. Capillary Refill: Capillary refill takes less than 2 seconds. Neurological: General: No focal deficit present. Mental Status: He is alert and oriented to person, place, and time. Mental status is at baseline. Cranial Nerves: Cranial nerves 2-12 are intact. Sensory: Sensation is intact. Motor: Motor function is intact. Coordination: Coordination is intact. Gait: Gait is intact. Psychiatric: Attention and Perception: Attention and perception normal. Mood and Affect: Mood and affect normal. Speech: Speech normal. Behavior: Behavior normal. Behavior is cooperative. Thought Content: Thought content normal. Cognition and Memory: Cognition and memory normal. Judgment: Judgment normal. ASSESSMENT/PLAN: 1. Primary hypertension - ICD9: 401.9, ICD10: I10 (primary diagnosis) - Improving control - Factors affecting control: diet adherence, lack of exercise, and medication adherence - Continue current medications - Recommend home blood pressure monitoring, to bring results to next visit - Encouraged sodium restriction, DASH or Mediterranean diet - Recommend regular aerobic exercise 2. Generalized anxiety disorder - ICD9: 300.02, ICD10: F41.1 Restart Wellbutrin, this may help with his fatigue. - BUPROPION XL 150 MG TAB 3. Depressive disorder - ICD9: 311, ICD10: F32.A See above, discussed if fatigue persistent we could try lowering Lexapro after starting Wellbutrin. - BUPROPION XL 150 MG TAB 4. Other fatigue - ICD9: 780.79, ICD10: R53.83 Check labs, may be due to muscle relaxer use, stop Zanaflex. Ensure adequate hydration and adequate nutrition and adequate sleep. - IRON AND TIBC - COMPLETE BLOOD COUNT AND DIFFERENTIAL - COMPREHENSIVE METABOLIC PANEL - THYROID STIMULATING HORMONE - MAGNESIUM - VITAMIN B12 5. IFG (impaired fasting glucose) - ICD9: 790.21, ICD10: R73.01 - HEMOGLOBIN A1C 6. Vitamin D deficiency - ICD9: 268.9, ICD10: E55.9 - VITAMIN D 25 HYDROXY 7. Encounter for therapeutic drug monitoring - ICD9: V58.83, ICD10: Z51.81 - COMPLETE BLOOD COUNT AND DIFFERENTIAL - COMPREHENSIVE METABOLIC PANEL - MAGNESIUM 8. Headache due to hypertension - ICD9: 784.0, 401.9, ICD10: R51.9, I10 Suspect headache is blood pressure related, encouraged better medication adherence, no red flags on neuro exam, check labs too to make sure no metabolic issues. Portions of this note have been entered by ancillary staff. I have reviewed and when necessary edited, so that they are an adequate record of my encounter with this patient Please note that parts of this document were created using voice recognition software and therefore may contain grammatical errors. Patient verbalizes understanding of instructions from today's visit and in agreement with treatment plan. Questions answered. Agrees to call the office if questions, concerns of issues with acute symptoms not improving or if they worsen. See diagnoses and orders for additional plan(s). Allergies and medications were reviewed, list was updated, and refills given if needed. Past medical, surgical, social, and family history reviewed and updated as appropriate. Encouraged proper diet & exercise as well as compliance with taking medications. Age-appropriate health preventative measures were discussed. Return if symptoms worsen or fail to improve, for Keep next scheduled appointment.. Nesha Baker APRN-MICKY documented in this encounter [facility] 02-04-2024 Note HNO ID: [id number] Author: DYLAN MORROW, DO Service: ? Author Type: Physician Type: Progress Notes Filed: 02/04/2024 14:36 Note Text: SERVICE DATE: February 04, 2024 PCP: Curtis Mcdonald MD Subjective Patient ID: Feliciano is a 53 year old male. Chief Complaint: Patient presents with: right ring finger pain REF: Nicolette Carey x-ray: 01/14/2024 PAIN EVALUATION 02/04/2024 1410 Pain Level: 5 Pain Location: Hand-Right Description: Other: See comment;Sharp clicking Duration Amount of Time: 1 Duration Units: Months Frequency: Intermittent Intervention/Comfort measure: Other: See comment none HPI LEFT ring finger triggering and pain. Patient states symptoms started about 1 month ago. He notices a lot when he is doing handgrip activities such as weed eating or mowing. Sometimes he has to manually straighten his finger. Review of Systems ACTIVE PROBLEM LIST Hypertension Coronary Atherosclerosis Lumbago Generalized Anxiety Disorder History of Learning Disability Noncompliance With Medication Regimen Mk On Cpap Thrombocytopenia, Secondary Edema Urinary Frequency Depressive Disorder Dyslipidemia Stage 3a Chronic Kidney Disease (Hcc) Orthostatic Lightheadedness Obesity, Class II, Bmi 35-39.9 PAST MEDICAL HISTORY Diagnosis Date Anxiety Benign [...] ESOPHAGOGASTRODUODENOSCOPY TRANSORAL DIAGNOSTIC 07/14/[address] Mcnair 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 UMBILICAL HRNA 5 YRS/> REDUCIBLE 08/24/13 FAMILY HISTORY Problem Relation Age of Onset Headache Mother age 80 Cancer Mother unknown kind Hypertension Father Heart Father CABG No Known Problems Brother No Known Problems Brother Cancer Paternal Grandfather colon Social History Tobacco Use Smoking status: Never Smokeless tobacco: Current Types: Chew Tobacco comments: 1 can of chew every two weeks Vaping Use Vaping Use: Never used Substance Use Topics Alcohol use: Yes Comment: rarely Drug use: No ALLERGIES Allergen Reactions Naprosyn [Naproxen] GI Upset Amoxicillin Rash Amitriptyline Mental Status Change fatigue Bupivacaine (Pf) Mental Status Change tonic clonic seizure Celexa [Citalopram * Intolerance Claims hallucinations Lisinopril Mental Status Change dizzy Metoprolol Tartrate Intolerance dizzy MEDICATIONS: escitalopram oxalate (LEXAPRO) 20 mg tablet Take 1 tablet by mouth once daily. atorvastatin (LIPITOR) 10 mg tablet Take 1 tablet by mouth daily at bedtime. For cholesterol. hydroCHLOROthiazide 25 mg tablet Take 1 tablet by mouth once daily. amLODIPine (NORVASC) 10 mg tablet Take 1 tablet by mouth once daily. losartan (COZAAR) 100 mg tablet Take 1 tablet by mouth once daily. clonazePAM (KLONOPIN) 0.5 mg tablet Take 1 tablet by mouth two times a day as needed for anxiety (not more than 30 tablets per month) for up to 180 days. oxybutynin ER (DITROPAN XL) 10 mg 24 hr tablet Take 1 tablet by mouth once daily. buPROPion XL (WELLBUTRIN XL) 150 mg 24 hr tablet Take 1 tablet by mouth once daily. Aspirin 81 mg ORAL Tab Take 1 tablet by mouth once daily. Take with food. tiZANidine (ZANAFLEX) 4 mg tablet Take 1 tablet by mouth every 8 hours as needed (back pain.). acetaminophen 325 mg cap Take 325 mg by mouth twice daily. ibuprofen (MOTRIN) 800 mg tablet Take 1 tablet by mouth every 8 hours as needed for pain. Take with food. Allergies, medications, past surgical history, fa (more content not included)... [facility] 02-04-2024 History of Present illness Narrative Associated Order(s): Additional Injections: L ring A1 Post-Procedure Diagnose(s): Trigger ring finger of left hand Images from the original note were not included. SERVICE DATE: February 04, 2024 PCP: Curtis Mcdonald MD Subjective Patient ID: Feliciano is a 53 year old male. Chief Complaint: Patient presents with: right ring finger pain REF: CarlosMayra Carey x-ray: 01/14/2024 PAIN EVALUATION 02/04/2024 1410 Pain Level: 5 Pain Location: Hand-Right Description: Other: See comment;Sharp clicking Duration Amount of Time: 1 Duration Units: Months Frequency: Intermittent Intervention/Comfort measure: Other: See comment none HPI LEFT ring finger triggering and pain. Patient states symptoms started about 1 month ago. He notices a lot when he is doing handgrip activities such as weed eating or mowing. Sometimes he has to manually straighten his finger. Review of Systems ACTIVE PROBLEM LIST Hypertension Coronary Atherosclerosis Lumbago Generalized Anxiety Disorder History of Learning Disability Noncompliance With Medication Regimen Mk On Cpap Thrombocytopenia, Secondary Edema Urinary Frequency Depressive Disorder Dyslipidemia Stage 3a Chronic Kidney Disease (Hcc) Orthostatic Lightheadedness Obesity, Class II, Bmi 35-39.9 PAST MEDICAL HISTORY Diagnosis Date Anxiety Benign [...] ESOPHAGOGASTRODUODENOSCOPY TRANSORAL DIAGNOSTIC 07/14/[address] Mcnair [facility] LAPAROSCOPY SURG CHOLECYSTECTOMY 08/24/13 LEFT HEART CATH,PERCUTANEOUS 12/02/2011 PAST SURGICAL HISTORY OF 1979 REPAIR OF RUPTURED SPLEEN AGE 9 RPR UMBILICAL HRNA 5 YRS/> REDUCIBLE 08/24/13 FAMILY HISTORY Problem Relation Age of Onset Headache Mother age 80 Cancer Mother unknown kind Hypertension Father Heart Father CABG No Known Problems Brother No Known Problems Brother Cancer Paternal Grandfather colon Social History Tobacco Use Smoking status: Never Smokeless tobacco: Current Types: Chew Tobacco comments: 1 can of chew every two weeks Vaping Use Vaping Use: Never used Substance Use Topics Alcohol use: Yes Comment: rarely Drug use: No ALLERGIES Allergen Reactions Naprosyn [Naproxen] GI Upset Amoxicillin Rash Amitriptyline Mental Status Change fatigue Bupivacaine (Pf) Mental Status Change tonic clonic seizure Celexa [Citalopram * Intolerance Claims hallucinations Lisinopril Mental Status Change dizzy Metoprolol Tartrate Intolerance dizzy MEDICATIONS: escitalopram oxalate (LEXAPRO) 20 mg tablet Take 1 tablet by mouth once daily. atorvastatin (LIPITOR) 10 mg tablet Take 1 tablet by mouth daily at bedtime. For cholesterol. hydroCHLOROthiazide 25 mg tablet Take 1 tablet by mouth once daily. amLODIPine (NORVASC) 10 mg tablet Take 1 tablet by mouth once daily. losartan (COZAAR) 100 mg tablet Take 1 tablet by mouth once daily. clonazePAM (KLONOPIN) 0.5 mg tablet Take 1 tablet by mouth two times a day as needed for anxiety (not more than 30 tablets per month) for up to 180 days. oxybutynin ER (DITROPAN XL) 10 mg 24 hr tablet Take 1 tablet by mouth once daily. buPROPion XL (WELLBUTRIN XL) 150 mg 24 hr tablet Take 1 tablet by mouth once daily. Aspirin 81 mg ORAL Tab Take 1 tablet by mouth once daily. Take with food. tiZANidine (ZANAFLEX) 4 mg tablet Take 1 tablet by mouth every 8 hours as needed (back pain.). acetaminophen 325 mg cap Take 325 mg by mouth twice daily. ibuprofen (MOTRIN) 800 mg tablet Take 1 tablet by mouth every 8 hours as needed for pain. Take with food. Allergies, medications, past surgical history, family history and past medical history were reviewed per this encounter. Objective Ortho Exam 53-year-old patient in no acute distress cooperative with examination. Evaluation of the left hand shows tenderness at the flexor surface over the fourth MCP joint. No actively triggering today Assessment/Plan ASSESSMENT Diagnosis Office Visit on 02/04/24 CONSULT TO ORTHOPAEDICS PLAN Additional Injections: L ring A1 for trigger finger Informed Consent Consent Obtained: Verbal [place] Protocol SIGN IN TIME OUT 02/04/2024 2:33 PM The procedure site was prepped in the usual sterile fashion. Medications: 3 mg betamethasone acetate-betamethasone sodium phosphate 6 mg/mL Anesthetics: 0.5 mL lidocaine (PF) 10 mg/mL (1 %) Outcome: tolerated well, no immediate complications Post-injection instructions were reviewed with the patient and the patient voiced understanding of these instructions. FOLLOW-UP: No follow-ups on file. SIGNATURE: Dylan Morrow DO PATIENT NAME: Feliciano Dai DATE: February 04, 2024 TIME: 2:31 PM AMB ROOMING INTAKE FLOWSHEET DATA Pain Pain Level: 5 Pain Location: Hand-Right Description: Other: See comment, Sharp (clicking) Duration Amount of Time: 1 Duration Units: Months Frequency: Intermittent Intervention/Comfort measure: Other: See comment (none) documented in this encounter [facility] 02-04-2024 Note HNO ID: [id number] Author: ASHLEIGH COSBY MA Service: ? Author Type: Bell Valet Type: Progress Notes Filed: 02/04/2024 14:36 Note Text: AMB ROOMING INTAKE FLOWSHEET DATA Pain Pain Level: 5 Pain Location: Hand-Right Description: Other: See comment, Sharp (clicking) Duration Amount of Time: 1 Duration Units: Months Frequency: Intermittent Intervention/Comfort measure: Other: See comment (none) [facility] 01-14-2024 Note HNO ID: [id number] Author: NIRALI CAREY APRN.[employer] MATE Service: ? Author Type: Nurse Practitioner Type: Progress Notes Filed: 01/14/2024 14:55 Note Text: Subjective HPI HPI Feliciano Dai is a 53 year old male who presents today for CC of left ring finger pain. This started weeks ago. Seen in ER for this few weeks ago, xray negative, reports s/s persist/worsen. Tried otc medication for relief .Patient presents with: Musculoskeletal Problem: Left hand possible trigger finger x 3 weeks PAST MEDICAL HISTORY Diagnosis Date Anxiety Benign [...] ESOPHAGOGASTRODUODENOSCOPY TRANSORAL DIAGNOSTIC 07/14/[address] Mcnair 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 UMBILICAL HRNA 5 YRS/> REDUCIBLE 08/24/13 ALLERGIES Naprosyn [Naproxen], Amoxicillin, Amitriptyline, Bupivacaine (Pf), Celexa [Citalopram Hydrobromide], Lisinopril, and Metoprolol Tartrate MEDICATIONS tiZANidine (ZANAFLEX) 4 mg tablet Take 1 tablet by mouth every 8 hours as needed (back pain.). escitalopram oxalate (LEXAPRO) 20 mg tablet Take 1 tablet by mouth once daily. atorvastatin (LIPITOR) 10 mg tablet Take 1 tablet by mouth daily at bedtime. For cholesterol. hydroCHLOROthiazide 25 mg tablet Take 1 tablet by mouth once daily. amLODIPine (NORVASC) 10 mg tablet Take 1 tablet by mouth once daily. losartan (COZAAR) 100 mg tablet Take 1 tablet by mouth once daily. clonazePAM (KLONOPIN) 0.5 mg tablet Take 1 tablet by mouth two times a day as needed for anxiety (not more than 30 tablets per month) for up to 180 days. oxybutynin ER (DITROPAN XL) 10 mg 24 hr tablet Take 1 tablet by mouth once daily. buPROPion XL (WELLBUTRIN XL) 150 mg 24 hr tablet Take 1 tablet by mouth once daily. acetaminophen 325 mg cap Take 325 mg [...] status: Never Smokeless tobacco: Current Types: Chew Tobacco comments: 1 can of chew every two weeks Vaping Use Vaping Use: Never used Substance Use Topics Alcohol use: Yes Comment: rarely Drug use: No ROS Objective Blood pressure 120/80, pulse 75, temperature 36.4 ?C (97.6 ?F), resp. rate 21, weight 96.1 kg (211 lb 13.8 oz), SpO2 98%. Physical Exam Constitutional: General: He is not in acute distress. Appearance: He is not toxic-appearing or diaphoretic. HENT: Head: Normocephalic and atraumatic. Pulmonary: Effort: Pulmonary effort is normal. No accessory muscle usage or respiratory distress. Musculoskeletal: Hands: Neurological: Mental Status: He is alert and oriented to person, place, and time. ASSESSMENT/PLAN: 1. Finger pain, left - ICD9: 729.5, ICD10: M79.645 Xray negative Will refer to ortho - XR DIGIT GENERAL 3V FRONTAL/LAT/OBL LEFT IMPRESSION: No radiographic abnormalities Dictated by : GASPER SHANSK MD - CONSULT TO ORTHOPAEDICS Nirali Carey APRN.[facility] 01-14-2024 History of Present illness Narrative Images from the original note were not included. Subjective HPI HPI Feliciano Dai is a 53 year old male who presents today for CC of left ring finger pain. This started weeks ago. Seen in ER for this few weeks ago, xray negative, reports s/s persist/worsen. Tried otc medication for relief .Patient presents with: Musculoskeletal Problem: Left hand possible trigger finger x 3 weeks PAST MEDICAL HISTORY Diagnosis Date Anxiety Benign [...] ESOPHAGOGASTRODUODENOSCOPY TRANSORAL DIAGNOSTIC 07/14/[address] Mcnair [facility] LAPAROSCOPY SURG CHOLECYSTECTOMY 08/24/13 LEFT HEART CATH,PERCUTANEOUS 12/02/2011 PAST SURGICAL HISTORY OF 1979 REPAIR OF RUPTURED SPLEEN AGE 9 RPR UMBILICAL HRNA 5 YRS/> REDUCIBLE 08/24/13 ALLERGIES Naprosyn [Naproxen], Amoxicillin, Amitriptyline, Bupivacaine (Pf), Celexa [Citalopram Hydrobromide], Lisinopril, and Metoprolol Tartrate MEDICATIONS tiZANidine (ZANAFLEX) 4 mg tablet Take 1 tablet by mouth every 8 hours as needed (back pain.). escitalopram oxalate (LEXAPRO) 20 mg tablet Take 1 tablet by mouth once daily. atorvastatin (LIPITOR) 10 mg tablet Take 1 tablet by mouth daily at bedtime. For cholesterol. hydroCHLOROthiazide 25 mg tablet Take 1 tablet by mouth once daily. amLODIPine (NORVASC) 10 mg tablet Take 1 tablet by mouth once daily. losartan (COZAAR) 100 mg tablet Take 1 tablet by mouth once daily. clonazePAM (KLONOPIN) 0.5 mg tablet Take 1 tablet by mouth two times a day as needed for anxiety (not more than 30 tablets per month) for up to 180 days. oxybutynin ER (DITROPAN XL) 10 mg 24 hr tablet Take 1 tablet by mouth once daily. buPROPion XL (WELLBUTRIN XL) 150 mg 24 hr tablet Take 1 tablet by mouth once daily. acetaminophen 325 mg cap Take 325 mg [...] status: Never Smokeless tobacco: Current Types: Chew Tobacco comments: 1 can of chew every two weeks Vaping Use Vaping Use: Never used Substance Use Topics Alcohol use: Yes Comment: rarely Drug use: No ROS Objective Blood pressure 120/80, pulse 75, temperature 36.4 C (97.6 F), resp. rate 21, weight 96.1 kg (211 lb 13.8 oz), SpO2 98%. Physical Exam Constitutional: General: He is not in acute distress. Appearance: He is not toxic-appearing or diaphoretic. HENT: Head: Normocephalic and atraumatic. Pulmonary: Effort: Pulmonary effort is normal. No accessory muscle usage or respiratory distress. Musculoskeletal: Hands: Neurological: Mental Status: He is alert and oriented to person, place, and time. ASSESSMENT/PLAN: 1. Finger pain, left - ICD9: 729.5, ICD10: M79.645 Xray negative Will refer to ortho - XR DIGIT GENERAL 3V FRONTAL/LAT/OBL LEFT IMPRESSION: No radiographic abnormalities Dictated by : GASPER SHANKS MD - CONSULT TO ORTHOPAEDICS Nirali Carey APRN.[employer] documented in this encounter [facility] 01-14-2024 History of Present illness Narrative Radiology Service Progress Note PATIENT NAME: Feliciano Dai DATE OF SERVICE: January 14, 2024 TIME: 1:49 PM PATIENT IDENTITY VERIFICATION COMPLETED USING TWO (2) IDENTIFIERS: Name and Date of confirmed by patient verbally. FALL SCREENING: Has the patient had 2 falls in the last year or 1 fall with injury or currently using an Ambulatory Assistive Device (Walker, Cane, Wheelchair, Crutches, etc.)? No PATIENT GENDER DATA: Male PATIENT RELEVANT IMPLANT DATA REVIEWED: Yes PATIENT PRESENTS WITH AN IMPLANTABLE OR ATTACHED PIPE ORGAN MECHANIC APPRENTICE: No RADIOLOGY DEPARTMENT: General X-ray: Exam(s) Completed: Upper Extremity X-Ray(s): Fingers/Thumb, left Ring PERIPHERAL IV DATA: Not applicable SIGNED BY: RT Kurt(R) January 14, 2024 1:49 PM documented in this encounter [facility] 01-14-2024 Note HNO ID: [id number] Author: ANA LILIA MCARTHUR RT(Suzan) Service: ? Author Type: Master Dyer Type: Progress Notes Filed: 01/14/2024 13:59 Note Text: Radiology Service Progress Note PATIENT NAME: Feliciano Dai DATE OF SERVICE: January 14, 2024 TIME: 1:49 PM PATIENT IDENTITY VERIFICATION COMPLETED USING TWO (2) IDENTIFIERS: Name and Date of confirmed by patient verbally. FALL SCREENING: Has the patient had 2 falls in the last year or 1 fall with injury or currently using an Ambulatory Assistive Device (Walker, Cane, Wheelchair, Crutches, etc.)? No PATIENT GENDER DATA: Male PATIENT RELEVANT IMPLANT DATA REVIEWED: Yes PATIENT PRESENTS WITH AN IMPLANTABLE OR ATTACHED PIPE ORGAN MECHANIC APPRENTICE: No RADIOLOGY DEPARTMENT: General X-ray: Exam(s) Completed: Upper Extremity X-Ray(s): Fingers/Thumb, left Ring PERIPHERAL IV DATA: Not applicable SIGNED BY: RT Kurt(R) January 14, 2024 1:[address] [facility] 11-27-2023 Note HNO ID: [id number] Author: CARLENE CLEVELAND APRN.[employer]ATE Service: ? Author Type: Nurse Practitioner Type: Progress Notes Filed: 11/27/2023 13:01 Note Text: CC Patient presents with: 2 week follow up - blood pressure: Requesting medication for chronic back pain HPI Feliciano Dai is a 53 year old male who presents to the office for blood pressure. His visit today is for follow-up. Patient was last seen for this approximately 2 weeks ago. BP was elevated, patient had been out of medications x 1 week Medication changes: No Taking all medications as prescribed: Yes Side effects: No Home BP's: No Denies: headache, chest pain, palpitations, dyspnea, and peripheral edema. Last 4 Encounter BP Readings: Date: BP: 11/27/2023 136/88 11/14/2023 188/106 10/17/2023 157/93[states he just took BP meds[ 02/05/2023 120/72 Last 3 Encounter Wt Readings: Date: Wt: 11/27/2023 94.3 kg (208 lb) 11/14/2023 95.7 kg (211 lb) 10/17/2023 96 kg (211 lb 10.3 oz) Review of Systems See HPI PAST MEDICAL HISTORY Diagnosis Date [...] ESOPHAGOGASTRODUODENOSCOPY TRANSORAL DIAGNOSTIC 07/14/[address] Mcnair 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 UMBILICAL HRNA 5 YRS/> REDUCIBLE 08/24/13 ALLERGIES Naprosyn [Naproxen], Amoxicillin, Amitriptyline, Bupivacaine (Pf), Celexa [Citalopram Hydrobromide], Lisinopril, and Metoprolol Tartrate MEDICATIONS escitalopram oxalate (LEXAPRO) 20 mg tablet Take 1 tablet by mouth once daily. atorvastatin (LIPITOR) 10 mg tablet Take 1 tablet by mouth daily at bedtime. For cholesterol. hydroCHLOROthiazide 25 mg tablet Take 1 tablet by mouth once daily. amLODIPine (NORVASC) 10 mg tablet Take 1 tablet by mouth once daily. losartan (COZAAR) 100 mg tablet Take 1 tablet by mouth once daily. clonazePAM (KLONOPIN) 0.5 mg tablet Take 1 tablet by mouth two times a day as needed for anxiety (not more than 30 tablets per month) for up to 180 days. oxybutynin ER (DITROPAN XL) 10 mg 24 hr tablet Take 1 tablet by mouth once daily. buPROPion XL (WELLBUTRIN XL) 150 mg 24 hr tablet Take 1 tablet by mouth once daily. acetaminophen 325 mg cap Take 325 mg [...] status: Never Smokeless tobacco: Current Types: Chew Tobacco comments: 1 can of chew every two weeks Vaping Use Vaping Use: Never used Substance Use Topics Alcohol use: Yes Comment: rarely Drug use: No BP 136/88 Pulse 77 Resp 18 Wt 94.3 kg (208 lb) SpO2 97% BMI (P) 35.48 kg/m? Physical Exam Vitals reviewed. Constitutional: Appearance: Normal appearance. Cardiovascular: Rate and Rhythm: Normal rate and regular rhythm. Pulmonary: Effort: Pulmonary effort is normal. Breath sounds: Normal breath sounds. Neurological: Mental Status: He is alert. ASSESSMENT/PLAN: 1. Primary hypertension - ICD9: 401.9, ICD10: I10 (primary diagnosis) - Improving control - Continue current medications - Recommend home blood pressure monitoring, to bring r (more content not included)... [facility] 11-27-2023 History of Present illness Narrative CC Patient presents with: 2 week follow up - blood pressure: Requesting medication for chronic back pain HPI Feliciano Dai is a 53 year old male who presents to the office for blood pressure. His visit today is for follow-up. Patient was last seen for this approximately 2 weeks ago. BP was elevated, patient had been out of medications x 1 week Medication changes: No Taking all medications as prescribed: Yes Side effects: No Home BP's: No Denies: headache, chest pain, palpitations, dyspnea, and peripheral edema. Last 4 Encounter BP Readings: Date: BP: 11/27/2023 136/88 11/14/2023 188/106 10/17/2023 157/93[states he just took BP meds[ 02/05/2023 120/72 Last 3 Encounter Wt Readings: Date: Wt: 11/27/2023 94.3 kg (208 lb) 11/14/2023 95.7 kg (211 lb) 10/17/2023 96 kg (211 lb 10.3 oz) Review of Systems See HPI PAST MEDICAL HISTORY Diagnosis Date [...] ESOPHAGOGASTRODUODENOSCOPY TRANSORAL DIAGNOSTIC 07/14/[address] Mcnair 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 UMBILICAL HRNA 5 YRS/> REDUCIBLE 08/24/13 ALLERGIES Naprosyn [Naproxen], Amoxicillin, Amitriptyline, Bupivacaine (Pf), Celexa [Citalopram Hydrobromide], Lisinopril, and Metoprolol Tartrate MEDICATIONS escitalopram oxalate (LEXAPRO) 20 mg tablet Take 1 tablet by mouth once daily. atorvastatin (LIPITOR) 10 mg tablet Take 1 tablet by mouth daily at bedtime. For cholesterol. hydroCHLOROthiazide 25 mg tablet Take 1 tablet by mouth once daily. amLODIPine (NORVASC) 10 mg tablet Take 1 tablet by mouth once daily. losartan (COZAAR) 100 mg tablet Take 1 tablet by mouth once daily. clonazePAM (KLONOPIN) 0.5 mg tablet Take 1 tablet by mouth two times a day as needed for anxiety (not more than 30 tablets per month) for up to 180 days. oxybutynin ER (DITROPAN XL) 10 mg 24 hr tablet Take 1 tablet by mouth once daily. buPROPion XL (WELLBUTRIN XL) 150 mg 24 hr tablet Take 1 tablet by mouth once daily. acetaminophen 325 mg cap Take 325 mg [...] status: Never Smokeless tobacco: Current Types: Chew Tobacco comments: 1 can of chew every two weeks Vaping Use Vaping Use: Never used Substance Use Topics Alcohol use: Yes Comment: rarely Drug use: No BP 136/88 Pulse 77 Resp 18 Wt 94.3 kg (208 lb) SpO2 97% BMI (P) 35.48 kg/m Physical Exam Vitals reviewed. Constitutional: Appearance: Normal appearance. Cardiovascular: Rate and Rhythm: Normal rate and regular rhythm. Pulmonary: Effort: Pulmonary effort is normal. Breath sounds: Normal breath sounds. Neurological: Mental Status: He is alert. ASSESSMENT/PLAN: 1. Primary hypertension - ICD9: 401.9, ICD10: I10 (primary diagnosis) - Improving control - Continue current medications - Recommend home blood pressure monitoring, to bring results to next visit - Encouraged sodium restriction, DASH or Mediterranean diet 2. Chronic bilateral low back pain without sciatica - ICD9: 724.2, 338.29, ICD10: M54.50, G89.29 - TIZANIDINE 4 MG TABLET refilled Prescription instructions reviewed with patient as applicable. Potential red flag symptoms discussed with the patient. Reviewed appropriate action plan to take if red flag symptoms occur. Patient agreeable to treatment plan Carlene Cleveland APRN.BOATSWAINS MATE documented in this encounter [facility] 11-14-2023 Note HNO ID: [id number] Author: CARLENE CLEVELAND APRN.MICKY Service: ? Author Type: Nurse Practitioner Type: Progress Notes Filed: 11/14/2023 12:44 Note Text: CC: Patient presents with: Follow Up: Med refills HPI Feliciano Dai is a 53 year old male who presents today for above. HTN-BP is high today, he ran out of medication about one week ago. Medication changes:No Taking all medications as prescribed: Yes Side effects: No Home BP's: No Denies: headache, chest pain, palpitations, dyspnea, and peripheral edema. Last 3 Encounter BP Readings: Date: BP: 11/14/2023 188/106 10/17/2023 157/93[states he just took BP meds[ 02/05/2023 120/72 MK Intolerant to CPAP. Denies snoring or insomnia. Reports un-refreshed sleep and excessive daytime drowsiness. Anxiety/depression: Patient is currently taking Lexapro and Wellbutrin daily. Also takes Klonopin as needed, does not use often Feels medication is working well: Yes Persistent/bothersome symptoms: fatigue Side effects: None Denies suicidal thoughts or plan. Review of Systems See HPI PAST MEDICAL HISTORY Diagnosis Date [...] ESOPHAGOGASTRODUODENOSCOPY TRANSORAL DIAGNOSTIC 07/14/[address] Mcnair 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 UMBILICAL HRNA 5 YRS/> REDUCIBLE 08/24/13 ALLERGIES Naprosyn [Naproxen], Amoxicillin, Amitriptyline, Bupivacaine (Pf), Celexa [Citalopram Hydrobromide], Lisinopril, and Metoprolol Tartrate MEDICATIONS escitalopram oxalate (LEXAPRO) 20 mg tablet Take 1 tablet by mouth once daily. atorvastatin (LIPITOR) 10 mg tablet Take 1 tablet by mouth daily at bedtime. For cholesterol. hydroCHLOROthiazide 25 mg tablet Take 1 tablet by mouth once daily. amLODIPine (NORVASC) 10 mg tablet Take 1 tablet by mouth once daily. losartan (COZAAR) 100 mg tablet Take 1 tablet by mouth once daily. clonazePAM (KLONOPIN) 0.5 mg tablet Take 1 tablet by mouth two times a day as needed for anxiety (not more than 30 tablets per month) for up to 180 days. oxybutynin ER (DITROPAN XL) 10 mg 24 hr tablet Take 1 tablet by mouth once daily. buPROPion XL (WELLBUTRIN XL) 150 mg 24 hr tablet Take 1 tablet by mouth once daily. acetaminophen 325 mg cap Take 325 mg [...] status: Never Smokeless tobacco: Current Types: Chew Tobacco comments: 1 can of chew every two weeks Vaping Use Vaping Use: Never used Substance Use Topics Alcohol use: Yes Comment: rarely Drug use: No BP 188/106 Pulse 66 Resp 18 Wt 95.7 kg (211 lb) SpO2 97% BMI (P) 35.99 kg/m? Physical Exam Vitals reviewed. Constitutional: Appearance: Normal appearance. Eyes: Conjunctiva/sclera: Conjunctivae normal. Cardiovascular: Rate and Rhythm: Normal rate and regular rhythm. Pulses: Normal pulses. Heart sounds: Normal heart sounds. No murmur heard. Pulmonary: Effort: Pulmonary effort is normal. Breath sounds: Normal breath sounds. No wheezing, rhonchi or rales. Skin: General: Ski (more content not included)... [facility] 11-14-2023 History of Present illness Narrative CC: Patient presents with: Follow Up: Med refills HPI Feliciano Dai is a 53 year old male who presents today for above. HTN-BP is high today, he ran out of medication about one week ago. Medication changes:No Taking all medications as prescribed: Yes Side effects: No Home BP's: No Denies: headache, chest pain, palpitations, dyspnea, and peripheral edema. Last 3 Encounter BP Readings: Date: BP: 11/14/2023 188/106 10/17/2023 157/93[states he just took BP meds[ 02/05/2023 120/72 MK Intolerant to CPAP. Denies snoring or insomnia. Reports un-refreshed sleep and excessive daytime drowsiness. Anxiety/depression: Patient is currently taking Lexapro and Wellbutrin daily. Also takes Klonopin as needed, does not use often Feels medication is working well: Yes Persistent/bothersome symptoms: fatigue Side effects: None Denies suicidal thoughts or plan. Review of Systems See HPI PAST MEDICAL HISTORY Diagnosis Date [...] ESOPHAGOGASTRODUODENOSCOPY TRANSORAL DIAGNOSTIC 07/14/[address] Mcnair 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 UMBILICAL HRNA 5 YRS/> REDUCIBLE 08/24/13 ALLERGIES Naprosyn [Naproxen], Amoxicillin, Amitriptyline, Bupivacaine (Pf), Celexa [Citalopram Hydrobromide], Lisinopril, and Metoprolol Tartrate MEDICATIONS escitalopram oxalate (LEXAPRO) 20 mg tablet Take 1 tablet by mouth once daily. atorvastatin (LIPITOR) 10 mg tablet Take 1 tablet by mouth daily at bedtime. For cholesterol. hydroCHLOROthiazide 25 mg tablet Take 1 tablet by mouth once daily. amLODIPine (NORVASC) 10 mg tablet Take 1 tablet by mouth once daily. losartan (COZAAR) 100 mg tablet Take 1 tablet by mouth once daily. clonazePAM (KLONOPIN) 0.5 mg tablet Take 1 tablet by mouth two times a day as needed for anxiety (not more than 30 tablets per month) for up to 180 days. oxybutynin ER (DITROPAN XL) 10 mg 24 hr tablet Take 1 tablet by mouth once daily. buPROPion XL (WELLBUTRIN XL) 150 mg 24 hr tablet Take 1 tablet by mouth once daily. acetaminophen 325 mg cap Take 325 mg [...] status: Never Smokeless tobacco: Current Types: Chew Tobacco comments: 1 can of chew every two weeks Vaping Use Vaping Use: Never used Substance Use Topics Alcohol use: Yes Comment: rarely Drug use: No BP 188/106 Pulse 66 Resp 18 Wt 95.7 kg (211 lb) SpO2 97% BMI (P) 35.99 kg/m Physical Exam Vitals reviewed. Constitutional: Appearance: Normal appearance. Eyes: Conjunctiva/sclera: Conjunctivae normal. Cardiovascular: Rate and Rhythm: Normal rate and regular rhythm. Pulses: Normal pulses. Heart sounds: Normal heart sounds. No murmur heard. Pulmonary: Effort: Pulmonary effort is normal. Breath sounds: Normal breath sounds. No wheezing, rhonchi or rales. Skin: General: Skin is warm and dry. Neurological: Mental Status: He is alert. Psychiatric: Attention and Perception: Attention normal. Mood and Affect: Mood and affect normal. Speech: Speech normal. Behavior: Behavior normal. Behavior is cooperative. Health maintenance reviewed with patient: BP Controlled (<130/80) due on 03/21/2021 Colorectal Cancer Screening due on 02/06/2024 LDL Cholesterol due on 02/06/2024 Annual PCP Team Chronic Disease Visit due on 02/06/2024 Serum Creatinine due on 02/06/2024 Influenza Vaccine(Season Ended) due on 04/11/2024 Diabetes Screening due on 02/05/2026 Lipid Screening due on 02/06/2028 Hepatitis C Screening Completed HIV Screening Completed DTaP,Tdap,Td Vaccine Discontinued Hepatitis B Vaccine Discontinued Shingrix Vaccine Discontinued Covid-19 Vaccine Discontinued DATA REVIEWED: Most recent labs ASSESSMENT/PLAN: 1. Primary hypertension - ICD9: 401.9, ICD10: I10 (primary diagnosis) - Uncontrolled, patient has been out of medications for one week. No symptoms referable to hypertensive urgency/emergency - Continue current medications - Recommend home blood pressure monitoring, to bring results to next visit - Encouraged sodium restriction, DASH or Mediterranean diet - Recommend regular aerobic exercise - Follow up in 2 weeks for hypertension visit - HYDROCHLOROTHIAZIDE 25 MG TABLET - AMLODIPINE 10 MG TABLET - LOSARTAN 100 MG TABLET 2. Generalized anxiety disorder - ICD9: 300.02, ICD10: F41.1 stable - ESCITALOPRAM 20 MG TABLET - CLONAZEPAM 0.5 MG TABLET 3. Dyslipidemia - ICD9: 272.4, ICD10: E78.5 - Controlled - ATORVASTATIN 10 MG TABLET 4. MK on CPAP - ICD9: 327.23, ICD10: G47.33 Intolerant to CPAP. Discussed risks of untreated sleep apnea, stressed the need for repeat study and treatment available for sleep apnea other than PAP therapy. Given [facility] patient education handout outlining this information. Patient declined any intervention at this time 5. Depressive disorder - ICD9: 311, ICD10: F32.A Stable Prescription instructions reviewed with patient as applicable. Potential red flag symptoms discussed with the patient. Reviewed appropriate action plan to take if red flag symptoms occur. Patient agreeable to treatment plan. Carlene Cleveland APRN.MICKY documented in this encounter [facility] 10-19-2023 Miscellaneous Notes Patient given results and verbalized understanding of instructions given. Hiwot Healy MA Left message for patient to return call. Hiwot Healy MA ----- Message from Cj Marroquin MD sent at 10/18/2023 8:00 AM EST ----- Negative COVID, Influenza, and RSV. documented in this encounter [facility] 10-17-2023 History of Present illness Narrative This note was created using VideoSurf. Subjective Feliciano Dai is a 53 year old male. HPI 53-year-old male presents for cough, congestion, feeling feverish for the past 4 days. Patient states that he started getting sick about 4 days ago. His is sick with similar symptoms. Patient has had cough, body aches, nasal congestion. States he has felt hot and cold, but has not actually taken his temperature. No vomiting or diarrhea. States cough is worse at night. No chest pain or shortness of breath. No history of COPD or asthma. No other complaint. PAST MEDICAL HISTORY Diagnosis Date Anxiety Benign [...] ESOPHAGOGASTRODUODENOSCOPY TRANSORAL DIAGNOSTIC 07/14/[address] Mcnair [facility] LAPAROSCOPY SURG CHOLECYSTECTOMY 08/24/13 LEFT HEART CATH,PERCUTANEOUS [...] Take 1 tablet by mouth once daily. acetaminophen 325 mg cap Take 325 mg by mouth twice daily. ibuprofen (MOTRIN) 800 mg tablet Take 1 tablet by mouth every 8 hours as needed for pain. Take with food. Aspirin 81 mg ORAL Tab Take 1 tablet by mouth once daily. Take with food. benzonatate (TESSALON PERLES) 100 mg capsule Take 1 capsule by mouth three times a day as needed. clonazePAM (KLONOPIN) 0.5 mg tablet Take 1 tablet by mouth twice daily as needed for anxiety (not more than 30 tablets per month) for up to 180 days. FAMILY HISTORY Problem Relation Age of Onset Headache Mother age 80 Cancer Mother unknown kind Hypertension Father Heart Father CABG No Known Problems Brother No Known Problems Brother Cancer Paternal Grandfather colon Social History Tobacco Use Smoking status: Never Smokeless tobacco: Current Types: Chew Vaping Use Vaping Use: Never used Substance Use Topics Alcohol use: Yes Comment: rarely Drug use: No Review of Systems Constitutional: Positive for chills and diaphoresis. Negative for fever. HENT: Positive for congestion. Negative for sore throat. Respiratory: Positive for cough. Negative for shortness of breath. Gastrointestinal: Negative for abdominal pain, diarrhea and vomiting. Musculoskeletal: Positive for myalgias. Neurological: Positive for headaches. Objective BP 157/93 Pulse 72 Temp 36.9 C (98.4 F) Resp 20 Wt 96 kg (211 lb 10.3 oz) SpO2 97% BMI (P) 36.10 kg/m Physical Exam Vitals and nursing note reviewed. Constitutional: General: He is not in acute distress. Appearance: Normal appearance. He is not toxic-appearing. HENT: Right Ear: Tympanic membrane and ear canal normal. Left Ear: Tympanic membrane and ear canal normal. Nose: Congestion present. Mouth/Throat: Mouth: Mucous membranes are moist. Eyes: Conjunctiva/sclera: Conjunctivae normal. Cardiovascular: Rate and Rhythm: Normal rate and regular rhythm. Pulmonary: Effort: Pulmonary effort is normal. Breath sounds: Normal breath sounds. No wheezing, rhonchi or rales. Skin: General: Skin is warm and dry. Neurological: Mental Status: He is alert. Assessment and Plan ASSESSMENT/PLAN: 1. URI, acute - ICD9: 465.9, ICD10: J06.9 - Discussed viral etiology and rationale for treatment. - Symptomatic treatment with prn analgesia - Supportive care with fluids and rest -Rx for Tessalon Perles - COVID & INFLUENZA A/B & RSV NAAT, ROUTINE -Out of window for Tamiflu and antiviral. Diagnosis and treatment plan were discussed and questions were answered to the patient's satisfaction. Pt acknowledged understanding of concepts and follow up plan. Specific signs and symptoms that would indicate the need for higher level of care were discussed in detail warranting prompt ER evaluation. VICENTA Lim documented in this encounter [facility] 02-08-2023 Discharge summary Note Date/Time February 08, 2023 3:45p [facility] Medical Records Department [address] [place] [id number] Emergency Department Summary 02/08/23 MR#: [id number] Acct: [id number] Name: FELICIANO DAI Rep #:[id number] : 1970 52 From: Shane Greene MD PCP: Dr. Curtis Mcdonald MD Status:R EG ER Location: ED HPI History of Present Illness Chief Complaint: Back Informant: patient Narrative Narrative: Patient states his back has been hurting on the lower left for about 2 weeks. He did a lot of mowing yards and helped a friend repair a car where he was doinga lot of bending and twisting. He states he did not have a sudden injury but itwas sore after that. Its been waxing and waning. But is just not going away. If he lays still its not that bad. But he has trouble bending over. It hurts alot if he tries to put on his shoes. Twisting hurts. He is eating and drinkingfine. No fevers or chills. He has radiation of the pain into the left buttock area but no further at any time. No weakness. He has no urinary symptoms or blood in the urine. He has no difficulty starting or stopping the urine. No difficulty moving his bowels. He has had this sciatica before. He states he would like to get an x-ray because nobody is ever x-rayed his back despite having these problems off and on for a while. He denies any prior surgery. He did see his primary physician 4 days ago and was given tizanidine. He states itmakes him sleepy but has not really taken pain away. [facility] Medical History Anxiety Benign essential HTN Depressed GERD (gastroesophageal reflux disease) hx of spleen repair Migraines Panic disorder Home Medications amlodipine 10 mg tablet 5 mg PO DAILY 10/28/16 [History Last Taken 12/23/17] clonazepam 0.5 mg tablet 0.5 mg PO BID PRN Anxiety 10/28/16 [History Last Taken 12/23/17] gabapentin 300 mg capsule (Neurontin) 300 mg PO BID 10/28/16 [History Last Taken 12/23/17] ibuprofen 600 mg tablet 600 mg PO TID PRN PRN Pain #14 tabs 05/19/18 [Rx Last Taken Unknown] aspirin 325 mg tablet 325 mg PO DAILY 02/02/22 [History Last Taken Unknown] bupropion HCl 150 mg 24 hr tablet, extended release 150 mg PO DAILY 02/02/22 [History Last Taken Unknown] escitalopram oxalate 20 mg tablet 20 mg PO DAILY 02/02/22 [History Last Taken Unknown] hydrochlorothiazide 25 mg tablet 25 mg PO DAILY 02/02/22 [History Last Taken Unknown] losartan 100 mg tablet 100 mg PO DAILY 02/02/22 [History Last Taken Unknown] oxybutynin chloride 10 mg tablet,extended release 24 hr 10 mg PO DAILY 02/02/22 [History Last Taken Unknown] hydrocodone-acetaminophen 5-325mg 5mg-325mg 1 tab PO Q6H PRN PRN Pain 3 days #10TABLETS 02/08/23 [Rx Last Taken Unknown] prednisone 20 mg tablet 60 mg (3 x 20 mg) PO DAILY #15 TABLETS 02/08/23 [Rx Last Taken Unknown] Allergy/AdvReac Type Severity Reaction Status Date / Time amoxicillin [Amoxicillin] Allergy Rash Verified 02/08/23 15:21 naproxen AdvReac Upset Verified 02/08/23 15:21 Stomach triamox Allergy Rash Uncoded 04/14/22 23:32 Social History Smoking Status: Never smoker ROS ROS ED ROS Narrative A complete review of systems was performed and is negative except as documented in the history of present illness. Some specific details below. Constitutional: No recent fevers or chills. No rigors. Patient has not generally felt ill. ENT: No sinus pressure or pain. No nasal discharge. CV: No chest pain, pressure or aching. No palpitations or irregular beats. Patient has not been presyncopal or syncopal. Respiratory: No trouble breathing. No cough. No wheezing. No sputum production. No pain with breathing. GI: No abdominal pain. No nausea vomiting diarrhea. No blood in stool. No loss of bowel control. No history of AAA. He did have a spleen repair at 9 years old after a baseball accident. He did not have a splenectomy. But he has no abdominal symptoms now. : No frequency dysuria or hematuria. No incontinence or urinary retention. Musculoskeletal: No recent impact trauma. No swelling. Please see history of present illness. Skin: No rash. No diaphoresis. No vesicles. Neuro: No weakness or numbness. No pain radiating down leg past the knee although he does have radiation toward the left buttock. No weakness of ambulation. No sensory changes in the extremities. Please see history of present illness also. Endocrine: No polyuria or polydipsia. EXAM Physical Exam Narrative Exam Narrative: CONSTITUTIONAL: Patient is nontoxic in appearance. The patient looks comfortable. Work of breathing looks normal. HEENT: No notable trauma. Mucous membranes moist. No sinus tenderness. No sign of dental infection. EYES: No conjunctival injection. No pallor. NECK: No meningismus. No JVD. CARDIOVASCULAR: Regular rate. Regular rhythm. No notable murmur. No JVD. RESPIRATORY: No respiratory distress. Breathing is unlabored. No wheezes. No rhonchi. No rales. No pain with a deep breath. GASTROINTESTINAL: Not distended. Bowel sounds are normal. No tenderness. No guarding. No rebound. No palpable mass. No bruit. GENITOURINARY: No tenderness over the bladder. No CVA tenderness. MUSCULOSKELETAL: Atraumatic. No peripheral edema. No cord. No tenderness along the deep venous system. No asymmetry. Distal pulses are intact. He also does have reproduction of his pain with palpation in the left low paraspinal and even in the left buttock when pressing and sciatic notch area. Right side is not tender. Midline is nontender. NEUROLOGICAL: Patient is alert and oriented. No focal deficit noted. Sensation is intact. Patient can stand on toes and heels and do squats. Although he is slow getting up off the bed because he states it hurts when he twists or moves. Patellar reflex 2+ bilaterally. Achilles reflex 1+ bilaterally. SKIN: No noted rashes. No diaphoresis. No vesicles noted. No notable pallor. PSYCHIATRIC: Patient is calm. Mood is appropriate. Const Vital Signs: 02/08/23 15:21 Temperature 97.2 F L Temperature Source Temporal Pulse Rate 91 Respiratory Rate 20 H Blood Pressure 139/90 H Blood Pressure Mean 106 Pulse Ox 97 Oxygen Delivery Method Room Air MDM MDM MDM Narrative Medical decision making narrative: My independent interpretation the patient's two-view lumbar spine film shows mild L4-5 retrolisthesis. But it is very mild. He has mild DJD. Final reading showed this but they also noted the increased stool even though he has no symptoms of that. They also showed some questionable widening of the right SI joint. But he has no pain over there. I went back to check the patient. He was resting. I mention getting on steroids. He states that has helped him before. I will also write for a few pain pills. His online prescribing report is negative. We discussed reasons to return and he should follow-up next week with his primary to get recheck Radiography Diagnostic Testing: Clinical Impression(s) from Imaging Studies Lumbar Spine X-Ray 02/08/23 16:04 IMPRESSION: No evidence of lumbar spinal fracture. Grade 1 retrolisthesis L4 on L5. Questionable widening of the right sacroiliac joint. Recommend dedicated sacroiliac joint radiographs. Moderate to severe multilevel degenerative disc disease and spondylosis. Large amount retained stool in the colon. Electronically Signed: Rich Eaton MD at 16:58 EDT , Discharge Plan Triage Chief Complaint: Back ED Provider: Shane Greene Dx/Rx/DC Orders Clinical Impression: Lumbosacral pain Instructions: ED Back Pain (Acute or Chronic) Prescriptions: New hydrocodone-acetaminophen [hydrocodone-acetaminophen] 5-325 mg tablet 1 tab PO Q6H PRN PRN (Reason: Pain) 3 Days Qty: 10 0RF prednisone 20 mg tablet 60 mg PO DAILY Qty: 15 0RF No Action clonazepam 0.5 MG tablet 0.5 mg PO BID PRN (Reason: Anxiety) amlodipine 10 MG tablet 5 mg PO DAILY gabapentin [Neurontin] 300 MG capsule 300 mg PO BID ibuprofen 600 MG tablet 600 mg PO TID PRN PRN (Reason: Pain) Qty: 14 0RF oxybutynin chloride 10 mg Tablet Extended Release 24hr 10 mg PO DAILY aspirin 325 mg Tablet 325 mg PO DAILY hydrochlorothiazide 25 mg Tablet 25 mg PO DAILY losartan 100 mg Tablet 100 mg PO DAILY escitalopram oxalate 20 mg Tablet 20 mg PO DAILY bupropion HCl 150 mg Tablet Extended Release 24 Hr 150 mg PO DAILY Primary Care Provider: Curtis Mcdonald Referrals: Curtis Mcdonald MD [Primary Care Provider] - 3-5 Days if not improving Disposition Disposition: Home, Self Care What to do if you have Problems For any increased pain, shortness of breath, bleeding, nausea or vomiting, chestpain, or any unexpected problems, contact your Primary Care Provider. Call [facility] ([phone]) or report to the closest Emergency Room. Call 911 if necessary. 02/08/23 1726 <Electronically signed by Shane Greene MD> Cosigner Signature (if applicable): CC: Dr. Curtis Mcdonald MD ~ Signed [facility] Work Phone: [phone] 427-675912-28-2022 History of Present illness Narrative* Carlene Older, MILK HAULER.BOATSWAINS MATE - 08/07/2022 1:26 PM EST CC: Patient presents with: FOLLOW UP MEDICATIONS [...] ESOPHAGOGASTRODUODENOSCOPY TRANSORAL DIAGNOSTIC 07/14/[address] Mcnair [facility] LAPAROSCOPY SURG CHOLECYSTECTOMY 08/24/13 LEFT HEART CATH,PERCUTANEOUS [...] plan. Carlene Herrmann APRN.CNP [facility] Miscellaneous Notes* Telephone Encounter - Pallavi Olivera LPN - 05/07/2022 5:07 PM EDT Patient notified of below results/recommendation, verbalized understanding. Pallavi Olivera LPN * Telephone Encounter - Pallavi Olivera LPN - 05/07/2022 5:06 PM EDT ----- Message from Carlene Herrmann APRN.CNP sent at 05/07/2022 2:17 PM EDT ----- Please let the patient know his stress test was normal. If he is still experiencing chest pain recommend following up with lead esthetician Carlene Herrmann APRN.CNP [facility] Miscellaneous Notes* Telephone Encounter - Grace Humphreys RN - 04/30/2022 3:26 PM EDT Call to pt to review below instructions. [...] the first floor at Radiology: [address]; [place] [address] * If you need to cancel or reschedule this test or have any questions regarding this test, please call [phone]. [facility] Miscellaneous Notes* Telephone Encounter - Fernando Lopez Ma - 02/12/2022 1:40 PM EDT Patient notified, verbalized understanding and nurse visit scheduled. Advised to have labs done in 3 weeks as well. * Telephone Encounter - Fernando Lopez Ma - 02/12/2022 1:37 PM EDT ----- Message from Curtis Mcdonald MD sent at 02/12/2022 10:11 AM EDT ----- CKD worse. Stress hydration. Take hydrochlorothiazide 25 mg every other day. BP true with non fasting BMP in 3 weeks. [facility] History of Present illness Narrative* Carlene Older, MILK HAULER.BOATSWAINS MATE - 02/06/2022 3:27 PM EDT CC: Patient presents with: Recheck: 2 months [...] he stands up too quickly or bends over.This has been ongoing for years. He went to the ER for this on 02/02. EKG revealed sinus rhythm. Potassium 3.3 which was replaced orally. BUN 25 and Creat 1.63, given one liter IV fluids. Troponin x 2negative. Given a dose of Toradol for mild [...] ESOPHAGOGASTRODUODENOSCOPY TRANSORAL DIAGNOSTIC 07/14/[address] Mcnair [facility] LAPAROSCOPY SURG CHOLECYSTECTOMY 08/24/13 LEFT HEART CATH,PERCUTANEOUS [...] SCREENING Completed DATA REVIEWED: Outside chart from [facility] ER reviewed. ASSESSMENT/PLAN: 1. Chest pain, unspecified [...] plan. Carlene Herrmann APRN.CNP [facility] Miscellaneous Notes* Telephone Encounter - Fernando Lopez Ma - 12/05/2021 12:19 PM EDT BP Mario Serial, Digital BP Readings, Taken 2 Minutes Apart, Average Readings: 136/91 Pulse: 66 Reason for blood pressure check - Last BP elevated Patient is: Taking medication as prescribed Yes Took medication today Yes If no, date medication last taken n/a Experiencing side effects Yes c/o dizziness when standing Recommendations Continue taking medications as prescribed, Follow recommended diet instructions andContinue recommended activity Follow-up Yes Pt has been identified by name and birthdate: Yes Allergies reviewed: Yes Latex allergy: no. Medication - prescribed and OTC reviewed and updated: Yes Do you need any prescription refills prior to your next visit: No Health Maintenance: Reviewed and up to date documented in this encounter[facility]22 Miscellaneous Notes* Telephone Encounter - Ángela Velez - 12/03/2021 12:34 PM EDT Patient has appt 02/06 and will come in week before for lab. * Telephone Encounter - Kendy Lance LPN - 11/28/2021 9:58 AM EDT And lab appt * Telephone Encounter - Fernando Lopez Ma - 11/27/2021 4:14 PM EDT Please schedule 2 month follow up * Telephone Encounter - Kendy Lance LPN - 11/27/2021 3:08 PM EDT Patient notified of results and provider's instructions. Patient verbalizes understanding. Pt is willing to start cholesterol medicine. Please file order for labs,medicine. Then we can arrange appt in 2 months. Kendy Lance LPN * Telephone Encounter - Kendy Lance LPN - 11/27/2021 3:01 PM EDT ----- Message from Curtis Mcdonald MD sent at 11/26/2021 4:21 PM EDT [...] CHD estimated at 11.5%. documented in this encounterDet[facility]22 Evaluation note* Diagnosis Stage 3a chronic kidney disease (HCC)- Primary documented in this encounter [facility] History of Present illness Narrative* Carlene Herrmann, MILK HAULER.BOATSWAINS MATE - 11/21/2021 4:11 PM EDT CC: Patient [...] ESOPHAGOGASTRODUODENOSCOPY TRANSORAL DIAGNOSTIC 07/14/[address] Mcnair 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 UMBILICAL HRNA 5 YRS/> REDUCIBLE 1/14/14 ALLERGIES Naprosyn [Naproxen], Amoxicillin, Amitriptyline, Bupivacaine (Pf), [...] plan. Carlene Herrmann APRN.CNP documented in this encounterDet[facility]08[facility]25-2017 History of Past illness Narrative* Problem [...] of this encounter (statuses as of 11/09/2021) [facility] Narrative* Problem [...] of this encounter (statuses as of 11/21/2021) [facility] Narrative* Problem [...] of this encounter (statuses as of 12/03/2021) [facility] Narrative* Problem [...] of this encounter (statuses as of 12/05/2021) [facility] Narrative* Problem [...] of this encounter (statuses as of 02/06/2022) [facility] Narrative* Problem [...] of this encounter (statuses as of 02/12/2022) [facility] Narrative* Problem [...] of this encounter (statuses as of 05/03/2022) [facility] Narrative* Problem [...] of this encounter (statuses as of 05/07/2022) [facility] Narrative* Problem [...] of this encounter (statuses as of 08/13/2022) [facility] Narrative* Problem Noted Date Diagnosed Date Resolved Date Splenomegaly 04/04/2017 06/12/2018 Panic disorder without agoraphobia 02/04/2014 06/12/2018 Cholecystitis with cholelithiasis 08/30/2013 10/11/2013 Umbilical hernia 08/30/2013 11/07/2016 Painful respiration 11/20/2012 10/12/19 14 Anxiety 07/03/2012 09/04/2016 Panic disorder 07/03/2012 09/04/2016 Bilateral carpal tunnel syndrome 01/21/2012 11/07/2016 Gallstones 06/11/2011 10/11/2013 GERD (gastroesophageal reflux disease) 01/11/2011 03/21/2020 Dysphagia, unspecified(787.20) 10/23/2010 10/11/2013 Benign neoplasm of duodenum, jejunum, and ileum 10/23/2010 06/12/2018 Dysphagia 10/22/2010 10/11/2013 Thrombocytopenia, unspecified 07/06/2008 10/15/2017 Obesity, Class I, BMI 30-34.9 01/01/2006 02/05/2023 Last Assessment & Plan: Exercise: denies regular aerobic exercise. Diet: Watches diet for salt (salty snacks, added salt, processed frozen/canned foods), sugary/sweet snacks, unhealthy fats: No Contusion of lower leg 07/08/200501/01 Chondromalacia of patella 06/26/2005 Unspecified internal derangement of knee 06/26/2005 01/01/2006 Unspecified gastritis and gastroduodenitis 06/19/2005 01/01/2006 Migraine without aura and wi thout status migrainosus, not intractable 06/12/2018 documented as of this encounter (statuses as of 10/17/2023) [facility] of Past illness Narrative* Problem Noted Date Diagnosed Date Resolved Date Splenomegaly 04/04/2017 06/12/2018 Panic disorder without agoraphobia 02/04/2014 06/12/2018 Cholecystitis with cholelithiasis 08/30/2013 10/11/2013 Umbilical hernia 08/30/2013 11/07/2016 Painful respiration 11/20/2012 10/12/19 14 Anxiety 07/03/2012 09/04/2016 Panic disorder 07/03/2012 09/04/2016 Bilateral carpal tunnel syndrome 01/21/2012 11/07/2016 Gallstones 06/11/2011 10/11/2013 GERD (gastroesophageal reflux disease) 01/11/2011 03/21/2020 Dysphagia, unspecified(787.20) 10/23/2010 10/11/2013 Benign neoplasm of duodenum, jejunum, and ileum 10/23/2010 06/12/2018 Dysphagia 10/22/2010 10/11/2013 Thrombocytopenia, unspecified 07/06/2008 10/15/2017 Obesity, Class I, BMI 30-34.9 01/01/2006 02/05/2023 Last Assessment & Plan: Exercise: denies regular aerobic exercise. Diet: Watches diet for salt (salty snacks, added salt, processed frozen/canned foods), sugary/sweet snacks, unhealthy fats: No Contusion of lower leg 07/08/200501/01 Chondromalacia of patella 06/26/2005 Unspecified internal derangement of knee 06/26/2005 01/01/2006 Unspecified gastritis and gastroduodenitis 06/19/2005 01/01/2006 Migraine without aura and wi thout status migrainosus, not intractable 06/12/2018 documented as of this encounter (statuses as of 10/19/2023) [facility] Narrative* Problem Noted Date Diagnosed Date Resolved Date Splenomegaly 04/04/2017 06/12/2018 Panic disorder without agoraphobia 02/04/2014 06/12/2018 Cholecystitis with cholelithiasis 08/30/2013 10/11/2013 Umbilical hernia 08/30/2013 11/07/2016 Painful respiration 11/20/2012 10/12/19 14 Anxiety 07/03/2012 09/04/2016 Panic disorder 07/03/2012 09/04/2016 Bilateral carpal tunnel syndrome 01/21/2012 11/07/2016 Gallstones 06/11/2011 10/11/2013 GERD (gastroesophageal reflux disease) 01/11/2011 03/21/2020 Dysphagia, unspecified(787.20) 10/23/2010 10/11/2013 Benign neoplasm of duodenum, jejunum, and ileum 10/23/2010 06/12/2018 Dysphagia 10/22/2010 10/11/2013 Thrombocytopenia, unspecified 07/06/2008 10/15/2017 Obesity, Class I, BMI 30-34.9 01/01/2006 02/05/2023 Last Assessment & Plan: Exercise: denies regular aerobic exercise. Diet: Watches diet for salt (salty snacks, added salt, processed frozen/canned foods), sugary/sweet snacks, unhealthy fats: No Contusion of lower leg 07/08/200501/01 Chondromalacia of patella 06/26/2005 Unspecified internal derangement of knee 06/26/2005 01/01/2006 Unspecified gastritis and gastroduodenitis 06/19/2005 01/01/2006 Migraine without aura and wi thout status migrainosus, not intractable 06/12/2018 documented as of this encounter (statuses as of 11/28/2023) [facility] Narrative* Problem Noted Date Diagnosed Date Resolved Date Splenomegaly 04/04/2017 06/12/2018 Panic disorder without agoraphobia 02/04/2014 06/12/2018 Cholecystitis with cholelithiasis 08/30/2013 10/11/2013 Umbilical hernia 08/30/2013 11/07/2016 Painful respiration 11/20/2012 10/12/19 14 Anxiety 07/03/2012 09/04/2016 Panic disorder 07/03/2012 09/04/2016 Bilateral carpal tunnel syndrome 01/21/2012 11/07/2016 Gallstones 06/11/2011 10/11/2013 GERD (gastroesophageal reflux disease) 01/11/2011 03/21/2020 Dysphagia, unspecified(787.20) 10/23/2010 10/11/2013 Benign neoplasm of duodenum, jejunum, and ileum 10/23/2010 06/12/2018 Dysphagia 10/22/2010 10/11/2013 Thrombocytopenia, unspecified 07/06/2008 10/15/2017 Obesity, Class I, BMI 30-34.9 01/01/2006 02/05/2023 Last Assessment & Plan: Exercise: denies regular aerobic exercise. Diet: Watches diet for salt (salty snacks, added salt, processed frozen/canned foods), sugary/sweet snacks, unhealthy fats: No Contusion of lower leg 07/08/200501/01 Chondromalacia of patella 06/26/2005 Unspecified internal derangement of knee 06/26/2005 01/01/2006 Unspecified gastritis and gastroduodenitis 06/19/2005 01/01/2006 Migraine without aura and wi thout status migrainosus, not intractable 06/12/2018 documented as of this encounter (statuses as of 11/14/2023) [facility]* Diagnosis Hypertension Unspecified essential hypertension Obesity, Class I, BMI 30-34.9 Obesity, unspecified Coronary atherosclerosis Coronary atherosclerosis of unspecified type of vessel, tanana or graft Medication management Encounter for long-term (current) use of other medications documented in this encounter [facility] note* Diagnosis Essential hypertension- Primary Unspecified essential hypertension Generalized anxiety disorder Depressive disorder Depressive disorder, not elsewhere classified MK on CPAP Obstructive sleep apnea (adult) (pediatric) Thrombocytopenia, secondary Other secondary thrombocytopenia Obesity, Class I, BMI 30-34.9 Obesity, unspecified documented [facility] this encounter [facility] noteNo assessment information availableWSelect [facility], [facility] Work Phone: Evaluation note* Diagnosis Chest pain, unspecified type- Primary Orthostatic lightheadedness Dizziness and giddiness Primary hypertension Unspecified essential hypertension Dyslipidemia Other and unspecified hyperlipidemia Urinary frequency [facility]* Diagnosis Primary hypertension- Primary Unspecified essential hypertension Generalized anxiety disorder MK on CPAP Obstructive sleep apnea (adult) (pediatric) Depressive disorder Depressive disorder, not elsewhere classified Thrombocytopenia, secondary Other secondary thrombocytopenia Colon cancer screening Special screening for malignant neoplasms, colon [facility]* Diagnosis URI, acute- Primary Acute upper respiratory infections of unspecified site [facility]* Diagnosis Primary hypertension- Primary Unspecified essential hypertension Chronic bilateral low back pain without sciatica documented [facility] this [facility]* Diagnosis Finger pain, left- Primary Pain in limb documented [facility] encounter [facility]* Diagnosis Trigger ring finger of left hand- Primary Trigger finger (acquired) Finger pain, left Pain in limb documented [facility] this [facility]* Diagnosis Essential hypertension- Primary Unspecified essential hypertension Hypotension due to drugs Other iatrogenic hypotension Essential hypertension- Primary Unspecified essential hypertension Generalized anxiety disorder Depressive disorder Depressive disorder, not elsewhere classified MK on CPAP Obstructive sleep apnea (adult) (pediatric) Thrombocytopenia, secondary Other secondary thrombocytopenia Obesity, Class I, BMI 30-34.9 Obesity, unspecified Primary hypertension- Primary Unspecified essential hypertension Generalized anxiety disorder MK on CPAP Obstructive sleep apnea (adult) (pediatric) Depressive disorder Depressive disorder, not elsewhere classified Thrombocytopenia, secondary Other secondary thrombocytopenia Colon cancer screening Special screening for malignant neoplasms, colon Primary hypertension- Primary Unspecified essential hypertension Generalized anxiety disorder Depressive disorder Depressive disorder, not elsewhere classified Other fatigue IFG (impaired fasting glucose) Impaired fasting glucose Vitamin D deficiency Unspecified vitamin D deficiency Encounter for therapeutic drug monitoring Headache due to hypertension documented [facility] this encounter [facility]* Diagnosis Primary hypertension- Primary Unspecified essential hypertension Generalized anxiety disorder Dyslipidemia Other and unspecified hyperlipidemia MK on CPAP Obstructive sleep apnea (adult) (pediatric) Depressive disorder Depressive disorder, not elsewhere classified documented in this encounter [facility] note* Diagnosis Essential hypertension- Primary Unspecified essential hypertension Hypotension due to drugs Other iatrogenic hypotension Essential hypertension- Primary Unspecified essential hypertension Generalized anxiety disorder Depressive disorder Depressive disorder, not elsewhere classified MK on CPAP Obstructive sleep apnea (adult) (pediatric) Thrombocytopenia, secondary Other secondary thrombocytopenia Obesity, Class I, BMI 30-34.9 Obesity, unspecified Primary hypertension- Primary Unspecified essential hypertension Generalized anxiety disorder MK on CPAP Obstructive sleep apnea (adult) (pediatric) Depressive disorder Depressive disorder, not elsewhere classified Thrombocytopenia, secondary Other secondary thrombocytopenia Colon cancer screening Special screening for malignant neoplasms, colon Scrotal swelling- Primary Edema of male genital organs Lower respiratory tract infection Other diseases of respiratory system, not elsewhere classified documented in this encounter [facility] note* Diagnosis Essential hypertension- Primary Unspecified essential hypertension Hypotension due to drugs Other iatrogenic hypotension Essential hypertension- Primary Unspecified essential hypertension Generalized anxiety disorder Depressive disorder Depressive disorder, not elsewhere classified MK on CPAP Obstructive sleep apnea (adult) (pediatric) Thrombocytopenia, secondary Other secondary thrombocytopenia Obesity, Class I, BMI 30-34.9 Obesity, unspecified Primary hypertension- Primary Unspecified essential hypertension Generalized anxiety disorder MK on CPAP Obstructive sleep apnea (adult) (pediatric) Depressive disorder Depressive disorder, not elsewhere classified Thrombocytopenia, secondary Other secondary thrombocytopenia Colon cancer screening Special screening for malignant neoplasms, colon Scrotal swelling Edema of male genital organs documented in this encounter [facility] note* Diagnosis Essential hypertension- Primary Unspecified essential hypertension Hypotension due to drugs Other iatrogenic hypotension Essential hypertension- Primary Unspecified essential hypertension Generalized anxiety disorder Depressive disorder Depressive disorder, not elsewhere classified MK on CPAP Obstructive sleep apnea (adult) (pediatric) Thrombocytopenia, secondary Other secondary thrombocytopenia Obesity, Class I, BMI 30-34.9 Obesity, unspecified Primary hypertension- Primary Unspecified essential hypertension Generalized anxiety disorder MK on CPAP Obstructive sleep apnea (adult) (pediatric) Depressive disorder Depressive disorder, not elsewhere classified Thrombocytopenia, secondary Other secondary thrombocytopenia Colon cancer screening Special screening for malignant neoplasms, colon Acute cough- Primary Hydrocele in adult Acute cough [facility]* Diagnosis Essential hypertension- Primary Unspecified essential hypertension Hypotension due to drugs Other iatrogenic hypotension Essential hypertension- Primary Unspecified essential hypertension Generalized anxiety disorder Depressive disorder Depressive disorder, not elsewhere classified MK on CPAP Obstructive sleep apnea (adult) (pediatric) Thrombocytopenia, secondary Other secondary thrombocytopenia Obesity, Class I, BMI 30-34.9 Obesity, unspecified Primary hypertension- Primary Unspecified essential hypertension Generalized anxiety disorder MK on CPAP Obstructive sleep apnea (adult) (pediatric) Depressive disorder Depressive disorder, not elsewhere classified Thrombocytopenia, secondary Other secondary thrombocytopenia Colon cancer screening Special screening for malignant neoplasms, colon Acute cough [facility] Additional Instructions Take Tylenol or ibuprofen for pain and the prescribed prednisone. Follow-up with your PCP.[facility] Work Phone: Reason for referral (narrative)* Diagnostic Procedure Only (Routine) - Pending Review Specialty Diagnoses / Procedures Referred By Maddie trejo Referred To Contact MOLECULAR & FUNCTIONAL IMAGING Diagnoses Chest pain, unspecified type Procedures NM CARDIAC PERF STRESS/EXERCISE MYOCARDIAL SPECT MULTIPLE STUDIES Carlene Herrmann APRN.CNP [address] [place] [address] Molecular & Functional Imaging [address] [place] [address] Referral ID Status Reason Start Date Expiration Date Visits Requested Visits Authorized [id number] Pending Review Auto-Generat ed Referral 02/06/2022 03/08/2023 1 1 [facility] for referral (narrative)* Diagnostic Procedure Only (Urgent) - New Request Specialty Diagnoses / Procedures Referred By Maddie trejo Referred To Contact US IMAGING Diagnoses Scrotal swelling Procedures US SCROTUM AND CONTENTS US SCROTUM & CONTENTS Rojas Steve APRN.CNP [address] [place] [address] [place] [address] Referral ID Status Reason Start Date Expiration Date Visits Requested Visits Authorized [id number] New Request Auto-Generat ed Referral 05/19/2024 06/18/2025 1 1 [facility] for referral (narrative)* Diagnostic Procedure Only (Urgent) - Closed Specialty Diagnoses / Procedures Referred By Contac t Referred To Contact US IMAGING Diagnoses Scrotal swelling Procedures US SCROTUM AND CONTENTS US SCROTUM & CONTENTS Rojas Steve APRN.[employer]ATSWA[employer] MATE [address] [facility] [place] [address] [place] [address] Referral ID Status Reason Start Date Expiration Date V isits Requested Visits Authorized [id number] Closed Auto-Generate d Referral 05/19/2024 06/18/2025 1 1 [facility] for visit Narrative* Diagnostic Procedure Only (Routine) - Closed Specialty Diagnoses / Procedures Referred By Contac t Referred To Contact XR IMAGING Diagnoses Finger pain, left Procedures XR DIGIT GENERAL 3V FRONTAL/LAT/OBL LEFT RADEX FINGR MINIMUM 2 VIEWS Nirali Carey APRN.[employer]ATSWA[employer] MATE [address] [place] [address] [place] [address] Referral ID Status Reason Start Date Expiration Date V isits Requested Visits Authorized [id number] Closed Auto-Generate d Referral 01/14/2024 02/12/2025 1 1 [facility] for visit Narrative* Diagnostic Procedure Only (Urgent) - Closed Specialty Diagnoses / Procedures Referred By Contac t Referred To Contact US IMAGING Diagnoses Scrotal swelling Procedures US SCROTUM AND CONTENTS US SCROTUM & CONTENTS Rojas Steve APRN.[employer]ATSWAINS MATE [address] [place] [address] [place] [address] Referral ID Status Reason Start Date Expiration Date V isits Requested Visits Authorized [id number] Closed Auto-Generate d Referral 05/19/2024 06/18/2025 1 1 [facility] Chief Complaint and Reason for Visit Chief Complaint RIGHT HAND PAIN DIZZINESS Chief Complaint DIZZINESS foot Chief Complaint back pain, headache Chief Complaint BACK PAIN Family History No Family History Records Found Relationship Condition Age at Onset Recorded Date/T ainsley Unknown Family History?Cancer Unknown November 01, 2015 8:46am Family History?Cancer Unknown December 242017 1:08pm Family History?Hypertension Unknown December 24, 2017 1:08pm Relationship Condition Age at Onset Recorded Date/T ainsley Unknown Family History?Cancer Unknown November 01, 2015 7:46am Family History?Cancer Unknown December 242017 12:08pm Family History?Hypertension Unknown December 24, 2017 12:08pm Advance Directives No Advanced Directives Records Found Advance Directive Response Recorded Date/ Time Advance Directives No October 31, 2 016 2:03am Living Will No February 02, 2022 4:37pm Power of Crayon Molding Machine Operator No February 02 4:37pm Advance Directive Response Recorded Date/ Time Advance Directives No October 31, 2 016 2:03am Living Will No April 14 2 022 11:36pm Power of Crayon Molding Machine Operator No April 14, 2022 11:36pm Advance Directive Response Recorded Date/ Time Advance Directives No October 31, 2 016 2:03am Living Will No February 08, 2023 4 :14pm Power of Crayon Molding Machine Operator No February 08, 2023 4:14pm Advance Directive Response Recorded Date/ Time Advance Directives No October 31, 2 016 1:03am Living Will No October 04 2 024 9:08pm Power of Crayon Molding Machine Operator No October 04, 2023 9:08pm Reason for Referral Specialty Diagnoses / Procedures Referred By Maddie trejo Referred To Contact Orthopedics Diagnoses Finger pain, left Procedures CONSULT TO ORTHOPAEDICS OFFICE/OUTPATIENT [facility] 60 MINUTES Nirali Carey, MILK HAULER.[employer]WA[employer] MATE [address] [place] [address] Referral ID Status Reason Start Date Expiration Date Visits Requested Visits Authorized [id number] Authorized PCP Requested Referral 01/14/2024 01/13/2025 1 1 Specialty Diagnoses / Procedures Referred By Maddie trejo Referred To Contact XR IMAGING Diagnoses Finger pain, left Procedures XR DIGIT GENERAL 3V FRONTAL/LAT/OBL LEFT RADEX FINGR MINIMUM 2 VIEWS Nirali CareyLILIANA.BOATSWAINS MATE [address] [facility] [place] [address] [place] [address] Referral ID Status Reason Start Date Expiration Date V isits Requested Visits Authorized [id number] Closed Auto-Generate d Referral 01/14/2024 02/12/2025 1 1 Summary Purpose Additional Source Comments Source Comments (unrecognize d section and content) In the event this informatio n is protected by the Federal Confidentiality of Alcohol and Drug Abuse Patient Records regulations: The Federal rules restrict any use of the information to criminally investigate or prosecute any alcohol or drug abuse patient.[facility] the event this information is protected by the Federal Confidentiality of Alcohol and Drug Abuse Patient Records regulations: The Federal rules restrict any use of the information to criminally investigate or prosecute any alcohol or drug abuse patient.[facility] the event this information is protected by the Federal Confidentiality of Alcohol and Drug Abuse Patient Records regulations: The Federal rules restrict any use of the information to criminally investigate or prosecute any alcohol or drug abuse patient.[facility] HospitalIn the event this information is protected by the Federal Confidentiality of Alcohol and Drug Abuse Patient Records regulations: The Federal rules restrict any use of the information to criminally investigate or prosecute any alcohol or drug abuse patient.[facility] HospitalIn the event this information is protected by the Federal Confidentiality of Alcohol and Drug Abuse Patient Records regulations: The Federal rules restrict any use of the information to criminally investigate or prosecute any alcohol or drug abuse patient.[facility] HospitalIn the event this information is protected by the Federal Confidentiality of Alcohol and Drug Abuse Patient Records regulations: The Federal rules restrict any use of the information to criminally investigate or prosecute any alcohol or drug abuse patient.[facility] HospitalIn the event this information is protected by the Federal Confidentiality of Alcohol and Drug Abuse Patient Records regulations: The Federal rules restrict any use of the information to criminally investigate or prosecute any alcohol or drug abuse patient.[facility] HospitalIn the event this information is protected by the Federal Confidentiality of Alcohol and Drug Abuse Patient Records regulations: The Federal rules restrict any use of the information to criminally investigate or prosecute any alcohol or drug abuse patient.[facility] HospitalIn the event this information is protected by the Federal Confidentiality of Alcohol and Drug Abuse Patient Records regulations: The Federal rules restrict any use of the information to criminally investigate or prosecute any alcohol or drug abuse patient.[facility] HospitalIn the event this information is protected by the Federal Confidentiality of Alcohol and Drug Abuse Patient Records regulations: The Federal rules restrict any use of the information to criminally investigate or prosecute any alcohol or drug abuse patient.[facility] HospitalIn the event this information is protected by the Federal Confidentiality of Alcohol and Drug Abuse Patient Records regulations: The Federal rules restrict any use of the information to criminally investigate or prosecute any alcohol or drug abuse patient.[facility] HospitalIn the event this information is protected by the Federal Confidentiality of Alcohol and Drug Abuse Patient Records regulations: The Federal rules restrict any use of the information to criminally investigate or prosecute any alcohol or drug abuse patient.[facility] HospitalIn the event this information is protected by the Federal Confidentiality of Alcohol and Drug Abuse Patient Records regulations: The Federal rules restrict any use of the information to criminally investigate or prosecute any alcohol or drug abuse patient.[facility] HospitalIn the event this information is protected by the Federal Confidentiality of Alcohol and Drug Abuse Patient Records regulations: The Federal rules restrict any use of the information to criminally investigate or prosecute any alcohol or drug abuse patient.[facility] HospitalIn the event this information is protected by the Federal Confidentiality of Alcohol and Drug Abuse Patient Records regulations: The Federal rules restrict any use of the information to criminally investigate or prosecute any alcohol or drug abuse patient.[facility] HospitalIn the event this information is protected by the Federal Confidentiality of Alcohol and Drug Abuse Patient Records regulations: The Federal rules restrict any use of the information to criminally investigate or prosecute any alcohol or drug abuse patient.[facility] HospitalIn the event this information is protected by the Federal Confidentiality of Alcohol and Drug Abuse Patient Records regulations: The Federal rules restrict any use of the information to criminally investigate or prosecute any alcohol or drug abuse patient.[facility] HospitalIn the event this information is protected by the Federal Confidentiality of Alcohol and Drug Abuse Patient Records regulations: The Federal rules restrict any use of the information to criminally investigate or prosecute any alcohol or drug abuse patient.[facility] HospitalIn the event this information is protected by the Federal Confidentiality of Alcohol and Drug Abuse Patient Records regulations: The Federal rules restrict any use of the information to criminally investigate or prosecute any alcohol or drug abuse patient.[facility] HospitalIn the event this information is protected by the Federal Confidentiality of Alcohol and Drug Abuse Patient Records regulations: The Federal rules restrict any use of the information to criminally investigate or prosecute any alcohol or drug abuse patient.[facility] HospitalIn the event this information is protected by the Federal Confidentiality of Alcohol and Drug Abuse Patient Records regulations: The Federal rules restrict any use of the information to criminally investigate or prosecute any alcohol or drug abuse patient.[facility] HospitalIn the event this information is protected by the Federal Confidentiality of Alcohol and Drug Abuse Patient Records regulations: The Federal rules restrict any use of the information to criminally investigate or prosecute any alcohol or drug abuse patient.[facility] HospitalIn the event this information is protected by the Federal Confidentiality of Alcohol and Drug Abuse Patient Records regulations: The Federal rules restrict any use of the information to criminally investigate or prosecute any alcohol or drug abuse patient.[facility] HospitalIn the event this information is protected by the Federal Confidentiality of Alcohol and Drug Abuse Patient Records regulations: The Federal rules restrict any use of the information to criminally investigate or prosecute any alcohol or drug abuse patient.[facility] HospitalIn the event this information is protected by the Federal Confidentiality of Alcohol and Drug Abuse Patient Records regulations: The Federal rules restrict any use of the information to criminally investigate or prosecute any alcohol or drug abuse patient.[facility] HospitalIn the event this information is protected by the Federal Confidentiality of Alcohol and Drug Abuse Patient Records regulations: The Federal rules restrict any use of the information to criminally investigate or prosecute any alcohol or drug abuse patient.[facility] HospitalIn the event this information is protected by the Federal Confidentiality of Alcohol and Drug Abuse Patient Records regulations: The Federal rules restrict any use of the information to criminally investigate or prosecute any alcohol or drug abuse patient.[facility] HospitalIn the event this information is protected by the Federal Confidentiality of Alcohol and Drug Abuse Patient Records regulations: The Federal rules restrict any use of the information to criminally investigate or prosecute any alcohol or drug abuse patient.[facility] HospitalIn the event this information is protected by the Federal Confidentiality of Alcohol and Drug Abuse Patient Records regulations: The Federal rules restrict any use of the information to criminally investigate or prosecute any alcohol or drug abuse patient.[facility] Care Teams (unrecognized sec tion and content) Cotton Farmer Relationship Specialty Start Date End Date Curtis Mcdonald MD [address] [place], [place] [id number] PCP - General Internal Medicine 11/07/16 Cotton Farmer Relationship Specialty Start Date End Date Curtis Mcdonald MD [address] [place], [place] [id number] PCP - General Internal Medicine 11/07/16 Cotton Farmer Relationship Specialty Start Date End Date Curtis Mcdonald MD [address] [facility] [place] [address] PCP - General Internal Medicine 11/07/16 Cotton Farmer Relationship Specialty Start Date End Date Curtis Mcdonald MD [address] [facility] [place] [address] PCP - General Internal Medicine 11/07/16 Cotton Farmer Relationship Specialty Start Date End Date Curtis Mcdonald MD [address] [facility] [place] [address] PCP - General Internal Medicine 11/07/16 Cotton Farmer Relationship Specialty Start Date End Date Curtis Mcdonald MD [address] [facility] [place] [address] PCP - General Internal Medicine 11/07/16 Cotton Farmer Relationship Specialty Start Date End Date Curtis Mcdonald MD [address] [facility] [place] [address] PCP - General Internal Medicine 11/07/16 Team Status: Active Member Role Status Dates Dr. Curtis Mcdonald MD Family Provider Active Dr. Curtis Mcdonald MD Primary Care Provider Active Team Status: Inactive Member Role Status Dates Dr. Curtis Mcdonald MD Primary Care Provider Active Dr. Shane Greene MD Emergency Provider Active Team Status: Inactive Member Role Status Dates Dr. Curtis Mcdonald MD Primary Care Provider Active Dr. Josse Winslow DO Emergency Provider Active Cotton Farmer Relationship Specialty Start Date End Date Curtis Mcdonald MD [address] [facility] [place] [address] PCP - General Internal Medicine 11/07/16 Cotton Farmer Relationship Specialty Start Date End Date Curtis Mcdonald MD [address] [facility] [place] [address] PCP - General Internal Medicine 11/07/16 Cotton Farmer Relationship Specialty Start Date End Date Curtis Mcdonald MD [address] [facility] [place] [address] PCP - General Internal Medicine 11/07/16 Cotton Farmer Relationship Specialty Start Date End Date Curtis Mcdonald MD [address] [facility] [place] [address] PCP - General Internal Medicine 11/07/16 Cotton Farmer Relationship Specialty Start Date End Date Curtis Mcdonald MD [address] [facility] [place] [address] PCP - General Internal Medicine 11/07/16 Cotton Farmer Relationship Specialty Start Date End Date Curtis Mcdonald MD [address] [facility] [place] [address] PCP - General Internal Medicine 11/07/16 Cotton Farmer Relationship Specialty Start Date End Date Curtis Mcdonald MD [address] [facility] [place] [address] PCP - General Internal Medicine 11/07/16 Cotton Farmer Relationship Specialty Start Date End Date Curtis Mcdonald MD [address] [facility] [place] [address] PCP - General Internal Medicine 11/07/16 Cotton Farmer Relationship Specialty Start Date End Date Curtis Mcdonald MD [address] [facility] [place] [address] PCP - General Internal Medicine 11/07/16 Cotton Farmer Relationship Specialty Start Date End Date Cutris Mcdonald MD [address] [facility] [place] [address] PCP - General Internal Medicine 11/07/16 Cotton Farmer Relationship Specialty Start Date End Date Curtis Mcdonald MD [address] [facility] [place] [address] PCP - General Internal Medicine 11/07/16 Cotton Farmer Relationship Specialty Start Date End Date Curtis Mcdonald MD [address] [facility] [place] [address] PCP - General Internal Medicine 11/07/16 Cotton Farmer Relationship Specialty Start Date End Date Curtis Mcdonald MD [address] [facility] [place] [address] PCP - General Internal Medicine 11/07/16 Cotton Farmer Relationship Specialty Start Date End Date Curtis Mcdonald MD [address] [facility] [place] [address] PCP - General Internal Medicine 11/07/16 Cotton Farmer Relationship Specialty Start Date End Date Curtis Mcdonald MD [address] [facility] [place] [address] PCP - General Internal Medicine 11/07/16 Cotton Farmer Relationship Specialty Start Date End Date Curtis Mcdonald MD [address] [facility] [place] [address] PCP - General Internal Medicine 11/07/16 Carlene Cleveland, MILK HAULER.[employer] [address] [facility] [place] [address] Furnace Helper Internal Medicine 07/19/24 Cotton Farmer Relationship Specialty Start Date End Date Curtis Mcdonald MD [address] [place], [place] [address] PCP - General Internal Medicine 11/07/16 Carlene Cleveland, MILK HAULER.[employer] MATE [address] [place], [place] [address] [employer] Internal Medicine 07/19/24 Reason for Visit (unrecogniz ed section and content) Reason Comments F/U 6 months BP Reason Comments Results Reason Comments Blood Pressure Check Reason Comments Recheck 2 months Dizziness during postition arnie nges Reason Comments Appointment Stress Test instruct ions Reason Comments FOLLOW UP MEDICATIONS Reason Comments Cough Chest congestion, fe marylin, body aches. Headache, fatigue x 3 days Reason Comments 2 week follow up - blood pressure Reques ting medication for chronic back pain Reason Comments Musculoskeletal Problem Left hand possib le trigger finger x 3 weeks Reason Comments right ring finger pain REF: Nicolette Carey x-ra y: 01/14/2024 Specialty Diagnoses / Procedures Referred By Maddie trejo Referred To Contact Orthopedics Diagnoses Finger pain, left Procedures CONSULT TO ORTHOPAEDICS OFFICE/OUTPATIENT [facility] 60 MINUTES Nirali Carey APRN.[employer] MATE [address] [place] [address] Referral ID Status Reason Start Date Expiration Date V isits Requested Visits Authorized [id number] Closed PCP Requested Referral 01/14/2024 01/13/2025 1 1 Reason Comments ER F/U [facility] 04/17/24 for hyp ertension Today he is complaining for increase fatigue and questions if one of his medication is causing the fatigue Reason Comments Follow Up Med refills Reason Comments Cough Cough x 3 weeks and scrotal swelling x 1-2 weeks Reason Comments Cough Reason Comments cough x 1 month Reason Comments Appointment Goals (unrecognized section and content) Goals may be documented in a n alternate sectionGoals may be documented in an alternate sectionGoals may be documented in an alternate sectionGoals may be documented in an alternate section (unrecognized sect ion and content) No Status Records FoundNo Status Records FoundNo Status Records Found INFORMATION SOURCE (unrecogn ized section and content) DATE CREATED AUTHOR 10/02/2024 [facility] DATE CREATED AUTHOR AUTHOR'S HEAVENLY ATION 10/24/[address] [facility] DATE CREATED AUTHOR AUTHOR'S ORGANIZ ATION 11/01/2024 [facility] FOR RECORDS PERTAINING TO PATIENTS WHO ARE [...] BE BASED ON THE PRIMARY CLINICAL RECORDS. [facility] [employer] provides no warranty or guarantee of the accuracy or completeness of information in this document.
--- NOTE | 2025-02-26 00:41 | EX.ED.UPPERE ---
HPI History of Present Illness HPI Narrative: Chief complaint and HPI: Left fourth finger pain. 54-year-old male with past medical history of neuropathy, HTN, migraines, CKD presents for evaluation of left fourth finger pain patient states for the past several months he has been having pain in his left fourth finger. States he was seen by orthopedics and received a steroid injection into the tendon. Patient states this improved his pain. Patient states that the finger pain returned and has been ongoing for months. He denies any fever, chills, numbness/tingling. States it feels better when he wears a glove. Denies any significant injury. States that he feels like there is swelling with a decreased range of motion. He has not followed back up with orthopedics. Review of systems: See HPI Medications: As listed on the chart Allergies: As listed on the chart PFSH: Per chart Vital signs: As listed on the chart. Reviewed. Physical exam: Gen: A&O x3, NAD Head: Normocephalic, atraumatic Eyes: No sclera icterus, conjunctiva clear ENT: Moist mucous membranes CV: Regular rate Resp: Nonlabored respiration Musc: Full range of motion of the left hand including all the fingers and wrist, no swelling/erythema/ecchymosis/crepitus/warmth to fingers/hand/wrist, radial pulse +2, good capillary refill, sensation intact, finger nontender to palpation Skin: Warm, dry Neuro: Alert, oriented, grossly intact, sensation intact Psych: Cooperative, appropriate mood and affect Chief Complaint: Upper Extremity Injury PFS PFSH Medical History Benign essential HTN CKD (chronic kidney disease) Depressed Anxiety Migraines GERD (gastroesophageal reflux disease) Panic disorder Home Medications ?Medication ?Instructions ?Recorded ?Last Taken ?Type clonazepam 0.5 mg tablet 0.5 mg PO BID PRN Anxiety 10/28/16 12/23/17 History ibuprofen 600 mg tablet 600 mg PO TID PRN PRN Pain #14 tabs 05/19/18 Unknown Rx bupropion HCl 150 mg 24 hr tablet, 150 mg PO DAILY #30 tabs 09/27/24 Unknown Rx extended release doxazosin 1 mg tablet (Cardura) See Rx Instructions PO QHS #30 tabs 12/22/24 Unknown Rx amlodipine 10 mg tablet 10 mg PO DAILY #30 TABLETS 01/10/25 Unknown Rx atorvastatin 10 mg tablet 10 mg PO QHS #30 TABLETS 01/10/25 Unknown Rx escitalopram oxalate 20 mg tablet 20 mg PO DAILY #30 TABLETS 01/10/25 Unknown Rx hydrochlorothiazide 25 mg tablet 25 mg PO DAILY #30 TABLETS 01/10/25 Unknown Rx losartan 100 mg tablet 100 mg PO DAILY #30 TABLETS 01/10/25 Unknown Rx Allergy/AdvReac Type Severity Reaction Status Date / Time amoxicillin (Amoxicillin) Allergy Rash Verified 02/25/25 20:07 amitriptyline AdvReac Mental Verified 02/25/25 20:07 status change bupivacaine AdvReac Mental Verified 02/25/25 20:07 status change citalopram (From Celexa) AdvReac Other Verified 02/25/25 20:07 lisinopril AdvReac Mental Verified 02/25/25 20:07 status change metoprolol AdvReac Dizziness Verified 02/25/25 20:07 naproxen AdvReac Upset Verified 02/25/25 20:07 Stomach Family History Father Anxiety Arthritis CVA (cerebral vascular accident) Depression Hyperlipidemia Hypertension Mother Cancer unknown type Hypertension Migraine Surgical History S/P cholecystectomy History of left heart catheterization H/O hernia repair hx of spleen repair Social History household members: spouse current occupational status: unemployed Smoking Status: Never smoker Smokeless tobacco user: chewing tobacco alcohol intake: current alcohol intake frequency: holidays/special occasions only substance use type: does not use do you feel safe at home: Yes EXAM Physical Exam Const Vital Signs: 02/25/25 20:07 02/26/25 00:06 Temperature 96.6 F L Temperature Source Temporal Pulse Rate 67 68 Respiratory Rate 18 16 Blood Pressure 148/95 H Blood Pressure Mean 112 Pulse Ox 100 Oxygen Delivery Method Room Air MDM MDM MDM Narrative Medical decision making narrative: 54-year-old male with past medical history of neuropathy, HTN, migraines, CKD presents for evaluation of left fourth finger pain. Onset of symptoms several months. Had this previously in which he received a steroid injection to the tendon with improvement of pain. Denies any significant injury. States that he feels like it is swollen with decreased range of motion however this is not seen on physical exam. See physical exam findings. Differential diagnosis includes but is not limited to finger sprain, tendinitis, osteoarthritis, suspect less likely fracture. Not consistent with cellulitis. Patient had an x-ray performed in triage per protocol given wait times. X-ray of the hand was personally viewed interpreted by me, ED physician. No fracture or dislocation. Radiology in agreement. At this point in time, no clear etiology for patient's pain. Recommend ibuprofen and Tylenol as needed. States the symptoms improve when wearing a glove. Continue this as needed for comfort. Will refer to Dr. Kelly who is our hand surgeon. Follow-up with PCP. Return precautions explained. He confirmed understanding of the plan. Patient stable to discharge home. Impression: 1. Chronic left fourth finger pain Radiography Diagnostic Testing: Clinical Impression(s) from Imaging Studies Hand X-Ray 02/25/25 21:42 IMPRESSION: Soft tissue injury. Reading Location: [place] [address] Discharge Plan Triage Chief Complaint: Upper Extremity Injury ED Provider: Jae Mendoza Dx/Rx/DC Orders Clinical Impression: Finger pain, left Instructions: ED Finger Sprain Prescriptions: No Action bupropion HCl 150 mg tablet extended release 24 hr 150 mg PO DAILY Qty: 30 1RF clonazepam 0.5 MG tablet 0.5 mg PO BID PRN (Reason: Anxiety) ibuprofen 600 MG tablet 600 mg PO TID PRN PRN (Reason: Pain) Qty: 14 0RF doxazosin [Cardura] 1 mg tablet See Rx Instructions PO QHS Qty: 30 0RF Rx Instructions: 0.5mg (1/2 tablet) orally at bedtime; atorvastatin 10 mg tablet 10 mg PO QHS Qty: 30 0RF escitalopram oxalate 20 mg tablet 20 mg PO DAILY Qty: 30 0RF losartan 100 mg tablet 100 mg PO DAILY Qty: 30 0RF hydrochlorothiazide 25 mg tablet 25 mg PO DAILY Qty: 30 0RF amlodipine 10 mg tablet 10 mg PO DAILY Qty: 30 0RF Primary Care Provider: Laura Mederos Referrals: Laura Mederos MD [Primary Care Provider] - 3-5 Days Mumtaz Kelly MD [Med Staff - Active Staff] - 3-5 Days Activity Restrictions/Additional Instructions: Follow-up with primary care physician and hand surgeon. Return back to the ED if symptoms change or worsen. Print Language: Amharic Disposition Disposition: Home, Self Care
[2025-02-26 00:49] VITALS: BP 148/95; PULSE 68; RESP 16; TEMP 35.9; O2SAT 100
== END 2025-02-26 00:50 | disposition home or self-care (01) ==
PROVIDERS: Emergency Provider Surgery; PCP Internal Medicine; Visit Provider Surgery
DX: M79.645 Pain in left finger(s) (principal); G89.29 Other chronic pain; I12.9 Hypertensive chronic kidney disease with stage 1 through stage 4 chronic kidney disease, or unspecified chronic kidney disease; N18.9 Chronic kidney disease, unspecified; F41.9 Anxiety disorder, unspecified; Z79.899 Other long term (current) drug therapy; F32.A Depression, unspecified; Z90.49 Acquired absence of other specified parts of digestive tract
CPT/HCPCS: 73130; 99282

== ENCOUNTER 2025-05-15 13:55 | Emergency (ER) | payer MEDICAID, SELFPAY ==
[2025-05-15 13:55] VITALS: BP 144/99; PULSE 75; RESP 18; TEMP 36.2; O2SAT 100; BMI 34.2
--- NOTE | 2025-05-15 14:41 | EX.ED.DYSGE1 ---
HPI History of Present Illness Chief Complaint: Edema PFSH PFS Medical History Benign essential HTN CKD (chronic kidney disease) Depressed Anxiety Migraines GERD (gastroesophageal reflux disease) Panic disorder Home Medications ?Medication ?Instructions ?Recorded ?Last Taken ?Type clonazepam 0.5 mg tablet 0.5 mg PO BID PRN Anxiety 10/28/16 12/23/17 History ibuprofen 600 mg tablet 600 mg PO TID PRN PRN Pain #14 tabs 05/19/18 Unknown Rx bupropion HCl 150 mg 24 hr tablet, 150 mg PO DAILY #30 tabs 09/27/24 Unknown Rx extended release doxazosin 1 mg tablet (Cardura) See Rx Instructions PO QHS #30 tabs 12/22/24 Unknown Rx amlodipine 10 mg tablet 10 mg PO DAILY #30 TABLETS 01/10/25 Unknown Rx atorvastatin 10 mg tablet 10 mg PO QHS #30 TABLETS 01/10/25 Unknown Rx escitalopram oxalate 20 mg tablet 20 mg PO DAILY #30 TABLETS 01/10/25 Unknown Rx hydrochlorothiazide 25 mg tablet 25 mg PO DAILY #30 TABLETS 01/10/25 Unknown Rx losartan 100 mg tablet 100 mg PO DAILY #30 TABLETS 01/10/25 Unknown Rx Allergy/AdvReac Type Severity Reaction Status Date / Time amoxicillin (Amoxicillin) Allergy Rash Verified 05/15/25 13:55 amitriptyline AdvReac Mental Verified 05/15/25 13:55 status change bupivacaine AdvReac Mental Verified 05/15/25 13:55 status change citalopram (From Celexa) AdvReac Other Verified 05/15/25 13:55 lisinopril AdvReac Mental Verified 05/15/25 13:55 status change metoprolol AdvReac Dizziness Verified 05/15/25 13:55 naproxen AdvReac Upset Verified 05/15/25 13:55 Stomach Family History Father Anxiety Arthritis CVA (cerebral vascular accident) Depression Hyperlipidemia Hypertension Mother Cancer unknown type Hypertension Migraine Surgical History S/P cholecystectomy History of left heart catheterization H/O hernia repair hx of spleen repair Social History household members: spouse current occupational status: unemployed Smoking Status: Never smoker Smokeless tobacco user: chewing tobacco alcohol intake: current alcohol intake frequency: holidays/special occasions only substance use type: does not use do you feel safe at home: Yes EXAM Physical Exam Const Vital Signs: 05/15/25 13:55 Temperature 97.2 F L Temperature Source Temporal Pulse Rate 75 Respiratory Rate 18 Blood Pressure 144/99 H Blood Pressure Mean 114 Pulse Ox 100 Oxygen Delivery Method Room Air [facility] MDM Narrative Medical decision making narrative: HISTORY OF PRESENT ILLNESS: Chief complaint: Left hand swelling 54-year-old male history of neuropathy, hypertension, CKD presents left hand swelling. He states this began several months ago. Also notes he is concerned about his blood pressure. He notes swelling of left hand. Concerned he may have carpal tunnel. Denies trauma. Patient denies active cancer, being bedridden for greater than 3 days, denies unilateral leg swelling, denies any varicose veins, denies any calf tenderness, denies tenderness along deep venous system. Denies major surgery within 12 weeks, recent paralysis, previous DVT. REVIEW OF SYSTEMS: Pertinent positives: Left hand swelling Pertinent negatives: Numbness, tingling, loss of sensation PHYSICAL EXAM: Nursing triage notes reviewed, Vital signs reviewed Constitutional: please see mdm HENT: MMM Eyes: Pupils equal round and reactive to light, Extraocular muscles intact Neck: No stridor, no JVD, full neck ROM Lungs: Clear to auscultation, No wheezing or rales. No increased work of breathing, no conversational dyspnea, no accessory muscle use, no nasal flaring. No respiratory distress noted Heart: Regular rate and rhythm, No murmurs, No rubs and No gallops, 2+ distal pulses (radial, femoral, posterior tibial) in all extremities Abdomen: Soft, there is no tenderness, rigidity, rebound or guarding, no obvious peritoneal signs, no palpable pulsatile abdominal masses, no auscultated abdominal bruit : No CVAT Extremities: No edema, slight atrophy over the thenar eminence of the left thumb Neuro: intact 5/5 strength with ok sign (median), intact finger abduction (ulnar) intact wrist extension (radial n). Intact sensation in the radial, ulnar, and median nerve distributions. Skin: No rash or lesions noted, no induration MEDICAL DECISION MAKING: Chief Complaint: please see HPI External records reviewed: Reviewed prior imaging studies: Patient's head 2 x-rays of his hand the last several months. They are all been read as negative Factors affecting care: As per HPI Social determinants of health: none History obtained from others: none Consults: none [facility] Narrative: The patient was initially hemodynamically stable, afebrile and nontoxic-appearing. Exam with a neurovascular tact left upper extremity. No redness, fluctuance or induration. Slight atrophy in the thenar eminence with may suggest carpal tunnel syndrome I considered the following differential diagnosis: Chronic inflammatory condition, fracture dislocation, DVT, carpal tunnel syndrome I considered DVT the patient no risk factors. His arm was not swollen low sufficient for DVT Patient's left upper extremity is neurovascular intact. There was no trauma to suggest fracture dislocation. Will give steroids, anti-inflammatories and give hand surgery follow-up The patient and/or family, caregivers express understanding. The patient and/or family, caregivers agrees with the plan. Shared decision making: I will have a discussion with the patient and or visitors regarding risk/benefits of further testing or admission. They will be made aware of of the risk/benefits inherent in this decision they will be given the opportunity to voice understanding. Total critical care time today provided was at least 0 [minutes. This excludes separately billable procedures. Critical care time (if documented) is secondary to the patient having high probability of clinically significant/life threatening deterioration in the patient's condition which required my urgent intervention. Impression: 1. Hand swelling 2. History of hypertension 3. Chronic left hand pain Dispo:discharge home This note was generated with [employer] dictation software. It may contain incorrect words, spelling, and punctuation that were not noted in review of the chart prior to signing. Discharge Plan Triage Chief Complaint: Edema ED Provider: Adeel Mason Dx/Rx/DC Orders Prescriptions: No Action bupropion HCl 150 mg tablet extended release 24 hr 150 mg PO DAILY Qty: 30 1RF clonazepam 0.5 MG tablet 0.5 mg PO BID PRN (Reason: Anxiety) ibuprofen 600 MG tablet 600 mg PO TID PRN PRN (Reason: Pain) Qty: 14 0RF doxazosin [Cardura] 1 mg tablet See Rx Instructions PO QHS Qty: 30 0RF Rx Instructions: 0.5mg (1/2 tablet) orally at bedtime; atorvastatin 10 mg tablet 10 mg PO QHS Qty: 30 0RF escitalopram oxalate 20 mg tablet 20 mg PO DAILY Qty: 30 0RF losartan 100 mg tablet 100 mg PO DAILY Qty: 30 0RF hydrochlorothiazide 25 mg tablet 25 mg PO DAILY Qty: 30 0RF amlodipine 10 mg tablet 10 mg PO DAILY Qty: 30 0RF Primary Care Provider: Laura Mederos Referrals: Laura Mederos MD [Primary Care Provider, Internal Medicine] Print Language: Serbian
--- OUTSIDE RECORDS SUMMARY | 2025-05-15 14:49 | XMS RPT_ITS | CCD ---
Author Organization [facility] Care Team Providers Care Compotype Operator Name Role Phone Harry VANESSA, Curtis Torrez Primary Care Provider [phone] Curtsi Mcdonald MD Primary Care Provider [phone] Carlene Cleveland APRN.CNP M Unavailable [phone] Unavailable Primary Care Provider Unavailabl e OLDER, CARLENE Attending Unavailable MCDONALD, ILIR Primary Care Unavailable MCDONALD, ILIR Primary Care Unavailable MCDONALD, ILIR Primary Care Unavailable MCDONALD, ILIR Primary Care Unavailable NESHA BAKER Referring Unavailable MCDONALD, ILIR Primary Care Unavailable SELF Referring Unavailable NESHA BAKER Attending Unavailable DYLAN MORROW Attending Unavailable MCDONALD, ILIR Primary Care Unavailable NIRALI CAREY Referring Unavailable MCDONALD, ILIR Primary Care Unavailable NIRALI CAREY Referring Unavailable MCDONALD, ILIR Primary Care Unavailable OLDER, CARLENE Attending Unavailable MCDONALD, ILIR Primary Care Unavailable OLDER, CARLENE Attending Unavailable MCDONALD, ILIR Primary Care Unavailable MCDONALD, ILIR Primary Care Unavailable OLDER, CARLENE Referring Unavailable Care Physician, No Primary Primary Care Provider Unavailable Care Physician, No Primary Referring Provider Un available Flaco Lobato Attending Provider Dr. Jae Mendoza DO Emergency Provider Gatito VANESSA, Dr. Sanchez Primary Care Provider [phone] Care Physician, No Primary Referring Unava ilable Care Physician, No Primary Primary Care Unava ilable Flaco Lobato Attending Unavailable Laura Mederos Attending Unavailable Care Physician, No Primary Referring Unava ilable Care Physician, No Primary Primary Care Unava ilable Laura Mederos Attending Unavailable Care Physician, No Primary Primary Care Unava ilable Curtis Mcdonald Referring Unavailable Care Physician, No Primary Primary Care Unava ilable Care Physician, No Primary Referring Unava ilable Flaco Lobato Attending Unavailable Curtis Mcdonald Primary Care Unavailable Matthias Garcia Attending Unavailable Chito Tanner Attending Unavailable Care Physician, No Primary Primary Care Unava ilable Jae Mendoza Attending UnavailLaura Bruce Primary Care Unavailable Allergies Allergy Classification Reported Allergen(s) Allergy Type Date of Onset Reaction(s) Facility Amitriptyline (1 source) Amitriptyline Drug Allergy 3 Mental Status Change [facility] Angiotensin Converting Enzyme (MARIAN) Inhibitors (1 source) Lisinopril Drug Allergy 5 Mental Status Change [facility] Bupivacaine (1 source) Bupivacaine Drug Allergy 4 Mental Status Change [facility] Metoprolol (1 source) Metoprolol Drug Allergy 5 Intolerance [facility] NSAIDs (1 source) Naproxen Drug Allergy 5 GI Upset [facility] Penicillins (antibiotic) (1 source) Amoxicillin Drug Allergy 5 Rash [facility] Work Phone: Serotonin Reuptake Inhibitors (SSRIs) (1 source) Citalopram Drug Allergy 7 Intolerance [facility] Work Phone: (20 sources) Amitriptyline; Translations: [AMITRIPTYLINE] Drug Allergy 3 Mental Status Change [facility] (20 sources) Amoxicillin; Translations: [AMOXICILLIN] Drug Allergy 5 Rash [facility] Work Phone: (20 sources) Bupivacaine; Translations: [BUPIVACAINE (PF)] Drug Allergy 4 Mental Status Change [facility] (20 sources) Citalopram; Translations: [CITALOPRAM HYDROBROMIDE] Drug Allergy 7 Intolerance [facility] Work Phone: (20 sources) Lisinopril; Translations: [LISINOPRIL] Drug Allergy 5 Mental Status Change [facility] (20 sources) Metoprolol; Translations: [METOPROLOL TARTRATE] Drug Allergy 5 Intolerance [facility] (20 sources) Naproxen; Translations: [NAPROXEN] Drug Allergy 5 GI Upset [facility] (3 sources) triamox Allergy to substance 2 Rash [facility] (1 source) Bupivacaine Drug Allergy 5 Mental status change [facility] (1 source) Citalopram Drug Allergy 5 Other [facility] Comment on above: Intolerance (1 source) Metoprolol Drug Allergy 5 Dizziness [facility] (1 source) Amitriptyline Drug Allergy 5 [facility] Repository (1 source) Amoxicillin Drug Allergy 5 [facility] (1 source) Bupivacaine Drug Allergy 5 [facility] (1 source) Citalopram Drug Allergy 5 [facility] (1 source) Lisinopril Drug Allergy 5 [facility] (1 source) Metoprolol Drug Allergy 5 [facility] (1 source) Naproxen Drug Allergy 5 [facility] Repository Medications Current Medications Medication Drug Class(es) Dates Sig (Normalized) Sig (Original) acetaminophen 325 mg oral capsule (20 sources) take 1 capsule by mouth twice daily acetaminophen 325 mg cap Take 325 mg by mouth twice daily. Active Comment on above: Take 325 mg by mouth twice daily. amLODIPine 10 mg oral tablet (20 sources) Dihydropyridine Calcium Channel Patricia Start: 10-15-2024 End: 01-10-2025 take 1 tablet by mouth once daily Amlodipine 10 mg tablet Active 10 mg PO DAILY 30 0 January 10, 2025 9:28am Start: 02-05-2023 End: 11-14-2023 take 1 tablet [...] 90 tablet 1 11/21/2021 Active Start: 10-28-2016 End: 09-27-2024 take 5 mg by mouth once daily Amlodipine 10 MG tablet Discontinued 5 mg PO DAILY October 28, 2016 12:00am September 27, 2024 2:09pm Start: 10-28-2016 take 5 mg by mouth once daily Amlodipine Active 5 MG PO DAILY October 27, 2016 11:00pm Comment on above: Take 1 tablet by efe th once daily. atorvastatin 10 mg oral tablet (20 sources) HMG-CoA Reductase Inhibitor Start: End: take 1 tablet by mouth at bedtime Atorvastatin 10 mg tablet Active 10 mg PO AT BEDTIME 30 0 January 10, 2025 9:26am Start: 02-05-2023 End: 11-14-2023 take 1 tablet [...] oral capsule (8 sources) Non-narcotic Antitussive Start: take 1 capsule by mouth every eight [...] Comment on above: Take 1 capsule by [facility] three times a day as needed. 24 hr buPROPion hydrochloride 150 mg extended release oral tablet (20 sources) Aminoketone Start: take 1 tablet by mouth once daily Bupropion Hcl 150 mg tablet extended release 24 hr Active 150 mg PO DAILY 09 09September 27, 2024 3:55pm Start: 02-02-2022 End: 09-27-2024 take 1 tablet by mouth once daily buPROPion XL (WELLBUTRIN XL) 150 mg 24 hr tablet Indications: Generalized anxiety disorder , Depressive disorder Take 1 tablet by mouth once daily. 90 tablet 3 04/26/2024 Active Start: 05-21-2021 End: 11-21-2021 take 1 tablet by mouth once daily buPROPion XL (WELLBUTRIN XL) 150 mg 24 hr tablet Indications: Generalized anxiety disorder , Depressive disorder Take 1 tablet by mouth once daily. 90 tablet 1 11/21/2021 Active Comment on above: Take 1 tablet by [facility] once daily. clonazePAM 0.5 mg oral tablet (20 sources) Benzodiazepine Start: 10-29-19 End: 05-12-20 clonazePAM (KLONOPIN) 0.5 mg tablet Indications: Generalized anxiety disorder Take 1 tablet by mouth two times a day as needed for anxiety (not more than 30 tablets per month) for up to 180 days. 30 tablet 2 11/14/2023 Active Comment on above: Take 1 tablet by [facility] twice daily as needed for anxiety (not more than 30 tablets per month) for up to 180 days. Take 1 tablet by [facility] two times a day as needed for anxiety (not more than 30 tablets per month) for up to 180 days. doxazosin 1 mg oral tablet (2 sources) alpha-Adrenergic Patricia Start: 10-30-19 End: 12-23-19 take 0.5 mg by mouth at bedtime Doxazosin (Cardura) 1 mg tablet Active 0 PO AT BEDTIME 30 0 December 22, 2024 9:05am 0.5mg (1/2 tablet) orally at bedtime; doxycycline hyclate 100 mg oral tablet (7 sources) Tetracycline-class Drug Start: 05-19-20 End: 05-26-20 take 1 tablet by mouth twice daily doxycycline (VIBRA-TABS) 100 mg tablet Take 1 tablet by mouth two times a day for 7 days. 14 tablet 05/19/2024 05/26/2024 Active escitalopram 20 mg oral tablet (20 sources) Serotonin Reuptake Inhibitor Start: 02-03-20 End: 01-11-20 take 1 tablet by mouth once daily Escitalopram Oxalate 20 mg tablet Active 20 mg PO DAILY 30 January 10, 2025 9:26am Start: 05-21-2021 End: 11-21-2021 take 1 tablet by mouth once daily escitalopram oxalate (LEXAPRO) 20 mg tablet Indications: Generalized anxiety disorder Take 1 tablet by mouth once daily. 90 tablet 1 11/21/2021 Active Comment on above: Take 1 tablet by efe th once daily. hydroCHLOROthiazide 25 mg oral tablet (20 sources) Thiazide Diuretic Start: End: take 1 tablet by mouth every other day hydroCHLOROthiazide (HYDRODIURIL, ESIDRIX) 25 mg tablet Take 1 tablet by mouth every other day. 15 tablet 5 08/07/2022 Active Start: 02-12-2022 take 1 tablet by efe th every other day hydroCHLOROthiazide (HYDRODIURIL, ESIDRIX) 25 mg tablet Take 1 tablet by mouth every other day. 0 02/12/2022 Active Start: 05-21-2021 End: 01-10-2025 take 1 tablet by mouth once daily Hydrochlorothiazide 25 mg tablet Active 25 mg PO DAILY 30 January 10, 2025 9:26am Comment on above: Take 1 tablet by [...] 30 tablet 11/21/2021 Active Start: 05-19-2018 take 1 tablet by efe th three times daily as needed for pain Ibuprofen 600 MG tablet Active 600 mg PO 3 TIMES DAILY NEEDED as needed for Pain 14 May 19, 2018 4:25pm Comment on above: Take 1 tablet by efe th every 8 hours as needed for pain. Take with food. losartan potassium 100 mg oral tablet (20 sources) Angiotensin 2 Receptor Patricia Start: 02-02-2022 End: 01-10-2025 take 1 tablet by mouth once daily Losartan 100 mg tablet Active 100 mg PO DAILY 30 0 January 10, 2025 9:26am Start: 05-21-2021 End: 11-21-2021 take 1 tablet by mouth once daily losartan (COZAAR) 100 mg tablet Indications: Essential hypertension Take 1 tablet by mouth once daily. 90 tablet 1 11/21/2021 Active Comment on above: Take 1 tablet by efe th once daily. predniSONE 20 mg oral tablet (6 sources) Start: 05-25-2024 End: 05-30-2024 take 2 tablets by mouth once daily predniSONE (DELTASONE) 20 mg tablet Take 2 tablets by mouth once daily for 5 days. 10 tablet 05/25/2024 05/30/2024 Active Start: 10-04-2023 End: 04-17-2024 take 2 tablets by mouth once daily Prednisone 20 mg tablet Discontinued 40 mg PO DAILY 10 5 October 04, 2023 1:00am April 17, 2024 7:54pm Start: 10-04-2023 take 40 mg by mouth once daily Prednisone Active 40 MG PO DAILY 10 October 04, 2023 12:00am Start: 02-08-2023 End: 04-17-2024 take 3 tablets by mouth once daily Prednisone 20 mg tablet Discontinued 60 mg PO DAILY 15 February 08, 2023 12:00am April 17, 2024 7:54pm Start: 02-08-2023 take 60 mg by mouth once daily Prednisone Active 60 MG PO DAILY February 07, 2023 11:00pm Completed/Discontinued Medications Medication Drug Class(es) Dates Sig (Normalized) Sig (Original) acetaminophen 325 mg / HYDROcodone bitartrate 5 mg oral tablet (3 sources) Opioid Agonist Start: 02-08-2023 End: 04-17-2024 Hydrocodone-Acetami nophen 5-325 mg tablet Discontinued 1 {tbl} PO EVERY 6 HOURS NEEDED as needed for Pain 10 3 0 February 08, 2023 April 17, 2024 7:53pm Lumbosacral pain Low back pain, unspecified Start: 02-08-2023 take 1 tablet by efe th every six hours as needed Hydrocodone-Acetaminophen Active 1 TABLE T PO EVERY 6 HOURS NEEDED 10 3 February 08, 2023 aspirin 81 mg oral tablet (20 sources) Platelet Aggregation Inhibitor, Nonsteroidal Anti-inflammatory Drug Start: 02-02-2022 End: 04-17-2024 take 1 tablet by mouth once daily Aspirin 325 mg Tablet Discontinued 325 mg PO DAILY February 02, 2022 12:00am April 17, 2024 7:52pm Start: 12-10-2011 End: 09-27-2024 take 1 capsule by mouth once daily Aspirin 81 mg capsule Discontinued 81 mg PO DAILY April 17, 2024 12:00am September 27, 2024 2:09pm Comment on above: Take 1 tablet by efe th once daily. Take with food. betamethasone 3 mg/ml / betamethasone acetate 3 mg/ml injectable suspension (2 sources) Corticosteroid Start: End: betamethasone acetate-betamethason e sodium phosphate 3 mg injection (CELESTONE) CPAP (9 sources) Start: CPAP Initiate Auto PAP @ 5/20 cm [...] lifetime supplies. etodolac 300 mg oral capsule (5 sources) Nonsteroidal Anti-inflammatory Drug Start: 017 End: take 1 capsule by mouth three times daily at mealtime Etodolac 300 MG capsule Discontinued 300 mg PO 3 TIMES DAILY WITH MEALS 30 0 February 19, 2017 12:00am April 09, 2018 12:05pm with food gabapentin 300 mg oral capsule (5 sources) Anti-epileptic Agent Start: 017 End: 025 take 1 capsule by mouth twice daily Gabapentin (Neurontin) 300 MG capsule Discontinued 300 mg PO TWICE A DAY October 28, 2016 12:00am September 27, 2024 2:09pm 10 ml lidocaine hydrochloride 10 mg/ml injection (2 sources) Antiarrhythmic, Amide Local Anesthetic Start: End: lidocaine (PF) 10 mg/mL (1 %) 0.5 mL injection (XYLOCAINE) 24 hr oxybutynin chloride 10 mg extended release oral tablet (20 sources) Cholinergic Muscarinic Antagonist Start: End: take 1 tablet by mouth every twenty-four hours oxybutynin ER (DITROPAN XL) 10 mg 24 hr tablet Take by mouth. 0 02/02/2022 02/06/2022 Discontinued Start: 02-02-2022 End: 09-27-2024 take 1 tablet by mouth once daily oxybutynin ER (DITROPAN XL) 10 mg 24 hr tablet Indications: Urinary frequency Take 1 tablet by mouth once daily. 30 tablet 5 02/05/2023 04/26/2024 Discontinued Comment on above: Take 1 [...] Active Problems Problem Classification Problem Date Documented Date Episodic/Chronic Anxiety disorders (20 sources) Generalized anxiety disorder; Translations: [Generalized anxiety disorder] Onset: 07-03-2012 Resolved: 06-12-2018 09-04-2016 Chronic Chronic kidney disease (20 sources) Chronic kidney disease stage 3A ; Translations: [Stage 3a chronic kidney disease (HCC)] Onset: 11-26-2021 Chronic Coagulation and hemorrhagic disorders (20 sources) Acquired thrombocytopenia; Translations: [Thrombocytopenia, unspecified] Onset: 07-06-2008 Resolved: 10-15-2017 12-24-2017 Chronic Coronary atherosclerosis and other heart disease (20 sources) Coronary atherosclerosis; Translations: [Atherosclerotic heart disease of [place] coronary artery without angina pectoris] Onset: 07-05-2012 Chronic Disorders of lipid metabolism (20 sources) Dyslipidemia; Translations: [Hyperlipidemia, unspecified] Onset: 11-26-2021 11-26-2021 Chronic E Codes: Adverse effects of medical drugs (5 sources) Adverse reaction to drug; Translations: [Adverse effect of unspecified drugs, medicaments and biological substances, initial encounter] 12-25-2017 Episodic Esophageal disorders (20 sources) Gastroesophageal reflux disease; Translations: [Gastro-esophageal reflux disease without esophagitis] Onset: 01-11-2011 Resolved: 03-21-2020 02-02-2022 Chronic Essential hypertension (20 sources) Hypertensive disorder; Translations: [Essential (primary) hypertension] Onset: 06-11-2011 Chronic Fluid and electrolyte disorders (10 sources) Dehydration; Translations: [Dehydration] 02-10-2022 Episodic Headache; including migraine (20 sources) Migraine; Translations: [Migraine, unspecified, not intractable, without status migrainosus] Resolved: 06-12-2018 08-26-2021 Chronic Headache; including migraine (11 sources) Chronic headache disorder; Translations: [Chronic headache] 12-24-2017 Episodic Malaise and fatigue (7 sources) Asthenia; Translations: [Weakness] Onset: 04-26-2024 02-10-2022 Episodic Mood disorders (20 sources) Depressive disorder; Translations: [Depressive disorder] Onset: 05-13-2019 05-13-2019 Chronic Mood disorders (1 source) Mood disorders; Translations: [Depression, unspecified] Onset: 09-27-2024 Mycoses (5 sources) Onychomycosis; Translations: [Tinea unguium] 12-24-2017 Episodic Nonspecific chest pain (6 sources) Chest pain; Translations: [Chest pain, unspecified] Episodic Nutritional deficiencies (2 sources) Vitamin D deficiency; Translations: [Vitamin D deficiency, unspecified] Onset: 04-26-2024 04-26-2024 Chronic Other aftercare (3 sources) Patient encounter status; Translations: [Other local intermodal truck driver (current) drug therapy] Episodic Other circulatory disease (20 sources) Orthostatic hypotension; Translations: [Orthostatic hypotension] Onset: 02-06-2022 Episodic Other connective tissue disease (5 sources) Neuropathic pain; Translations: [Neuralgia and neuritis, unspecified] 12-24-2017 Episodic Other connective tissue disease (2 sources) Pain in finger of left hand; Translations: [Pain in left finger(s)] 01-14-2024 Episodic Other connective tissue disease (1 source) Triggering of digit; Translations: [Trigger finger, left ring finger] 02-04-2024 Episodic Other connective tissue disease (2 sources) Pain in left finger(s); Translations: [Finger pain, left] Onset: 02-04-2024 Episodic Other connective tissue disease (1 source) Pain in finger; Translations: [Pain in left finger(s)] 02-26-2025 Episodic Other lower respiratory disease (5 sources) Dyspnea; Translations: [Dyspnea, unspecified] 12-24-2017 Episodic Other lower respiratory disease (1 source) Lower respiratory tract infection; Translations: [Unspecified acute lower respiratory infection] 05-19-2024 Episodic Other lower respiratory disease (2 sources) Cough; Translations: [Acute cough] 05-25-2024 Episodic Other male genital disorders (2 sources) Swelling of scrotum ; Translations: [Other specified disorders of the male genital organs] 05-19-2024 Episodic Other nervous system disorders (4 sources) Carpal tunnel syndrome; Translations: [Carpal tunnel syndrome, right upper limb] 12-21-2021 Chronic Other nervous system disorders (1 source) Carpal tunnel syndrome of right wrist; Translations: [Carpal tunnel syndrome, right upper limb] 12-21-2021 Chronic Other nervous system disorders (1 source) Paresthesia; Translations: [Paresthesia of skin] 08-24-2024 Episodic Other nutritional; endocrine; and metabolic disorders (20 sources) Obese class II; Translations: [Obesity, unspecified] Onset: 02-05-2023 02-05-2023 Chronic Other nutritional; endocrine; and metabolic disorders (1 source) Obesity; Translations: [Obesity, unspecified] 10-26-2024 Chronic Other nutritional; endocrine; and metabolic disorders [...] Translations: [MK on CPAP] Onset: 11-07-2016 Chronic Residual codes; unclassified (1 source) Nicotine user; Translations: [Tobacco use] 10-26-2024 Episodic Skin and subcutaneous tissue infections (10 sources) Cellulitis of chest wall ; Translations: [Cellulitis of chest wall] 10-03-2018 Episodic Spondylosis; intervertebral disc disorders; other back problems (20 sources) Low back pain; Translations: [Lumbago] Onset: 11-20-2012 11-20-2012 Episodic Superficial injury; contusion (20 sources) Contusion of left great toe; Translations: [Contusion of left great toe without damage to nail, initial encounter] Onset: 07-08-2005 Resolved: 01-01-2006 04-23-2022 Episodic Unclassified (1 source) Acute cough; Translations: [Acute cough] Onset: 05-25-2024 Past or Other Problems Problem Classification Problem Date Documented Da te Episodic/Chronic Abdominal hernia (16 sources) Umbilical hernia; Translations: [Umbilical hernia without obstruction or gangrene] Onset: 08-30-2013 Resolved: 11-07-2016 11-07-2016 Episodic Biliary tract disease (20 sources) Gallstone; Translations: [Calculus of gallbladder without cholecystitis without obstruction] Onset: 06-11-2011 Resolved: 10-11-2013 10-11-2013 Episodic Coagulation and hemorrhagic disorders (20 sources) Secondary thrombocytopenia; Translations: [Other secondary thrombocytopenia] Onset: 04-04-2017 04-04-2017 Episodic Diabetes mellitus without complication (2 sources) Impaired fasting glycemia; Translations: [Impaired fasting glucose] Onset: 04-26-2024 04-26-2024 Episodic Gastritis and duodenitis (16 sources) Gastritis; Translations: [Unspecified gastritis and gastroduodenitis] Onset: 06-19-2005 Resolved: 01-01-2006 01-01-2006 Episodic Genitourinary symptoms and ill-defined conditions (20 sources) Increased frequency of urination; Translations: [Frequency of micturition] Onset: 05-15-2018 11-10-2018 Episodic Joint disorders and dislocations; trauma-related (20 sources) Chondromalacia of patella; Translations: [Chondromalacia patellae, unspecified knee] Onset: 06-26-2005 Resolved: 01-01-2006 01-01-2006 Chronic Other aftercare (1 source) Encounter for therapeutic drug level monitoring; Translations: [Encounter for therapeutic drug monitoring] Onset: 04-26-2024 Episodic Other and unspecified benign neoplasm (16 sources) Benign neoplasm of small intestine; Translations: [Benign neoplasm of unspecified part of small intestine] Onset: 10-23-2010 Resolved: 06-12-2018 06-12-2018 Episodic Other gastrointestinal disorders (16 sources) Dysphagia; Translations: [Dysphagia, unspecified] Onset: 10-22-2010 Resolved: 10-11-2013 10-11-2013 Episodic Other gastrointestinal disorders (16 sources) Dysphagia, unspecified; Translations: [Dysphagia, unspecified] Onset: 10-23-2010 Resolved: 10-11-2013 10-11-2013 Episodic Other gastrointestinal disorders (16 sources) Splenomegaly; Translations: [Splenomegaly, not elsewhere classified] Onset: 04-04-2017 Resolved: 06-12-2018 06-12-2018 Episodic Other lower respiratory disease (16 sources) Breathing painful; Translations: [Chest pain on breathing] Onset: 11-20-2012 Resolved: 10-11-2013 10-11-2013 Episodic Other male genital disorders (8 sources) Adult hydrocele; Translations: [Hydrocele, unspecified] Onset: 05-25-2024 05-25-2024 Episodic Other male genital disorders (1 source) Other specified disorders of the male genital organs; Translations: [Scrotal swelling] Onset: 05-20-2024 Episodic Other male genital disorders (1 source) Hydrocele, unspecified; Translations: [Hydrocele, unspecified] Onset: 09-27-2024 Episodic Other nervous system disorders (16 sources) Bilateral carpal tunnel syndrome; Translations: [Carpal tunnel syndrome, bilateral upper limbs] Onset: 01-21-2012 Resolved: 11-07-2016 11-07-2016 Chronic Other nutritional; endocrine; and metabolic disorders (20 sources) Obese class I; Translations: [Obesity, unspecified] Onset: 01-01-2006 Resolved: 02-05-2023 Chronic Residual codes; unclassified (20 sources) History of clinical finding in subject; Translations: [Personal history of other specified conditions] Onset: 02-04-2014 06-12-2018 Episodic Residual codes; unclassified (20 sources) Noncompliance with medication regimen; Translations: [Patient's other noncompliance with medication regimen] Onset: 07-25-2015 07-25-2015 Episodic Residual codes; unclassified (20 sources) Edema; Translations: [Edema, unspecified] Onset: 12-01-2017 12-01-2017 Episodic Unclassified (5 sources) hx of spleen repair 04-15-2022 Results Test Name Value Interpretation Reference Range Facility Emergency Department Summary on 02-26-2025 Emergency Department Summary [facility] Medical Records Department [address] [place] [address] Emergency Department Summary 02/26/25 MR#: [id number] Acct: [id number] Name: FELICIANO DIA Rep #: [id number] : [id number] 54 From: Jae Mendoza DO PCP: Dr. Laura Mederos MD Status:REG ER Location: ED HPI History of Present Illness HPI Narrative: Chief complaint and HPI: Left fourth finger pain. 54-year-old male with past medical history of neuropathy, HTN, migraines, CKD presents for evaluation of left fourth finger pain patient states for the past several months he has been having pain in his left fourth finger. States he was seen by orthopedics and received a steroid injection into the tendon. Patient states this improved his pain. Patient states that the finger pain returned and has been ongoing for months. He denies any fever, chills, numbness/tingling. States it feels better when he wears a glove. Denies any significant injury. States that he feels like there is swelling with a decreased range of motion. He has not followed back up with orthopedics. Review of systems: See HPI Medications: As listed on the chart Allergies: As listed on the chart PFSH: Per chart Vital signs: As listed on the chart. Reviewed. Physical exam: Gen: A O x3, NAD Head: Normocephalic, atraumatic Eyes: No sclera icterus, conjunctiva clear ENT: Moist mucous membranes CV: Regular rate Resp: Nonlabored respiration Musc: Full range of motion of the left hand including all the fingers and wrist, no swelling/erythema/ecchy mosis/crepitus/warmth to fingers/hand/wrist, radial pulse +2, good capillary refill, sensation intact, finger nontender to palpation Skin: Warm, dry Neuro: Alert, oriented, grossly intact, sensation intact Psych: Cooperative, appropriate mood and affect Chief Complaint: Upper Extremity Injury [facility] Medical History Benign essential HTN CKD (chronic kidney disease) Depressed Anxiety Migraines GERD (gastroesophageal reflux disease) Panic disorder Home Medications ???Medication ???Instructions ???Recorded ???Last Taken ???Type clonazepam 0.5 mg tablet 0.5 mg PO BID PRN Anxiety 10/28/16 12/23/17 History ibuprofen 600 mg tablet 600 mg PO TID PRN PRN Pain #14 tab s 05/19/18 Unknown Rx bupropion HCl 150 mg 24 hr tablet, 150 mg PO DAILY #30 tabs 5 Unknown Rx extended release doxazosin 1 mg tablet (Cardura) See Rx Instructions PO QHS #30 tab s 12/22/24 Unknown Rx amlodipine 10 mg tablet 10 mg PO DAILY #30 TABLETS 5 Unknown Rx atorvastatin 10 mg tablet 10 mg PO QHS #30 TABLETS 01/10/25 Unknown Rx escitalopram oxalate 20 mg tablet 20 mg PO DAILY #30 TABLETS Unknown Rx hydrochlorothiazide 25 mg tablet 25 mg PO DAILY #30 TABLETS 5 Unknown Rx losartan 100 mg tablet 100 mg PO DAILY #30 TABLETS Unknown Rx Allergy/AdvReac Type Severity Reaction Status Date / Time amoxicillin (Amoxicillin) Allergy Rash Verified 02/25/25 20:07 amitriptyline AdvReac Mental Verified 02/25/25 20:07 status change bupivacaine AdvReac Mental Verified 02/25/25 20:07 status change citalopram (From Celexa) AdvReac Other Verified 02/25/25 20:07 lisinopril AdvReac Mental Verified 02/25/25 20:07 status change metoprolol AdvReac Dizziness Verified 02/25/25 20:07 naproxen AdvReac Upset Verified 02/25/25 20:07 Stomach Family History Father Anxiety Arthritis CVA (cerebral vascular accident) Depression Hyperlipidemia Hypertension Mother Cancer unknown type Hypertension Migraine Surgical History S/P cholecystectomy History of left heart catheterization H/O hernia repair hx of spleen repair Social History household members: spouse current occupational status: unemployed Smoking Status: Never smoker Smokeless tobacco user: chewing tobacco alcohol intake: current alcohol intake frequency: holidays/special occasions only substance use type: does not use do you feel safe at home: Yes EXAM Physical Exam Const Vital Signs: 02/25/25 20:07 02/26/25 00:06 Temperature 96.6 F L Temperature Source Temporal Pulse Rate 67 68 Respiratory Rate 18 16 Blood Pressure 148/95 H Blood Pressure Mean 112 Pulse Ox 100 Oxygen Delivery Method Room Air MDM MDM MDM Narrative Medical decision making narrative: 54-year-old male with past medical history of neuropathy, HTN, migraines, CKD presents for evaluation of left fourth finger pain. Onset of symptoms several months. Had this previously in which he received a steroid injection to the tendo (more content not included)... Normal [facility] Hand Min 3 Viewson Hand Min 3 Views [facility] Imaging Services [address] [place], [place] [address] Hand Min 3 Views MR#: [id number] Acct: [id number] Name: FELICIANO DAI Rep #: [id number] : 1970 M 54 From: Douglas Valverde MD PCP: Care Physician,No Primary Status: PRE ER Study: Hand Min 3 Views Date of Exam: 02/25/25 Exam# [id number] Ordering Dr: Provider,Ed P. PROCEDURE: HAND MIN 3 VIEWS 02/25/2025 REASON FOR EXAM: PAIN AND SWELLING TECHNIQUE: HAND MIN 3 VIEWS COMPARISON: 01/11/2024 FINDINGS: Dorsal soft tissue swelling at the metacarpal head level. No fracture or dislocation. RAD/Hand Min 3 Views IMPRESSION: Soft tissue injury. Reading Location: [place] [address] CC: ED PHYSICIAN PROVIDER; No Primary Care Physician Steward/Stewardess Banquet: Signed Normal [facility] Internal Medicine Office Vis iton 10-29-2024 Internal Medicine Office Visit [facility] [address] [place] [address] [place] [address] OFFICE VISIT Date of Service: 10/29/24 MR#: [id number] Acct: [id number] Name: FELICIANO DAI Rep #: [id number] : 1970 Provider: VICENTA Beavers Age/Sex: 54/M Location: [facility] [place].[facility] Status: Signed Intake Vital Signs 10/15/24 [...] Intake Visit Reasons: 2 WK FU 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 Normal [facility] Office Visit Reporton 2024 Office Visit Report [facility] [address] [place] [address] OFFICE VISIT Date of Service: 10/11/24 MR#: [id number] Acct: [id number] Patient: FELICIANO DAI Rep #: [id number] : 1970 Provider: BIM NURSE Age/Sex: 54/M Location: [facility] [place] Status: Signed Intake Vital Signs 09/27/24 13:15 [...] (hypertension): Status: Chronic 10/11/24 1546 Date Laura Yañezer Signature: Date (if applicable) CC: Do [facility] 09-30-2024 [facility] (AGGENS4) FELICIANO DAI ([id number]) 1970 M Date Time Provider Department 09/30/24 NIRU MUNIZ4 During your visit today, we recorded the [...] Date Reviewed: 05/25/2024 Reviewed by: Carlene Cleveland, MUCKING MACHINE OPERATOR.SALES OPERATIONS COORDINATOR - Fully Assessed Reason for Visit: Appointment [...] Encounter Status:Closed by DELMI SANDOVAL on 09/30/24 [facility] 09-28-2024 CNPN Telephone (AGGENS4) FELICIANO DAI ([id number]) 1970 M Date Time Provider Department 09/28/24 RANI MURRAY AGGENS4 During your visit today, we recorded the following information about you: Delmi Sadnoval 09/28/2024 9:55 AM Signed Referral received. Attempt # 1 LVM for patient. No MyChart message sent to patient - MyChart message sent to patient.. Allergies As of [...] Date Reviewed: 05/25/2024 Reviewed by: Carlene Cleveland APRN.SALES OPERATIONS COORDINATOR - Fully Assessed Reason for Visit: Appointment [...] adult [N43.3] 05/25/2024 Encounter Status:Closed by DELMI SANODVAL on 09/28/24 Normal [facility] Internal Medicine Office Vis itodebbie 09-23-2024 Internal Medicine Office Visit [facility] [address] [place], [place] [address] OFFICE VISIT Date of Service: 09/27/24 MR#: [id number] Acct: [id number] Name: FELICIANO DAI Rep #: [id number] : 1970 Provider: Dr. 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 Normal [facility] Emergency Department Summary on 08-16-2024 Emergency Department Summary [facility] Medical Records Department [address] [place] [address] Emergency Department Summary 08/16/24 MR#: [id number] Acct: [id number] Name: FELICIANO DAI Rep #: [id number] : 1970 53 From: Chito Tanner DO [...] currently working. 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 He states that a lot of times he gets symptoms and becomes quite worried about them or he gets anxiety around people. He states that as we speak his upper lip is going down. [facility] Medical History Depressed Anxiety [...] no senso (more content not included)... [facility] (INTMWS ) FELICIANO DAI ([id number]) 1970 M Date Time Provider Department 05/25/24 11:40 AM [facility] During your visit today, we recorded the following information about you: Temperature Pulse Respiration Blood pressure 98.5 degrees 71/minute 18/minute 162/94 Weight 94.3 kg OscarCarlene monroy Violetta, LILIANA.SALES OPERATIONS COORDINATOR 05/25/2024 12:16 PM Signed CC: Patient presents with: cough x 1 month HPI Feliciano Dai is a 53 year old male who presents today for above. Patient was seen in [facility] on 05/25 with three week history of [...] OPY TRANSORAL DIAGNOSTIC 07/14/[address] Mcnair [facility] LAPAROSCOPY SURG CHOLECYSTECTOMY 08/24/13 LEFT HEART CATH,PERCUTANEOUS [...] Physical Ex (more content not included)... [facility] Tele[facility] (INTMWS) FELICIANO ([id number]) 1970 M Date Time Provider Department 05/25/24 [facility] During your visit today, we recorded the following information about you: Carlene Cleveland, LILIANA.[facility] 05/25/2024 12:34 PM Signed Please let the [...] Date Reviewed: 05/25/2024 Reviewed by: Carlene Cleveland, LILIANA.SALES OPERATIONS COORDINATOR - Fully Assessed Order(s):predniSONE (DELTASONE) 20 mg [...] a day as needed. Encounter Status:Closed by DEE FERNANDO on 05/25/24 Normal [facility] XR CHEST 2V FRONTAL/LATon XR CHEST 2V [...] thoracic spine IMPRESSION: No acute radiographic abnormality. Steward/Stewardess Banquet: [facility] Transcribe Date/Time: May 25 2024 12:24P Dictated by : BOUCHRA HODGES MD This examination was interpreted and the report reviewed and electronically signed by: BOUCHRA HODGES MD on May 25 2024 12:25PM EST [id number] Normal [facility] XR Chest PA and Lateralon IMPRESSION: No acute radiographic abnormality. Steward/Stewardess Banquet: [facility] Transcribe Date/Time: May 25 2024 12:24P Dictated [...] spine DIVISION OF RADIOLOGY Provider, Juan Carlos Peterson - 05/25/2024 * * *Final Report* * [...] spine IMPRESSION IMPRESSION: No acute radiographic abnormality. Steward/Stewardess Banquet: [facility] Transcribe Date/Time: May 25 2024 12:24P Dictated by : BOUCHRA HODGES MD This examination was interpreted and the report reviewed and electronically signed by: BOUCHRA HODGES MD on May 25 2024 12:25PM [facility] Radiology Study observation (narrative) [facility] XR Chest PA and LateralOrder ed By: Ccf Provider on 05-25-2024 [facility] Arleen 05-20-2024 [facility] Tele[facility] (UCWSTR) FELICIANO DAI ([id number]) 1970 M Date Time Provider Department 05/20/24 [facility] During your visit today, we recorded the following information about you: Silvia Rocha LPN 05/20/2024 4:06 PM Signed ----- Message from Barney Howell APRN.SALES OPERATIONS COORDINATOR sent at 05/20/2024 1:49 PM EDT ----- [...] Date Reviewed: 05/19/2024 Reviewed by: Rojas Steve APRN.SALES OPERATIONS COORDINATOR - Fully Assessed Reason for Visit: Results [...] Encounter Status:Closed by SILVIA ROCHA on 05/20/24 [facility] No Panel Informationon 05-20 IMPRESSION: Left greater than right bilateral hydroceles. Steward/Stewardess Banquet: [facility] Transcribe Date/Time: May 20 2024 1:02P Dictated by : JOAQUINA FRITZ MD This examination was interpreted and the report reviewed and electronically signed by: JOAQUINA FRITZ MD on May 20 2024 1:04PM [facility] DIVISION OF RADIOLOGY No Panel InformationOrdered By: Ccf Provider on 05-20-2024 [facility] US DOPPLER COMPLETEon 2023 US DOPPLER COMPLETE * * *Final Report* * * DATE OF EXAM: May 20 2024 1:01PM [facility] 1033 - US DOPPLER COMPLETE / PROCEDURE REASON: Scrotal swelling * * * * Physician Interpretation * * * * EXAMINATION: SCROTAL ULTRASOUND WITH DOPPLER IMAGING CLINICAL HISTORY: Scrotal swelling TECHNIQUE: Sonography of the scrotal contents with color flow and spectral Doppler imaging of the testicular vasculature was performed. Images were obtained and stored in a permanent archive. M: US_2 COMPARISON: None RESULT: RIGHT SCROTUM: Right testis: [...] IMPRESSION: Left greater than right bilateral hydroceles. Steward/Stewardess Banquet: [facility] Transcribe Date/Time: May 20 2024 1:02P Dictated by : JOAQUINA FRITZ MD This examination was interpreted and the report reviewed and electronically signed by: JOAQUINA FRITZ MD on May 20 2024 1:04PM EST [id number] Normal [facility] US SCROTUM AND CONTENTSon US SCROTUM AND CONTENTS * * *Final Report* * * DATE OF EXAM: May 20 2024 1:01PM [facility] 1063 - US SCROTUM AND CONTENTS / PROCEDURE REASON: Scrotal swelling * * * * Physician Interpretation * * * * EXAMINATION: SCROTAL ULTRASOUND WITH DOPPLER IMAGING CLINICAL HISTORY: Scrotal swelling TECHNIQUE: Sonography of the scrotal contents with color flow and spectral Doppler imaging of the testicular vasculature was performed. Images were obtained and stored in a permanent archive. M: [facility]_2 COMPARISON: None RESULT: RIGHT SCROTUM: Right testis: [...] IMPRESSION: Left greater than right bilateral hydroceles. Steward/Stewardess Banquet: [place] Transcribe Date/Time: May 20 2024 1:02P Dictated by : JOAQUINA FRITZ MD This examination was interpreted and the report reviewed and electronically signed by: JOAQUINA FRITZ MD on May 20 2024 1:04PM EST [id number] Normal [facility] US.doppler Scrotum and testi umer 05-20-2024 * * *Final Report* * * DATE OF EXAM: May 20 2024 1:01PM [facility] 1063 - US SCROTUM AND CONTENTS / [...] present Varicocele: absent DIVISION OF RADIOLOGY Provider, [facility] - 05/20/2024 * * *Final Report* * * DATE OF EXAM: May 20 2024 1:01PM [facility] 1063 - US SCROTUM AND CONTENTS / [...] IMPRESSION: Left greater than right bilateral hydroceles. Steward/Stewardess Banquet: [facility] Transcribe Date/Time: May 20 2024 1:02P Dictated by : JOAQUINA FRITZ MD This examination was interpreted and the report reviewed and electronically signed by: JOAQUINA FRITZ MD on May 20 2024 1:04PM EST [facility] Radiology Study observation (narrative) [facility] US.doppler Unspecified body regionon 05-20-2024 * * *Final Report* * * DATE OF EXAM: May 20 2024 1:01PM [facility] 1033 - US DOPPLER COMPLETE / PROCEDURE REASON: Scrotal swelling * * * * Physician Interpretation * * * * EXAMINATION: SCROTAL ULTRASOUND WITH DOPPLER IMAGING CLINICAL HISTORY: Scrotal swelling TECHNIQUE: Sonography of the scrotal contents with color flow and spectral Doppler imaging of the testicular vasculature was performed. Images were obtained and stored in a permanent archive. M: US_2 COMPARISON: None RESULT: RIGHT SCROTUM: Right testis: [...] Varicocele: absent DIVISION OF RADIOLOGY Provider, [facility] - 05/20/2024 * * *Final Report* * * DATE OF EXAM: May 20 2024 1:01PM [facility] 1033 - US DOPPLER COMPLETE / PROCEDURE [...] IMPRESSION: Left greater than right bilateral hydroceles. Steward/Stewardess Banquet: P[facility] Transcribe Date/Time: May 20 2024 1:02P Dictated by : JOAQUINA FRITZ MD This examination was interpreted and the report reviewed and electronically signed by: JOAQUINA FRITZ MD on May 20 2024 1:04PM [facility] Radiology Study observation (narrative) [facility] CNOVon 05-19-2024 CNOV Office Visit (WSTR ) FELICIANO DAI ([id number]) 1970 M Date Time Provider Department 05/19/24 4:15 PM ROJAS STEVE [facility] During your visit today, we recorded the following information about you: Temperature Pulse Respiration Blood pressure 98.2 degrees 77/minute 16/minute 126/80 Weight 95.3 kg Rojas Steve, LILIANA.SALES OPERATIONS COORDINATOR 05/19/2024 4:40 PM Signed Subjective HPI Nontoxic-appearing [...] OPY TRANSORAL DIAGNOSTIC 07/14/[address] Mcnair [facility] LAPAROSCOPY SURG CHOLECYSTECTOMY 08/24/13 LEFT HEART CATH,PERCUTANEOUS [...] and vomi (more content not included)... [facility] (INTMWS) DAIFELICIANO Navarro ([id number]) 1970 M Date Time Provider Department 04/30/24 NESHA BAKER INTWS During your visit today, we recorded the following information about you: Nesha Baker APRN.CNP 04/30/2024 1:36 PM Signed Please call and let patient know that labs are overall stable. Kidney function is better but still a little elevated and likely from the HCTZ that he takes. Please see if he feels any better since stopping the muscle relaxer. Thanks!! Fernando Lopez MA 04/30/2024 2:39 PM Signed Left [...] Date Reviewed: 04/26/2024 Reviewed by: Nesha Baker APRN.SALES OPERATIONS COORDINATOR - Fully Assessed Reason for Visit: Results [...] Encounter Status:Closed by NESHA BAKER on 04/30/24 Normal [facility](OH[facility]3 [facility] 25-hydroxyvitamin D3 [Mass/Vol] 32.7 ng/mL Normal 31.0-80.0 [facility] Comment on above: Order Comment: Speci men Type: BLOOD SPECIMENOrdering Facility: [facility] Address: [address] [place] [address] Performed By: #### 1 989-3 ####[facility] [id number] [place] [address] [place] CBC W Auto Differential pane l (Bld)on 04-26-2024 Basophils (Bld) [#/Vol] 0.04 10*3/uL Normal <0.11 [facility] Comment on above: Order Comment: Speci men Type: BLOOD SPECIMENOrdering Facility: [facility] Address: [address] [place] [address] Performed By: #### 5 7021-8 ####[facility] [id number] [place] [address] [place] Basophils/100 WBC (Bld) 0.8 % Normal [facility] Comment on above: Order Comment: Speci men Type: BLOOD SPECIMENOrdering Facility: [facility] Address: [address] [place] [address] Performed By: #### 5 7021-8 ####[facility] [id number] [place] [address] [place] Differential cell count method Nom (Bld) Auto Normal [facility] Comment on above: Order Comment: Speci men Type: BLOOD SPECIMENOrdering Facility: [facility] Address: [address] [place] [address] Performed By: #### 5 7021-8 ####[facility] [id number] [place] [address] [place] Eosinophils (Bld) [#/Vol] 0.05 10*3/uL Normal <0.46 [facility] Comment on above: Order Comment: Speci men Type: BLOOD SPECIMENOrdering Facility: [facility] Address: [address] [place] [address] Performed By: #### 5 7021-8 ####[facility] [id number] [place] [address] [place] Eosinophils/100 WBC (Bld) 1.1 % Normal [facility] Comment on above: Order Comment: Speci men Type: BLOOD SPECIMENOrdering Facility: [facility] Address: [address] [place] [address] Performed By: #### 5 7021-8 ####[facility] [id number] [place] [address] [place] Erythrocyte distribution width (RBC) [Ratio] 13.2 % Normal 11.5-15.0 [facility] Comment on above: Order Comment: Speci men Type: BLOOD SPECIMENOrdering Facility: [facility] Address: [address] [place] [address] Performed By: #### 5 7021-8 ####[facility] [id number] [place] [address] [place] Hematocrit (Bld) [Volume fraction] 41.6 % Normal 39.0-51.0 [facility] Comment on above: Order Comment: Speci men Type: BLOOD SPECIMENOrdering Facility: [facility] Address: [address] [place] [address] Performed By: #### 5 7021-8 ####[facility] [id number] [place] [address] [place] Hemoglobin (Bld) [Mass/Vol] 14.4 g/dL Normal 13.0-17.0 [facility] Comment on above: Order Comment: Speci men Type: BLOOD SPECIMENOrdering Facility: [facility] Address: [address] [place] [address] Performed By: #### 5 7021-8 ####[facility] [id number] [place] [address] [place] Immature granulocytes (Bld) [#/Vol] 10*3/uL Normal <0.10 [facility] Comment on above: Order Comment: Speci men Type: BLOOD SPECIMENOrdering Facility: [facility] Address: [address] [place] [address] Performed By: #### 5 7021-8 ####[facility] [id number] [place] [address] [place] Immature granulocytes/100 WBC (Bld) 0.2 % Normal [facility] Comment on above: Order Comment: Speci men Type: BLOOD SPECIMENOrdering Facility: [facility] Address: [address] [place] [address] Performed By: #### 5 7021-8 ####[facility] [id number] [place] [address] [place] Lymphocytes (Bld) [#/Vol] 0.99 10*3/uL Low 1.00-4.00 [facility] Comment on above: Order Comment: Speci men Type: BLOOD SPECIMENOrdering Facility: [facility] Address: [address] [place] [address] Performed By: #### 5 7021-8 ####[facility] [id number] [place] [address] [place] Lymphocytes/100 WBC (Bld) 20.8 % Normal [facility] Comment on above: Order Comment: Speci men Type: BLOOD SPECIMENOrdering Facility: [facility] Address: [address] [place] [address] Performed By: #### 5 7021-8 ####[facility] [id number] [place] [address] [place] MCH (RBC) [Entitic mass] 31.6 pg Normal 26.0-34.0 [facility] Comment on above: Order Comment: Speci men Type: BLOOD SPECIMENOrdering Facility: [facility] Address: [address] [place] [address] Performed By: #### 5 7021-8 ####[facility] [id number] [place] [address] [place] MCHC (RBC) [Mass/Vol] 34.6 g/dL Normal 30.5-36.0 [facility] Comment on above: Order Comment: Speci men Type: BLOOD SPECIMENOrdering Facility: [facility] Address: [address] [place] [address] Performed By: #### 5 7021-8 ####[facility] [id number] [place] [address] [place] MCV (RBC) [Entitic vol] 91.4 fL Normal 80.0-100.0 [facility] Comment on above: Order Comment: Speci men Type: BLOOD SPECIMENOrdering Facility: [facility] Address: [address] [place] [address] Performed By: #### 5 7021-8 ####[facility] [id number] [place] [address] [place] Monocytes (Bld) [#/Vol] 0.41 10*3/uL Normal <0.87 [facility] Comment on above: Order Comment: Speci men Type: BLOOD SPECIMENOrdering Facility: [facility] Address: [address] [place] [address] Performed By: #### 5 7021-8 ####[facility] [id number] [place] [address] [place] Monocytes/100 WBC (Bld) 8.6 % Normal [facility] Comment on above: Order Comment: Speci men Type: BLOOD SPECIMENOrdering Facility: [facility] Address: [address] [place] [address] Performed By: #### 5 7021-8 ####[facility] [id number] [place] [address] [place] Neutrophils (Bld) [#/Vol] 3.25 10*3/uL Normal 1.45-7.50 [facility] Comment on above: Order Comment: Speci men Type: BLOOD SPECIMENOrdering Facility: [facility] Address: [address] [place] [address] Performed By: #### 5 7021-8 ####[facility] LABCLIA [id number] [place] [address] [place] Neutrophils/100 WBC (Bld) 68.5 % Normal [facility] Comment on above: Order Comment: Speci men Type: BLOOD SPECIMENOrdering Facility: [facility] Address: [address] [place] [address] Performed By: #### 5 7021-8 ####[facility]CLIA [id number] [place] [address] [place] Nucleated RBC (Bld) [#/Vol] 10*3/uL Normal <0.01 [facility] Comment on above: Order Comment: Speci men Type: BLOOD SPECIMENOrdering Facility: [facility] Address: [address] [place] [address] Performed By: #### 5 7021-8 ####[facility] LABCLIA [id number] [place] [address] [place] Nucleated RBC/100 WBC (Bld) [Ratio] 0.0 /100 WBC Normal [facility] Comment on above: Order Comment: Speci men Type: BLOOD SPECIMENOrdering Facility: [facility] Address: [address] [place] [address] Performed By: #### 5 7021-8 ####[facility] LABCLIA [id number] [place] [address] [place] Platelet mean volume (Bld) [Entitic vol] 13.0 fL High 9.0-12.7 [facility] Comment on above: Order Comment: Speci men Type: BLOOD SPECIMENOrdering Facility: [facility] Address: [address] [place] [address] Performed By: #### 5 7021-8 ####[facility]CLIA [id number] [place] [address] [place] Platelets (Bld) [#/Vol] 94 10*3/uL Low 150-400 [facility] Comment on above: Order Comment: Speci men Type: BLOOD SPECIMENOrdering Facility: [facility] Address: [address] [place] [address] Result Comment: No c lot detected. Performed By: #### 5 7021-8 ####[facility]CLIA [id number] [place] [address] [place] RBC (Bld) [#/Vol] 4.55 10*6/uL Normal 4.20-6.00 [facility] Comment on above: Order Comment: Speci men Type: BLOOD SPECIMENOrdering Facility: [facility] Address: [address] [place] [address] Performed By: #### 5 7021-8 ####[facility] LABCLIA [id number] [place] [address] [place] WBC (Bld) [#/Vol] 4.75 10*3/uL Normal 3.70-11.00 [facility] Comment on above: Order Comment: Speci men Type: BLOOD SPECIMENOrdering Facility: [facility] Address: [address] [place] [address] Performed By: #### 5 7021-8 ####[facility] LABCLIA [id number] [place] [address] [place] CNOVon 04-26-2024 CNOV Office Visit (INTMWS ) FELICIANO DAI ([id number]) 1970 M Date Time Provider Department 04/26/24 2:40 PM NESHA BAKER INTMWS During your visit today, we recorded the following information about you: Pulse Blood pressure Weight 64/minute 120/84 95.3 kg Nesha Baker APRN.SALES OPERATIONS COORDINATOR 04/26/2024 3:04 PM Signed SUBJECTIVE Feliciano Dai is a 53 year old male here today for an ER follow up. Chief Complaint Patient presents with: ER F/U: [facility] 04/17/24 for hypertension Today he is complaining for increase fatigue and questions if one of his medication is causing the fatigue HPI Feliciano Dai is a 53 year old male. He is an established patient of Curtis Mcdonald MD. Here today for an ER follow up, in [facility] ER on 04/17 for hypertension. ER notes [...] intact. Psych (more content not included)... Normal [facility] Comprehensive metabolic 2000 panelon 04-26-2024 Albumin [Mass/Vol] 4.2 g/dL Normal 3.9-4.9 [facility] Comment on above: Order Comment: Speci men Type: BLOOD SPECIMENOrdering Facility: [facility] Address: [address] [place] [address] Performed By: #### 5 0190-8, 3016-3, 83447-1, 67654-2 ####[facility] [id number] [place] [address] [place] ALP [Catalytic activity/Vol] 86 U/L Normal 38-113 [facility] Comment on above: Order Comment: Speci men Type: BLOOD SPECIMENOrdering Facility: [facility] Address: [address] [place] [address] Performed By: #### 5 0190-8, 3016-3, 29823-1, 66463-2 ####[facility] [id number] [place] [address] [place] ALT [Catalytic activity/Vol] 26 U/L Normal 10-54 [facility] Comment on above: Order Comment: Speci men Type: BLOOD SPECIMENOrdering Facility: [facility] Address: [address] [place] [address] Performed By: #### 5 0190-8, 3016-3, 16829-7, 89400-1 ####[facility] [id number] [address] [address] [place] Anion gap [Moles/Vol] 8 mmol/L Normal 8-15 [facility] Comment on above: Order Comment: Speci men Type: BLOOD SPECIMENOrdering Facility: [facility] Address: [address] [place] [address] Performed By: #### 5 0190-8, 3016-3, 49580-2, 25722-6 ####[facility]CL[facility] [id number] [address] [address] [place] AST [Catalytic activity/Vol] 19 U/L Normal 14-40 [facility] Comment on above: Order Comment: Speci men Type: BLOOD SPECIMENOrdering Facility: [facility] Address: [address] [place] [address] Performed By: #### 5 0190-8, 3016-3, 02134-1, 60723-0 ####[facility] LABIA [id number] [address] [address] [place] Bilirubin [Mass/Vol] 0.7 mg/dL Normal 0.2-1.3 [facility] Comment on above: Order Comment: Speci men Type: BLOOD SPECIMENOrdering Facility: [facility] Address: [address] [place] [address] Performed By: #### 5 0190-8, 3016-3, 53714-3, ####[facility] LABIA [id number] [place] [id number] [place] Calcium [Mass/Vol] 9.2 mg/dL Normal 8.5-10.2 [facility] Comment on above: Order Comment: Speci men Type: BLOOD SPECIMENOrdering Facility: [facility] Address: [address] [place] [address] Performed By: #### 5 0190-8, 3016-3, 53174-8, ####[facility] LABIA [id number] [address] [address] [place] Chloride [Moles/Vol] 100 mmol/L Normal 98-107 [facility] Comment on above: Order Comment: Speci men Type: BLOOD SPECIMENOrdering Facility: [facility] Address: [address] [place] [address] Performed By: #### 5 0190-8, 3016-3, 86109-2, ####[facility]CL[facility] [id number] [place] [id number] [place] CO2 [Moles/Vol] 29 mmol/L Normal 22-30 [facility] Comment on above: Order Comment: Speci men Type: BLOOD SPECIMENOrdering Facility: [facility] Address: [address] [place] [address] Performed By: #### 5 0190-8, 3016-3, , ####[facility]CL[facility] [id number] [place] [address] [place] Creatinine [Mass/Vol] 1.37 mg/dL High 0.73-1.22 [facility] Comment on above: Order Comment: Speci men Type: BLOOD SPECIMENOrdering Facility: [facility] Address: [address] [place] [address] Performed By: #### 5 0190-8, 6-3, , ####[facility]IA [id number] [place] [address] [place] Creatinine and Glomerular filtration rate.predicted panel (S/P/Bld) 62 mL/min/1.73m??? Normal >=60 [facility] Comment on above: Order Comment: Speci men Type: BLOOD SPECIMENOrdering Facility: [facility] Address: [address] [place] [address] Result Comment: Tabby mated Glomerular Filtration Rate [...] actual GFR. Performed By: #### 5 0190-8, 3016-3, 05082-8, ####[facility]CL[facility] [id number] [address] [address] [place] Glucose [Mass/Vol] 94 mg/dL Normal 74-99 [facility] Comment on above: Order Comment: Speci men Type: BLOOD SPECIMENOrdering Facility: [facility] Address: [address] [place] [address] Result Comment: The [place] [employer] (ADA) provides guidance for cutoff [...] Standards of Medical Care in Diabetes 2016, [place] [employer]. Diabetes Care. 2016.39(Suppl 1). Performed By: #### 5 0190-8, 3016-3, 89997-4, 10691-5 ####[facility] LABCLIA [id number] [place] [address] [place] Potassium [Moles/Vol] 3.9 mmol/L Normal 3.7-5.1 [facility] Comment on above: Order Comment: Speci men Type: BLOOD SPECIMENOrdering Facility: [facility] Address: [address] [place] [address] Performed By: #### 5 0190-8, 3016-3, 56457-5, 21390-1 ####[facility] LABCLIA [id number] [place] [id number] [place] Protein [Mass/Vol] 6.7 g/dL Normal 6.3-8.0 [facility] Comment on above: Order Comment: Speci men Type: BLOOD SPECIMENOrdering Facility: [facility] Address: [address] [place], [place] [address] Performed By: #### 5 0190-8, 3016-3, 29043-0, ####[facility] LABCLIA [id number] [place] [address] [place] Sodium [Moles/Vol] 137 mmol/L Normal 136-144 [facility] Comment on above: Order Comment: Speci men Type: BLOOD SPECIMENOrdering Facility: [facility] Address: [address] [place] [address] Performed By: #### 5 0190-8, 3016-3, 51693-5, ####[facility] LABIA [id number] [place] [address] [place] Urea nitrogen [Mass/Vol] 16 mg/dL Normal 9-24 [facility] Comment on above: Order Comment: Speci men Type: BLOOD SPECIMENOrdering Facility: [facility] Address: [address] [place] [address] Performed By: #### 5 0190-8, 6-3, 24650-3, ####[facility] LABIA [id number] [place] [address] [place] HbA1c (Bld)on 04-26-2024 Average glucose Estimated from glycated hemoglobin (Bld) [Mass/Vol] 85 mg/dL Normal [facility] Comment on above: Order Comment: Speci men Type: BLOOD SPECIMENOrdering Facility: [facility] Address: [address] [place] [address] Result Comment: eAG: (Estimated average glucose) is a calculated value from HgbA1c and is player services representative of the average blood glucose level in the last 2-3 month period. Performed By: #### 5 5454-3 ####[facility] LABIA [id number] [place] [address] [place] HbA1c (Bld) [Mass fraction] 4.6 % Normal 4.3-5.6 [facility] Comment on above: Order Comment: Speci men Type: BLOOD SPECIMENOrdering Facility: [facility] Address: [address] [place], [place] [id number] Result Comment: [place] Diabetes Association guidelines indicate that patients with HgbA1c in the range 5.7-6.4% are at increased risk for development of diabetes, and intervention by lifestyle modification may be beneficial. HgbA1c greater or equal to 6.5% is considered diagnostic of diabetes. Performed By: #### 5 5454-3 ####[facility] LABCLIA [id number] [place] [id number] [place] Iron and Iron binding capaci ty panelon 04-26-2024 Iron [Mass/Vol] 89 ug/dL Normal 41-186 [facility] Comment on above: Order Comment: Speci men Type: BLOOD SPECIMENOrdering Facility: [facility] Address: [address] [place] [address] Performed By: #### 5 0190-8, 3016-3, 68377-0, 45329-4 ####[facility] LABCLIA [id number] [place] [address] [place] Iron binding capacity [Mass/Vol] 268 ug/dL Normal 232-386 [facility] Comment on above: Order Comment: Speci men Type: BLOOD SPECIMENOrdering Facility: [facility] Address: [address] [place] [address] Performed By: #### 5 0190-8, 3016-3, 75886-2, 13585-1 ####[facility] LABIA [id number] [place] [id number] [place] Iron/TIBC [Molar ratio] 33.2 % Normal 15.0-57.0 [facility] Comment on above: Order Comment: Speci men Type: BLOOD SPECIMENOrdering Facility: [facility] Address: [address] [place] [address] Performed By: #### 5 0190-8, 3016-3, 26518-1, 40616-4 ####[facility]CL[facility] [id number] [place] [id number] [place] Magnesium SerPl-ncon 04-26 Magnesium [Mass/Vol] 2.1 mg/dL Normal 1.7-2.3 [facility] Comment on above: Order Comment: Speci men Type: BLOOD SPECIMENOrdering Facility: [facility] Address: [address] [place] [address] Performed By: #### 5 0190-8, 3016-3, 71729-7, 00270-2 ####[facility]CL[facility] [id number] [place] [id number] [place] TSH SerPl-aCncon 04-26-2024 TSH Qn 2.590 m[IU]/L Normal 0.270-4.200 [facility] Comment on above: Order Comment: Speci men Type: BLOOD SPECIMENOrdering Facility: [facility] Address: [address] [place] [address] Performed By: #### 5 0190-8, 3016-3, 16316-3, 32191-9 ####[facility] [id number] [place] [id number] [place] Vit B12 SerPl-mCncon 024 Cobalamin (Vitamin B12) [Mass/Vol] 388 pg/mL Normal 232-1245 [facility] Comment on above: Order Comment: Speci men Type: BLOOD SPECIMENOrdering Facility: [facility] Address: [address] [place] [address] Performed By: #### 2 132-9 ####[facility] [id number] [place] [id number] [place] Emergency Department Summary on 04-17-2024 Emergency Department Summary [facility] Medical Records Department [address] [place] [address] Emergency Department Summary 04/17/24 MR#: [id number] Acct: [id number] Name: FELICIANO DAI Rep #: [id number] : 1970 53 From: Matthias Garcia MD [...] all 4 extremities. 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 Dorsi plantarflexion intact. No edema. Neurologically [...] rales, rhonchi (more content not included)... Normal [facility] Additional Injections: L rin g A1on 06-26-2024 Dylan Morrow V, DO 02/04/2024 2:36 PM Additional Injections: L ring A1 for trigger finger Informed Consent Consent Obtained: Verbal [place] Protocol SIGN IN TIME OUT 02/04/2024 2:33 PM The procedure site was prepped in the usual sterile fashion. Medications: 3 mg betamethasone acetate-betamethasone sodium phosphate 6 mg/mL Anesthetics: 0.5 mL lidocaine (PF) 10 mg/mL (1 %) Outcome: tolerated well, no immediate complications Post-injection instructions were reviewed with the patient and the patient voiced understanding of these instructions. 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 [facility] Office Visit (UCWSTR ) DAIFELICIANO Navarro ([id number]) 1970 M Date Time Provider Department 01/14/24 1:30 PM NIRALI CAREYIAN During your visit today, we recorded the following information about you: Temperature Pulse Respiration Blood pressure 97.6 degrees 75/minute 21/minute 120/80 Weight 96.1 kg Nirali Carey APRN.CNP 01/14/2024 2:55 PM Signed Subjective HPI HPI [...] OPY TRANSORAL DIAGNOSTIC 07/14/[address] Mcnair [facility] LAPAROSCOPY SURG CHOLECYSTECTOMY 08/24/13 LEFT HEART CATH,PERCUTANEOUS [...] IMPRESSION: N (more content not included)... Normal [facility] XR DIGIT 3V FRONTAL/LAT/OBL LTon 01-14-2024 XR [...] Preserved joint spaces. IMPRESSION: No radiographic abnormalities Steward/Stewardess Banquet: PSCÁngel Transcribe Date/Time: Jan 14 2024 2:02P Dictated by : GASPER SHANKS MD This examination was interpreted and the report reviewed and electronically signed by: GASPER SHANKS MD on Jan 14 2024 2:07PM EST [id number] Normal [facility] XR Finger - left AP and Late ral and obliqueon 01-14-2024 IMPRESSION: No radiographic abnormalities Steward/Stewardess Banquet: PSCB Transcribe Date/Time: Jan 14 2024 2:02P Dictated by : GASPER SHANKS MD This examination was interpreted and the report reviewed and electronically signed by: GASPER SHANKS MD on Jan 14 2024 2:07PM EST DIVISION OF RADIOLOGY * * *Final [...] Preserved joint spaces. DIVISION OF RADIOLOGY Provider, [facility] - 01/14/2024 * * *Final Report* * [...] joint spaces. IMPRESSION IMPRESSION: No radiographic abnormalities Steward/Stewardess Banquet: SYLVESTER Transcribe Date/Time: Jan 14 2024 2:02P Dictated by : GASPER SHANKS MD This examination was interpreted and the report reviewed and electronically signed by: GASPER SHANKS MD on Jan 14 2024 2:07PM [facility] Radiology Study observation (narrative) [facility] XR Finger - left AP and Late ral and obliqueOrdered By: Ccf Provider on 01-14-2024 [facility] CNOVon 11-27-2023 CNOV Office Visit (INTMWS ) FELICIANO DAI ([id number]) 1970 M Date Time Provider Department 11/27/23 12:40 PM CARLENE [facility] INTMWS During your visit today, we recorded the following information about you: Pulse Respiration Blood pressure Weight 77/minute 18/minute 130/80 94.3 kg Carlene Cleveland, MUCKING MACHINE OPERATOR.SALES OPERATIONS COORDINATOR 11/27/2023 1:01 PM Signed CC Patient presents [...] OPY TRANSORAL DIAGNOSTIC 07/14/[address] Mcnair [facility] LAPAROSCOPY SURG CHOLECYSTECTOMY 08/24/13 LEFT HEART CATH,PERCUTANEOUS [...] Breath sounds: (more content not included)... Normal [facility] CNOVon 11-14-2023 CNOV Office Visit (INTMWS ) FELICIANO DAI ([id number]) 1970 M Date Time Provider Department 11/14/23 11:40 AM CARLENE CLEVEALND INTMWS During your visit today, we recorded the following information about you: Pulse Respiration Blood pressure Weight 66/minute 18/minute 188/106 95.7 kg Carlene Cleveland, MUCKING MACHINE OPERATOR.SALES OPERATIONS COORDINATOR 11/14/2023 12:44 PM Signed CC: Patient presents [...] OPY TRANSORAL DIAGNOSTIC 07/14/[address] Mcnair [facility] LAPAROSCOPY SURG CHOLECYSTECTOMY 08/24/13 LEFT HEART CATH,PERCUTANEOUS [...] normal. Cardiovascular: (more content not included)... Normal [facility] Absolute lymphocyte counton 02-02-2022 Lymphocytes Auto (Unsp spec) [#/Vol] 0.78 10*3/uL 0.83-4.51 [facility] Work Phone: Basophil percentageon 2021 Bilirubin [Mass/Vol] 0.60 mg/dL 0.20-1.00 [facility] Work Phone: Comment on above: For patients on eltr ombopag therapy, use of Dimension [place] TBIL is not recommended. Chloride [Moles/Vol] 102 mmol/L 98-107 [facility] Work Phone: Glucose [Mass/Vol] 92 mg/dL 74-106 [facility] Work Phone: Potassium [Moles/Vol] 3.3 mmol/L 3.5-5.1 [facility] Work Phone: Protein [Mass/Vol] 6.8 g/dL 6.4-8.2 [facility] Work Phone: Sodium [Moles/Vol] 138 mmol/L 136-145 [facility] Work Phone: Basophils/100 WBC (Bld) 1.3 % 0-1 [facility] Work Phone: Eosinophils/100 WBC (Bld) 1.1 % 0-5 [facility] Work Phone: Neutrophils (Bld) [#/Vol] 2.6 10*3/uL 2.0-7.7 [facility] Work Phone: Neutrophils/100 WBC (Bld) 68.5 % 47-70 [facility] Work Phone: WBC (Bld) [#/Vol] 3.8 10*3/uL 4.4-11.0 [facility] Work Phone: Blood erythrocytes count (nu mber/volume)on 02-02-2022 RBC (Bld) [#/Vol] 4.80 10*6/uL 4.6-6.2 [facility] Work Phone: Blood hemoglobin measurement (mass/volume)on 02-02-2022 Hemoglobin (Bld) [Mass/Vol] 15.3 g/dL 13.0-16.5 [facility] Work Phone: Blood lymphocytes/100 leukoc yteson 02-02-2022 Lymphocytes/100 WBC (Bld) 20.8 % 19-41 [facility] Work Phone: Blood manual differential co mment interpretation (narrative result)on 02-02-2022 Manual differential comment [place] (Bld) [Interp] SCANNED [facility] Work Phone: Comment on above: THROMBOCYTOPENIA NOT ED Blood monocytes/100 leukocyt eson 02-02-2022 Monocytes/100 WBC (Bld) 8.0 % 0-10 [facility] Work Phone: Blood platelet mean volumeon 02-02-2022 Platelet mean volume (Bld) [Entitic vol] 12.1 fL 6.2-12.0 [facility] Work Phone: Determination of erythrocyte mean corpuscular volume (MCV)on 02-02-2022 MCV (RBC) [Entitic vol] 91.7 fL 80-94 [facility] Work Phone: Direct bilirubinon Bilirubin.direct [Mass/Vol] 0.17 mg/dL 0.00-0.30 [facility] Work Phone: Hematocrit Auto (Bld) [Volum e fraction]on 02-02-2022 Hematocrit (Bld) [Volume fraction] 44.0 % 40-54 [facility] Work Phone: Laboratory - Chemistry and C hemistry - challengeon 02-02-2022 ALP [Catalytic activity/Vol] 81 U/L 45-117 [facility] Work Phone: ALT [Catalytic activity/Vol] 29 U/L 16-61 [facility] Work Phone: CO2 [Moles/Vol] 29.0 mmol/L 21.0-32.0 [facility] Work Phone: Globulin (S) [Mass/Vol] 3.2 g/dL 2.2-4.2 [facility] Work Phone: Urea nitrogen/Creatinine [Mass ratio] 15.3 mg/mg 10-20 [facility] Work Phone: Laboratory - Hematology and Cell countson 02-02-2022 Erythrocyte distribution width (RBC) [Entitic vol] 43.2 fL 35.1-43.9 [facility] Work Phone: [phone] Erythrocyte distribution width (RBC) [Ratio] 12.8 % 11.6-14.6 [facility] Work Phone: [phone] Immature granulocytes/100 WBC (Bld) 0.300 % 0.0-0.9 [facility] Work Phone: [phone] Comment on above: IG% - Immature Granu locytes (promyelocytes, myelocytes and metamyelocytes) > 1% indicates that a LEFT SHIFT is Present. MCH (RBC) [Entitic mass] 31.9 pg 27.0-32.0 [facility] Work Phone: [phone] Nucleated RBC/100 WBC (Bld) [Ratio] 0 % 0-5 [facility] Work Phone: [phone] MCHC Auto (RBC) [Mass/Vol]on 02-02-2022 MCHC (RBC) [Mass/Vol] 34.8 g/dL 32-36 [facility] Work Phone: [phone] No Panel Informationon 02-02 Troponin I High Sensitivity 11 pg/mL 3.0-78.0 [facility] Work Phone: [phone] Comment on above: Please Note: New Aviva t Units and Gender Specific Reference Ranges. For more information see Policy Stat Procedure [place] High Sensitivity Troponin (TNIH) and attachments. Estimated Creatinine Clearance Calc 46.64 ml/min [facility] Work Phone: [phone] Estimated GFR (MDRD) Amer 58 mL/min >60 [facility] Work Phone: [phone] Comment on above: GFR Calc Estimated GFR (MDRD) Non-Af Amer 48 mL/min >60 [facility] Work Phone: [phone] Comment on above: Non- GFR Calc Platelets bldon 02-02-2022 Platelets (Bld) [#/Vol] 77 10*3/uL 150-450 [facility] Work Phone: [phone] Serum or plasma albumin kuldip urement (mass/volume)on 02-02-2022 Albumin [Mass/Vol] 3.6 g/dL 3.2-5.0 [facility] Work Phone: [phone] Serum or plasma calcium kuldip urement (mass/volume)on 02-02-2022 Calcium [Mass/Vol] 8.5 mg/dL 8.5-10.1 [facility] Work Phone: Serum or plasma creatinine m easurement (mass/volume)on 02-02-2022 Creatinine [Mass/Vol] 1.63 mg/dL 0.70-1.30 [facility] Work Phone: Comment on above: The validity of the calculated GFR & GFRAA in patients over 70 years has not been determined. Clinical correlation is essential. Serum or plasma urea nitroge n measurement (mass/volume)on 02-02-2022 Urea nitrogen [Mass/Vol] 25 mg/dL 7-18 [facility] Work Phone: Thin prep Papanicolaou smear with manual screeningon 02-02-2022 Thin prep Papanicolaou smear with manual screening 15 U/L 15-37 [facility] Work Phone: Thin prep Papanicolaou smear with manual screening 7 5-15 [facility] Work Phone: Vital Signs Date Time Vital Sign Value Performing Clinician Faci lity 02-26-2025 00:49-0400 Body temperature 96.6 [degF] No Primary Care Physician [facility] 02-26-2025 00:49-0400 Diastolic blood pressure 95 mm[Hg] No Primary Care Physician [facility] 02-26-2025 00:49-0400 Heart rate 68 /min No Primary Care Physician [facility] 02-26-2025 00:49-0400 Respiratory rate 16 /min No Primary Care Physician [facility] 02-26-2025 00:49-0400 SaO2% (BldA) [Mass fraction] 100 % No Primary Care Physician [facility] 02-26-2025 00:49-0400 Systolic blood pressure 148 mm[Hg] No Primary Care Physician [facility] 02-25-2025 20:07-0400 Body height 165.1 cm No Primary Care Physician [facility] 02-25-2025 20:07-0400 Body mass index (BMI) [Ratio] 34.7 kg/m2 No Primary Care Physician [facility] 02-25-2025 20:07-0400 Body weight 94.8 kg No Primary Care Physician [facility] 10-29-2024 13:11-0400 Diastolic blood pressure 88 mm[Hg] No Primary Care Physician [facility] 10-29-2024 13:11-0400 Systolic blood pressure 142 mm[Hg] No Primary Care Physician [facility] 10-29-2024 12:26-0400 Body mass index (BMI) [Ratio] 34.6 kg/m2 No Primary Care Physician [facility] 10-29-2024 12:26-0400 Body temperature 96.1 [degF] No Primary Care Physician [facility] 10-29-2024 12:26-0400 Body weight 94.34 kg No Primary Care Physician [facility] 10-29-2024 12:26-0400 Heart rate 72 /min No Primary Care Physician [facility] 10-29-2024 12:26-0400 Respiratory rate 16 /min No Primary Care Physician [facility] 10-29-2024 12:26-0400 SaO2% (BldA) [Mass fraction] 97 % No Primary Care Physician [facility] 05-25-2024 11:57-0400 Body mass index (BMI) [Ratio] 34.6 kg/m2 Carlene Cleveland APRN.SALES OPERATIONS COORDINATOR Work Phone: [facility] 05-25-2024 11:57-0400 Body temperature 98.49 [degF] Carlene Cleveland APRN.SALES OPERATIONS COORDINATOR Work Phone: [facility] 05-25-2024 11:57-0400 Body weight 94.3 kg Carlene Cleveland APRN.SALES OPERATIONS COORDINATOR Work Phone: [facility] 05-25-2024 11:57-0400 Diastolic blood pressure 94 mm[Hg] Carlene Cleveland APRN.SALES OPERATIONS COORDINATOR Work Phone: [facility] 05-25-2024 11:57-0400 Heart rate 71 /min Carlene Cleveland APRN.SALES OPERATIONS COORDINATOR Work Phone: [facility] 05-25-2024 11:57-0400 Respiratory rate 18 /min Carlene Oscar MUCKING MACHINE OPERATOR.SALES OPERATIONS COORDINATOR Work Phone: [facility] 05-25-2024 11:57-0400 SaO2% (BldA) [Mass fraction] 95 % Carlene HopkinsOscar MUCKING MACHINE OPERATOR.SALES OPERATIONS COORDINATOR Work Phone: [facility] 05-25-2024 11:57-0400 Systolic blood pressure 162 mm[Hg] Carlene HopkinsOscar MUCKING MACHINE OPERATOR.SALES OPERATIONS COORDINATOR Work Phone: [facility] 05-19-2024 15:59-0400 Body mass index (BMI) [Ratio] 34.96 kg/m2 Rojas Dennistayler MUCKING MACHINE OPERATOR.SALES OPERATIONS COORDINATOR Work Phone: [facility] 05-19-2024 15:59-0400 Body temperature 98.2 [degF] Rojas Steve MUCKING MACHINE OPERATOR.SALES OPERATIONS COORDINATOR Work Phone: [facility] 05-19-2024 15:59-0400 Body weight 95.3 kg Rojas Dennistayler MUCKING MACHINE OPERATOR.SALES OPERATIONS COORDINATOR Work Phone: [facility] 05-19-2024 15:59-0400 Diastolic blood pressure 80 mm[Hg] Rojas Steve MUCKING MACHINE OPERATOR.SALES OPERATIONS COORDINATOR Work Phone: [facility] 05-19-2024 15:59-0400 Heart rate 77 /min Rojas Steve MUCKING MACHINE OPERATOR.SALES OPERATIONS COORDINATOR Work Phone: [facility] 05-19-2024 15:59-0400 Respiratory rate 16 /min Rojas Dennistayler MUCKING MACHINE OPERATOR.SALES OPERATIONS COORDINATOR Work Phone: [facility] 05-19-2024 15:59-0400 SaO2% (BldA) [Mass fraction] 98 % Rojas Dennistayler MUCKING MACHINE OPERATOR.SALES OPERATIONS COORDINATOR Work Phone: [facility] 05-19-2024 15:59-0400 Systolic blood pressure 126 mm[Hg] Rojas Dennisletayler MUCKING MACHINE OPERATOR.SALES OPERATIONS COORDINATOR Work Phone: [facility] 04-26-2024 14:31-0400 Diastolic blood pressure 84 mm[Hg] Nesha Baker MUCKING MACHINE OPERATOR.SALES OPERATIONS COORDINATOR Work Phone: [facility] 04-26-2024 14:31-0400 Systolic blood pressure 120 mm[Hg] Nesha Elizabeth MUCKING MACHINE OPERATOR.SALES OPERATIONS COORDINATOR Work Phone: [facility] 04-26-2024 14:29-0400 Body mass index (BMI) [Ratio] 34.96 kg/m2 Nesha Elizabeth MUCKING MACHINE OPERATOR.SALES OPERATIONS COORDINATOR Work Phone: [facility] 04-26-2024 14:29-0400 Body weight 95.3 kg Nesha Elizabeth MUCKING MACHINE OPERATOR.SALES OPERATIONS COORDINATOR Work Phone: [facility] 04-26-2024 14:29-0400 Heart rate 64 /min Nesha Elizabeth MUCKING MACHINE OPERATOR.SALES OPERATIONS COORDINATOR Work Phone: [facility] 04-26-2024 14:29-0400 SaO2% (BldA) [Mass fraction] 98 % Nesha Elizabeth MUCKING MACHINE OPERATOR.SALES OPERATIONS COORDINATOR Work Phone: [facility] 01-14-2024 13:36-0400 Body mass index (BMI) [Ratio] 35.26 kg/m2 Nirali Carey MUCKING MACHINE OPERATOR.SALES OPERATIONS COORDINATOR Work Phone: [facility] 01-14-2024 13:36-0400 Body temperature 97.59 [degF] Nirali Carey MUCKING MACHINE OPERATOR.SALES OPERATIONS COORDINATOR Work Phone: [facility] 01-14-2024 13:36-0400 Body weight 96.1 kg Nirali Carey MUCKING MACHINE OPERATOR.SALES OPERATIONS COORDINATOR Work Phone: [facility] 01-14-2024 13:36-0400 Diastolic blood pressure 80 mm[Hg] Nirali Carey MUCKING MACHINE OPERATOR.SALES OPERATIONS COORDINATOR Work Phone: [facility] 01-14-2024 13:36-0400 Heart rate 75 /min Nirali Carey MUCKING MACHINE OPERATOR.SALES OPERATIONS COORDINATOR Work Phone: [facility] 01-14-2024 13:36-0400 Respiratory rate 21 /min Nirali Carey MUCKING MACHINE OPERATOR.SALES OPERATIONS COORDINATOR Work Phone: [facility] 01-14-2024 13:36-0400 SaO2% (BldA) [Mass fraction] 98 % Nirali Carey MUCKING MACHINE OPERATOR.SALES OPERATIONS COORDINATOR Work Phone: [facility] 01-14-2024 13:36-0400 Systolic blood pressure 120 mm[Hg] Nirali Carey MUCKING MACHINE OPERATOR.SALES OPERATIONS COORDINATOR Work Phone: [facility] 11-27-2023 12:55-0400 Diastolic blood pressure 80 mm[Hg] Carlene Oscar MUCKING MACHINE OPERATOR.SALES OPERATIONS COORDINATOR Work Phone: [facility] 11-27-2023 12:55-0400 Systolic blood pressure 130 mm[Hg] Carlene Oscar MUCKING MACHINE OPERATOR.SALES OPERATIONS COORDINATOR Work Phone: [facility] 11-27-2023 12:47-0400 Body weight 94.35 kg Carlene Oscar MUCKING MACHINE OPERATOR.SALES OPERATIONS COORDINATOR Work Phone: [facility] 11-27-2023 12:47-0400 Heart rate 77 /min Carlene Oscar MUCKING MACHINE OPERATOR.SALES OPERATIONS COORDINATOR Work Phone: [facility] 11-27-2023 12:47-0400 Respiratory rate 18 /min Carlene Oscar MUCKING MACHINE OPERATOR.SALES OPERATIONS COORDINATOR Work Phone: [facility] 11-27-2023 12:47-0400 SaO2% (BldA) [Mass fraction] 97 % Carlene Oscar MUCKING MACHINE OPERATOR.SALES OPERATIONS COORDINATOR Work Phone: [facility] 11-14-2023 11:48-0400 Body weight 95.71 kg Carlene Oscar MUCKING MACHINE OPERATOR.SALES OPERATIONS COORDINATOR Work Phone: [facility] 11-14-2023 11:48-0400 Diastolic blood pressure 106 mm[Hg] Carlene Oscar MUCKING MACHINE OPERATOR.SALES OPERATIONS COORDINATOR Work Phone: [facility] 11-14-2023 11:48-0400 Heart rate 66 /min Carlene Oscar MUCKING MACHINE OPERATOR.SALES OPERATIONS COORDINATOR Work Phone: [facility] 11-14-2023 11:48-0400 Respiratory rate 18 /min Carlene Oscar MUCKING MACHINE OPERATOR.SALES OPERATIONS COORDINATOR Work Phone: [facility] 11-14-2023 11:48-0400 SaO2% (BldA) [Mass fraction] 97 % Carlene Cleveland MUCKING MACHINE OPERATOR.SALES OPERATIONS COORDINATOR Work Phone: [facility] 11-14-2023 11:48-0400 Systolic blood pressure 188 mm[Hg] Carlene Cleveland APRN.SALES OPERATIONS COORDINATOR Work Phone: [facility] 10-17-2023 16:39-0500 Body temperature 98.4 [degF] Krislyn Aberegg PA Work Phone: [facility] 10-17-2023 16:39-0500 Body weight 96 kg Krislyn Aberegg PA Work Phone: [facility] 10-17-2023 16:39-0500 Diastolic blood pressure 93 mm[Hg] Krislyn Aberegg PA Work Phone: [facility] 10-17-2023 16:39-0500 Heart rate 72 /min Krislyn Aberegg PA Work Phone: [facility] 10-17-2023 16:39-0500 Respiratory rate 20 /min Krislyn Aberegg PA Work Phone: [facility] 10-17-2023 16:39-0500 SaO2% (BldA) [Mass fraction] 97 % Krislyn Aberegg PA Work Phone: [facility] 10-17-2023 16:39-0500 Systolic blood pressure 157 mm[Hg] Krislyn Aberegg PA Work Phone: [facility] 10-04-2023 21:39-0500 Body temperature 98 [degF] [facility] 10-04-2023 21:39-0500 Diastolic blood pressure 90 mm[Hg] [facility] 10-04-2023 21:39-0500 Heart rate 78 /min [facility] 10-04-2023 21:39-0500 Respiratory rate 18 /min [facility] 10-04-2023 21:39-0500 SaO2% (BldA) [Mass fraction] 97 % [facility] 10-04-2023 21:39-0500 Systolic blood pressure 162 mm[Hg] [facility] 10-04-2023 21:00-0500 Body height 165.1 cm [facility] 10-04-2023 21:00-0500 Body mass index (BMI) [Ratio] 35.3 kg/m2 [facility] 10-04-2023 21:00-0500 Body weight 96.36 kg [facility] 02-08-2023 15:21-0400 Body height 165.1 cm [facility] 02-08-2023 15:21-0400 Body mass index (BMI) [Ratio] 35.5 kg/m2 [facility] 02-08-2023 15:21-0400 Body temperature 97.2 [degF] [facility] 02-08-2023 15:21-0400 Body weight 96.88 kg [facility] 02-08-2023 15:21-0400 Diastolic blood pressure 90 mm[Hg] [facility] 02-08-2023 15:21-0400 Heart rate 91 /min [facility] 02-08-2023 15:21-0400 Respiratory rate 20 /min [facility] 02-08-2023 15:21-0400 SaO2% (BldA) [Mass fraction] 97 % [facility] 02-08-2023 15:21-0400 Systolic blood pressure 139 mm[Hg] [facility] 08-07-2022 13:49-0500 Diastolic blood pressure 81 mm[Hg] Carlene Older MUCKING MACHINE OPERATOR.SALES OPERATIONS COORDINATOR Work Phone: [facility] 08-07-2022 13:49-0500 Heart rate 62 /min Carlene Older MUCKING MACHINE OPERATOR.SALES OPERATIONS COORDINATOR Work Phone: [facility] 08-07-2022 13:49-0500 Systolic blood pressure 128 mm[Hg] Carlene Older MUCKING MACHINE OPERATOR.SALES OPERATIONS COORDINATOR Work Phone: [facility] 08-07-2022 13:19-0500 Body weight 92.53 kg Carlene Older MUCKING MACHINE OPERATOR.SALES OPERATIONS COORDINATOR Work Phone: [facility] 08-07-2022 13:19-0500 Respiratory rate 14 /min Carlene Older MUCKING MACHINE OPERATOR.SALES OPERATIONS COORDINATOR Work Phone: [facility] 04-15-2022 02:48-0400 Diastolic blood pressure 99 mm[Hg] [facility] Work Phone: 04-15-2022 02:48-0400 Heart rate 64 /min [facility] Work Phone: 04-15-2022 02:48-0400 Respiratory rate 18 /min [facility] Work Phone: 04-15-2022 02:48-0400 SaO2% (BldA) [Mass fraction] 99 % [facility] Work Phone: 04-15-2022 02:48-0400 Systolic blood pressure 145 mm[Hg] [facility] Work Phone: 04-14-2022 23:29-0400 Body height 165.1 cm [facility] Work Phone: 04-14-2022 23:29-0400 Body mass index (BMI) [Ratio] 33.3 kg/m2 [facility] Work Phone: 04-14-2022 23:29-0400 Body temperature 98 [degF] [facility] Work Phone: 04-14-2022 23:29-0400 Body weight 90.71 kg [facility] Work Phone: 02-06-2022 15:25-0400 Body weight 88.91 kg Carlene Older MUCKING MACHINE OPERATOR.SALES OPERATIONS COORDINATOR Work Phone: [facility] 02-06-2022 15:25-0400 Diastolic blood pressure 84 mm[Hg] Carlene Older MUCKING MACHINE OPERATOR.SALES OPERATIONS COORDINATOR Work Phone: [facility] 02-06-2022 15:25-0400 Heart rate 78 /min Carlene Older MUCKING MACHINE OPERATOR.SALES OPERATIONS COORDINATOR Work Phone: [facility] 02-06-2022 15:25-0400 Respiratory rate 14 /min Carlene Older MUCKING MACHINE OPERATOR.SALES OPERATIONS COORDINATOR Work Phone: [facility] 02-06-2022 15:25-0400 Systolic blood pressure 124 mm[Hg] Carlene Older MUCKING MACHINE OPERATOR.SALES OPERATIONS COORDINATOR Work Phone: [facility] 02-02-2022 20:23-0400 Respiratory rate 16 /min [facility] Work Phone: 02-02-2022 18:39-0400 Diastolic blood pressure 79 mm[Hg] [facility] Work Phone: 02-02-2022 18:39-0400 Heart rate 81 /min [facility] Work Phone: 02-02-2022 18:39-0400 SaO2% (BldA) [Mass fraction] 99 % [facility] Work Phone: 02-02-2022 18:39-0400 Systolic blood pressure 121 mm[Hg] [facility] Work Phone: 02-02-2022 16:05-0400 Body height 165.1 cm [facility] Work Phone: 02-02-2022 16:05-0400 Body mass index (BMI) [Ratio] 31.6 kg/m2 [facility] Work Phone: 02-02-2022 16:05-0400 Body temperature 98.2 [degF] [facility] Work Phone: 02-02-2022 16:05-0400 Body weight 86.18 kg [facility] Work Phone: 12-13-2021 17:18-0400 Body mass index (BMI) [Ratio] 33.3 kg/m2 [facility] Work Phone: 12-13-2021 17:18-0400 Body temperature 96.7 [degF] [facility] Work Phone: 12-13-2021 17:18-0400 Body weight 90.71 kg [facility] Work Phone: 12-13-2021 17:18-0400 Diastolic blood pressure 79 mm[Hg] [facility] Work Phone: 12-13-2021 17:18-0400 Heart rate 79 /min [facility] Work Phone: 12-13-2021 17:18-0400 Respiratory rate 16 /min [facility] Work Phone: 12-13-2021 17:18-0400 SaO2% (BldA) [Mass fraction] 98 % [facility] Work Phone: 12-13-2021 17:18-0400 Systolic blood pressure 120 mm[Hg] [facility] Work Phone: 11-21-2021 16:30-0400 Diastolic blood pressure 97 mm[Hg] Carlene Older MUCKING MACHINE OPERATOR.SALES OPERATIONS COORDINATOR Work Phone: [facility] 11-21-2021 16:30-0400 Systolic blood pressure 174 mm[Hg] Carlene Older MUCKING MACHINE OPERATOR.SALES OPERATIONS COORDINATOR Work Phone: [facility] 11-21-2021 16:03-0400 Body weight 90.72 kg Carlene Older MUCKING MACHINE OPERATOR.SALES OPERATIONS COORDINATOR Work Phone: [facility] 11-21-2021 16:03-0400 Heart rate 77 /min Carlene Older MUCKING MACHINE OPERATOR.SALES OPERATIONS COORDINATOR Work Phone: [facility] 11-21-2021 16:03-0400 Respiratory rate 18 /min Carlene Older MUCKING MACHINE OPERATOR.SALES OPERATIONS COORDINATOR Work Phone: [facility] 11-21-2021 16:03-0400 SaO2% (BldA) [Mass fraction] 97 % Carlene Older MUCKING MACHINE OPERATOR.SALES OPERATIONS COORDINATOR Work Phone: [facility] Encounters Encounter Date Encounter Type Care Provider Facility Start: 02-25-2025 End: 02-26-2025 Emergency department patient visit No Primary Care Physician -Emergency Department Work Phone: Start: 10-29-2024 End: 10-29-2024 Patient encounter procedure Flaco YADAV -[facility] Work Phone: Start: 10-29-2024 End: 10-29-2024 ambulatory No Primary Care Physician Facility:[facility] [place] Start: 10-21-2024 End: 10-21-2024 ambulatory Pallavi Olivera LPN [facility] Start: 10-15-2024 Encounter for genera l adult medical examination without abnormal findings Flaco YADAV [facility] Start: 10-15-2024 Patient encounter status No Pr imsan marino Care Physician [facility] Start: 10-15-2024 End: 10-15-2024 ambulatory No Primary Care Physician Facility:[facility] [place] Start: 10-11-2024 End: 10-11-2024 ambulatory Laura Gatito Facility:[facility] [place] Start: 09-30-2024 End: 09-30-2024 Telephone encounter Niru Muniz MD Work Phone: [facility] Comment on above: Appointment Start: 09-28-2024 End: 09-28-2024 Telephone encounter Rani Murray MD Work Phone: [facility] Comment on above: Appointment Start: 09-27-2024 End: 09-27-2024 ambulatory Laura Gatito Facility:[facility] [place] Start: 08-24-2024 End: 08-24-2024 ambulatory Pallavi Olivera LPN [facility] Start: 08-16-2024 End: 08-16-2024 Emergency department patient visit Chito Tanner Facility:[facility] Start: 05-25-2024 End: 05-25-2024 Telephone encounter Carlene Cleveland APRN.SALES OPERATIONS COORDINATOR Work Phone: [facility] Start: 05-25-2024 End: 05-25-2024 Subsequent hospital visit by physician Ana [facility] Work Phone: Radiology Comment on above: Acute cough [R05.1] Start: 05-25-2024 End: 05-25-2024 ambulatory CARLENE HERRMANN Facility:[facility] Start: 05-25-2024 End: 05-25-2024 Patient encounter procedure Carlene Cleveland APRN.SALES OPERATIONS COORDINATOR Work Phone: [facility] Comment on above: Acute cough (Primary Dx); Hydrocele in adult Start: 05-24-2024 End: 05-24-2024 ambulatory Curtis Mcdonald MD Work Phone: [facility] Comment on above: Cough Start: 05-20-2024 End: 05-20-2024 Telephone encounter Barney Howell APRN.CNP Work Phone: [facility] Comment on above: Results Start: 05-20-2024 End: 05-20-2024 ambulatory CURTIS MCDONALD Facility:[facility] Start: 05-20-2024 End: 05-20-2024 Subsequent hospital visit by physician [facility] Work Phone: Radiology Comment on above: Scrotal swelling [N5 0.89] Start: 05-19-2024 End: 05-19-2024 ambulatory CURTIS MCDONALD Facility:[facility] Start: 05-19-2024 End: 05-19-2024 Office outpatient visit 15 minutes Rojas Steve APRN.CNP Work Phone: [facility] Comment on above: Scrotal swelling (Pr imary Dx); Lower respiratory tract infection Start: 04-30-2024 End: 04-30-2024 Telephone encounter Nesha Baker APRN.CNP Work Phone: [facility] Comment on above: Results Start: 04-26-2024 End: 04-26-2024 ambulatory CURTIS MCDONALD Facility:[facility] Start: 04-26-2024 End: 04-26-2024 Patient encounter procedure Nesha Baker APRN.CNP Work Phone: [facility] Comment on above: Primary hypertension (Primary Dx); Generalized anxiety disorder; Depressive disorder; Other fatigue; IFG (impaired fasting glucose); Vitamin D deficiency; Encounter for therapeutic drug monitoring; Headache due to hypertension Start: 04-17-2024 End: 04-17-2024 Emergency department patient visit Curtis Mcdonald Facility:[facility] Start: 02-04-2024 End: 02-04-2024 ambulatory DYLAN MORROW Facility:[facility] Start: 02-04-2024 End: 02-04-2024 Patient encounter procedure Dylan Cristhian DO Work Phone: [facility] Comment on above: Trigger ring finger of left hand (Primary Dx); Finger pain, left Start: 01-14-2024 End: 01-14-2024 Subsequent hospital visit by physician Ana [facility] Srinivas Work Phone: Radiology Comment on above: Finger pain, left [M 79.645] Start: 01-14-2024 End: 01-14-2024 ambulatory ILIR HARRY Facility:[facility] Start: 01-14-2024 End: 01-14-2024 Patient encounter procedure Nirali Carey APRN.SALES OPERATIONS COORDINATOR Work Phone: [facility] Comment on above: Finger pain, left (P rimary Dx) Start: 11-27-2023 End: 11-27-2023 ambulatory CARLENE OLDER Facility:[facility] Start: 11-27-2023 End: 11-27-2023 Patient encounter procedure Carlene Cleveland APRN.SALES OPERATIONS COORDINATOR Work Phone: [facility] Comment on above: Primary hypertension (Primary Dx); Chronic bilateral low back pain without sciatica Start: 11-14-2023 End: 11-14-2023 ambulatory CARLENE OLDER Facility:[facility] Start: 11-14-2023 End: 11-14-2023 Patient encounter procedure Carlene Cleveland APRN.SALES OPERATIONS COORDINATOR Work Phone: [facility] Comment on above: Primary hypertension (Primary Dx); Generalized anxiety disorder; Dyslipidemia; MK on CPAP; Depressive disorder Start: 10-18-2023 Telephone encounter Cj Kaiser MD Work Phone: [facility] Comment on above: Results Start: 10-17-2023 End: 10-17-2023 Patient encounter procedure Clinton YADAV Work Phone: [facility] Comment on above: URI, acute (Primary Dx) Start: 10-04-2023 End: 10-04-2023 Emergency department patient visit [facility] Work Phone: Start: 02-08-2023 End: 02-08-2023 [facility] Start: 08-07-2022 End: 08-07-2022 Patient encounter procedure Carlene Older MUCKING MACHINE OPERATOR.SALES OPERATIONS COORDINATOR Work Phone: [facility] Comment on above: Primary hypertension (Primary Dx); Generalized anxiety disorder; MK on CPAP; Depressive disorder; Thrombocytopenia, secondary; Colon cancer screening Start: 05-07-2022 Telephone encounter Curtis cassidy MD Work Phone: [facility] Comment on above: Results Start: 04-30-2022 Telephone encounter Nurse Card Admin [facility] Work Phone: Cardiology Comment on above: Appointment (Stress Test instructions) Start: 04-14-2022 End: 04-15-2022 [facility] Start: 02-12-2022 Telephone encounter Curtis cassidy MD Work Phone: [facility] Comment on above: Results Start: 02-06-2022 End: 02-06-2022 Patient encounter procedure Carlene Older MUCKING MACHINE OPERATOR.SALES OPERATIONS COORDINATOR Work Phone: [facility] Comment on above: Chest pain, unspecif ied type (Primary Dx); Orthostatic lightheadedness; Primary hypertension; Dyslipidemia; Urinary frequency Start: 02-02-2022 End: 02-02-2022 [facility] Start: 12-13-2021 End: 12-13-2021 [facility] Start: 12-05-2021 Telephone encounter Curtis cassidy MD Work Phone: [facility] Comment on above: Blood Pressure Check Start: 11-27-2021 Telephone encounter Curtis cassidy MD Work Phone: [facility] Comment on above: Results Start: 11-21-2021 End: 11-21-2021 Patient encounter procedure Carlene Older MUCKING MACHINE OPERATOR.SALES OPERATIONS COORDINATOR Work Phone: [facility] [place] Comment on above: Essential hypertensi on (Primary Dx); Generalized anxiety disorder; Depressive disorder; MK on CPAP; Thrombocytopenia, secondary; Obesity, Class I, BMI 30-34.9 Start: 11-06-2021 ambulatory Curtis edge MD Work Phone: [facility] [place] Procedures Date Procedure Procedure Detail Performing Clinician Start: 02-25-2025 Plain x-ray of hand No Primary Care Physician Start: 05-25-2024 Radiologic exam ches t 2 views Carlene Cleveland MUCKING MACHINE OPERATOR.SALES OPERATIONS COORDINATOR Work Phone: Start: 05-20-2024 Dup-scan artl cholo abdl/pel/scrot&/rpr orgn com Rojas Steve MUCKING MACHINE OPERATOR.SALES OPERATIONS COORDINATOR Work Phone: Start: 05-20-2024 Us scrotum & contents J demetria Steve MUCKING MACHINE OPERATOR.SALES OPERATIONS COORDINATOR Work Phone: Start: 02-04-2024 Injection 1 tendon sheath/ligament aponeurosis Dylan Morrow DO Work Phone: Start: 01-14-2024 Radex fingr minimum 2 views Nirali Carey MUCKING MACHINE OPERATOR.SALES OPERATIONS COORDINATOR Work Phone: Start: 02-08-2023 X-ray of lumbar spin e, two or three views Start: 02-05-2023 Lipid 1996 panel - S sylvie or Plasma Clinton YADAV Work Phone: Start: 04-15-2022 X-ray of both feet Start: 12-13-2021 Plain x-ray of hand Viral antigen assay Plan of Treatment Date Care Activity Detail Author Start: 02-06-2028 Lipid panel Lipid Screening [facility] Start: 04-26-2027 Diabetes Screening Diabetes Screenin [facility] Start: 11-21-2026 LIPID SCREEN LIPID SCREEN [facility] Start: 02-05-2026 Diabetes Screening Diabetes Screenin g [facility] Start: 09-28-2025 LIPID SCREEN LIPID SCREEN [facility] Start: 05-25-2025 Annual PCP Team Manager Shipping tita Disease Visit Annual PCP Team Chronic Disease Visit [facility] Start: 04-26-2025 Annual PCP Team Manager Shipping tita Disease Visit Annual PCP Team Chronic Disease Visit [facility] Start: 04-26-2025 Creatinine measurement Serum Creatin ine [facility] Start: 02-26-2025 [facility] Start: 02-06-2025 DIABETES SCREEN DIABETES SCREEN [facility] Start: 11-26-2024 Annual PCP Team Manager Shipping tita Disease Visit Annual PCP Team Chronic Disease Visit [facility] Start: 11-21-2024 DIABETES SCREEN DIABETES SCREEN [facility] Start: 11-13-2024 Annual PCP Team Manager Shipping tita Disease Visit Annual PCP Team Chronic Disease Visit [facility] Start: 06-02-2024 End: 06-02-2024 Patient encounter procedure 06/02/2024 1:40 PM EDT Office Visit [facility] [place] [address] [place] [address] Curtis Mcdonald MD [address] [facility] [place] [id number] 6 month follow up - annual physical [facility] [place] Comment on above: 6 month follow up - annual physical Start: 05-27-2024 End: 05-27-2024 Patient encounter procedure 05/27/2024 8:20 AM EDT Office Visit [facility] [place] [address] [place] [address] Curtis Mcdonald MD [address] [facility] [place] [id number] extra fluid in scrotum follow up [facility] [place] Comment on above: extra fluid in scrot um follow up Start: 05-25-2024 End: 05-25-2024 Patient encounter procedure 05/25/2024 11:40 AM EDT Office Visit [facility] [place] [address] [place] [address] Carlene Cleveland, MUCKING MACHINE OPERATOR.SALES OPERATIONS COORDINATOR [address] [facility] [place] [id number] Cough. Triage completed 05/24 [facility] [place] Comment on above: Cough. Triage comple tiffanie 05/24 Start: 05-20-2024 End: 05-20-2024 Patient encounter procedure 05/20/2024 11:30 AM EDT Appointment Radiology [address] [place] [address] scrotum content Radiology Comment on above: scrotum content Start: 04-26-2024 End: 07-26-2024 25-hydroxyvitamin D3 [Mass/volume] in Serum or Plasma [facility] Comment on above: Expected: 04/26/2024 , Expires: 07/26/2024 Start: 04-26-2024 End: 07-26-2024 CBC W Auto Differential panel - Blood [facility] Comment on above: Expected: 04/26/2024 , Expires: 07/26/2024 Start: 04-26-2024 End: 07-26-2024 Cobalamin (Vitamin B12) [Mass/volume] in Serum or Plasma [facility] Comment on above: Expected: 04/26/2024 , Expires: 07/26/2024 Start: 04-26-2024 End: 07-26-2024 Comprehensive metabolic 2000 panel - Serum or Plasma [facility] Comment on above: Expected: 04/26/2024 , Expires: 07/26/2024 Start: 04-26-2024 End: 07-26-2024 Hemoglobin A1c in Blood [facility] Comment on above: Expected: 04/26/2024 , Expires: 07/26/2024 Start: 04-26-2024 End: 07-26-2024 Iron and Iron binding capacity panel - Serum or Plasma [facility] Work Phone: Comment on above: Expected: 04/26/2024 , Expires: 07/26/2024 Start: 04-26-2024 End: 07-26-2024 Magnesium [Mass/volume] in Serum or Plasma [facility] Comment on above: Expected: 04/26/2024 , Expires: 07/26/2024 Start: 04-26-2024 End: 07-26-2024 Thyrotropin [Units/volume] in Serum or Plasma [facility] Comment on above: Expected: 04/26/2024 , Expires: 07/26/2024 Start: 04-11-2024 Influenza vaccination [facility] Start: 02-06-2024 Annual PCP Team Manager Shipping tita Disease Visit Annual PCP Team Chronic Disease Visit [facility] Start: 02-06-2024 Creatinine measurement Serum Creatin ine [facility] Start: 02-06-2024 Hepatitis B surface antibody level LDL Cholesterol [facility] Start: 02-06-2024 Screening for malign ant neoplasm of colon Colorectal Cancer Screening [facility] Comment on above: Postponed from 09/17 (Declined at this time) Start: 01-28-2024 End: 01-28-2024 Patient encounter procedure 01/28/2024 2:00 PM EDT Office Visit [facility] [place] [address] [place], [place] [id number] Dylan Morrow V, DO [address] [place], [place] [id number] Left hand ring finger pain [facility] [place] Comment on above: Left hand ring finge r pain Start: 10-04-2023 [facility] Start: 09-28-2023 DIABETES SCREEN DIABETES SCREEN [facility] Start: 08-07-2023 ANNUAL PCP TEAM ALIGNING INSPECTOR TITA DISEASE VISIT ANNUAL PCP TEAM CHRONIC DISEASE VISIT [facility] Start: 08-07-2023 HEPATITIS B (1 of 3 - 3-dose series) HEPATITIS B (1 of 3 - 3-dose series) [facility] Comment on above: Postponed from 09/17 (Declined at this time) Start: 08-07-2023 SHINGRIX VACCINE (1 of 2) SHINGRIX VACCINE (1 of 2) [facility] Comment on above: Postponed from 09/17 (Declined at this time) Start: 08-07-2023 Urine microalbumin profile DTAP,TDAP,TD (2 - Td or Tdap) [facility] Comment on above: Postponed from 02/07 (Declined at this time) Start: 04-11-2023 Covid-19 Vaccine ( season) Covid-19 Vaccine ( season) [facility] Start: 04-11-2023 Influenza vaccination Influenza Vacc ine (#1) [facility] Start: 02-07-2023 Influenza vaccination INFLUENZA (#1) [facility] Comment on above: Postponed from 04/11 (Declined at this time) Start: 02-06-2023 ANNUAL PCP TEAM ALIGNING INSPECTOR TITA DISEASE VISIT ANNUAL PCP TEAM CHRONIC DISEASE VISIT [facility] Start: 02-06-2023 COVID-19 VACCINE (#1) COVID-19 VACCI NE (#1) [facility] Comment on above: Postponed from 09/17 (Declined at this time) Postponed from 03/17 (Declined at this time) Start: 02-06-2023 SERUM CREATININE SERUM CREATININE [facility] Start: 12-05-2022 ANNUAL PCP TEAM ALIGNING INSPECTOR TITA DISEASE VISIT ANNUAL PCP TEAM CHRONIC DISEASE VISIT [facility] Start: 11-21-2022 ANNUAL PCP TEAM ALIGNING INSPECTOR TITA DISEASE VISIT ANNUAL PCP TEAM CHRONIC DISEASE VISIT [facility] Start: 11-21-2022 HEMOGLOBIN/HEMATOCRIT HEMOGLOBIN/HEM ATOCRIT [facility] Start: 11-21-2022 Hepatitis B surface antibody level LDL CHOLESTEROL [facility] Start: 11-21-2022 SERUM CREATININE SERUM CREATININE [facility] Start: 08-23-2022 BP CONTROLLED (<130/80) BP CONTROLLE D (<130/80) [facility] Start: 08-07-2022 End: 10-07-2022 CBC panel - Blood by Automated count CBC Lab Routine Primary hypertension Expected: 08/07/2022, Expires: 10/07/2022 [facility] Work Phone: Comment on above: Expected: 08/07/2022 , Expires: 10/07/2022 Start: 08-07-2022 End: 10-07-2022 Comprehensive metabolic 2000 panel - Serum or Plasma COMP METABOLIC PANEL Lab Routine Primary hypertension Expected: 08/07/2022, Expires: 10/07/2022 [facility] Work Phone: Comment on above: Expected: 08/07/2022 , Expires: 10/07/2022 Start: 05-21-2022 ANNUAL PCP TEAM ALIGNING INSPECTOR TITA DISEASE VISIT ANNUAL PCP TEAM CHRONIC DISEASE VISIT [facility] Start: 04-11-2022 Influenza vaccination [facility] Start: 01-27-2022 End: 03-29-2022 Basic metabolic 2000 panel - Serum or Plasma BASIC METABOLIC PNL Lab Routine Stage 3a chronic kidney disease (HCC) Expected: 01/27/2022, Expires: 03/29/2022 [facility] Work Phone: Comment on above: Expected: 01/27/2022 , Expires: 03/29/2022 Start: 11-06-2021 End: 01-06-2022 Basic metabolic 2000 panel - Serum or Plasma BASIC METABOLIC PNL Lab Routine Hypertension Expected: 11/06/2021, Expires: 01/06/2022 [facility] Work Phone: Comment on above: Expected: 11/06/2021 , Expires: 01/06/2022 Start: 11-06-2021 End: 01-06-2022 CBC panel - Blood by Automated count CBC Lab Routine Medication management Expected: 11/06/2021, Expires: 01/06/2022 [facility] Work Phone: Comment on above: Expected: 11/06/2021 , Expires: 01/06/2022 Start: 11-06-2021 End: 01-06-2022 Hemoglobin A1c/Hemoglobin.total in Blood HGB A1C Lab Routine Obesity, Class I, BMI 30-34.9 Expected: 11/06/2021, Expires: 01/06/2022 [facility] Work Phone: Comment on above: Expected: 11/06/2021 , Expires: 01/06/2022 Start: 11-06-2021 End: 01-06-2022 LIPID PANEL BASIC LIPID PANEL BASIC Lab Routine Coronary atherosclerosis Expected: 11/06/2021, Expires: 01/06/2022 [facility] Work Phone: Comment on above: Expected: 11/06/2021 , Expires: 01/06/2022 Start: 11-06-2021 End: 01-06-2022 SCHEDULE LAB TESTING SCHEDULE LAB TESTING Lab Routine Expected: 11/06/2021, Expires: 01/06/2022 [facility] Work Phone: Comment on above: Expected: 11/06/2021 , Expires: 01/06/2022 Start: 09-28-2021 Hepatitis B surface antibody level LDL CHOLESTEROL [facility] Start: 03-21-2021 BP CONTROLLED (<130/80) BP CONTROLLE D (<130/80) [facility] Start: 2020 Pneumococcal Vaccine : 50+ (1 of 1 - PCV) Pneumococcal Vaccine: 50+ (1 of 1 - PCV) [facility] Start: 2020 SHINGRIX VACCINE (1 of 2) SHINGRIX VACCINE (1 of 2) [facility] Start: 02-07-2019 Urine microalbumin profile [facility] Start: 2015 COLOGUARD (FIT-DNA) COLOGUARD (FIT-D NA) [facility] Start: 2015 Colonoscopy COLONOSCOPY [facility] Start: 2015 COLORECTAL CANCER SCREENING COLORECTAL CANCER SCREENING [facility] Start: [address] COLONOGRAPHY [facility] Start: 2015 FECAL OCCULT BLOOD FECAL OCCULT BLOO D [facility] Start: 2015 Screening for malign ant neoplasm of colon [facility] Start: 2015 SIGMOIDOSCOPY SIGMOIDOSCOPY [facility] Start: 1989 Hepatitis B Vaccine (1 of 3 - 19+ 3-dose series) Hepatitis B Vaccine (1 of 3 - 19+ 3-dose series) [facility] Start: 1975 COVID-19 VACCINE (1) COVID-19 VACCIN E (1) [facility] Start: 03-17-1971 Covid-19 Vaccine (#1) Covid-19 Vacci ne (#1) [facility] Start: 1970 HEPATITIS B (1 of 3 - 3-dose series) HEPATITIS B (1 of 3 - 3-dose series) [facility] Start: 1970 Hepatitis B Vaccine (1 of 3 - 3-dose series) Hepatitis B Vaccine (1 of 3 - 3-dose series) [facility] COLOGUARD COLOGUARD Lab Ro utine Colon cancer screening Ordered: 08/07/2022 [facility] Work Phone: Comment on above: Ordered: 08/07/2022 COVID & INFLUENZA A/ B & RSV NAAT, ROUTINE COVID & INFLUENZA A/B & RSV NAAT, ROUTINE Microbiology Routine URI, acute Ordered: 10/17/2023 [facility] Work Phone: Comment on above: Ordered: 10/17/2023 End: 07-29-2023 NM CARDIAC PERF STRESS/EXERCISE NM CARDIAC PERF STRESS/EXERCISE Radiology Routine Chest pain, unspecified type 1 Occurrences starting 02/06/2022 until 03/08/2023 [facility] Work Phone: Comment on above: 1 Occurrences starti ng 02/06/2022 until 03/08/2023 [facility] Work Phone: End: 06-18-2025 US.doppler Scrotum and testicle US SCROTUM AND CONTENTS Radiology STAT Scrotal swelling 1 Occurrences starting 05/19/2024 until 06/18/2025 [facility] Work Phone: Comment on above: 1 Occurrences starti ng 05/19/2024 until 06/18/2025 [facility] Immunizations Immunization Date Immunization Notes Care Provider Vj woods 05-27-2017 influenza virus vaccine, unspecified formulation Clinton YADAV Work Phone: [facility] 02-07-2009 tetanus toxoid, redu nola diphtheria toxoid, and acellular pertussis vaccine, adsorbed Curtis Mcdonald MD Work Phone: [facility] Work Phone: Payers Date Payer Category Payer Unknown [id number] 2024 Unknown [id number] 2024 Self-pay [id number] 2022 Unknown [id number] 2017 Medicaid [facility] [id number] 2017-Present [phone] [address] [place] [address] Medicaid [id number] 2017 Medicaid [id number] 2017 Unknown [id number] Unknown [id number] Unknown [id number] Unknown [id number] Unknown [id number] Unknown [id number] Unknown [id number] Unknown [id number] Unknown [id number] Social History Date Type Detail Facility Start: 09-04-2016 End: 02-25-2025 Tobacco smoking status NHIS Never smoked tobacco [facility] Start: 09-04-2016 End: 11-14-2023 Tobacco use and exposure User of smokeless tobacco [facility] History of tobacco use Chews Tobacco [facility] Start: 08-23-2021 End: 05-25-2024 Alcohol intake Current drinker of alcohol (finding) [facility] Start: 03-21-2020 History SDOH Alcohol Frequency 2 [facility] Start: 03-21-2020 History SDOH Alcohol Std Drinks 1 [facility] Start: 1970 Sex Assigned At Not on file [facility] Start: 02-02-2022 End: 10-04-2023 Tobacco smoking status NHIS Unknown if ever smoked [facility] Start: 08-26-2021 Rare [facility] Start: 08-26-2021 None [facility] Start: 12-24-2017 Spouse/ Significant Other [facility] Start: 08-26-2021 Chew [facility] Start: 1970 Sex Assigned At Male [facility] Start: 02-06-2022 History SDOH Alcohol Comment rarely [facility] Start: 01-27-2022 End: 02-06-2022 Exposure to SARS-CoV-2 (event) Not sure [facility] Start: 03-21-2020 End: 02-05-2023 History of Social function [facility]ita Work Phone: Start: 03-21-2020 End: 02-05-2023 Alcohol Use Disorder Identification Test - Consumption [AUDIT-C] [facility] Work Phone: How often to you hav e a drink containing alcohol? Monthly or less [facility] Work Phone: How many standard dr inks containing alcohol do you have on a typical day? 1 or 2 [facility] Work Phone: How often do you hav e 6 or more drinks on 1 occasion? Never [facility] Work Phone: Adult Depression Scr eening Assessment 2 [facility] Start: 11-14-2023 Tobacco Comment 1 can of chew every two weeks [facility] Medical Equipment Procedure Code Equipment Code Equipment Origin al Text Equipment Identifier Dates [id number] Implant - [id number] Start: 08-24-2013 Comment on above: Description: PARIETE X COMPOSITE VENTRAL PATCH 4.6CM Functional Status Date Assessment Result Facility 11-07-2016 Are you deaf, or do you have serious difficulty hearing No 11/07/2016 9:57 AM Curtis Barrientos MD No [facility] 11-07-2016 Are you blind, or do you have serious difficulty seeing, even when wearing glasses No 11/07/2016 9:57 AM Curtis Barrientos MD No [facility] 11-07-2016 Do you have serious difficulty walking or climbing stairs No 11/07/2016 9:57 AM Curtis Barrientos MD No [facility] 11-07-2016 Do you have difficul ty dressing or bathing No 11/07/2016 9:57 AM Curtis Barrientos MD No [facility] 11-07-2016 Because of a physica l, mental, or emotional condition, do you have difficulty doing errands alone such as visiting a physician's office or shopping No 11/07/2016 9:57 AM Curtis Barrientos MD No [facility] Mental Status Date Assessment Result Facility 02-02-2022 Cognitive function Level Of Cons ciousness Awake;Alert;Appropriate [facility] Work Phone: 11-07-2016 Because of a physica l, mental, or emotional condition, do you have serious difficulty concentrating, remembering, or making decisions Yes 11/07/2016 9:57 AM Curtis Barrientos MD Yes [facility] Clinical Notes 04-04-2017 to 02-26-2025 Note Date & Type Note Facility 02-26-2025 Discharge summary [facility] 02-25-2025 Radiology Diagnostic study note [facility] Imaging Services [address] [place], [place] [id number] Hand Min 3 Views MR#: [id number] Acct: [id number] Name: FELICIANO DAI Rep #: [id number] : 1970 M 54 From: Rosa Valverde MD PCP: Care Physician,No Primary Status: PRE ER Study:Hand Min 3 Views Date of Exam: Exam# [id number] Ordering Dr: Provider ,Ed P. PROCEDURE: HAND MIN 3 VIEWS 02/25/2025 REASON FOR EXAM: PAIN AND SWELLING TECHNIQUE: HAND MIN 3 VIEWS COMPARISON: 01/11/2024 FINDINGS: Dorsal soft tissue swelling at the metacarpal head level. No fracture or dislocation. RAD/Hand Min 3 Views IMPRESSION: Soft tissue injury. Reading Location: [facility] CC: ED PHYSICIAN PROVIDER; No Primary Care Physician ~ Steward/Stewardess Banquet: Signed [facility] 10-29-2024 Evaluation note Diagnosis Onset Date Resolution Benign essential HTN acute Acosta h 2024 12:21pm [facility] Work Phone: [phone]) 880-979403-13-2025 NoteHNO ID: [id number] Author: PALLAVI OLIVERA LPN Service: ? Author Type: LICENSED NURSE Type: Progress Notes Filed: 10/21/2024 12:06 Note Text: POPULATION HEALTH NAVIGATION OUTREACH Action/FYI: Spoke to Feliciano, d/t insurance change he has changed PCP, does not have name PCP changed in system Reason for Outreach Care Gap/HCC or Scheduling Wellness Visits Care Gaps due: Physical Annual Wellness Visit Follow-up Appointment Patient Contacted: Navigation Signature: Pallavi Olivera LPN October 21, 2024 12:01 [facility]03-13-2025 History of Present illness Narrative* Pallavi Olivera LPN - 10/21/2024 12:01 PM EDT POPULATION HEALTH NAVIGATION OUTREACH Action/FYI: Spoke to Feliciano, d/t insurance change he has changed PCP, does not have name PCP changed in system Reason for Outreach Care Gap/HCC or Scheduling Wellness Visits Care Gaps due: Physical Annual Wellness Visit Follow-up Appointment Patient Contacted: Navigation Signature: Pallavi Olivera LPN October 21, 2024 12:01 PM [facility] Telephone encounter Note * Telephone Encounter - Delmi Sandoval - 09/30/2024 9:28 AM EST Referral received. Attempt # 2 LVM for patient. No MyChart message sent to patient - MyChart not set up. [facility]02-20-2025 Miscellaneous Notes* Telephone Encounter - Delmi Sandoval - 09/30/2024 9:28 AM EST Referral received. Attempt # 2 LVM for patient. No MyChart message sent to patient - MyChart not set up. [facility] Telephone encounter Note * Telephone Encounter - Delmi Sandoval - 09/28/2024 9:54 AM EST Referral received. Attempt # 1 LVM for patient. No MyChart message sent to patient - MyChart message sent to patient.. [facility]02-18-2025 Miscellaneous Notes* Telephone Encounter - Delmi Sandoval - 09/28/2024 9:54 AM EST Referral received. Attempt # 1 LVM for patient. No MyChart message sent to patient - MyChart message sent to patient.. [facility] in [facility]-2025 NoteHNO ID: [id number] Author: PALLAVI OLIVERA LPN Service: ? Author [...] Pallavi Olivera LPN August 24, 2024 3:06 [facility]01-14-2025 History of Present illness Narrative* Pallavi Olivera LPN - 08/24/2024 3:06 PM EST POPULATION HEALTH NAVIGATION OUTREACH Action/FYI Spoke to [...] 24, 2024 3:06 PM [facility] Telephone encounter Note * Telephone Encounter - Fernando Lopez MA - 05/25/2024 1:19 PM EDT Patient notified, verbalized understanding. [facility]10-15-2024 Miscellaneous Notes* Telephone Encounter - Fernando Lopez MA - 05/25/2024 1:19 PM EDT Patient notified, verbalized understanding. * Telephone Encounter - Carlene Cleveland APRN.CNP - 05/25/2024 12:33 PM EDT Please let the patient know his chest x-ray was normal. Start treatment with prednisone and Tessalon Perles. Follow-up as scheduled with PCP on 06/02 Carlene Cleveland APRN.MICKY [facility] Telephone encounter Note * Telephone Encounter - Carlene Cleveland APRN.CNP - 05/25/2024 12:33 PM EDT Please let the patient know his chest x-ray was normal. Start treatment with prednisone and Tessalon Perles. Follow-up as scheduled with PCP on 06/02 Carlene Cleveland APRN.MICKY [facility]10-15-2024 History of Present illness Narrative* Junaid Whatley, RT(R) - 05/25/2024 12:20 PM EDT Radiology Service Progress Note PATIENT NAME: Feliciano Dai DATE OF SERVICE: May 25, 2024 TIME: 12:17 PM PATIENT IDENTITY VERIFICATION COMPLETED USING TWO (2) IDENTIFIERS: Name and Date of confirmedby patient verbally. FALL SCREENING: Has the patient had 2 falls in the last year or 1 fall with injury or currently using an Ambulatory Assistive Device (Walker, Cane, Wheelchair, Crutches, etc.)? No PATIENT GENDER DATA: Male PATIENT RELEVANT IMPLANT DATA REVIEWED: Not Applicable PATIENT PRESENTS WITH AN IMPLANTABLE OR ATTACHED MOLD CONSTRUCTION SUPERVISOR: No RADIOLOGY DEPARTMENT: General X-ray: Exam(s) Completed: Chest X-Ray PERIPHERAL IV DATA: Not applicable SIGNED BY: RT Jonathan(Suzan) May 25, 2024 12:17 PM documented in this encounterWestern [facility] Hospital10-15-2024 NoteHNO ID: [id number] Author: JUNAID WHATLEY RT(Suzan) Service: Radiology Author [...] PATIENT PRESENTS WITH AN IMPLANTABLE OR ATTACHED MOLD CONSTRUCTION SUPERVISOR: No RADIOLOGY DEPARTMENT: General X-ray: Exam(s) Completed: Chest X-Ray PERIPHERAL IV DATA: Not applicable SIGNED BY: RT Jonathan(R) May 25, 2024 12:17 [facility]10-15-2024 History of Present illness Narrative* Carlene Cleveland, MUCKING MACHINE OPERATOR.[facility] - 05/25/2024 11:40 AM EDT CC: Patient presents with: cough x 1 month HPI Feliciano Dai is a 53 year old male who presents today for above. Patient was seen in [facility] on 05/25 with three week history of [...] ESOPHAGOGASTRODUODENOSCOPY TRANSORAL DIAGNOSTIC 07/14/[address] Mcnair [facility] LAPAROSCOPY SURG CHOLECYSTECTOMY 08/24/13 LEFT HEART CATH,PERCUTANEOUS [...] hours as needed for pain. Take withfood. Aspirin 81 mg ORAL Tab Take 1 [...] tenderness or frontal sinus tenderness. Mouth/Throat: Lips: Elliott. Mouth: Mucous membranes are moist. Pharynx: Oropharynx [...] Patient agreeable to treatment plan. Carlene Cleveland APRN.SALES OPERATIONS COORDINATOR documented in this encounterWestern Reserve Hospital10-15-2024 NoteHNO ID: [id number] Author: CARLENE CLEVELAND APRN.MICKY Service: ? Author Type: Nurse Practitioner Type: Progress Notes Filed: 05/25/2024 12:16 Note Text: CC: Patient presents with: cough x 1 month HPI Feliciano Dai is a 53 year old male who presents today for above. Patient was seen in [facility] on 10/15 with three week history of cough. Treated [...] ESOPHAGOGASTRODUODENOSCOPY TRANSORAL DIAGNOSTIC 07/14/[address] Mcnair [facility] LAPAR[facility]COPY SURG CHOLECYSTECTOMY 08/24/13 LEFT HEART CATH,PERCUTANEOUS [...] Sinus: No maxillary sinus (more content not included)...[facility]10-14-2024 Telephone encounter Note* Telephone Encounter - Shellie Wilkinson RN - 05/24/2024 10:42 AM EDT Patient calls for on-going cough. Nurse triage completed. Protocol recommends see provider within 3days. Patient requests appointment tomorrow. Scheduled per request. [...] or exposure Protocols used: Cough - Acute Aruesnegrs-LVZED-MT [facility]10-14-2024 Miscellaneous Notes* Telephone Encounter - Shellie Wilkinson RN - 05/24/2024 10:42 AM EDT Patient calls for on-going cough. Nurse triage completed. Protocol recommends see provider within 3days. Patient requests appointment tomorrow. Scheduled per request. [...] or exposure Protocols used: Cough - Acute Gxsrurabgh-BYZNP-BN documented in this encounterWestern Reserve Hospital10-10-2024 Telephone encounter Note * Telephone Encounter - Silvia Rocha LPN - 05/20/2024 4:11 PM EDT Spoke with pt and information listed below given. Pt verbalizes understanding. Follow up apt made with pcp. Silvia Rocha LPN [facility]10-10-2024 Miscellaneous Notes* Telephone Encounter - Silvia Rocha LPN - 05/20/2024 4:11 PM EDT Spoke with pt and information listed below given. Pt verbalizes understanding. Follow up apt made with pcp. Silvia Rocha LPN * Telephone Encounter - Silvia Rocha LPN - 05/20/2024 4:06 PM EDT Left a message for pt to call the office and ask to speak to a nurse. Silvia Rocha LPN * Telephone Encounter - Silvia Rocha LPN - 05/20/2024 4:06 PM EDT ----- Message from Barney Howell APRN.SALES OPERATIONS COORDINATOR sent at 05/20/2024 1:49 PM EDT ----- Please inform patient that the ultrasound of the scrotum did not show any concerning issues other than extra fluid within the scrotum itself. This issue typically will resolve on its own however I would recommend follow-up with PCP for continued evaluation and monitoring. documented in this encounterCleveland [id number] Telephone encounter Note * Telephone Encounter - Silvia Rocha LPN - 05/20/2024 4:06 PM EDT Left a message for pt to call the office and ask to speak to a nurse. Silvia Rocha LPN [facility]10-10-2024 Telephone encounter Note* Telephone Encounter - Silvia Rocha LPN - 05/20/2024 4:06 PM EDT ----- Message from Barney Howell APRN.SALES OPERATIONS COORDINATOR sent at 05/20/2024 1:49 PM EDT ----- Please inform patient that the ultrasound of the scrotum did not show any concerning issues other than extra fluid within the scrotum itself. This issue typically will resolve on its own however I would recommend follow-up with PCP for continued evaluation and monitoring. [facility]10-09-2024 NoteHNO ID: [id number] Author: ROJAS STEVE APRN.MICKY Service: ? Author Type: Nurse Practitioner [...] ESOPHAGOGASTRODUODENOSCOPY TRANSORAL DIAGNOSTIC 07/14/[address] Mcnair [facility] SURG CHOLECYSTECTOMY 08/24/13 LEFT HEART CATH,PERCUTANEOUS [...] is not diaphoretic. HENT: (more content not included)...[facility]10-09-2024 History of Present illness Narrative* Rojas Steve APRN.SALES OPERATIONS COORDINATOR - 05/19/2024 4:08 PM EDT Subjective HPI Nontoxic-appearing male presents urgent care [...] ESOPHAGOGASTRODUODENOSCOPY TRANSORAL DIAGNOSTIC 07/14/[address] Mcnair [facility] SURG CHOLECYSTECTOMY 08/24/13 LEFT HEART CATH,PERCUTANEOUS [...] hours as needed for pain. Take withfood. Aspirin 81 mg ORAL Tab Take 1 [...] of care. This note was generated using DueDil software. It may contain errors in wording, punctuation, or spelling. Rojas Steve APRN.CNP documented in this encounterWestern Reserve Hospital09-20-2024 Telephone encounter Note * Telephone Encounter - Fernando Lopez MA - 04/30/2024 2:39 PM EDT Left message to call office. 04/30/2024 2:39 PM [facility]09-20-2024 Miscellaneous Notes* Telephone Encounter - Fernando Lopez MA - 04/30/2024 2:39 PM EDT Left message to call office. 04/30/2024 2:39 PM * Telephone Encounter - Nesha Baker APRN.CNP - 04/30/2024 1:35 PM EDT Please call and let patient know that labs are overall stable. Kidney function is better but still a little elevated and likely from the HCTZ that he takes. Please see if he feels any better since stopping the muscle relaxer. Thanks!! documented in this encounterWestern Reserve Hospital09-20-2024 Telephone encounter Note * Telephone Encounter - Nesha Baker APRN.CNP - 04/30/2024 1:35 PM EDT Please call and let patient know that labs are overall stable. Kidney function is better but still a little elevated and likely from the HCTZ that he takes. Please see if he feels any better since stopping the muscle relaxer. Thanks!! [facility]09-16-2024 Instructions* Patient Instructions* Nesha Baker APRN.CNP - 04/26/2024 2:43 PM EDT Stop the tizanidine because of tiredness. documented in this encounterWestern Reserve Hospital09-16-2024 NoteHNO ID: [id number] Author: NESHA BAKER APRN.MICKY Service: ? Author Type: Nurse Practitioner Type: Progress Notes Filed: 04/26/2024 15:04 Note Text: SUBJECTIVE Feliciano Dai is a 53 year old male here today for an ER follow up. Chief Complaint Patient presents with: ER F/U: [facility] 04/17/24 for hypertension Today he is complaining for increase fatigue and questions if one of his medication is causing the fatigue HPI Feliciano Dai is a 53 year old male. He is an established patient of Curtis Mcdonald MD. Here today for an ER follow up, in [facility] ER on 04/17 for hypertension. ER notes [...] Thought content normal. Cog (more content not included)...[facility]09-16-2024 History of Present illness Narrative* Nesha Baker APRN.SALES OPERATIONS COORDINATOR - 04/26/2024 2:37 PM EDT SUBJECTIVE Feliciano Dai is a 53 year old male here today for an ER follow up. Chief Complaint Patient presents with: ER F/U: [facility] 04/17/24 for hypertension Today he is complaining for increase fatigue and questions if one of his medication is causing the fatigue HPI Feliciano Dai is a 53 year old male. He is an established patient of Curtis Mcdonald MD. Heretoday for an ER follow up, in [facility] ER on 04/17 for hypertension. ER notes [...] hours as needed for pain. Take withfood. Aspirin 81 mg ORAL Tab Take 1 [...] use, stop Zanaflex. Ensure adequate hydration and adequatenutrition and adequate sleep. - IRON AND TIBC [...] encouraged better medication adherence, no red flags onneuro exam, check labs too to make sure [...] from today's visit and in agreement with treatmentplan. Questions answered. Agrees to call the office [...] as well as compliance with taking medications. Age- appropriate health preventative measures were discussed. Return if symptoms worsen or fail to improve, for Keep next scheduled appointment.. Nesha Baker APRN-MICKY documented in this encounterWestern Reserve Hospital06-26-2024 NoteHNO ID: [id number] Author: DYLAN MORROW, DO Service: ? 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 [facility]06-26-[facility] History of Present illness Narrative* Dylan Morrow V, DO - 02/04/2024 2:31 PM EDTAssociated Order(s): Additional Injections: L ring A1 Post-Procedure [...] symptoms started about 1 month ago. 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 Take withfood. Allergies, medications, past surgical history, family history [...] trigger finger Informed Consent Consent Obtained: Verbal [place] Protocol SIGN IN TIME OUT 02/04/2024 2:33 [...] DATE: February 04, 2024 TIME: 2:31 PM * Ashleigh Cosby MA - 02/04/2024 2:09 PM EDT AMB ROOMING INTAKE FLOWSHEET DATA Pain Pain Level: 5 Pain Location: Hand-Right Description: Other: See comment, Sharp (clicking) Duration Amount of Time: 1 Duration Units: Months Frequency: Intermittent Intervention/Comfort measure: Other: See comment (none) documented in this encounterWestern Reserve Hospital06-26-2024 NoteHNO ID: [id number] Author: ASHLEIGH COSBY MA Service: ? Author Type: Tugboat Engineer Type: Progress Notes Filed: 02/04/2024 14:36 Note Text: AMB ROOMING INTAKE FLOWSHEET DATA Pain Pain Level: 5 Pain Location: Hand-Right Description: Other: See comment, Sharp (clicking) Duration Amount of Time: 1 Duration Units: Months Frequency: Intermittent Intervention/Comfort measure: Other: See comment (none)[facility]06-[facility]-2024 NoteHNO ID: [id number] Author: NIRALI CAREY APRN.SALES OPERATIONS COORDINATOR Service: ? Author Type: Nurse Practitioner Type: [...] ESOPHAGOGASTRODUODENOSCOPY TRANSORAL DIAGNOSTIC 07/14/[address] Mcnair [facility]COPY SURG CHOLECYSTECTOMY 08/24/13 LEFT HEART CATH,PERCUTANEOUS [...] MD - CONSULT TO ORTHOPAEDICS Nirali Carey APRN.[facility]06-05-2024 History of Present illness Narrative* Nirali Carey APRN.SALES OPERATIONS COORDINATOR - 01/14/2024 2:25 PM EDT Images from the original note were not [...] ESOPHAGOGASTRODUODENOSCOPY TRANSORAL DIAGNOSTIC 07/14/[address] Mcnair [facility]COPY SURG CHOLECYSTECTOMY 08/24/13 LEFT HEART CATH,PERCUTANEOUS [...] hours as needed for pain. Take withfood. Aspirin 81 mg ORAL Tab Take 1 [...] resp. rate 21, weight 96.1 kg (211 lb13.8 oz), SpO2 98%. Physical Exam Constitutional: General: [...] MD - CONSULT TO ORTHOPAEDICS Nirali Carey APRN.SALES OPERATIONS COORDINATOR documented in this encounterWestern Reserve Hospital06-05-2024 History of Present illness Narrative* Ana Lilia Mcarthur RT(R) - 01/14/2024 1:50 PM EDT Radiology Service Progress Note PATIENT NAME: Feliciano Dai DATE OF SERVICE: January 14, 2024 TIME: 1:49 PM PATIENT IDENTITY VERIFICATION COMPLETED USING TWO (2) IDENTIFIERS: Name and Date of confirmedby patient verbally. FALL SCREENING: Has the patient had 2 falls in the last year or 1 fall with injury or currently using an Ambulatory Assistive Device (Walker, Cane, Wheelchair, Crutches, etc.)? No PATIENT GENDER DATA: Male PATIENT RELEVANT IMPLANT DATA REVIEWED: Yes PATIENT PRESENTS WITH AN IMPLANTABLE OR ATTACHED MOLD CONSTRUCTION SUPERVISOR: No RADIOLOGY DEPARTMENT: General X-ray: Exam(s) Completed: Upper Extremity X- Ray(s): Fingers/Thumb, left Ring PERIPHERAL IV DATA: Not applicable SIGNED BY: RT Kurt(R) January 14, 2024 1:49 PM documented in this encounterWestern Reserve Hospital06-05-2024 NoteHNO ID: [id number] Author: ANA LILIA MCARTHUR RT(R) Service: ? Author Type: Board Certified Music Therapist Type: Progress Notes Filed: 01/14/2024 13:59 Note [...] PATIENT PRESENTS WITH AN IMPLANTABLE OR ATTACHED MOLD CONSTRUCTION SUPERVISOR: No RADIOLOGY DEPARTMENT: General X-ray: Exam(s) Completed: Upper Extremity X-Ray(s): Fingers/Thumb, left Ring PERIPHERAL IV DATA: Not applicable SIGNED BY: RT Kurt(Suzan) January 14, 2024 1:49 [facility]04-18-2024 NoteHNO ID: [id number] Author: CARLENE CLEVELAND APRN.SALES OPERATIONS COORDINATOR Service: ? Author Type: Nurse Practitioner Type: [...] ESOPHAGOGASTRODUODENOSCOPY TRANSORAL DIAGNOSTIC 07/14/[address] Mcnair [facility] SURG CHOLECYSTECTOMY 08/24/13 LEFT HEART CATH,PERCUTANEOUS [...] monitoring, to bring r (more content not included)...[facility]-18[facility] History of Present illness Narrative* Carlene Cleveland, MUCKING MACHINE OPERATOR.SALES OPERATIONS COORDINATOR - 11/27/2023 12:49 PM EDT CC Patient presents with: 2 week follow [...] ESOPHAGOGASTRODUODENOSCOPY TRANSORAL DIAGNOSTIC 07/14/[address] Mcnair [facility] SURG CHOLECYSTECTOMY 08/24/13 LEFT HEART CATH,PERCUTANEOUS [...] hours as needed for pain. Take withfood. Aspirin 81 mg ORAL Tab Take 1 [...] Patient agreeable to treatment plan Carlene Cleveland APRN.SALES OPERATIONS COORDINATOR documented in this encounterWestern Reserve Hospital04-05-2024 NoteHNO ID: [id number] Author: CARLENE CLEVELAND APRN.SALES OPERATIONS COORDINATOR Service: ? Author Type: Nurse Practitioner Type: [...] ESOPHAGOGASTRODUODENOSCOPY TRANSORAL DIAGNOSTIC 07/14/[address] Mcnair [facility] SURG CHOLECYSTECTOMY 08/24/13 LEFT HEART CATH,PERCUTANEOUS [...] rales. Skin: General: Ski (more content not included)...[facility]-05-[facility] History of Present illness Narrative* Carlene Cleveland, MUCKING MACHINE OPERATOR.SALES OPERATIONS COORDINATOR - 11/14/2023 12:39 PM EDT CC: Patient presents with: Follow Up: Med [...] ESOPHAGOGASTRODUODENOSCOPY TRANSORAL DIAGNOSTIC 07/14/[address] Mcnair [facility] SURG CHOLECYSTECTOMY 08/24/13 LEFT HEART CATH,PERCUTANEOUS [...] hours as needed for pain. Take withfood. Aspirin 81 mg ORAL Tab Take 1 [...] Patient agreeable to treatment plan. Carlene Cleveland APRN.SALES OPERATIONS COORDINATOR documented in this encounterWestern Reserve Hospital03-10-2024 Miscellaneous Notes* Telephone Encounter - Hiwot Healy MA - 10/19/2023 1:32 PM EDT Patient given results and verbalized understanding of instructions given. Hiwot Healy MA * Telephone Encounter - Hiwot Healy MA - 10/18/2023 9:21 AM EST Left message for patient to return call. Hiwot Healy MA * Telephone Encounter - Hiwot Healy MA - 10/18/2023 9:20 AM EST ----- Message from Cj Marroquin MD sent at 10/18/2023 8:00 AM EST ----- Negative COVID, Influenza, and RSV. documented in this encounterWestern Reserve Hospital03-08-2024 History of Present illness Narrative* Clinton Fajardo PA - 10/17/2023 4:50 PM EST This note was created using Plazapoints (Cuponium)ter. Subjective Feliciano Dai is a 53 year old male. HPI 53-year-old male presents for cough, congestion, feeling feverish for the past 4 days. Patient states that he started getting sick about 4 days ago. His is sick with similar symptoms. Patient has had cough, body aches, nasal congestion. States he has felt hot and cold, but has not actuallytaken his temperature. No vomiting or diarrhea. States [...] ESOPHAGOGASTRODUODENOSCOPY TRANSORAL DIAGNOSTIC 07/14/[address] Mcnair [facility] SURG CHOLECYSTECTOMY 08/24/13 LEFT HEART CATH,PERCUTANEOUS [...] hours as needed for pain. Take withfood. Aspirin 81 mg ORAL Tab Take 1 [...] ER evaluation. VICENTA Lim documented in this encounterWestern Reserve Hospital07-01-2023 Discharge summary Author Shane Greene [facility] February 08, 2023 5:26pm Note Date/Time February 08, 2023 3:45p [facility] Medical Records Department [address] [place] [address] Emergency Department Summary 02/08/23 MR#: [id number] Acct: [id number] Name: FELICIANO DAI Rep #:[id number] : 1970 52 From: Shane Greene MD [...] but has not really taken pain away. [facility] Medical History Anxiety Benign [...] your Primary Care Provider. Call [facility] ([phone]) or report to the closest Emergency Room. Call 911 if necessary. 02/08/23 1726 <Electronically signed by Shane Greene MD> Cosigner Signature (if applicable): CC: Dr. Curtis Mcdonald MD ~ Signed [facility] Work Phone: [phone]) 738-649112-28-2022 History of Present illness Narrative* Carlene Older, MUCKING MACHINE OPERATOR.SALES OPERATIONS COORDINATOR - 08/07/2022 1:26 PM EST CC: Patient [...] ESOPHAGOGASTRODUODENOSCOPY TRANSORAL DIAGNOSTIC 07/14/[address] Mcnair [facility] SURG CHOLECYSTECTOMY 08/24/13 LEFT HEART CATH,PERCUTANEOUS [...] plan. Carlene Herrmann APRN.CNP documented in this encounterWestern Reserve Hospital09-27-2022 Miscellaneous Notes* Telephone Encounter - Pallavi [...] experiencing chest pain recommend following up with sap bw architect Carlene Herrmann APRN.SALES OPERATIONS COORDINATOR documented in this encounterWestern Reserve Hospital09-20-2022 Miscellaneous Notes* Telephone Encounter - Grace [...] floor at Radiology: [address]; [place] [address] * If you need to cancel or reschedule this test or have any questions regarding this test, please call [phone]. documented in this encounterWestern Reserve Hospital07-05-2022 Miscellaneous Notes* Telephone Encounter - Fernando [...] BMP in 3 weeks. documented in this encounterWestern Reserve Hospital06-29-2022 History of Present illness Narrative* Carlene Older, MUCKING MACHINE OPERATOR.SALES OPERATIONS COORDINATOR - 02/06/2022 3:27 PM EDT CC: Patient [...] ESOPHAGOGASTRODUODENOSCOPY TRANSORAL DIAGNOSTIC 07/14/[address] Mcnair [facility] SURG CHOLECYSTECTOMY 08/24/13 LEFT HEART CATH,PERCUTANEOUS [...] SCREENING Completed DATA REVIEWED: Outside chart from [facility] ER reviewed. ASSESSMENT/PLAN: 1. Chest pain, unspecified type - ICD9: 786.50, ICD10: R07.9 (primary diagnosis) Chest pain of unclear etiology, patient with significant risk factor(s) of family history of early coronary heart disease, Hypertension and Hyperlipidemia - EKG in ER 02/02, normal sinus rhythm further evaluation with: - NM CARDIAC PERF STRESS/EXERCISE - INSERT IV ([place]) - IV DISCONTINUE 2. Orthostatic lightheadedness - [...] plan. Carlene Herrmann APRN.CNP documented in this encounterWestern Reserve Hospital04-27-2022 Miscellaneous Notes* Telephone Encounter - Fernando [...] and up to date documented in this encounterWestern Reserve Hospital04-25-2022 Miscellaneous Notes* Telephone Encounter - Ángela [...] CHD estimated at 11.5%. documented in this encounterWestern Reserve Hospital04-25-2022 Evaluation note* Diagnosis Stage 3a chronic kidney disease (HCC)- Primary documented in this encounter [facility]04[facility]13[facility] History of Present illness Narrative* Carlene Older, MUCKING MACHINE OPERATOR.SALES OPERATIONS COORDINATOR - 11/21/2021 4:11 PM EDT CC: Patient [...] ESOPHAGOGASTRODUODENOSCOPY TRANSORAL DIAGNOSTIC 07/14/[address] Mcnair [facility] SURG CHOLECYSTECTOMY 08/24/13 LEFT HEART CATH,PERCUTANEOUS [...] suspiciousactivity was identified. 11/21/2021 by Carlene Herrmann APRN.SALES OPERATIONS COORDINATOR - ESCITALOPRAM 20 MG TABLET - BUPROPION [...] plan. Carlene Herrmann APRN.CNP documented in this encounterWestern Reserve Hospital08-25-2017 History of Past illness Narrative* Problem [...] of this encounter (statuses as of 11/09/2021) [facility] of Past illness Narrative* Problem [...] of this encounter (statuses as of 11/21/2021) [facility] History of Past illness Narrative* Problem [...] of this encounter (statuses as of 12/03/2021) [facility] History of Past illness Narrative* Problem [...] of this encounter (statuses as of 12/05/2021) [facility] History of Past illness Narrative* Problem [...] of this encounter (statuses as of 02/06/2022) [facility] of Past illness Narrative* Problem [...] of this encounter (statuses as of 02/12/2022) [facility] of Past illness Narrative* Problem [...] of this encounter (statuses as of 05/03/2022) [facility] of Past illness Narrative* Problem [...] of this encounter (statuses as of 05/07/2022) [facility] of [facility] illness Narrative* Problem [...] of this encounter (statuses as of 08/13/2022) [facility] of [facility] illness Narrative* Problem [...] of this encounter (statuses as of 10/17/2023) [facility] of [facility] illness Narrative* Problem [...] of this encounter (statuses as of 10/19/2023) [facility] of [facility] illness Narrative* Problem [...] of this encounter (statuses as of 11/28/2023) [facility] of Past illness Narrative* Problem [...] of this encounter (statuses as of 11/14/2023) [facility] HospitalDischar summary Author Jae [facility]Our [facility] Note Date/Time February 26, 2025 12:4 7am [facility] Medical Records Department [address] [place] [address] Emergency Department Summary 02/26/25 MR#: [id number] Acct: [id number] Name: FELICIANO DAI Rep #:[id number] : 1970 54 From: Jae patricio DO PCP: Dr. Laura Mederos MD Status:REG ER Location: ED HPI History of Present Illness HPI Narrative: Chief complaint and HPI: Left fourth finger pain. 54-year-old male with past medical history of neuropathy, HTN, migraines, CKD presents for evaluation of left fourth finger pain patient states for the past several months he has been having pain in his left fourth finger. States he was seen by orthopedics and received a steroid injection into the tendon. Patient states this improved his pain. Patient states that the finger pain returned and has been ongoing for months. He denies any fever, chills, numbness/tingling. States it feels betterwhen he wears a glove. Denies any significant injury. States that he feels like there is swelling with a decreased range of motion. He has not followed back up with orthopedics. Review of systems: See HPI Medications: As listed on the chart Allergies: As listed on the chart PFSH: Per chart Vital signs: As listed on the chart. Reviewed. Physical exam: Gen: A&O x3, NAD Head: Normocephalic, atraumatic Eyes: No sclera icterus, conjunctiva clear ENT: Moist mucous membranes CV: Regular rate Resp: Nonlabored respiration Musc: Full range of motion of the left hand including all the fingers and wrist,no swelling/erythema/ecchymosis/crepitus/warmth to fingers/hand/wrist, radial pulse +2, good capillary refill, sensation intact, finger nontender to palpation Skin: Warm, dry Neuro: Alert, oriented, grossly intact, sensation intact Psych: Cooperative, appropriate mood and affect Chief Complaint: Upper Extremity Injury [facility] Medical History Benign essential HTN CKD (chronic kidney disease) Depressed Anxiety Migraines GERD (gastroesophageal reflux disease) Panic disorder Home Medications ?Medication ?Instructions ?Recorded ?Last Taken ?Type clonazepam 0.5 mg tablet 0.5 mg PO BID PRN Anxiety 12/23/17 History ibuprofen 600 mg tablet 600 mg PO TID PRN PRN Pain # 14 tabs 05/19/18 Unknown Rx bupropion HCl 150 mg 24 hr tablet, 150 mg PO DAILY #30 tabs 09/27/24 Unknown Rx extended release doxazosin 1 mg tablet (Cardura) See Rx Instructions PO QHS #30 tabs 12/22/24 Unknown Rx amlodipine 10 mg tablet 10 mg PO DAILY #30 TABLETS 0 01/10/25 Unknown Rx atorvastatin 10 mg tablet 10 mg PO QHS #30 TABLETS 10/05 Unknown Rx escitalopram oxalate 20 mg tablet 20 mg PO DAILY #30 T ABLETS 01/10/25 Unknown Rx hydrochlorothiazide 25 mg tablet 25 mg PO DAILY #30 TA BLETS 01/10/25 Unknown Rx losartan 100 mg tablet 100 mg PO DAILY #30 TABLETS 01/10/25 Unknown Rx Allergy/AdvReac Type Severity Reaction Status Date / Time amoxicillin (Amoxicillin) Allergy Rash Verified 02/25/25 20:07 amitriptyline AdvReac Mental Verified 02/25/25 20:07 status change bupivacaine AdvReac Mental Verified 02/25/25 20:07 status change citalopram (From Celexa) AdvReac Other Verified 02/25/25 20:07 lisinopril AdvReac Mental Verified 02/25/25 20:07 status change metoprolol AdvReac Dizziness Verified 02/25/25 20:07 naproxen AdvReac Upset Verified 02/25/25 20:07 Stomach Family History Father Anxiety Arthritis CVA (cerebral vascular accident) Depression Hyperlipidemia Hypertension Mother Cancer unknown type Hypertension Migraine Surgical History S/P cholecystectomy History of left heart catheterization H/O hernia repair hx of spleen repair Social History household members: spouse current occupational status: unemployed Smoking Status: Never smoker Smokeless tobacco user: chewing tobacco alcohol intake: current alcohol intake frequency: holidays/special occasions only substance use type: does not use do you feel safe at home: Yes EXAM Physical Exam Const Vital Signs: 02/25/25 20:07 02/26/25 00:06 Temperature 96.6 F L Temperature Source Temporal Pulse Rate 67 68 Respiratory Rate 18 16 Blood Pressure 148/95 H Blood Pressure Mean 112 Pulse Ox 100 Oxygen Delivery Method Room Air MDM MDM MDM Narrative Medical decision making narrative: 54-year-old male with past medical history of neuropathy, HTN, migraines, CKD presents for evaluation of left fourth finger pain. Onset of symptoms several months. Had this previously in which he received a steroid injection to the tendon with improvement of pain. Denies any significant injury. States that hefeels like it is swollen with decreased range of motion however this is not seenon physical exam. See physical exam findings. Differential diagnosis includes but is not limited to finger sprain, tendinitis, osteoarthritis, suspect less likely fracture. Not consistent with cellulitis. Patient had an x-ray performed in triage per protocol given wait times. X-ray of the hand was personally viewed interpreted by me, ED physician. No fracture or dislocation. Radiology in agreement. At this point in time, no clear etiology for patient's pain. Recommend ibuprofen and Tylenol as needed. States the symptoms improve when wearing a glove. Continue this as needed for comfort. Will refer to Dr. Kelly who is our hand surgeon. Follow-up with PCP. Return precautions explained. He confirmed understanding of the plan. Patient stable to discharge home. Impression: 1. Chronic left fourth finger pain Radiography Diagnostic Testing: Clinical Impression(s) from Imaging Studies Hand X-Ray 02/25/25 21:42 IMPRESSION: Soft tissue injury. Reading Location: [place] [address] Discharge Plan Triage Chief Complaint: Upper Extremity Injury ED Provider: Jae Mendoza Dx/Rx/DC Orders Clinical Impression: Finger pain, left Instructions: ED Finger Sprain Prescriptions: No Action bupropion HCl 150 mg tablet extended release 24 hr 150 mg PO DAILY Qty: 30 1RF clonazepam 0.5 MG tablet 0.5 mg PO BID PRN (Reason: Anxiety) ibuprofen 600 MG tablet 600 mg PO TID PRN PRN (Reason: Pain) Qty: 14 0RF doxazosin [Cardura] 1 mg tablet See Rx Instructions PO QHS Qty: 30 0RF Rx Instructions: 0.5mg (1/2 tablet) orally at bedtime; atorvastatin 10 mg tablet 10 mg PO QHS Qty: 30 0RF escitalopram oxalate 20 mg tablet 20 mg PO DAILY Qty: 30 0RF losartan 100 mg tablet 100 mg PO DAILY Qty: 30 0RF hydrochlorothiazide 25 mg tablet 25 mg PO DAILY Qty: 30 0RF amlodipine 10 mg tablet 10 mg PO DAILY Qty: 30 0RF Primary Care Provider: Luara Mederos Referrals: Laura Mederos MD [Primary Care Provider] - 3-5 Days Mumtaz Kelly MD [Med Staff - Active Staff] - 3-5 Days Activity Restrictions/Additional Instructions: Follow-up with primary care physician and hand surgeon. Return back to the ED if symptoms change or worsen. Print Language: Indonesian Disposition Disposition: Home, Self Care What to do if you have Problems For any increased pain, shortness of breath, bleeding, nausea or vomiting, chestpain, or any unexpected problems, contact your Primary Care Provider. Call [facility] ([phone]) or report to the closest Emergency Room. Call 911 if necessary. 02/26/25 0047 <Electronically signed by Jae Mendoza DO> Cosigner Signature (if applicable): CC: Dr. Laura Mederos MD ~ Signed [facility] Work Phone: Evaluation note* Diagnosis Hypertension Unspecified essential hypertension Obesity, Class I, BMI 30-34.9 Obesity, unspecified Coronary atherosclerosis Coronary atherosclerosis of unspecified type of vessel, [place] or graft Medication management Encounter for long-term (current) use of other medications [facility] Diagnosis Essential hypertension- Primary Unspecified essential hypertension Generalized anxiety disorder Depressive disorder Depressive disorder, not elsewhere classified MK on CPAP Obstructive sleep apnea (adult) (pediatric) Thrombocytopenia, secondary Other secondary thrombocytopenia Obesity, Class I, BMI 30-34.9 Obesity, unspecified [facility] noteNo assessment information availableWSt. Mary's [facility] Work Phone: evaluation note* Diagnosis Chest pain, unspecified type- Primary Orthostatic lightheadedness Dizziness and giddiness Primary hypertension Unspecified essential hypertension Dyslipidemia Other and unspecified hyperlipidemia Urinary frequency [facility] Primary hypertension- Primary Unspecified essential hypertension Generalized anxiety disorder MK on CPAP Obstructive sleep apnea (adult) (pediatric) Depressive disorder Depressive disorder, not elsewhere classified Thrombocytopenia, secondary Other secondary thrombocytopenia Colon cancer screening Special screening for malignant neoplasms, colon [facility]* Diagnosis URI, acute- Primary Acute upper respiratory infections of unspecified site [facility]* Diagnosis Primary hypertension- Primary Unspecified essential hypertension Chronic bilateral low back pain without sciatica [facility]* Diagnosis Finger pain, left- Primary Pain in limb [facility]* Diagnosis Trigger ring finger of left hand- Primary Trigger finger (acquired) Finger pain, left Pain in limb [facility]* Diagnosis Essential hypertension- Primary Unspecified [...] due to hypertension [facility] Diagnosis Primary hypertension- Primary Unspecified essential hypertension Generalized anxiety disorder Dyslipidemia Other and unspecified hyperlipidemia MK on CPAP Obstructive sleep apnea (adult) (pediatric) Depressive disorder Depressive disorder, not elsewhere classified [facility]* Diagnosis Essential hypertension- Primary Unspecified essential [...] not elsewhere classified documented in this encounter [facility] note* Diagnosis Essential hypertension- Primary Unspecified essential [...] male genital organs documented in this encounter [facility] note* Diagnosis Essential hypertension- Primary Unspecified essential [...] adult Acute cough [facility]* Diagnosis Essential hypertension- Primary Unspecified [...] Acute [facility] Additional Instructions Take Tylenol or ibuprofen for pain and the prescribed prednisone. Follow-up with your PCP.[facility] Work Phone: Hospital Discharge instructionsAdditional Instructions Follow-up with primary care physician and hand surgeon. Return back to the ED if symptoms change or worsen.[facility] Work Phone: Reason for referral (narrative)* Diagnostic Procedure Only (Routine) - Pending Review Specialty Diagnoses / Procedures Referred By Maddie trejo Referred To Contact MOLECULAR & FUNCTIONAL IMAGING Diagnoses Chest pain, unspecified type Procedures NM CARDIAC PERF STRESS/EXERCISE MYOCARDIAL SPECT MULTIPLE STUDIES Carlene Herrmann APRN.CNP [address] [place] [address] Molecular & Functional Imaging [address] [place] [address] Referral ID Status Reason Start Date Expiration Date Visits Requested Visits Authorized [id number] Pending Review Auto-Generat ed Referral 02/06/2022 03/08/2023 1 1 [facility] for referral (narrative)* Diagnostic Procedure Only (Urgent) - New Request Specialty Diagnoses / Procedures Referred By Maddie trejo Referred To Contact US IMAGING Diagnoses Scrotal swelling Procedures US SCROTUM AND CONTENTS US SCROTUM & CONTENTS Rojas Steve APRN.SALES OPERATIONS COORDINATOR [address] [place] [address] [place] [address] Referral ID Status Reason Start Date Expiration Date Visits Requested Visits Authorized [id number] New Request Auto-Generat ed Referral 05/19/2024 06/18/2025 1 1 [facility] for referral (narrative)* Diagnostic Procedure Only (Urgent) - Closed Specialty Diagnoses / Procedures Referred By Maddie trejo Referred To Contact US IMAGING Diagnoses Scrotal swelling Procedures US SCROTUM AND CONTENTS US SCROTUM & CONTENTS Rojas Steve APRN.SALES OPERATIONS COORDINATOR [address] [place] [address] [place] [address] Referral ID Status Reason Start Date Expiration Date V isits Requested Visits Authorized [id number] Closed Auto-Generate d Referral 05/19/2024 06/18/2025 1 1 [facility] for referral (narrative)No reason for referral information availableWSt. Mary's Medical [facility] Work Phone: Reason for visit Narrative* Diagnostic Procedure Only (Routine) - Closed Specialty Diagnoses / Procedures Referred By Maddie t Referred To Contact XR IMAGING Diagnoses Finger pain, left Procedures XR DIGIT GENERAL 3V FRONTAL/LAT/OBL LEFT RADEX FINGR MINIMUM 2 VIEWS Nirali Carey MUCKING MACHINE OPERATOR.SALES OPERATIONS COORDINATOR [address] [place] [address] [place] [address] Referral ID Status Reason Start Date Expiration Date V isits Requested Visits Authorized [id number] Closed Auto-Generate d Referral 01/14/2024 02/12/2025 1 1 [facility] for visit Narrative* Diagnostic Procedure Only (Urgent) - Closed Specialty Diagnoses / Procedures Referred By Maddie t Referred To Contact US IMAGING Diagnoses Scrotal swelling Procedures US SCROTUM AND CONTENTS US SCROTUM & CONTENTS Rojas Steve, LILIANA.SALES OPERATIONS COORDINATOR [address] [place] [address] [place] [id number] Referral ID Status Reason Start Date Expiration Date V isits Requested Visits Authorized [id number] Closed Auto-Generate d Referral 05/19/2024 06/18/2025 1 1 [facility] Chief Complaint and Reason for Visit Chief Complaint RIGHT HAND PAIN DIZZINESS Chief Complaint DIZZINESS foot Chief Complaint back pain, headache Chief Complaint BACK PAIN Chief Complaint Admit Date 2 WK FU BP October 29, 2024 12: 21pm LEFT HAND SWELLING February 25, 2025 8:06 pm Reason for Visit Admit Date Benign essential HTN October 29, 2024 12 :21pm Family History No Family History Records Found [...] Family History?Hypertension Unknown December 24, 2017 12:08pm Relationship Condition Age at Onset Recorded Date/T ainsley father Anxiety Unknown Arthritis Unknown Cerebrovascular accident (CVA) Unknown Depression Unknown Hyperlipidemia Unknown Hypertension Unknown mother Malignant neoplasm Unknown Migraine headache Unknown Advance Directives No Advanced Directives Records Found Advance Directive Response Recorded Date/ Time Advance Directives No October 31 016 2:03am Living Will No February 02, 2022 4:37pm Power of Conditioner Tender No February 02 4:37pm Advance Directive Response Recorded Date/ Time Advance Directives No October 31 016 2:03am Living Will No April 14 11:36pm Power of Conditioner Tender No April 14, 2022 11:36pm Advance Directive Response Recorded Date/ Time Advance Directives No October 31 016 2:03am Living Will No February 08, 2023 4 :14pm Power of Conditioner Tender No February 08, 2023 4:14pm Advance Directive Response Recorded Date/ Time Advance Directives No October 31 016 1:03am Living Will No October 04 024 9:08pm Power of Conditioner Tender No October 04, 2023 9:08pm Advance Directive Response Recorded Date/ Time Do you have a Healthcare Power of Conditioner Tender? No February 25, 2025 11:16pm Advance Directives No October 31 016 2:03am Reason for Referral Specialty Diagnoses / Procedures Referred By Contac t Referred To Contact Orthopedics Diagnoses Finger pain, left Procedures CONSULT TO ORTHOPAEDICS OFFICE/OUTPATIENT [facility] MDM 60 MINUTES Nirali Carey APRN.SALES OPERATIONS COORDINATOR [address] [place] [address] Referral ID Status Reason Start Date Expiration Date Visits Requested Visits Authorized [id number] Authorized PCP Requested Referral 01/14/2024 01/13/2025 1 1 Specialty Diagnoses / Procedures Referred By Contac t Referred To Contact XR IMAGING Diagnoses Finger pain, left Procedures XR DIGIT GENERAL 3V FRONTAL/LAT/OBL LEFT RADEX FINGR MINIMUM 2 VIEWS Nirali Carey APRN.SALES OPERATIONS COORDINATOR [address] [place] [address] [place] [address] Referral ID Status Reason Start Date Expiration Date V isits Requested Visits Authorized [id number] Closed Auto-Generate d Referral 01/14/2024 02/12/2025 1 1 Summary Purpose Additional Source Comments Source Comments (unrecognize d section and content) In the event this informatio n is protected by the Federal Confidentiality of Alcohol and Drug Abuse Patient Records regulations: The Federal rules restrict any use of the information to criminally investigate or prosecute any alcohol or drug abuse patient.[facility] the event this information is protected by the Federal Confidentiality of Alcohol and Drug Abuse Patient Records regulations: The Federal rules restrict any use of the information to criminally investigate or prosecute any alcohol or drug abuse patient.[facility] HospitalIn the event this information is protected by the Federal Confidentiality of Alcohol and Drug Abuse Patient Records regulations: The Federal rules restrict any use of the information to criminally investigate or prosecute any alcohol or drug abuse patient.[facility] HospitalIn the event this information is protected by the Federal Confidentiality of Alcohol and Drug Abuse Patient Records regulations: The Federal rules restrict any use of the information to criminally investigate or prosecute any alcohol or drug abuse patient.[facility] HospitalIn the event this information is protected by the Federal Confidentiality of Alcohol and Drug Abuse Patient Records regulations: The Federal rules restrict any use of the information to criminally investigate or prosecute any alcohol or drug abuse patient.[facility] HospitalIn the event this information is protected by the Federal Confidentiality of Alcohol and Drug Abuse Patient Records regulations: The Federal rules restrict any use of the information to criminally investigate or prosecute any alcohol or drug abuse patient.[facility] HospitalIn the event this information is protected by the Federal Confidentiality of Alcohol and Drug Abuse Patient Records regulations: The Federal rules restrict any use of the information to criminally investigate or prosecute any alcohol or drug abuse patient.[facility] HospitalIn the event this information is protected by the Federal Confidentiality of Alcohol and Drug Abuse Patient Records regulations: The Federal rules restrict any use of the information to criminally investigate or prosecute any alcohol or drug abuse patient.[facility] HospitalIn the event this information is protected by the Federal Confidentiality of Alcohol and Drug Abuse Patient Records regulations: The Federal rules restrict any use of the information to criminally investigate or prosecute any alcohol or drug abuse patient.[facility] HospitalIn the event this information is protected by the Federal Confidentiality of Alcohol and Drug Abuse Patient Records regulations: The Federal rules restrict any use of the information to criminally investigate or prosecute any alcohol or drug abuse patient.[facility] HospitalIn the event this information is protected by the Federal Confidentiality of Alcohol and Drug Abuse Patient Records regulations: The Federal rules restrict any use of the information to criminally investigate or prosecute any alcohol or drug abuse patient.[facility] HospitalIn the event this information is protected by the Federal Confidentiality of Alcohol and Drug Abuse Patient Records regulations: The Federal rules restrict any use of the information to criminally investigate or prosecute any alcohol or drug abuse patient.[facility] HospitalIn the event this information is protected by the Federal Confidentiality of Alcohol and Drug Abuse Patient Records regulations: The Federal rules restrict any use of the information to criminally investigate or prosecute any alcohol or drug abuse patient.[facility] HospitalIn the event this information is protected by the Federal Confidentiality of Alcohol and Drug Abuse Patient Records regulations: The Federal rules restrict any use of the information to criminally investigate or prosecute any alcohol or drug abuse patient.[facility] HospitalIn the event this information is protected by the Federal Confidentiality of Alcohol and Drug Abuse Patient Records regulations: The Federal rules restrict any use of the information to criminally investigate or prosecute any alcohol or drug abuse patient.[facility]In the event this information is protected by the Federal Confidentiality of Alcohol and Drug Abuse Patient Records regulations: The Federal rules restrict any use of the information to criminally investigate or prosecute any alcohol or drug abuse patient.[facility] HospitalIn the event this information is protected by the Federal Confidentiality of Alcohol and Drug Abuse Patient Records regulations: The Federal rules restrict any use of the information to criminally investigate or prosecute any alcohol or drug abuse patient.[facility]In the event this information is protected by the Federal Confidentiality of Alcohol and Drug Abuse Patient Records regulations: The Federal rules restrict any use of the information to criminally investigate or prosecute any alcohol or drug abuse patient.[facility] HospitalIn the event this information is protected by the Federal Confidentiality of Alcohol and Drug Abuse Patient Records regulations: The Federal rules restrict any use of the information to criminally investigate or prosecute any alcohol or drug abuse patient.[facility] HospitalIn the event this information is protected by the Federal Confidentiality of Alcohol and Drug Abuse Patient Records regulations: The Federal rules restrict any use of the information to criminally investigate or prosecute any alcohol or drug abuse patient.[facility] HospitalIn the event this information is protected by the Federal Confidentiality of Alcohol and Drug Abuse Patient Records regulations: The Federal rules restrict any use of the information to criminally investigate or prosecute any alcohol or drug abuse patient.[facility] HospitalIn the event this information is protected by the Federal Confidentiality of Alcohol and Drug Abuse Patient Records regulations: The Federal rules restrict any use of the information to criminally investigate or prosecute any alcohol or drug abuse patient.[facility] HospitalIn the event this information is protected by the Federal Confidentiality of Alcohol and Drug Abuse Patient Records regulations: The Federal rules restrict any use of the information to criminally investigate or prosecute any alcohol or drug abuse patient.[facility] HospitalIn the event this information is protected by the Federal Confidentiality of Alcohol and Drug Abuse Patient Records regulations: The Federal rules restrict any use of the information to criminally investigate or prosecute any alcohol or drug abuse patient.[facility] HospitalIn the event this information is protected by the Federal Confidentiality of Alcohol and Drug Abuse Patient Records regulations: The Federal rules restrict any use of the information to criminally investigate or prosecute any alcohol or drug abuse patient.[facility] HospitalIn the event this information is protected by the Federal Confidentiality of Alcohol and Drug Abuse Patient Records regulations: The Federal rules restrict any use of the information to criminally investigate or prosecute any alcohol or drug abuse patient.[facility] HospitalIn the event this information is protected by the Federal Confidentiality of Alcohol and Drug Abuse Patient Records regulations: The Federal rules restrict any use of the information to criminally investigate or prosecute any alcohol or drug abuse patient.[facility] HospitalIn the event this information is protected by the Federal Confidentiality of Alcohol and Drug Abuse Patient Records regulations: The Federal rules restrict any use of the information to criminally investigate or prosecute any alcohol or drug abuse patient.[facility] HospitalIn the event this information is protected by the Federal Confidentiality of Alcohol and Drug Abuse Patient Records regulations: The Federal rules restrict any use of the information to criminally investigate or prosecute any alcohol or drug abuse patient.[facility] Care Teams (unrecognized sec tion and content) Compotype Operator Relationship Specialty Start Date End Date Curtis Mcdonald MD [address] [place] [address] PCP - General Internal Medicine 11/07/16 Compotype Operator Relationship Specialty Start Date End Date Curtis Mcdonald MD [facility] [place] [address] PCP - General Internal Medicine 11/07/16 Compotype Operator Relationship Specialty Start Date End Date Curtis Mcdonald MD [facility] [place] [address] PCP - General Internal Medicine 11/07/16 Compotype Operator Relationship Specialty Start Date End Date Curtis Mcdonald MD [facility] [place] [address] PCP - General Internal Medicine 11/07/16 Compotype Operator Relationship Specialty Start Date End Date Curtis Mcdonald MD [facility] [place] [address] PCP - General Internal Medicine 11/07/16 Compotype Operator Relationship Specialty Start Date End Date Curtis Mcdonald MD [facility] [place] [address] PCP - General Internal Medicine 11/07/16 Compotype Operator Relationship Specialty Start Date End Date Curtis Mcdonald MD [facility] [place] [address] PCP - General Internal Medicine 11/07/16 Team [...] Dr. Josse Winslow DO Emergency Provider Active Compotype Operator Relationship Specialty Start Date End Date Curtis Mcdonald MD [address] [place] [address] PCP - General Internal Medicine 11/07/16 Compotype Operator Relationship Specialty Start Date End Date Curtis Mcdonald MD [address] [place] [address] PCP - General Internal Medicine 11/07/16 Compotype Operator Relationship Specialty Start Date End Date Curtis Mcdonald MD [address] [place] [address] PCP - General Internal Medicine 11/07/16 Compotype Operator Relationship Specialty Start Date End Date Curtis Mcdonald MD [address] [place] [address] PCP - General Internal Medicine 11/07/16 Compotype Operator Relationship Specialty Start Date End Date Curtis Mcdonald MD [address] [place] [address] PCP - General Internal Medicine 11/07/16 Compotype Operator Relationship Specialty Start Date End Date Curtis Mcdonald MD [address] [place] [address] PCP - General Internal Medicine 11/07/16 Compotype Operator Relationship Specialty Start Date End Date Curtis Mcdonald MD [address] [place] [address] PCP - General Internal Medicine 11/07/16 Compotype Operator Relationship Specialty Start Date End Date Curtis Mcdonald MD [address] [place] [address] PCP - General Internal Medicine 11/07/16 Compotype Operator Relationship Specialty Start Date End Date Curtis Mcdonald MD [address] [place] [address] PCP - General Internal Medicine 11/07/16 Compotype Operator Relationship Specialty Start Date End Date Curtis Mcdonald MD [address] [place] [address] PCP - General Internal Medicine 11/07/16 Compotype Operator Relationship Specialty Start Date End Date Curtis Mcdonald MD [address] [place] [address] PCP - General Internal Medicine 11/07/16 Compotype Operator Relationship Specialty Start Date End Date Curtis Mcdonald MD [address] [place] [address] PCP - General Internal Medicine 11/07/16 Compotype Operator Relationship Specialty Start Date End Date Curtis Mcdonald MD [address] [place] [address] PCP - General Internal Medicine 11/07/16 Compotype Operator Relationship Specialty Start Date End Date Curtis Mcdonald MD [address] [facility] [place] [address] PCP - General Internal Medicine 11/07/16 Compotype Operator Relationship Specialty Start Date End Date Curtis Mcdonald MD [address] [place] [address] PCP - General Internal Medicine 11/07/16 Compotype Operator Relationship Specialty Start Date End Date Curtis Mcdonald MD [address] [place] [address] PCP - General Internal Medicine 11/07/16 Carlene Cleveland, MUCKING MACHINE OPERATOR.SALES OPERATIONS COORDINATOR [address] [place] [address] Digging Machine Operator Internal Medicine 07/19/24 Compotype Operator Relationship Specialty Start Date End Date Curtis Mcdonald MD [address] [place] [address] PCP - General Internal Medicine 11/07/16 Carlene Cleveland, MUCKING MACHINE OPERATOR.SALES OPERATIONS COORDINATOR [address] [place] [address] Digging Machine Operator Internal Medicine 07/19/24 Team Status: Active Member Role/Relationship Status Dates Dr. Laura Mederos MD Primary Care Provider Active Team Status: Inactive Member Role/Relationship Status Dates No Primary Care Physician Primary Care Provider Active Start: October 29, 2024 End: October 29, 2024 No Primary Care Physician Referring Provider Active Start: October 29, 2024 End: October 29, 2024 Flaco YADAV, PA Attending Provider Active St art: October 29, 2024 End: October 29, 2024 Team Status: Inactive Member Role/Relationship Status Dates Dr. Jae Mendoza DO Emergency Provider Activ e Start: February 25, 2025 End: February 26, 2025 Dr. Laura Mederos MD Primary Care Provider Active Start: February 25, 2025 End: February 26, 2025 Reason for Visit (unrecogniz ed section and [...] pain, left Procedures CONSULT TO ORTHOPAEDICS OFFICE/OUTPATIENT [facility] 60 MINUTES Nirali Carey APRN.SALES OPERATIONS COORDINATOR [address] [place] [address] Referral ID Status Reason Start Date Expiration Date V isits Requested Visits Authorized [id number] Closed PCP Requested Referral 01/14/2024 01/13/2025 1 1 Reason Comments ER F/U [facility] 04/17/24 for hyp ertension Today he is [...] section and content) DATE CREATED AUTHOR 10/02/2024 [facility] DATE CREATED AUTHOR AUTHOR'S ORGANIZ ATION 10/24/2024 [facility] DATE CREATED AUTHOR AUTHOR'S ORGANIZ ATION 03/03/2025 [facility] FOR RECORDS PERTAINING TO PATIENTS WHO [...] BE BASED ON THE PRIMARY CLINICAL RECORDS. [facility]. provides no warranty or guarantee of the accuracy or completeness of information in this document.
[2025-05-15 15:27] VITALS: BP 148/98; PULSE 78; RESP 16; TEMP 36.8; O2SAT 99
== END 2025-05-15 16:01 | disposition home or self-care (01) ==
PROVIDERS: Emergency Provider Emergency Medicine; PCP Internal Medicine; Visit Provider Emergency Medicine
DX: M79.89 Other specified soft tissue disorders (principal); G89.29 Other chronic pain; M79.642 Pain in left hand; N18.9 Chronic kidney disease, unspecified; I12.9 Hypertensive chronic kidney disease with stage 1 through stage 4 chronic kidney disease, or unspecified chronic kidney disease; Z90.49 Acquired absence of other specified parts of digestive tract
CPT/HCPCS: 99283